=== PATIENT | male | born 1950 | race Caucasian/White ===

== ENCOUNTER 2023-08-17 07:15 | Outpatient (OUT) | payer MEDICARE, SELFPAY ==
[2023-08-17 09:13] LABS: Basophils Percent Auto 0.7 % (0.2-2.0); Eosinophils Absolute Auto 0.2 10^3/uL (0.0-0.7); Eosinophils Percent Auto 2.7 % (0.9-7.0); Hematocrit 47.4 % (42.0-54.0); Hemoglobin 15.6 g/dL (14.0-18.0); Immature Granulocytes Abs Auto 0.01 10^3/uL (0.00-0.03); Immature Granulocytes Pct Auto 0.2 % (0.0-0.5); Lymphocytes Absolute Auto 0.7 10^3/uL (1.2-3.8); Lymphocytes Percent Auto 13.2 % (20.5-60.0); Mean Corpuscular HGB Conc 32.9 g/dL (29.9-35.2); Mean Corpuscular Hemoglobin 29.7 pg (25.9-34.0); Mean Corpuscular Volume 90.1 fL (80.0-94.0); Mean Platelet Volume 9.5 fL (9.5-13.5); Monocytes Absolute Auto 0.6 10^3/uL (0.3-0.8); Monocytes Percent Auto 10.1 % (1.7-12.0); Neutrophils Percent Auto 73.1 % (43.0-75.0); Platelet Count 215 10^3/uL (150-450); Red Blood Count 5.26 10^6/uL (4.70-6.10); Red Cell Distribution Width 12.3 % (11.0-15.0); White Blood Count 5.5 10^3/uL (4.0-11.0)
[2023-08-17 10:41] LABS: Alanine Aminotransferase 33 U/L (16-63); Alkaline Phosphatase 94 U/L (46-116); Anion Gap 13.1; Aspartate Amino Transferase 21 U/L (15-37); BUN Creatinine Ratio 26.6; Bilirubin Total 0.9 mg/dL (0.2-1.0); Calcium 9.8 mg/dL (8.5-10.1); Carbon Dioxide 29.7 mmol/L (21.0-32.0); Chloride 104 mmol/L (98-107); Chol HDL Ratio 5.6; Cholesterol 280 mg/dL (<=200); Estimated GFR (African America >60 (>=60); Estimated GFR (Non-African Ame >60 (>=60); Free T3 3.01 pg/mL (2.18-3.98); Globulin 4.1 g/dL; Glucose 85 mg/dL (74-106); HDL Cholesterol 50 mg/dL (40-60); Potassium 3.8 mmol/L (3.5-5.1); Sodium 143 mmol/L (136-145); Thyroid Stimulating Hormone 3.286 uIU/mL (0.358-3.740); Total Protein 8.1 g/dL (6.4-8.2); Triglycerides 112 mg/dL (<=150); VLDL CHOLESTEROL 22.4 mg/dL
[2023-08-17 14:44] LABS: Estimated Average Glucose 100 mg/dL; Glycohemoglobin A1C 5.1 % (4.5-6.2)
[2023-08-18 10:08] LABS: Insulin 4.3 uIU/mL (2.6-24.9)
== END 2023-08-17 07:16 | disposition home or self-care (01) ==
PROVIDERS: PCP Nurse Practitioner Family; Visit Provider Nurse Practitioner Family
DX: N20.0 Calculus of kidney (principal); Z85.46 Personal history of malignant neoplasm of prostate; E78.5 Hyperlipidemia, unspecified; D64.9 Anemia, unspecified; Z79.899 Other long term (current) drug therapy; R73.09 Other abnormal glucose; R53.83 Other fatigue
CPT/HCPCS: 36415; 74018; 80053; 80061; 83036; 83525; 84153; 84436; 84443; 84481; 85025

== ENCOUNTER 2023-08-17 08:52 | Outpatient (OUT) | payer MEDICARE, SELFPAY ==
--- NOTE | 2023-08-17 09:10 | XR_ITS ---
[facility] [id number] Patient Name: EVELYN CHESTER MRN: [id number] date: 1950 Sex: M Assigned Patient Location: LAB Current Patient Location: LAB Accession/Order Number: [id number] Exam Date: 08/17/2023 09:15 Report Date: 08/17/2023 09:37 At the request of: ALINE DIAZ Procedure: XR abdomen 1V EXAM: XR abdomen 1V HISTORY: Kidney Stone N20.0 COMPARISON: 07/29/2022 TECHNIQUE: AP view of the abdomen. FINDINGS: Nonobstructive bowel gas pattern is noted. There are bilateral punctate renal calculi. The osseous structures are intact. XR/XR abdomen 1V IMPRESSION: Nonobstructive bowel gas pattern. Stable bilateral nephrolithiasis. Electronically authenticated by: ANAMIKA EWING Date: 08/17/2023 09:37
[2023-08-17 10:00] LABS: Prostate Specific Antigen Dx <0.13 ng/mL (<=4.00)
== END 2023-08-17 08:53 | disposition home or self-care (01) ==
LOC: LAB 08:54
PROVIDERS: PCP Nurse Practitioner Family; Visit Provider Urology
DX: Z85.46 Personal history of malignant neoplasm of prostate (principal); N20.0 Calculus of kidney
CPT/HCPCS: 36415; 74018; 84153

== ENCOUNTER 2024-06-10 05:56 | Emergency (ER) | payer MEDICARE, SELFPAY ==
[2024-06-10 06:02] VITALS: BP 163/94; PULSE 63; TEMP 36.5; O2SAT 99; BMI 25.8
--- OUTSIDE RECORDS SUMMARY | 2024-06-10 06:03 | XMS_ITS | CCD ---
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 Name Role Phone REGINO MARIE Unavailable Unavailable Tristin Penaloza Unavailable Unavailable MARIE, REGINO Cerrato Unavailable Unavailable MARIE, REGINO Cerrato Unavailable Unavailable MEGHAN, JULIAN Unavailable Unavailable MEGHAN, JULIAN Unavailable Unavailable MEGHAN, JULIAN Unavailable Unavailable CA BERG I Unavailable Unavailable MARLYS AGRAWAL Unavailable Unavailable MURIEL TEMPLETON Unavailable Unavailable OKSANA MENA Unavailable Unavailable PHYSICIAN, DEFAULT Unavailable Unavailable PHYSICIAN, DEFAULT Unavailable Unavailable MONIKA BOWMAN AM Unavailable Unavailable MONIKA BOWMAN AM Unavailable Unavailable MARIEREGINO BECKER Unavailable Unavailable MARIE, REGINO Unavailable Unavailable ENGELERPenny NICHOLAS Unavailable Unavailable ENGELERPenny NICHOLAS Unavailable Unavailable ENGELER G NICHOLAS Unavailable Unavailable ENGELER, G NICHOLAS Unavailable Unavailable REGINO MARIE Primary Care Physician [phone] EMILY, DR MIRELES Admitting Unavailable EMILY, DR MIRELES Attending Unavailable MARIE, DR REGINO Cerrato Primary Care Unavailable EMILY, DR MIRELES Consulting Unavailable EMILY, DR MIRELES Admitting Unavailable EMILY, DR MIRELES Attending Unavailable GIOVANNI, DR REGINO Cerrato Primary Care Unavailable MARIE, DR REGINO Cerrato Referring Unavailable EMILY, DR MIRELES Consulting Unavailable EMILY, DR MIRELES Admitting Unavailable EMILY, DR MIRELES Attending Unavailable MARIE, DR REGINO Cerrato Primary Care Unavailable EMILY, DR MIRELES Consulting Unavailable BREANN, DR LUCINA Miller Consulting Unavailable AGUBOSIMJOSE JUAN Consulting Unavailable VIJAY TARANGO Consulting Unavailable GIOVANNI, DR REGINO Cerrato Admitting Unavailable GIOVANNI, DR REGINO Cerraot Attending Unavailable MARIE, DR REGINO Cerrato Primary Care Unavailable MARIE, DR REGINO Cerrato Consulting Unavailable EMILY, DR MIRELES Admitting Unavailable EMILY, DR MIRELES Attending Unavailable GIOVANNI, DR REGINO Cerrato Primary Care Unavailable EMILY, DR MIRELES Consulting Unavailable ANITA, DR BILL San Consulting Unavailable TARI AGUIRRE Primary Care Physician [phone] Aline TENA Attending Unavailable Aline TENA Attending Unavailable Aline TENA Attending Unavailable Allergies Allergy Classification Reported Allergen(s) Allergy Type Date of Onset Reaction(s) Facility (1 source) No Known Medication Allergies; Translations: [No Known Medication Allergies] Propensity to adverse reactions to drug (disorder) [facility] Repository (2 sources) No Known Allergies; Translations: [No Known Allergies] Propensity to adverse reactions (disorder) 8 [facility] Repository Medications Current Medications Medication Drug Class(es) Dates Sig (Normalized) Sig (Original) aspirin 81 mg delayed release oral tablet (2 sources) Platelet Aggregation Inhibitor, Nonsteroidal Anti-inflammatory Drug Start: 08-07-2021 take 1 tablet by mouth once daily aspirin 81 mg Oral EC Tab 81 mg = 1 tab(s), Oral, Daily, Refills(s) 0 Start Date: 08/07/21 Status: Ordered rosuvastatin calcium 10 mg oral tablet (2 sources) HMG-CoA Reductase Inhibitor Start: 08-07-2021 take 1 tablet by mouth once daily rosuvastatin 10 mg Tab 10 mg = 1 tab(s), Oral, Daily, Refills(s) 0 Start Date: 08/07/21 Status: Ordered Problems Active Problems Problem Classification Problem Date Documented Date Episodic/Chronic Acute cerebrovascular disease (2 sources) Cerebrovascular accident 06-14-2019 Chronic Calculus of urinary tract (9 sources) Kidney stone; Translations: [Calculus of kidney] Onset: 07-31-2022 Episodic Cancer of prostate (4 sources) Malignant neoplasm of prostate; Translations: [MALIGNANT NEOPLASM OF PROSTATE] Onset: 07-29-2022 Chronic Cancer of prostate (6 sources) Personal history of malignant neoplasm of prostate; Translations: [History of malignant neoplasm of prostate] Onset: 04-07-2018 Episodic Cardiac dysrhythmias (4 sources) Palpitations; Translations: [PALPITATIONS] Onset: 04-07-2018 Episodic Developmental disorders (2 sources) 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 Disorders of lipid metabolism (4 sources) Hyperlipidemia; Translations: [Pure hypercholesterolemia, unspecified] Onset: 09-29-2021 06-14-2019 Chronic Essential hypertension (1 source) Essential (primary) hypertension; Translations: [ESSENTIAL (PRIMARY) HYPERTENSION] Onset: 04-07-2018 Chronic Genitourinary symptoms and ill-defined conditions (9 sources) Microscopic hematuria; Translations: [Asymptomatic microscopic hematuria] Onset: 09-29-2021 Episodic Hyperplasia of prostate (4 sources) Benign prostatic hypertrophy with outflow obstruction; Translations: [Benign prostatic hyperplasia with lower urinary tract symptoms] Onset: 08-24-2022 Chronic Osteoarthritis (2 sources) Osteoarthritis 06-14-2019 Chronic Other aftercare (1 source) 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; Translations: [USP (CURRENT) USE OF ASPIRIN] Onset: 04-07-2018 Episodic Other diseases of kidney and ureters (1 source) Urinary tract obstruction; Translations: [Other obstructive and reflux uropathy] Onset: 08-20-2023 Episodic Other male genital disorders (2 sources) Hemospermia 06-14-2019 Episodic Other male genital disorders (4 sources) Disorder of prostate, unspecified; Translations: [DISORDER OF PROSTATE UNSPECIFIED] Onset: 07-29-2022 Episodic Other nervous system disorders (1 source) Aphasia; Translations: [Aphasia] Onset: 12-15-2017 Chronic Other nutritional; endocrine; and metabolic disorders (2 sources) Body mass index 25-29 - overweight 08-15-2021 Episodic Residual codes; unclassified (2 sources) Obstructive sleep apnea syndrome 08-07-2021 Chronic Residual codes; unclassified (1 source) Sleep apnea, unspecified; Translations: [SLEEP APNEA UNSPECIFIED] Onset: 09-29-2021 Chronic Residual codes; unclassified (2 sources) H/O: anticoagulant therapy 06-16-2019 Episodic Transient cerebral ischemia (3 sources) Transient cerebral ischemic attack, unspecified; Translations: [Transient cerebral ischemia] Onset: 12-15-2017 08-07-2021 Chronic Unclassified (3 sources) Unknown / UNK(Unknown) Onset: 12-07-2017 Unclassified (2 sources) Asymptomatic microscopic hematuria 08-24-2022 Unclassified (2 sources) Patient encounter status 08-15-2021 Unclassified (1 source) CONTACT W/AND (SUSP) EXPOS COVID-19; Translations: [CONTACT W/AND (SUSP) EXPOS COVID-19] Onset: 09-23-2021 Past or Other Problems Problem Classification Problem Date Documented Da te Episodic/Chronic Other aftercare (1 source) assisted (current) use of anticoagulants; Translations: [USP CURRNT USE ANTICOAGULANTS] Onset: 09-29-2021 Episodic Other circulatory disease (2 sources) Personal history of transient ischemic attack (TIA), and cerebral infarction without residual deficits; Translations: [PRSNL HX OF TIA (TIA), AND CEREB INFRC W/O RESID DEFICITS] Onset: 04-07-2018 Episodic Results Test Name Value Interpretation Reference Range Facility RAD - MISCon 09-03-2023 RAD - MISC [id number] [facility] Ambulatory Visit Summaryon 0 08-23-2023 Ambulatory Visit Summary JULIO FREEMAN :1950 Visit Date:08/23/2023 Ambulatory Visit Instructions Your Diagnosis Kidney stone Asymptomatic microscopic hematuria BPH with urinary obstruction Personal history of prostate cancer Other obstructive and reflux uropathy Tests Performed Urnls Dip Stick Auto w/o Microscopy POC 37143 XR Abdomen 1 View -- Results Pending -- Please visit your patient portal for your results or contact your primary care physician. Your Care Team Attending Physician - Aline TENA MD Primary Care Physician - TARI AGUIRRE CNP This Is Your Medications List Contact prescribing physician if questions or concerns aspirin (aspirin 81 mg Oral EC Tab) rosuvastatin (rosuvastatin 10 mg Tab) Procedures Performed ESWL of kidney (09/25/2021), Implantation of radioactive seed into prostate (04/16/2016), History of external beam radiation therapy (03/01/2016), Cystoscopy and transurethral resection of bladder tumor (12/12/2015), Transrectal biopsy of prostate using ultrasound (US) guidance (12/10/2015), Colonoscopy (10/24/2009). Discharge Vitals Heart Rate (Peripheral) 72 Respiratory Rate 16 Blood Pressure 131/81 Height 167 cm Height 66 in Weight 78.4 kg Weight 172.48 lb BMI 28.11 What to do next Scheduled Follow-Up Appointments Wednesday 8:45 AM EST With: Aline TENA MD Where: [facility] Emergency Department Patient Educationon 08-23-19 Patient Education Nephrology Dietary Guidelines to Help Prevent Kidney Stones Kidney stones are deposits of minerals and salts that form inside your kidneys. Your risk of developing kidney stones may be greater depending on your diet, your lifestyle, the medicines you take, and whether you have certain medical conditions. Most people can lower their risks of developing kidney stones by following these dietary guidelines. Your dietitian may give you more specific instructions depending on your overall health and the type of kidney stones you tend to develop. What are tips for following this plan? Reading food labels ? Choose foods with no salt added or low-salt labels. Limit your salt (sodium) intake to less than 1,500 mg a day. ? Choose foods with calcium for each meal and snack. Try to eat about 300 mg of calcium at each meal. Foods that contain 200?500 mg of calcium a serving include: ? 8 oz (237 mL) of milk, yvrgaui-nxuyzwanqibw-qpnfm milk, and calcium-fortifiedfruit juice. Calcium-fortified means that calcium has been added to these drinks. ? 8 oz (237 mL) of kefir, yogurt, and soy yogurt. ? 4 oz (114 g) of tofu. ? 1 oz (28 g) of cheese. ? 1 cup (150 g) of dried figs. ? 1 cup (91 g) of cooked broccoli. ? One 3 oz (85 g) can of sardines or mackerel. Most people need 1,000?1,500 mg of calcium a day. Talk to your dietitian about how much calcium is recommended for you. Shopping ? Buy plenty of fresh fruits and vegetables. Most people do not need to avoid fruits and vegetables, even if these foods contain nutrients that may contribute to kidney stones. ? When shopping for convenience foods, choose: ? Whole pieces of fruit. ? Pre-made salads with dressing on the side. ? Low-fat fruit and yogurt smoothies. ? Avoid buying frozen meals or prepared deli foods. These can be high in sodium. ? Look for foods with live cultures, such as yogurt and kefir. ? Choose high-fiber grains, such as whole-wheat breads, oat bran, and wheat cereals. Cooking ? Do not add salt to food when cooking. Place a salt shaker on the table and allow each person to add their own salt to taste. ? Use vegetable protein, such as beans, textured vegetable protein (TVP), or tofu, instead of meat in pasta, casseroles, and soups. Meal planning ? Eat less salt, if told by your dietitian. To do this: ? Avoid eating processed or pre-made food. ? Avoid eating fast food. ? Eat less animal protein, including cheese, meat, poultry, or fish, if told by your dietitian. To do this: ? Limit the number of times you have meat, poultry, fish, or cheese each week. Eat a diet free of meat at least 2 days a week. ? Eat only one serving each day of meat, poultry, fish, or seafood. ? When you prepare animal proteins, cut pieces into small portion sizes. For most meat and fish, one serving is about the size of the palm of your hand. ? Eat at least five servings of fresh fruits and vegetables each day. To do this: ? Keep fruits and vegetables on hand for snacks. ? Eat one piece of fruit or a handful of berries with breakfast. ? Have a salad and fruit at lunch. ? Have two kinds of vegetables at dinner. ? You may be told to limit foods that are high in a substance called oxalate. These include: ? Spinach (cooked), rhubarb, beets, sweet potatoes, and [place] chard. ? Peanuts. ? Potato chips, italian fries, and baked potatoes with skin on. ? Nuts and nut products. ? Chocolate. ? If you regularly take a diuretic medicine, make sure to eat at least 1 or 2 servings of fruits or vegetables that are high in potassium each day. These include: ? Avocado. ? Banana. ? [place], prune, carrot, or tomato juice. ? Baked potato. ? Cabbage. ? Beans and split peas. Lifestyle ? Drink enough fluid to keep your urine pale yellow. This is the most important thing you can do. Spread your fluid intake throughout the day. ? If you drink alcohol: ? Limit how much you have to: ? 0?1 drink a day for women who are not . ? 0?2 drinks a day for men. ? Know how much alcohol is in your drink. In the [place] one drink equals one 12 oz bottle of beer (355 mL), one 5 oz glass of wine (148 mL), or one 1? oz glass of hard liquor (44 mL). ? Lose weight if told by your health care provider. Work with your dietitian to find an eating plan and weight loss strategies that work best for you. General information ? Talk to your health care provider and dietitian about taking daily supplements. Depending on your health and the cause of your kidney stones, you may be told: ? Do not take high-dose supplements of vitamin C (1,000 mg a day or more). ? To take a calcium supplement. ? To take a daily probiotic supplement. ? To take other supplements such as magnesium, fish oil, or vitamin B6. ? Take pnrt-vkr-iuteuup and prescription medicines only as told by your health care provider. These include supplements. What foods sh (more content not included)... Normal [facility] Urology Office/Clinic Noteon 08-23-2023 Urology Office/Clinic Note Chief Complaint personal hx of prostate cancer HPI Staff 72 yo male here for 1 yr f/u with PSA and KUB. Previous Dx: kidney stone, asymptomatic microscopic hematuria, BPH with obstruction, personal hx of prostate ca. S/p EBRT & Brachytherapy 2015. PSA 07/29/22 - <0.13 08/17/23 - <0.13 Metabolic workup done 08/31/22. Reviewed by SOHAIL, pt was informed of results over the phone 11/19/22, recommended to increase fluid intake to 2-3L per day. KUB done 08/17/23 at [facility]. Dysuria: no Incomplete bladder emptying: no Hematuria: no Frequency: no Urgency: no Nocturia: 0-1x Stream: no straining Leaking: no Post void dripping: no Wearing pads/ Depends: no Urge incontinence: no Stress incontinence: no Incontinence without Sensory Awareness: no Abdominal pain: no Flank pain: no Sexual complaints: no History of Present Illness Tests reviewed: reviewed UA, PSA, and KUB. I have reviewed the previous health record information and history for this patient from . I have reviewed and verified the staff HPI to be accurate for this encounter. There have been no associated fever, chills, flank pain, or blood in the urine. Denies any urinary infections since last encounter. Review of Systems PHQ Score Initial Depression Screen Score: 0 SCORE ROS - Provider Constitutional: denies weight loss, denies hot flashes. Eyes: denies eye problems. Gastrointestinal: denies nausea, denies vomiting. Cardiovascular: denies chest pain or angina. Integumentary: no dryness Musculoskeletal: denies musculoskeletal symptoms. ENMT: denies otolaryngeal symptoms. Respiratory: no shortness of breath. Heme/Lymph: denies easy bleeding tendency, denies easy bruising tendency. Psychiatric: no confusion, no anxiety. Genitourinary: See HPI. Physical Exam Vitals & Measurements HR: 72(Peripheral) RR: 16 BP: 131/81 HT: 66 in HT: 167 cm WT: 78.4 kg WT: 172.48 lb BMI: 28.11 General Appearance: alert, no distress, well nourished, well developed male. Assessment/Plan 1. Kidney stone (N20.0: Calculus of kidney) S/P left ESWL done 09/25/21. KUB 07/29/22 - bilateral punctate stones. No ureteral calcifications. Metabolic Workup 08/31/22 - 24hr Citric Acid 925 (320-1240), Total output volume 1875mL KUB 08/17/23 - bilateral punctate renal stones, stable, no ureteral calcifications noted. Metabolic workup done 08/31/22. Reviewed by SOHAIL, pt was informed of results over the phone 11/19/22, recommended to increase fluid intake to 2-3L per day. Discussed imaging results with pt, bilateral punctate stones, will continue to monitor. Advised pt that his bowel contents are blurring the image of his kidneys, may have a stone in the Lt kidney, hard to tell. Advised pt that he should do a bowel prep the day before he gets an KUB to ensure that we have a good view of the kidney's. Advised pt to take 4 Dulcolax tablets and 4 tablespoons of milk of magnesia to prep. Pt states that he can do this. Advised pt to drink more fluids to prevent stones, found fro previous metabolic workup. Follow up in 1 yr w/KUB and PSA. All questions/concerns were discussed. Pt to call the office if he encounters any issues prior. Pt acknowledges understanding. -Will order KUB to get done soon. Will call pt with results. -Increase water and fluid intake. 2. Asymptomatic microscopic hematuria (R31.21: Asymptomatic microscopic hematuria) Chronic. UA today shows small, previously trace-intact on 08/24/22. Negative hematuria w/up done 08/2020. 3. 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 Denies any urinary habit complaints. Nocturia 0-1x/night but not bothersome. Has no daytime urination complaints. 4. Personal history of prostate cancer (Z85.46: Personal history of malignant neoplasm of prostate) PSA: 06/14/20 - 0.13 07/23/21 - 0.10 04/26/22 - 0.13 07/29/22 - <0.13 08/17/22 - <0.13 S/P EBRT & Brachytherapy in 2016. Will continue to monitor PSA with level in 1 year. Discussed pt's last PSA level, functionally 0. Follow-up With When Contact Information Aline TENA MD, URL In 1 year [facility] [address], [place] [address]- Additional Instructions: w/PSA and KUB Patient Education Dietary Guidelines to Help Prevent Kidney Stones I, Anastasiia Reid , personally scribed for Dr. Tena on 08/23/2023 09:39:45. . Documentation recorded by the scribe, Anastasiia Reid, accurately reflects the services(s) I performed and decisions made by me. Problem List/Past Medical History Ongoing Asymptomatic microscopic hematuria BMI 25.0-25.9,adult BPH with urinary obstruction Expressive aphasia Hematospermia Hx of snf use of blood thinners Hyperlipidemia Kidney stone Microhematuria Nocturia KAYLENE (obstructive sleep apnea) Osteoarthritis (more content not included)... Normal [facility] Comment on above: Result Comment: Electronically Signed By : Aline TENA MD\.br\Date and Time Signed: 08/23/23 09:42 EST\.br\Electronically Co-Signed By: Anastasiia Reid\.br\Date and Time Co-Signed: 08/23/23 09:40 EST Lab Reportson 08-20-2023 Lab Reports [id number] Normal [facility] Lab Reportson 08-18-2023 Lab Reports [id number] Normal [facility] Lab Reports [id number] Normal [facility] Lab Reports [id number] Normal [facility] Lab Reports [id number]#1.00TIFF Normal [facility] RAD - MISCon 08-18-2023 RAD - MISC [id number] Normal [facility] - MIS [id number] Normal [facility] CITRATE URINE 24HRon 023 Citric Acid, U, 24hr 925 mg/24 hr Normal 320-1240 [facility] Comment on above: Result Comment: This test was developed and its performance characteristics determined by [facility]. It has not been cleared or approved by the Food and Drug Administration. Performed By: #### C ITRATU #### [facility] [address] [place] [address] Dr. Angelica Chauhan Citric Acid, Urine 552 mg/L Normal Undefined [facility] Comment on above: Performed By: #### CITRATU #### [facility] [address] [place] [address] Dr. Angelica Chauhan OXALATE 24HR URINEon 023 Oxalates, Urine 18 mg/L Normal Undefined [facility] Comment on above: Performed By: #### [id number] #### [facility] [address] [place] [address] Dr. Angelica Chauhan Oxalates, Urine 24hr 30 mg/24 hr Normal 7-44 [facility] Comment on above: Performed By: #### [id number] #### [facility] [address] [place] [address] Dr. Angelica Chauhan MAGNESIUM 24HR URINEon 09-01 Magnesium 24hr Urine 102.2 mg/24 hr Normal 12.0-293.0 [facility] Comment on above: Performed By: #### MAG24 #### [facility] [address] [place] [address] Dr. Angelica Chauhan Magnesium UR 6.1 mg/dL Normal Not Estab. [facility] Comment on above: Performed By: #### MAG24 #### [facility] [address] [place] [address] Dr. Angelica Chauhan PHOSPHORUS 24HR URINEon 08-04 Phosphorus, Urine 54.3 mg/dL Normal Not Estab. [facility] Comment on above: Performed By: #### CITRATU #### [facility] [address] [place] [address] Dr. Angelica Chauhan Phosphorus, Urine 24hr 910 mg/24 hr Normal 390-1425 [facility] Comment on above: Performed By: #### CITRATU #### [facility] [address] [place] [address] Dr. Angelica Chauhan PTH INTACTon 09-01-2022 PTH, Intact 40 pg/mL Normal 15-65 [facility] Comment on above: Performed By: #### PTHINT #### [facility] [address] [place] [address] Dr. Angelica Chauhan URIC ACID 24 HR URINEon 08-04 Uric Acid, Urine 46.6 mg/dL Normal Not Estab. [facility] Comment on above: Performed By: #### CITRATU #### [facility] [address] [place] [address] Dr. Angelica Chauhan Uric Acid, Urine 24hr 780.6 mg/24 hr Critically high 136.1-771. 1 [facility] Comment on above: Performed By: #### CITRATU #### [facility] [address] [place] [address] Dr. Angelica Chauhan BUNon 08-31-2022 Urea nitrogen [Mass/Vol] 15.0 mg/dL Normal 7.0-18.0 [facility] Comment on above: Performed By: #### CITRATU #### [facility] [address] [place] [address] Dr. Angelica Chauhan CALCIUMon 08-31-2022 Calcium [Mass/Vol] 9.2 mg/dL Normal 8.5-10.1 [facility] Comment on above: Performed By: #### CREA, CO2, CL, NA, UR IC, CA, K, BUN #### [facility] [address] [place] [address] Dr. Angelica Chauhan CALCIUM 24 HR URINEon 2022 CALC, 24 HR UR 214.4 mg/24 hr Normal 100.0-300. 0 [facility] Comment on above: Performed By: #### CITRATU #### [facility] [address] [place] [address] Dr. Angelica Chauhan UR CALCIUM 12.8 mg/dL Normal 5.1-21.0 [facility] Comment on above: Performed By: #### CITRATU #### [facility] [address] [place] [address] Dr. Angelica Chauhan CHLORIDEon 08-31-2022 Chloride [Moles/Vol] 104 mmol/L Normal 98-107 [facility] Comment on above: Performed By: #### CREA, CO2, CL, NA, UR IC, CA, K, BUN #### [facility] [address] [place] [address] Dr. Angelica Chauhan CO2on 08-31-2022 CO2 [Moles/Vol] 25.6 mmol/L Normal 21.0-32.0 [facility] Comment on above: Performed By: #### CREA, CO2, CL, NA, UR IC, CA, K, BUN #### [facility] [address] [place] [address] Dr. Angelica Chauhan CRELulu 24 HR URINEon CREA, 24 HR UR 1541.17 mg/24 hr Normal 1,000.00- 2 ,000.00 [facility] Comment on above: Performed By: #### CITRATU #### [facility] [address] [place] [address] Dr. Angelica Chauhan UR TOT VOL 1675 ml/24 HR Normal [facility] Comment on above: Performed By: #### CITRATU #### [facility] [address] [place] [address] Dr. Angelica Chauhan URINE CREAT 92.01 mg/dL Normal 20.00-300. 00 [facility] Comment on above: Performed By: #### CITRATU #### [facility] [address] [place] [address] Dr. Angelica Chauhan CREATININEon 08-31-2022 Creatinine [Mass/Vol] 0.73 mg/dL Normal 0.70-1.30 [facility] Comment on above: Performed By: #### CREA, CO2, CL, NA, UR IC, CA, K, BUN #### [facility] [address] [place] [address] Dr. Angelica Chauhan EGFR-AF KYRGYZ >60 Normal >=60 [facility] Comment on above: Performed By: #### CREA, CO2, CL, NA, UR IC, CA, K, BUN #### [facility] [address] [place] [address] Dr. Angelica Chauhan EGFR-NON AF KYRGYZ >60 Normal >=60 [facility] Comment on above: Performed By: #### CREA, CO2, CL, NA, UR IC, CA, K, BUN #### [facility] [address] [place] [address] Dr. Angelica Chauhan NAon 08-31-2022 Sodium [Moles/Vol] 140 mmol/L Normal 136-145 [facility] Comment on above: Performed By: #### CREA, CO2, CL, NA, UR IC, CA, K, BUN #### [facility] [address] [place] [address] Dr. Angelica Chauhan POTASSIUMon 08-31-2022 Potassium [Moles/Vol] 4.0 mmol/L Normal 3.5-5.1 [facility] Comment on above: Performed By: #### CITRATU #### [facility] [address] [place] [address] Dr. Angelica Chauhan SODIUM 24 HR URINEon 01-30-2 023 NA, 24 HR UR 171 mmol/24 hr Normal 40-220 [facility] Comment on above: Performed By: #### CITRATU #### [facility] [address] [place] [address] Dr. Angelica Chauhan Sodium (U) [Moles/Vol] 102 mmol/L Critically high 30-90 [facility] Comment on above: Performed By: #### CITRATU #### [facility] [address] [place] [address] Dr. Angelica Chauhan URIC ACID SERUMon 08-31-2022 Urate [Mass/Vol] 5.0 mg/dL Normal 3.5-7.2 [facility] Comment on above: Performed By: #### CITRATU #### [facility] [address] [place] [address] Dr. Angelica Chauhan CBC AUTO DIFFon 07-29-2022 BASO # 0.0 103/ul Normal 0.0-0.1 [facility] Comment on above: Performed By: #### CBC #### [facility] [address] [place] [address] Dr. Angelica Chauhan Basophils/100 WBC (Bld) 0.6 % Normal 0.2-2.0 [facility] Comment on above: Performed By: #### CBC #### [facility] [address] [place] [address] Dr. Angelica Chauhan EO # 0.2 103/ul Normal 0.0-0.7 [facility] Comment on above: Performed By: #### CBC #### [facility] [address] [place] [address] Dr. Angelica Chauhan Eosinophils/100 WBC (Bld) 3.5 % Normal 0.9-7.0 [facility] Comment on above: Performed By: #### CBC #### [facility] [address] [place] [address] Dr. Angelica Chauhan Erythrocyte distribution width (RBC) [Ratio] 12.3 % Normal 11.0-15.0 [facility] Comment on above: Performed By: #### CBC #### [facility] [address] [place] [address] Dr. Angelica Chauhan Hematocrit (Bld) [Volume fraction] 45.1 % Normal 42.0-54.0 [facility] Comment on above: Performed By: #### CBC #### [facility] [address] [place] [address] Dr. Angelica Chauhan Hemoglobin (Bld) [Mass/Vol] 15.2 g/dL Normal 14.0-18.0 [facility] Comment on above: Performed By: #### CBC #### [facility] [address] [place] [address] Dr. Angelica Chauhan IG # 0.02 10e3/ul Normal 0.00-0.03 [facility] Comment on above: Performed By: #### CBC #### [facility] [address] [place] [address] Dr. Angelica Chauhan IG % 0.3 % Normal 0.0-0.5 [facility] Comment on above: Performed By: #### CBC #### [facility] [address] [place] [address] Dr. Angelica Chauhan LYMPH # 0.9 103/ul Critically low 1.2-3.8 [facility] Comment on above: Performed By: #### CBC #### [facility] [address] [place] [address] Dr. Angelica Chauhan Lymphocytes/100 WBC (Bld) 14.3 % Critically low 20.5-60.0 [facility] Comment on above: Performed By: #### CBC #### [facility] [address] [place] [address] Dr. Angelica Chauhan MANUAL DIFF REQ NO Normal [facility] Comment on above: Performed By: #### CBC #### [facility] [address] [place] [address] Dr. Angelica Chauhan MCH (RBC) [Entitic mass] 29.9 pg Normal 25.9-34.0 [facility] Comment on above: Performed By: #### CBC #### [facility] [address] [place] [address] Dr. Angelica Chauhan MCHC (RBC) [Mass/Vol] 33.7 g/dL Normal 29.9-35.2 [facility] Comment on above: Performed By: #### CBC #### [facility] [address] [place] [address] Dr. Angelica Chauhan MCV (RBC) [Entitic vol] 88.8 fL Normal 80.0-94.0 [facility] Comment on above: Performed By: #### CBC #### [facility] [address] [address] [address] Angelica Chauhan MONO # 0.6 103/ul Normal 0.3-0.8 [facility] Comment on above: Performed By: #### CBC #### [facility] [address] [place] [address] Dr. Angelica Chauhan Monocytes/100 WBC (Bld) 9.7 % Normal 1.7-12.0 [facility] Comment on above: Performed By: #### CBC #### [facility] [address] [place] [address] Dr. Angelica Chauhan NEUT # 4.7 103/ul Normal 1.4-6.5 [facility] Comment on above: Performed By: #### CBC #### [facility] [address] [place] [address] Dr. Angelica Chauhan Neutrophils/100 WBC (Bld) 71.6 % Normal 43.0-75.0 [facility] Comment on above: Performed By: #### CBC #### [facility] [address] [place] [address] Dr. Angelica Chauhan Platelet mean volume (Bld) [Entitic vol] 9.4 fL Critically low 9.5-13.5 [facility] Comment on above: Performed By: #### CBC #### [facility] [address] [place] [address] Dr. Angelica Chauhan PLT 199 103/ul Normal 150-450 [facility] Comment on above: Performed By: #### CBC #### [facility] [address] [place] [address] Dr. Angelica Chauhan RBC 5.08 106/ul Normal 4.70-6.10 [facility] Comment on above: Performed By: #### CBC #### [facility] [address] [address] [address] Angelica Chauhan WBC 6.6 103/ul Normal 4.0-11.0 [facility] Comment on above: Performed By: #### CBC #### [facility] [address] [address] [address] Angelica Chauhan LIPID PROFILEon 07-29-2022 CHOL-HDL RATIO NORM SEE BELOW Normal [facility] Comment on above: Result Comment: 3.3 - 4.4 LOW RISK 4.4 - 7.1 AVERAGE RISK 7.1 - 11.0 MODERATE RISK >11.0 HIGH RISK Performed By: #### M AG24 #### [facility] [address] [place] [address] Dr. Angelica Chauhan Cholesterol [Mass/Vol] 192 mg/dL Normal <=200 [facility] Comment on above: Performed By: #### MAG24 #### [facility] [address] [place] [address] Dr. Angelica Chauhan Cholesterol in HDL [Mass/Vol] 45 mg/dL Normal 40-60 [facility] Comment on above: Performed By: #### MAG24 #### [facility] [address] [place] [address] Dr. Angelica Chauhan Cholesterol in LDL [Mass/Vol] 118.8 mg/dL Normal [facility] Comment on above: Performed By: #### MAG24 #### [facility] [address] [place] [address] Dr. Angelica Chauhan Cholesterol.tota l/Cholesterol in HDL [Mass ratio] 4.3 {ratio} Normal [facility] Comment on above: Performed By: #### MAG24 #### [facility] [address] [place] [address] Dr. Angelica Chauhan HDL NORMAL > or = 60 mg/dl - LO W CARDIOVASCULAR RISK <40 mg/dl - HIGH CARDIOVASCULAR RISK Normal [facility] Comment on above: Performed By: #### MAG24 #### [facility] [address] [place] [address] Dr. Angelica Chauhan LDL CALC NORMAL SEE BELOW Normal [facility] Comment on above: Result Comment: <100 mg/dl OPTIMAL 100 - 129 mg/dl NEAR OR ABOVE OPTIMAL 130 - 159 mg/dl BORDERLINE HIGH 160 - 189 mg/dl HIGH >190 mg/dl VERY HIGH Performed By: #### M AG24 #### [facility] [address] [place] [address] Dr. Angelica Chauhan Triglyceride [Mass/Vol] 141 mg/dL Normal <=150 [facility] Comment on above: Performed By: #### MAG24 #### [facility] [address] [place] [address] Dr. Angelica Chauhan VLDL CALC 28.2 mg/dL Normal [facility] Comment on above: Performed By: #### MAG24 #### [facility] [address] [place] [address] Dr. Angelica Chauhan PROF 14(COMP METB)on 022 Albumin [Mass/Vol] 3.8 g/dL Normal 3.4-5.0 [facility] Comment on above: Performed By: #### MAG24 #### [facility] [address] [place] [address] Dr. Angelica Chauhan Albumin/Globulin [Mass ratio] 1.0 {ratio} Normal [facility] Comment on above: Performed By: #### MAG24 #### [facility] [address] [place] [address] Dr. Angelica Chauhan ALP [Catalytic activity/Vol] 86 U/L Normal 46-116 [facility] Comment on above: Performed By: #### MAG24 #### [facility] [address] [place] [address] Dr. Angelica Chauhan ALT [Catalytic activity/Vol] 34 U/L Normal 16-63 [facility] Comment on above: Performed By: #### MAG24 #### [facility] [address] [place] [address] Dr. Angelica Chauhan Anion gap [Moles/Vol] 10.3 mmol/L Normal [facility] Comment on above: Performed By: #### MAG24 #### [facility] [address] [place] [address] Dr. Angelica Chauhan AST [Catalytic activity/Vol] 20 U/L Normal 15-37 [facility] Comment on above: Performed By: #### MAG24 #### [facility] [address] [place] [address] Dr. Angelica Chauhan Bilirubin [Mass/Vol] 0.7 mg/dL Normal 0.2-1.0 [facility] Comment on above: Performed By: #### MAG24 #### [facility] [address] [place] [address] Dr. Angelica Chauhan Calcium [Mass/Vol] 9.5 mg/dL Normal 8.5-10.1 [facility] Comment on above: Performed By: #### MAG24 #### [facility] [address] [place] [address] Dr. Angelica Chauhan Chloride [Moles/Vol] 103 mmol/L Normal 98-107 [facility] Comment on above: Performed By: #### MAG24 #### [facility] [address] [place] [address] Dr. Angelica Chauhan CO2 [Moles/Vol] 31.0 mmol/L Normal 21.0-32.0 [facility] Comment on above: Performed By: #### MAG24 #### [facility] [address] [place] [address] Dr. Angelica Chauhan Creatinine [Mass/Vol] 0.79 mg/dL Normal 0.70-1.30 [facility] Comment on above: Performed By: #### MAG24 #### [facility] [address] [place] [address] Dr. Angelica Chauhan EGFR-AF KYRGYZ >60 Normal >=60 [facility] Comment on above: Performed By: #### MAG24 #### [facility] [address] [place] [address] Dr. Angelica Chauhan EGFR-NON AF KYRGYZ >60 Normal >=60 [facility] Comment on above: Performed By: #### MAG24 #### [facility] [address] [place] [address] Dr. Angelica Chauhan Globulin (S) [Mass/Vol] 3.8 g/dL Normal [facility] Comment on above: Performed By: #### MAG24 #### [facility] [address] [address] [address] Angelica Chauhan Glucose [Mass/Vol] 96 mg/dL Normal 74-106 [facility] Comment on above: Performed By: #### MAG24 #### [facility] [address] [address] [address] Angelica Chauhan Potassium [Moles/Vol] 4.3 mmol/L Normal 3.5-5.1 [facility] Comment on above: Performed By: #### MAG24 #### [facility] [address] [address] [address] Angelica Chauhan Protein [Mass/Vol] 7.6 g/dL Normal 6.4-8.2 [facility] Comment on above: Performed By: #### MAG24 #### [facility] [address] [address] [address] Angelica Chauhan Sodium [Moles/Vol] 140 mmol/L Normal 136-145 [facility] Comment on above: Performed By: #### MAG24 #### [facility] [address] [address] [address] Angelica Chauhan Urea nitrogen [Mass/Vol] 19.0 mg/dL Critically high 7.0-18.0 [facility] Comment on above: Performed By: #### MAG24 #### [facility] [address] [address] [address] Angelica Chauhan Urea nitrogen/Creatin ine [Mass ratio] 24.1 mg/mg Normal [facility] Comment on above: Performed By: #### MAG24 #### [facility] [address] [address] [address] Angelica Chauhan XR KUB 1 VIEWon 07-29-2022 XR KUB 1 VIEW EXAMINATION: XR KUB 1 VIEW HISTORY: Kidney stone COMPARISON: 09/25/2021 FINDINGS: KIDNEY/URETER - RIGHT: Punctate nephrolithiasis KIDNEY/URETER - LEFT: Punctate nephrolithiasis PELVIS: No visible ureteral calcifications. Any visible calcifications favor phleboliths. BOWEL: No abnormal dilation or deviation. BONES: No acute abnormality. Anabel spondylosis. Mild to moderate hip osteoarthritis, left greater than right OTHER: Prostate seed implants. No abnormal gaseous collections. IMPRESSION: Bilateral nephrolithiasis Electronically authenticated by: BILL BOYER Date: 2022-07-29 16:59 Normal [facility] XR KUB 1 VIEWon 09-25-2021 XR KUB 1 VIEW EXAMINATION: XR KUB 1 VIEW HISTORY: Urolithiasis COMPARISON: XR KUB 08/22/2021 FINDINGS: KIDNEY/URETER - RIGHT: No visible renal or ureteral calcifications. KIDNEY/URETER - LEFT: 2 calcifications projecting over left kidney which are grossly stable, largest which previously measured at 7 mm. PELVIS: No visible ureteral stones. Prior radioactive seeding of the prostate. BOWEL: No abnormal dilation or deviation. BONES: No acute abnormality. OTHER: Negative. No abnormal gaseous collections. IMPRESSION: 1. Persistent, grossly stable left nephrolithiasis. Electronically authenticated by: LUCINA CRAIN Date: 2021-09-25 07:35 Normal [facility] 09-03 SARS-CoV-2 (COVID-19) RNA PAMELA+probe Ql (Unsp spec) Not detected Normal NOT DETECTED [facility] Comment on above: Result Comment: This test is not yet carlo roved or cleared by the [place] FDA. When there are no FDA-approved or cleared tests available, and other criteria are met, FDA can make tests available under an emergency access mechanism called an Emergency Use Authorization (EUA). The EUA for this test is supported by the [place] [employer] of Health and Human Service's (HHS's) declaration that circumstances exist to justify the emergency use of in vitro diagnostics for the detection and/or diagnosis of the virus that causes COVID-19. This EUA will remain in effect (meaning this test can be used) for the duration of the COVID-19 declaration justifying emergency of IVDs, unless it is terminated or revoked by FDA (after which the test may no longer be used). When diagnostic testing is negative, the possibility of a false negative should be considered in the context of a patient's recent exposures and the presence of clinical signs and symptoms consistent with SARS-CoV-2. Performed By: #### C ITRATU #### [facility] [address] [place] [address] Dr. Angelica Seaman 06-07-2018 CNOV Office Visit (RADTSA) JULIO FREEMAN ([id number]) 1950 MDate Time Provider Iwjmytyipa59/6/18 2:30 PM Penny BOSWELL During your visit today, we recorded the following information about you: Pulse Respiration Blood pressure Weight 73/minute 18/minute 127/84 75.9 kgG Nicholas Boswell MD 06/10/2018 9:22 AM SignedRadiation Oncology - Follow Up NotePATIENT NAME: Julio FreemanPATIENT : Prostate adenocarcinoma, clinical stage T Stage: T1c, initial PSA3.51, biopsy Meron score 3 + 4 = 7 (grade group 2)RADIATION SUMMARY:DATES OF TREATMENT: External beam: 02/10/2016 to 03/16/2016Brachytherapy implant: 04/16/2016AREA TREATED: PelvisDELIVERED DOSE: Area: Pelvis4,500cGy in 25 fractions,2 Ayala, IMRT/VMAT, 6MV TOTAL: 4,500cGyProstate brachytherapy, palladium-103, dose 100 Gy, 16 needles, 60 seeds, 94.98mCi activityINTERVAL HISTORY: The patient presents for routine follow-up. He states he isdoing well. He does have some persistent urinary complaints which are stableto improved.PSA HISTORY:PSA. (no units)Date Value03/31/2018 0.8504/ 0.6002/09/2016 0.9811/11/2015 1.57 06/03/17 0.45ALLERGIESNo Known Allergiesaspirin, enteric coated (ASPIRIN, ENTERIC COATED) 81 mg EC tablet Take 81 mg bymouth.rosuvastatin (CRESTOR) 20 mg tablet Take 20 mg by mouth.REVIEW OF SYSTEMS:D/N = 4/1Hematuria: noneDysuria: nIncontinence: noneUrgency: mildCatheter use: none- Total AUA Score: 5Bowel movement frequency: 1-2/dayBowel movement quality: normalBlood per rectum: nonePHYSICAL EXAM:BP 127/84 Pulse 73 Resp 18 Wt 75.9 kg (167 lb 6.4 oz) SpO2 98%KPS: 100General appearance: Alert and oriented. No acute distress.Abdomen: Normal abdominal exam, Abdomen soft, non-tender. No masses,organomegaly.Rectal exam defExtremities: No deformities, edema, skin discoloration, clubbing or cyanosis.Lymph Nodes: No cervical lymphadenopathy, No supraclavicular lymphadenopathy,No axillary lymphadenopathy. and No inguinal lymphadenopathy..Skin: Skin color, texture, turgor normal, no suspicious rashes or lesions.ASSESSMENT:Prostate adenocarcinoma, clinical stage T Stage: T1c, initial PSA3.51, biopsy Meron score 3 + 4 = 7 (grade group 2)Overall doing well. PSA with stable response. He has continued follow-upwith urology.PLAN: We will see him again in one year with a PSA level.Signed by: Penny Boswell, [facility]:Regino Marie MD[address] [place] [address]Kpalq: [phone]: [phone] Weyer, RN, RN 06/07/2018 2:50 PM Alisa Cannon RNReferring Provider: Penny BOSWELL [[id number]]Allergies As of Date: 06/07/2018(No Known Allergies)Date Reviewed: 06/08/2017Reviewed by: Ashlee Jennings - Fully AssessedReason for Visit: Prostate Cancer [590]Primary Visit Diagnosis:Prostate cancer (HCC) [C61]Prescriptions as of 06/07/2018 Sig: ASPIRIN 81 MG TABLET,DELAYED * Take 81 mg by mouth. ROSUVASTATIN 20 MG TABLET Take 20 mg by mouth.Problem List As Of Date 06/07/2018 Noted Resolved Prostate cancer (HCC) [C61] INVALID FOR*Visit Notes:>> RED Sandoval Rn Jun 07, 2018 2:19 PM Status: Alisa Cannon RNDisposition: Return in about 1 year (around 06/07/2019).Follow-up and Disposition History RecordedEncounter Number: [id number] Status:Closed by Penny BOSWELL MD on 06/10/18 Normal [facility] PROGRESSon 06-07-2018 Protein mass conc HNO ID: [id number]: Penny Robervice: (none)Author Type: PhysicianType: Progress NotesFiled: 06/10/2018 9:22 AMNote Text:Radiation Oncology - Follow Up NotePATIENT NAME: Julio Michelle : Prostate adenocarcinoma, clinical stage T Stage: T1c, initialPSA 3.51, biopsy Meron score 3 + 4 = 7 (grade group 2)RADIATION SUMMARY:DATES OF TREATMENT: External beam: 02/10/2016 to 03/16/2016Brachytherapy implant: 04/16/2016AREA TREATED: PelvisDELIVERED DOSE: Area: Pelvis4,500cGy in 25 fractions,2 Ayala, IMRT/VMAT, 6MV TOTAL: 4,500cGyProstate brachytherapy, palladium-103, dose 100 Gy, 16 needles, 60 seeds,94.98 mCi activityINTERVAL HISTORY: The patient presents for routine follow-up. He stateshe is doing well. He does have some persistent urinary complaints whichare stable to improved.PSA HISTORY:PSA. (no units)Date Value03/31/2018 0.8504/ 0.6002/09/2016 0.9811/11/2015 1.57 06/03/17 0.45ALLERGIESNo Known Allergiesaspirin, enteric coated (ASPIRIN, ENTERIC COATED) 81 mg EC tablet Take 81mg by mouth.rosuvastatin (CRESTOR) 20 mg tablet Take 20 mg by mouth.REVIEW OF SYSTEMS:D/N = 4/1Hematuria: noneDysuria: nIncontinence: noneUrgency: mildCatheter use: none- Total AUA Score: 5Bowel movement frequency: 1-2/dayBowel movement quality: normalBlood per rectum: nonePHYSICAL EXAM:BP 127/84 Pulse 73 Resp 18 Wt 75.9 kg (167 lb 6.4 oz) SpO2 98%KPS: 100General appearance: Alert and oriented. No acute distress.Abdomen: Normal abdominal exam, Abdomen soft, non-tender. No masses,organomegaly.Rectal exam defExtremities: No deformities, edema, skin discoloration, clubbing orcyanosis.Lymph Nodes: No cervical lymphadenopathy, No supraclavicularlymphadenopathy, No axillary lymphadenopathy. and No inguinallymphadenopathy..Skin: Skin color, texture, turgor normal, no suspicious rashes or lesions.ASSESSMENT:Prostate adenocarcinoma, clinical stage T Stage: T1c, initialPSA 3.51, biopsy [place] score 3 + 4 = 7 (grade group 2)Overall doing well. PSA with stable response. He has continuedfollow-up with urology.PLAN: We will see him again in one year with a PSA level.Signed by: Penny Boswell, [facility]:Regino Marie MD[address] [place] [address]Pqzhy: [phone]: [phone] Normal [facility] Cardiovascular Lab Reporton 04-08-2018 Cardiovascular Lab Report [facility] Patient Name: Julio Freeman MR #: [id number] Physician: Monika Bowman M.D.Department of Service Date: 04/07/2018Medicine Birthdate: 1950Division of Room #: CCCardiologyAdult CardiovascularTravis [id number] [place], [place] [address]Wccuj Fax Cardiovascular Laboratory ReportPROCEDURE PERFORMED: LINQ implant.INDICATION: TIA and subsequent palpitations.PROCEDURE IN DETAIL: The patient was consented prior to the procedure. Thepatient was given IV antibiotics upon being brought into the EP lab and puton continuous EKG, blood pressure, and oxygenation monitoring. The leftupper chest was prepped and prepped and draped in the usual sterilefashion. A 0.5% bupivacaine was used to locally anesthetize the left upperchest and the PinkUPtronic trocar was used to make an incision followed by theMedtronic applicator to fashion a pocket and the LINQ was implanted intothe pocket and the pocket was closed using 4-0 Biosyn suture. This wasfollowed by glue, sterile Steri-Strips, Telfa, and Tegaderm. The patienttolerated the procedure well.R-waves are 0.16 mV.Medtronic LINQ serial number [id number].CONCLUSION: Successful LINQ implant.Electronically Signed by:Monika Bowman M.D. 04/08/2018 03:51 P Monika Bowman M.D.Date Dict: 04/07/2018/03:11 P/Monika Bowman M.D.Date Trans: 04/08/2018 07:40 A/Kennedy_JN:[id number]: Regino Marie M.D. [address] [place] [id number] [facility] EVENT MONITORon 01-21-2018 EVENT MONITOR [address] [address] EVENT MONITORPATIENT NAME: JULIO FREEMAN : 1950MED REC NO: [id number] ROOM: 05ACCOUNT NO: [id number] ADMIT DATE: 12/15/2017PROVIDER: Jaylen Hilton TYPE: EVENT MONIORPART ONE OF THE EVENT RECORDERCOMMENTSThe patient appeared to remain in sinus rhythm throughout recording withsinus bradycardia and sinus tachycardia noted. Rare premature atrialcontractions with pairs were noted. Non-sustained PAT was noted with thelongest/fastest lasting 10 beats in duration and peaking at 175 beats perminute. Rare premature ventricular contractions were noted. Patientevents were noted.IMPRESSION1. Sinus rhythm with sinus bradycardia and sinus tachycardia.2. Rare premature atrial contractions with pairs.3. Non-sustained PAT.4. Rare premature ventricular contractions.SSue Ortiz M.D.PART TWO OF THE EVENT RECORDERCOMMENTSThe patient appeared to remain in sinus rhythm throughout recording withsinus bradycardia and sinus tachycardia noted. Rare premature atrialcontractions with pairs were noted. Non-sustained PAT was noted with thelongest lasting 10 beats in duration and the fastest peaking at 186 beatsper minute. Rare premature ventricular contractions with one couplet werenoted. One ventricular triplet noted. One 4 beat ventricular ectopic runnoted peaking at 129 beats per minute. Patient events were noted.IMPRESSION1. Sinus rhythm with sinus bradycardia and sinus tachycardia.2. Rare premature atrial contractions with pairs.3. Non-sustained PAT.4. Rare premature ventricular contractions with one couplet.5. One ventricular triplet.6. On 4 beat ventricular ectopic run.7. Arelis at Dr Stacy Stewart office was informed of abnormal results01/21/2018 at 12:25 pm.JAYLEN LAW: 01/21/2018 12:48:08 KIERAN/EMILIANOKIAlirio#: [id number] Doc#: UnknownCC: (Stacy Stewart Md) Normal [facility] Progress Noteon 12-29-2017 HIM IP Note OR Comptometrist Normal [facility] CTA HEAD W CONTRASTon 2017 CTA HEAD W CONTRAST ADDENDUM:3D reconstructed images were performed on a separate workstation and providedfor review.Electronically Signed by: OH MCDOWELL on WedDecember 23, 2017 7:42:45 AM EDTEXAMINATION:CTA OF THE NECK; CTA OF THE HEAD WITH CONTRAST 12/15/2017 6:26 pm:TECHNIQUE:CTA of the neck was performed with the administration of intravenouscontrast. Multiplanar reformatted images are provided for review. MIP imagesare provided for review. Stenosis of the internal carotid arteries measuredusing NASCET criteria. Dose modulation, iterative reconstruction, and/orweight based adjustment of the mA/kV was utilized to reduce the radiationdose to as low as reasonably achievable.; CTA of the head/brain was performedwith the administration of intravenous contrast. Multiplanar reformattedimages are provided for review. MIP images are provided for review. Dosemodulation, iterative reconstruction, and/or weight based adjustment of themA/kV was utilized to reduce the radiation dose to as low as reasonablyachievable.COMPARISON:N one.HISTORY:ORDERING SYSTEM PROVIDED HISTORY: TIA, aphasia x 5 minutes; ORDERING SYSTEMPROVIDED HISTORY: TIA from ammon, aphasia x 5 minutesFINDINGS:CTA NECK:AORTIC ARCH/ARCH VESSELS: There is a normal branch pattern of the aorticarch. No significant stenosis is seen of the innominate artery or subclavianarteries.CAROTID ARTERIES: The common carotid arteries are normal in appearancewithout evidence of a flow limiting stenosis. The internal carotid arteriesare normal in appearance without evidence of a flow limiting stenosis byNASCET criteria. No dissection or arterial injury is seen.VERTEBRAL ARTERIES: The vertebral arteries both arise from the subclavianarteries and are normal in caliber without evidence of flow limiting stenosisor dissection.SOFT TISSUES: The lung apices are clear. No cervical or superior mediastinallymphadenopathy. The visualized portion of the larynx and pharynx appearunremarkable. The parotid, submandibular and thyroid glands demonstrate noacute abnormality.BONES: There are advanced facet degenerative changes in the cervical spine.CTA HEAD:ANTERIOR CIRCULATION: The internal carotid arteries are normal in course andcaliber without focal stenosis. The anterior cerebral and middle cerebralarteries demonstrate no focal stenosis.POSTERIOR CIRCULATION: The posterior cerebral arteries demonstrate no focalstenosis. The vertebral and basilar arteries appear unremarkable.BRAIN: No mass effect or midline shift. No abnormal extra-axial fluidcollection. The ramon-white differentiation appears grossly maintained.IMPRESSION: Unremarkable CTA of the head and neck.Interpreted by:JEMMA Reynaigned by:Oh Mcdowell MD12/23/17Edited Result - FINAL Normal [facility] CTA NECK W CONTRASTon 2017 CTA NECK W CONTRAST ADDENDUM:3D reconstructed images were performed on a separate workstation and providedfor review.Electronically Signed by: OH MCDOWELL on WedDecember 23, 2017 7:42:48 AM EDTEXAMINATION:CTA OF THE NECK; CTA OF THE HEAD WITH CONTRAST 12/15/2017 6:26 pm:TECHNIQUE:CTA of the neck was performed with the administration of intravenouscontrast. Multiplanar reformatted images are provided for review. MIP imagesare provided for review. Stenosis of the internal carotid arteries measuredusing NASCET criteria. Dose modulation, iterative reconstruction, and/orweight based adjustment of the mA/kV was utilized to reduce the radiationdose to as low as reasonably achievable.; CTA of the head/brain was performedwith the administration of intravenous contrast. Multiplanar reformattedimages are provided for review. MIP images are provided for review. Dosemodulation, iterative reconstruction, and/or weight based adjustment of themA/kV was utilized to reduce the radiation dose to as low as reasonablyachievable.COMPARISON:N one.HISTORY:ORDERING SYSTEM PROVIDED HISTORY: TIA, aphasia x 5 minutes; ORDERING SYSTEMPROVIDED HISTORY: TIA from ammon, aphasia x 5 minutesFINDINGS:CTA NECK:AORTIC ARCH/ARCH VESSELS: There is a normal branch pattern of the aorticarch. No significant stenosis is seen of the innominate artery or subclavianarteries.CAROTID ARTERIES: The common carotid arteries are normal in appearancewithout evidence of a flow limiting stenosis. The internal carotid arteriesare normal in appearance without evidence of a flow limiting stenosis byNASCET criteria. No dissection or arterial injury is seen.VERTEBRAL ARTERIES: The vertebral arteries both arise from the subclavianarteries and are normal in caliber without evidence of flow limiting stenosisor dissection.SOFT TISSUES: The lung apices are clear. No cervical or superior mediastinallymphadenopathy. The visualized portion of the larynx and pharynx appearunremarkable. The parotid, submandibular and thyroid glands demonstrate noacute abnormality.BONES: There are advanced facet degenerative changes in the cervical spine.CTA HEAD:ANTERIOR CIRCULATION: The internal carotid arteries are normal in course andcaliber without focal stenosis. The anterior cerebral and middle cerebralarteries demonstrate no focal stenosis.POSTERIOR CIRCULATION: The posterior cerebral arteries demonstrate no focalstenosis. The vertebral and basilar arteries appear unremarkable.BRAIN: No mass effect or midline shift. No abnormal extra-axial fluidcollection. The ramon-white differentiation appears grossly maintained.IMPRESSION: Unremarkable CTA of the head and neck.Interpreted by:JEMMA Reynaigned by:Oh Mcdowell MD12/23/17Edited Result - FINAL Normal [facility] Coding Summaryon 12-20-2017 Coding Summary CODING DATE: 018 FINAL [facility] STATUS: Discharge/Transfer to Another Hospital PAYOR: Medicare APC DESCRIPTION 5522 Level 2 Imaging without Contrast 5025 Level 5 Type A ED Visits ADMIT DX: REASON FOR VISIT DX: R47.81 Slurred speech FINAL DX: PRINCIPAL: G45.9 Transient cerebral ischemic attack, unspecified SECONDARY: PYMT PROC APC STAT DESCRIPTION DOCTOR NAME DATE NOTE: The code number assigned matches the documented diagnosis and / or procedure in the patient's chart. However, the narrative phrase printed from the coding software may appear abbreviated, or result in slightly different terminology. Coded By: Parris Carson Date Saved: 12/20/2017 01:26 pm [facility] Coding Summary CODING DATE: 018 [facility] STATUS: Discharge/Transfer to Another Hospital PAYOR: Medicare APC DESCRIPTION 5522 Level 2 Imaging without Contrast ADMIT DX: REASON FOR VISIT DX: R47.81 Slurred speech FINAL DX: PRINCIPAL: G45.9 Transient cerebral ischemic attack, unspecified SECONDARY: PYMT PROC APC STAT DESCRIPTION DOCTOR NAME DATE NOTE: The code number assigned matches the documented diagnosis and / or procedure in the patient's chart. However, the narrative phrase printed from the coding software may appear abbreviated, or result in slightly different terminology. Coded By: Parris Carson Date Saved: 12/20/2017 01:26 pm [facility] B12/Folate Panelon 8 Cobalamins (Vitamin B12) 473 pg/mL Normal 232-1245 [facility] Comment on above: Performed By: #### BMPX, LIPR, CDP, GLYH GB, B12FOL ####[address] [place] [address] Folic Acid 18.1 ng/mL Normal >4.8 [facility] Comment on above: Result Comment: [address] [address] Performed By: #### B MPX, LIPR, CDP, GLYHGB, B12FOL ####[address] [address] Basic Metab w/rfx MGon 12-16 (cont.) Normal [facility] Comment on above: Result Comment: Average GFR for 60-69 ye ars old: 85 mL/min/1.73sq mChronic Kidney Disease: <60 mL/min/1.73sq mKidney failure: <15 mL/min/1.73sq meGFR calculated using average adult body mass. Additional eGFR calculator available at:[email or web address] [facility] [address] [place] [address] Performed By: #### B MPX, LIPR, CDP, GLYHGB, B12FOL ####[address] [address] Anion gap 10 mmol/L Normal 9-17 [facility] Comment on above: Performed By: #### BMPX, LIPR, CDP, GLYH GB, B12FOL ####[address] [address] Calcium 8.6 mg/dL Normal 8.6-10.4 [facility] Comment on above: Performed By: #### BMPX, LIPR, CDP, GLYH GB, B12FOL ####[address] [address] Chloride 107 mmol/L Normal 98-107 [facility] Comment on above: Performed By: #### BMPX, LIPR, CDP, GLYH GB, B12FOL ####[address] [address] CO2 23 mmol/L Normal 20-31 [facility] Comment on above: Performed By: #### BMPX, LIPR, CDP, GLYH GB, B12FOL ####[address] [address] Creatinine 0.69 mg/dL Low 0.70-1.20 [facility] Comment on above: Performed By: #### BMPX, LIPR, CDP, GLYH GB, B12FOL ####[address] [address] eGFR (non-black) mL/min/{1.73_m2} Normal >60 Me [facility] Comment on above: Performed By: #### BMPX, LIPR, CDP, GLYH GB, B12FOL ####[address] [address] Glucose mass conc 79 mg/dL Normal 70-99 [facility] Comment on above: Performed By: #### BMPX, LIPR, CDP, GLYH GB, B12FOL ####[address] [address] Potassium molar conc 4.0 mmol/L Normal 3.7-5.3 [facility] Comment on above: Performed By: #### BMPX, LIPR, CDP, GLYH GB, B12FOL ####[address] [address] Sodium 140 mmol/L Normal 135-144 [facility] Comment on above: Performed By: #### BMPX, LIPR, CDP, GLYH GB, B12FOL ####[address] [address] Urea nitrogen 13 mg/dL Normal 8-23 [facility] Comment on above: Performed By: #### BMPX, LIPR, CDP, GLYH GB, B12FOL ####[address] [address] BUN/CRE Ratio NOT REPORTED Normal 9-20 [facility] Comment on above: Performed By: #### BMPX, LIPR, CDP, GLYH GB, B12FOL ####[address] [address] Staging: NOT REPORTED Normal [facility] Comment on above: Performed By: #### BMPX, LIPR, CDP, GLYH GB, B12FOL ####[address] [address] CBC with Diffon 12-16-2017 Abs. Basophil 0.00 k/uL Normal 0.0-0.2 [facility] Comment on above: Performed By: #### BMPX, LIPR, CDP, GLYH GB, B12FOL ####[address] [address] Abs.Neutrophil (Seg) 3.87 k/uL Normal 1.8-7.7 [facility] Comment on above: Performed By: #### BMPX, LIPR, CDP, GLYH GB, B12FOL ####[address] [address] Basophils/100 WBC Auto (Bld) 0 % Normal 0-2 [facility] Comment on above: Performed By: #### BMPX, LIPR, CDP, GLYH GB, B12FOL ####[address] [address] Blood morphology Normal Normal [facility] Comment on above: Result Comment: [address] [address] Performed By: #### B MPX, LIPR, CDP, GLYHGB, B12FOL ####[address] [address] Eosinophils 0.10 10*3/uL Normal 0.0-0.4 [facility] Comment on above: Performed By: #### BMPX, LIPR, CDP, GLYH GB, B12FOL ####[address] [address] Eosinophils/100 leukocytes 2 % Normal 1-4 [facility] Comment on above: Performed By: #### BMPX, LIPR, CDP, GLYH GB, B12FOL ####[address] [address] Granulocytes/100 WBC (Bld) 0.00 k/uL Normal 0.00-0.30 [facility] Comment on above: Performed By: #### BMPX, LIPR, CDP, GLYH GB, B12FOL ####[address] [place] [address] Immature granulocytes #/vol (Bld) 0 % Normal 0 [facility] Comment on above: Performed By: #### BMPX, LIPR, CDP, GLYH GB, B12FOL ####[address] [address] Lymphocytes 0.59 10*3/uL Low 1.0-4.8 [facility] Comment on above: Performed By: #### BMPX, LIPR, CDP, GLYH GB, B12FOL ####[address] [address] Lymphocytes/100 leukocytes 12 % Low 24-44 [facility] Comment on above: Performed By: #### BMPX, LIPR, CDP, GLYH GB, B12FOL ####[address] [address] Monocytes 0.34 10*3/uL Normal 0.1-0.8 [facility] Comment on above: Performed By: #### BMPX, LIPR, CDP, GLYH GB, B12FOL ####[address] [address] Monocytes/100 leukocytes 7 % Normal 1-7 [facility] Comment on above: Performed By: #### BMPX, LIPR, CDP, GLYH GB, B12FOL ####[address] [address] Neutrophil (Seg) 79 % High 36-66 [facility] Comment on above: Performed By: #### BMPX, LIPR, CDP, GLYH GB, B12FOL ####[address] [address] Erythrocyte distribution width Auto Ratio (RBC) 12.3 % Normal 11.8-14.4 [facility] Comment on above: Performed By: #### BMPX, LIPR, CDP, GLYH GB, B12FOL ####[address] [address] Erythrocytes (RBC) 4.60 10*6/uL Normal 4.21-5.77 [facility] Comment on above: Performed By: #### BMPX, LIPR, CDP, GLYH GB, B12FOL ####[address] [address] Erythrocytes (RBC) 0.0 per 100 WBC Normal 0.0 [facility] Comment on above: Performed By: #### BMPX, LIPR, CDP, GLYH GB, B12FOL ####[address] [address] Hematocrit (HCT) 42.1 % Normal 40.7-50.3 [facility] Comment on above: Performed By: #### BMPX, LIPR, CDP, GLYH GB, B12FOL ####[address] [address] Hemoglobin mass conc (Bld) 14.1 g/dL Normal 13.0-17.0 [facility] Comment on above: Performed By: #### BMPX, LIPR, CDP, GLYH GB, B12FOL ####[address] [address] MCH 30.7 pg Normal 25.2-33.5 [facility] Comment on above: Performed By: #### BMPX, LIPR, CDP, GLYH GB, B12FOL ####[address] [address] MCHC mass conc (RBC) 33.5 g/dL Normal 28.4-34.8 [facility] Comment on above: Performed By: #### BMPX, LIPR, CDP, GLYH GB, B12FOL ####[address] [address] MCV 91.5 fL Normal 82.6-102.9 [facility] Comment on above: Performed By: #### BMPX, LIPR, CDP, GLYH GB, B12FOL ####[address] [address] Platelet mean volume (PMV) 10.0 fL Normal 8.1-13.5 [facility] Comment on above: Performed By: #### BMPX, LIPR, CDP, GLYH GB, B12FOL ####[address] [address] Platelets 173 10*3/uL Normal 138-453 [facility] Comment on above: Performed By: #### BMPX, LIPR, CDP, GLYH GB, B12FOL ####[address] [address] WBC (Leukocytes) 4.9 10*3/uL Normal 3.5-11.3 [facility] Comment on above: Performed By: #### BMPX, LIPR, CDP, GLYH GB, B12FOL ####[address] [address] Auto Diff Performed NOT REPORTED Normal [facility] Comment on above: Performed By: #### BMPX, LIPR, CDP, GLYH GB, B12FOL ####[address] [address] Erythrocyte morphology NOT REPORTED Normal [facility] Comment on above: Performed By: #### BMPX, LIPR, CDP, GLYH GB, B12FOL ####[address] [address] Platelets NOT REPORTED Normal [facility] Comment on above: Performed By: #### BMPX, LIPR, CDP, GLYH GB, B12FOL ####[address] [address] WBC Morphology NOT REPORTED Normal [facility] Comment on above: Performed By: #### BMPX, LIPR, CDP, GLYH GB, B12FOL ####[address] [address] Consulton 12-16-2017 HIM IP Note OR Comptometrist Normal [facility] Hemoglobin A1Con 12-16-2017 Glucose mass conc 97 mg/dL Normal [facility] Comment on above: Result Comment: The ADA and AACC recomme nd providing the estimated average glucose result to permit better patient understanding of their HBA1c result.[address] [address] Performed By: #### B MPX, LIPR, CDP, GLYHGB, B12FOL ####[address] [address] Hemoglobin A1c/Hemoglobin.t otal mass fraction (Bld) 5.0 % Normal 4.0-6.0 [facility] Comment on above: Performed By: #### BMPX, LIPR, CDP, GLYH GB, B12FOL ####[facility] [address] [place] [address] Lipid Profileon 12-16-2017 Cholesterol 203 mg/dL High <200 [facility] Comment on above: Result Comment: Cholesterol Guidelines: <200 Desirable 200-240 Borderline >240 Undesirable Performed By: #### B MPX, LIPR, CDP, GLYHGB, B12FOL ####[facility] [address] [place] [address] Cholesterol to HDL Ratio 5.3 {ratio} High <5 [facility] Comment on above: Performed By: #### BMPX, LIPR, CDP, GLYH GB, B12FOL ####[address] [address] HDL Cholesterol 38 mg/dL Low >40 [facility] Comment on above: Result Comment: HDL Guidelines: <40 Unde sirable 40-59 Borderline >59 Desirable Performed By: #### B MPX, LIPR, CDP, GLYHGB, B12FOL ####[facility] [address] [place] [address] LDL Cholesterol 144 mg/dL High 0-130 [facility] Comment on above: Result Comment: LDL Guidelines: <100 Grayson irable 100-129 Near to/above Desirable 130-159 Borderline >159 UndesirableDirect (measured) LDL and calculated LDL are not interchangeable tests. Performed By: #### B MPX, LIPR, CDP, GLYHGB, B12FOL ####[facility] [address] [place] [address] Triglyceride 104 mg/dL Normal <150 [facility] Comment on above: Result Comment: Triglyceride Guidelines: <150 Desirable 150-199 Borderline 200-499 High >499 Very high Based on AHA Guidelines for fasting triglyceride, May 2012.[address] [address] Performed By: #### B MPX, LIPR, CDP, GLYHGB, B12FOL ####[address] [address] Cholesterol in VLDL mass conc NOT REPORTED Normal 08-31 [facility] Comment on above: Performed By: #### BMPX, LIPR, CDP, GLYH GB, B12FOL ####[address] [address] MRI BRAIN WO CONTRASTon 05- MRI BRAIN WO CONTRAST EXAMINATION:MRI OF THE BRAIN WITHOUT CONTRAST 12/15/2017 11:31 pmTECHNIQUE:Multiplanar multisequence MRI of the brain was performed without theadministration of intravenous contrast.COMPARISON:None.HISTORY: ORDERING SYSTEM PROVIDED HISTORY: Limited stroke sequenceFINDINGS:INTRACRANIAL STRUCTURES/VENTRICLES: There is no acute infarct. No mass effector midline shift. No evidence of an acute intracranial hemorrhage. Theventricles and sulci are normal in size and configuration. Thesellar/suprasellar regions appear unremarkable. The normal signal voidswithin the major intracranial vessels appear maintained. Nonspecific cerebralwhite matter T2 FLAIR hyperintensities are present.ORBITS: The visualized portion of the orbits demonstrate no acute abnormality.SINUSES: The visualized paranasal sinuses and mastoid air cells are wellaerated.BONES/SOFT TISSUES: The bone marrow signal intensity appears normal. 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.Interpreted by:JEMMA Solisigned by:Naif Marin MD12/16/17 Recipients:Carmelo Ceballos MD - In Basket (authorizing provider)Final result Normal [facility] Plan of Careon 12-16-2017 HIM IP Note OR Comptometrist Normal [facility] Progress Noteon 12-16-2017 HIM IP Note OR Comptometrist Normal [facility] HIM IP Note OR Comptometrist Normal [facility] HIM IP Note OR Comptometrist Normal [facility] HIM IP Note OR Comptometrist Normal [facility] Troponinon 12-16-2017 Troponin I.cardiac mass conc Normal [facility] Comment on above: Result Comment: Reference Range: <0.03 W ithin reference range. 0.03-0.09 Possible myocardial damage.Repeat at appropriate intervals to rule out chronic elevation. >= 0.10 Indicative of myocardial damage.Patients with high levels of Biotin oral intake (i.e >5mg/day) may have falsely decreased Troponin T levels. Samples collected within 8 hours of biotin intake may require additional information for diagnosis.[address] [place] [address] Performed By: #### T ROPI ####[address] [place] [address] Troponin T.cardiac mass conc ug/L Normal <0.03 [facility] Comment on above: Result Comment: Troponin T results canno t be compared to Troponin-I results. Performed By: #### T ROPI ####[address] [place] [address] .Auto Diff 1on - Auto Baso % 0.5 % Normal 0.2-2.0 [facility] Comment on above: Performed By: #### [id number], [id number], [id number], [id number], [id number], [id number], [id number] ####[facility] (DEFAULT)[address] [place] [address] Auto [place] % 9 % Normal 1-12 [facility] Comment on above: Performed By: #### [id number], [id number], [id number], [id number], [id number], [id number], [id number] ####[facility] (DEFAULT)[address] [place] [address] Auto Neut % 74 % Normal 44-88 [facility] Comment on above: Performed By: #### [id number], [id number], [id number], [id number], 9548660, [id number], [id number] ####[facility] (DEFAULT)[address] [place] [address] Baso Abs# 0.0 x10 Normal 0.0-0.2 [facility] Comment on above: Performed By: #### [id number], [id number], [id number], 9738996, 4101403, [id number], [id number] ####[facility] (DEFAULT)[address] [place] [address] Eos Abs# 0.1 x10 Normal 0.0-0.4 [facility] Comment on above: Performed By: #### [id number], [id number], [id number], 2690888, 0405015, [id number], [id number] ####[facility] (DEFAULT)[address] [place], [place] [address] Eosinophils/100 leukocytes 2.1 % Normal 0.9-4.0 [facility] Comment on above: Performed By: #### [id number], [id number], [id number], 5383879, 7683819, [id number], [id number] ####[facility] (DEFAULT)[address] [place] [address] Lymphocytes 0.6 x10 Low 1.3-2.9 [facility] Comment on above: Performed By: #### [id number], [id number], 69389859, 9271225, 7085128, [id number], [id number] ####[facility] (DEFAULT)[address] [place] [address] Lymphocytes/100 leukocytes 14 % Normal 14-48 [facility] Comment on above: Performed By: #### [id number], [id number], 84918574, 7980129, 5179423, [id number], [id number] ####[facility] (DEFAULT)[address] [place] [address] [place] Abs# 0.4 x10 Normal 0.0-0.8 [facility] Comment on above: Performed By: #### [id number], [id number], [id number], 9478322, 6436012, [id number], [id number] ####[facility] (DEFAULT)[address] [place] [address] Neut Abs# 3.1 x10 Normal 1.5-9.2 [facility] Comment on above: Performed By: #### [id number], [id number], 41964452, 9131730, 5164332, [id number], [id number] ####[facility] (DEFAULT)[address] [place] [address] CBC w/ Auto Diffon 8 Erythrocyte distribution width Auto Ratio (RBC) 12.7 % Normal 11.5-15.0 [facility] Comment on above: Performed By: #### [id number], 8041027, 66918982, 9041887, 4043682, [id number], [id number] ####[facility] (DEFAULT)[address] [place] [address] Erythrocytes (RBC) 4.58 x10 Normal 3.70-5.30 [facility] Comment on above: Performed By: #### [id number], 8290293, 54332231, 5493178, 5534757, [id number], 2724358 ####[facility] (DEFAULT)[address] [place] [address] Hematocrit (HCT) 40.8 % Normal 34.8-51.9 [facility] Comment on above: Performed By: #### [id number], 7040881, 37885370, 1212882, 6752143, [id number], 9401570 ####[facility] (DEFAULT)[address] [place] [address] Hemoglobin mass conc (Bld) 14.4 g/dL Normal 11.8-17.7 [facility] Comment on above: Performed By: #### [id number], 6789798, 57711320, 0430903, 7462324, [id number], 1868201 ####[facility] (DEFAULT)[address] [place] [address] Man Diff? Auto Normal [facility] Comment on above: Performed By: #### [id number], 2706023, 73549422, 6757174, 2509711, 7434656216, 0967347 ####[facility] (DEFAULT)[address] [place] [address] MCH 31 pg Normal 24-34 [facility] Comment on above: Performed By: #### [id number], 2892417, 68247312, 1672848, 8617241, 3558981334, 5322240 ####[facility] (DEFAULT)[address] [place] [address] MCHC mass conc (RBC) 35 g/dL Normal 26-37 [facility] Comment on above: Performed By: #### [id number], 7492388, 84200503, 0566359, 3445635, 0701148369, 1350707 ####[facility] (DEFAULT)[address] [place] [address] MCV 89 fL Normal 81-100 [facility] Comment on above: Performed By: #### [id number], 2597803, 06072285, 0322406, 7621487, [id number], 7899572 ####[facility] (DEFAULT)[address] [place] [address] Platelet mean volume (PMV) 9.4 fL Normal 6.3-10.2 [facility] Comment on above: Performed By: #### [id number], 1285871, 04245502, 6421409, 9683822, 5074689535, 8834026 ####[facility] (DEFAULT)[address] [place] [address] Platelets 167 x10 Normal 138-427 [facility] Comment on above: Performed By: #### [id number], 6139455, 44497835, 2827810, 0772738, 0740426127, 4285792 ####[facility] (DEFAULT)[address] [place] [address] WBC (Leukocytes) 4.2 x10 Normal 3.5-10.5 [facility] Comment on above: Performed By: #### [id number], 6715226, 48899947, 4300269, 0293327, 9682221829, 4620769 ####[facility] (DEFAULT)[address] [place] [address] Standardon 12-15-2017 eGFR (non-black) mL/min/{1.73_m2} Invalid Interpretation Code [facility] Comment on above: Performed By: #### [id number], 6729714, 51196761, 0379979, 7182274, 2209708600, 8405373 ####[facility] (DEFAULT)[address] [place] [address] eGFR (non-black) mL/min/{1.73_m2} Invalid Interpretation Code [facility] Comment on above: Result Comment: Chronic Kidney disease c ould be indicated at eGFRs of less than 60 ml/min/1.73m2. Kidney Failure is indicated at less than 15 ml/min/1.73m2 Performed By: #### 1 [id number], 0421695, 18108938, 2378967, 4546518, 7608213499, 3039819 ####[facility] (DEFAULT)[address] [place] [address] Albumin 4.1 g/dL Normal 3.5-5.0 [facility] Comment on above: Performed By: #### [id number], 6447743, 29857716, 0141683, 6877530, 0149158655, 5673099 ####[facility] (DEFAULT)[address] [place] [address] Albumin/Globulin Ratio 1.4 {ratio} Normal 1.4-2.6 [facility] Comment on above: Performed By: #### [id number], 7342201, 97163733, 4860601, 2467558, 7603376984, 3787399 ####[facility] (DEFAULT)[address] [place] [address] Alk Phos 64 IU/L Normal 32-91 [facility] Comment on above: Performed By: #### [id number], 5315967, 93773357, 2598727, 3685989, 9218349559, 1189458 ####[facility] (DEFAULT)[address] [place] [address] ALT/SGPT 21.0 IU/L Normal 17.0-63.0 [facility] Comment on above: Performed By: #### [id number], 5940027, 99237052, 5396116, 0237565, 9219231771, 5495602 ####[facility] (DEFAULT)[address] [place] [address] Anion gap 11.0 mmol/L Normal 5.0-19.0 [facility] Comment on above: Performed By: #### [id number], 2526677, 87013167, 1030396, 5247753, 4483852369, 5928926 ####[facility] (DEFAULT)[address] [place] [address] AST/SGOT 21 IU/L Normal 15-41 [facility] Comment on above: Performed By: #### [id number], 5440781, 67930153, 9094407, 2004670, 3301717444, 2911131 ####[facility] (DEFAULT)[address] [place] [address] Bili Total 0.9 mg/dL Normal 0.3-1.2 [facility] Comment on above: Performed By: #### [id number], 0095885, 82550779, 8306409, 3839767, 0698939117, 4882583 ####[facility] (DEFAULT)[address] [place] [address] BUN/Creatinine Ratio 28.0 mg/mg High 4.6-16.2 [facility] Comment on above: Performed By: #### [id number], 4573554, 40069967, 9138698, 4006631, 9853794096, 9426845 ####[facility] (DEFAULT)[address] [place] [address] Calcium 9.0 mg/dL Normal 8.9-10.3 [facility] Comment on above: Performed By: #### [id number], 5815518, 62945644, 6374914, 1795452, 3278282841, 6987812 ####[facility] (DEFAULT)[address] [place] [address] Chloride 105 mmol/L Normal 101-111 [facility] Comment on above: Performed By: #### [id number], 4823575, 33542645, 9570560, 2127566, 9562051751, 2328940 ####[facility] (DEFAULT)[address] [place] [address] CO2 24 mmol/L Normal 21-32 [facility] Comment on above: Performed By: #### [id number], 2967805, 54082392, 6493095, 6470956, 1764580678, 2833877 ####[facility] (DEFAULT)[address] [place] [address] Creatinine 0.61 mg/dL Low 0.90-1.30 [facility] Comment on above: Performed By: #### [id number], 9693189, 67419071, 1822927, 4448075, 2791815154, 5755758 ####[facility] (DEFAULT)[address] [place] [address] Globulin 2.9 g/dL Normal 1.5-4.3 [facility] Comment on above: Performed By: #### [id number], 3913562, 43501203, 6369620, 1699184, 4350738785, 5691753 ####[facility] (DEFAULT)[address] [place] [address] Glucose mass conc 97.0 mg/dL Normal 74.0-118.0 [facility] Comment on above: Performed By: #### [id number], 5640233, 72387431, 0041331, 3787959, 4964992988, 6110099 ####[facility] (DEFAULT)[address] [place] [address] Osmolality 273 mOsm/L Invalid Interpretation Code [facility] Comment on above: Performed By: #### [id number], 1436824, 05329064, 9129847, 8092470, 7188427085, 6191825 ####[facility] (DEFAULT)[address] [place] [address] Potassium molar conc 3.5 mmol/L Low 3.6-5.1 [facility] Comment on above: Performed By: #### [id number], 2091038, 66142038, 8828758, 7205465, 6379079610, 7803364 ####[facility] (DEFAULT)[address] [place] [address] Protein 7.0 g/dL Normal 6.5-8.1 [facility] Comment on above: Performed By: #### [id number], 8189881, 04852419, 5034088, 8999950, 3373001623, 6433930 ####[facility] (DEFAULT)[address] [place] [address]51 Sodium 136.0 mmol/L Normal 136.0-144. 0 [facility] Comment on above: Performed By: #### [id number], 7163740, 64057937, 7611782, 0604579, 2455060022, 6650556 ####[facility] (DEFAULT)[address] [place] [address] Urea nitrogen 17 mg/dL Normal 8- [facility] Comment on above: Performed By: #### [id number], 6535697, 35353327, 1418460, 2542525, 2524224375, 1755376 ####[facility] (DEFAULT)[address] [place] [address] CT Head or Brain w/o Contras ton 12-15-2017 CT Head or Brain w/o Contrast CT HEAD WITHOUT CONTRASTCLINICAL DATA: Difficulty speaking today, history of prostate carcinoma.Dose reduction technique was utilized for this study.CT head study was performed without the use of intravenous contrast. CSFspaces are grossly unremarkable in appearance. There is no evidence of masseffect or midline shift. No acute intracranial hemorrhage is identified. Noevidence of focal mass lesion is seen. Areas of mild decreased attenuationare noted in the white matter compatible with chronic ischemic changes.Calvarium is intact. Mild carotid artery calcifications are notedbilaterally. Visualized mastoid air cells appear grossly unremarkable as dothe intraorbital regions. There is mild mucosal thickening in the visualizedleft maxillary sinus.IMPRESSION: CT HEAD STUDY FAILS TO DEMONSTRATE EVIDENCE OF ACUTE BLEED ORFOCAL MASS.Narinder Burton MDJOB #: [id number]: 12/15/2017T: 12/15/2017 Final Dictated by: Narinder Burton MD SDictated DT/TM: 12/15/17 2:14Signed (Electronic Signature): Narinder Burton MD 12/15/17 2:52 pmTechnologist: LASHAE VARELA Normal [facility] Consulton 12-15-2017 HIM IP Note OR Comptometrist Normal [facility] ED Clinical Summaryon 2017 ED Clinical Summary [facility] - Emergency [address] [place] [address] ed Clinical SummaryPERSON INFORMATIONName: JULIO FREEMAN Lulu Age: 67 Years Sex: MALEDOB: [birth year] MRN: Acct#:Visit Reason: General medical; SLURRED SPEECH Arrival: 12/15/17 13:06:00 Discharge: 12/15/17 15:42:00LOS: 000 02:36 Check In: 12/15/17 13:06:00 Checkout:12/15/17 15:42:00Address:[address] [facility] [address]OOC: JORGE MARIE INFORMATIONProvider Role Assigned UnassignedSven Douglas ED Provider 12/15/17 13:09:00Sejal Mills RN ED Nurse 12/15/17 13:21:19VITALS INFORMATIONVital Sign Triage LatestTemperature TympanicTemperature Temporal ArteryPulse Rate 68 bpm 65 bpmO2 Sat 99 % 99 %Respiratory Rate 18 br/min 18 br/minBlood Pressure 183 mmHg/104 mmHg 183 mmHg/104 mmHgMEDICAL INFORMATIONMedications Given:Allergy Information:No Known Medication AllergiesPHYSICIAN DOCUMENTATIONPatient: JULIO FREEMAN : 67 years Sex: MALE : [birth year]Associated Diagnoses: TIA (transient ischemic attack)Author: Sven Douglas RBasic InformationTime seen: Date & time 12/15/17 13:26:00.History source: Patient, significant other.Arrival mode: Private vehicle.History limitation: None.Additional information: Chief Complaint from Nursing Triage Note : Chief Mntnjdovf90/16/18 13:10 EDT Chief Complaint Pt and say pt's speech was slurred about 30 minutes ago. Appears to be resolved at this time. .History of Present IllnessPatient arrived with his via car. According to the patient and the about 45 minutes prior to arrival around 12:30 this afternoon the patient was noted by with the patient's words were garbled and not making sense. According to the the patient the symptoms lasted for approximately 5 minutes. The patient denied any other motor or sensory changes.. The patient denied any vision changes, denied any changes in swallowing. The patient denies any alleviating measures. The patient denies any chest pain, shortness of breath. The patient does admit to taking [address] his way to the emergency room.Review of SystemsConstitutional symptoms: No fever, no chills.Skin symptoms: No rash,ENMT symptoms: No ear pain,Respiratory symptoms: No shortness of breath, no cough.Cardiovascular symptoms: No chest pain,Gastrointestinal symptoms: No abdominal pain, no nausea, no vomiting.Genitourinary symptoms: No dysuria,Neurologic symptoms: Patient admitted to a brief period of garbled speech, no headache, no dizziness, no altered level of consciousness.Psychiatric symptoms: No anxiety, no depression.Hematologic/Lymphatic symptoms: Bleeding tendency negative,Health StatusAllergies:Allergic Reactions (Selected)No Known Medication Allergies.Past Medical/ Family/ Social HistoryMedical history:No active or resolved past medical history items have been selected or recorded..Surgical history:No active procedure history items have been selected or recorded..Family history:No family history items have been selected or recorded..Social history:Social & Psychosocial HabitsNo Data Available.Problem list:Active Problems (1)Prostate cancer.Physical Examination Vital SignsVital Signs12/15/17 13:10 EDT Temperature Oral 36.6 DegC Peripheral Pulse Rate 68 bpm Respiratory Rate 18 br/min Systolic Blood Pressure 183 mmHg HI Diastolic Blood Pressure 104 mmHg HI SpO2 99 % Oxygen Therapy Room air.Njwnhspszhen02/16/18 13:21 EDT Weight Dosing 72.570 kg12/15/17 13:21 EDT Height/Length Dosing 167.640 cm12/15/17 13:10 EDT Height/Length Estimated 167.640 cm Weight Estimated 72.570 kg.General: Alert, no acute distress.Skin: Warm, dry, pink.Head: Normocephalic, atraumatic.Neck: Supple, no JVD, no carotid bruit.Eye: Pupils are equal, round and reactive to light, normal conjunctiva.Ears, nose, mouth and throat: Tympanic membranes clear, oral mucosa moist, no pharyngeal erythema or exudate.Cardiovascular: Regular rate and rhythm, No murmur, Normal peripheral perfusion.Respiratory: Lungs are clear to auscultation, respirations are non-labored, breath sounds are equal.Musculoskeletal: Normal ROM, normal strength, no tenderness, no swelling.Neurological: No focal neurological deficit observed, normal coordination observed, normal and symmetrical reflexes, Level of consciousness: Appropriate for age, Cognitive function: Oriented x 4, Cranial nerves II - XII: Intact, Motor strength: Equal bilaterally, Sensory: Normal, Speech: Normal, Gait: Normal.Lymphatics: No lymphadenopathy.Psychiatric: Cooperative, appropriate mood & affect.Medical Decision MakingDifferential Diagnosis: Non-hemorrhagic cerebral vascular accident, hemorrhagic cerebral vascular accident, transient ischemic attack, Seth's Palsy, migraine headache.Orders Launch OrdersLaboratory:PTT (Order): Blood, Stat collect, 12/15/17 13:28 EDT, Lab CollectPT/INR (Order): Blood, Stat collect, 12/15/17 13:28 EDT, Lab CollectTroponin I (Order): Blood, Stat collect, 12/15/17 13:28 EDT, Lab CollectCMP Standard (Order): Blood, Stat collect, 12/15/17 13:27 EDT, Lab CollectCBC w/ Auto Diff (Order): Blood, Stat collect, 12/15/17 13:27 EDT, Lab CollectPatient Care:Saline Lock Insert (Order): 12/15/17 13:27 EDTRadiology:CT Head or Brain w/o Contrast (Order): 12/15/17 13:27 EDT Stat, garbled speech, Allow Modification Per Radiologist, Transport Mode: Wheelchair.Reexamination/ ReevaluationOn arrival an IV scale was performed based on the patient's history of garbled speech 45 minutes prior to arrival. NIH score was 0. There was no evidence of garbled speech. Neurologically the patient was intact without any focal deficits. Exam was otherwise unremarkable. The patient stated that he had taken 2 adult aspirins prior to arrival. CT of the head noncontrast was ordered.CT of the head showed no evidence of acute findings. Labs were performed and unremarkable. Troponin was negative. EKG showed a normal sinus rhythm without ectopy, without axis deviation. I did speak with Dr. Berg from the neuro interventional services at [facility] he was made aware of the patient's diagnostic results, as well as NIH score. He suggested that the patient should go through the emergency room at [facility] for further evaluation. I did inform the patient regarding our desired to have further diagnostic testing. The patient voiced understanding. The patient was insistent on driving. He did sign a request for refusal of transport. I did speak with Dr. Duque in the emergency room at [facility] and she accepted the patient.Impression and PlanDiagnosisTIA (transient ischemic attack) ([id number] G45.9, Discharge, Medical)PlanCondition: Improved.Disposition: Transfer to other location: Time: 12/15/17 15:22:00, time deemed necessary for transfer: 1400, Facility name: [facility] , Accepted by: Neto .DISCHARGE INFORMATION:Discharge Disposition: [facility]PATIENT EDUCATION INFORMATIONInstructions:Follow-Up :DIAGNOSIS:TIA (transient ischemic attack)Patient Understands: Yes - Patient/family/caregiver verbalizes understanding of instructions givenComment: [facility] ED Noteon 12-15-2017 HIM IP Note OR Comptometrist [facility] HIM IP Note OR Comptometrist [facility] HIM IP Note OR Comptometrist [facility] HIM IP Note OR Comptometrist [facility] HIM IP Note OR Comptometrist [facility] HIM IP Note OR Comptometrist [facility] HIM IP Note OR Comptometrist [facility] ED Note - Physicianon 2017 ED Note - Physician Patient: JULIO FREEMAN : 67 years Sex: MALE : [birth year]Associated Diagnoses: TIA (transient ischemic attack)Author: Sven Douglas InformationTime seen: Date & time 12/15/17 13:26:00.History source: Patient, significant other.Arrival mode: Private vehicle.History limitation: None.Additional information: Chief Complaint from Nursing Triage Note : Chief Lwrpntboc41/16/18 13:10 EDT Chief Complaint Pt and say pt's speech was slurred about 30 minutes ago. Appears to be resolved at this time. .History of Present IllnessPatient arrived with his via car. According to the patient and the about 45 minutes prior to arrival around 12:30 this afternoon the patient was noted by with the patient's words were garbled and not making sense. According to the the patient the symptoms lasted for approximately 5 minutes. The patient denied any other motor or sensory changes.. The patient denied any vision changes, denied any changes in swallowing. The patient denies any alleviating measures. The patient denies any chest pain, shortness of breath. The patient does admit to taking [address] on his way to the emergency room.Review of SystemsConstitutional symptoms: No fever, no chills.Skin symptoms: No rash,ENMT symptoms: No ear pain,Respiratory symptoms: No shortness of breath, no cough.Cardiovascular symptoms: No chest pain,Gastrointestinal symptoms: No abdominal pain, no nausea, no vomiting.Genitourinary symptoms: No dysuria,Neurologic symptoms: Patient admitted to a brief period of garbled speech, no headache, no dizziness, no altered level of consciousness.Psychiatric symptoms: No anxiety, no depression.Hematologic/Lymphatic symptoms: Bleeding tendency negative,Health StatusAllergies:Allergic Reactions (Selected)No Known Medication Allergies.Past Medical/ Family/ Social HistoryMedical history:No active or resolved past medical history items have been selected or recorded..Surgical history:No active procedure history items have been selected or recorded..Family history:No family history items have been selected or recorded..Social history:Social & Psychosocial HabitsNo Data Available.Problem list:Active Problems (1)Prostate cancer.Physical Examination Vital SignsVital Signs12/15/17 13:10 EDT Temperature Oral 36.6 DegC Peripheral Pulse Rate 68 bpm Respiratory Rate 18 br/min Systolic Blood Pressure 183 mmHg HI Diastolic Blood Pressure 104 mmHg HI SpO2 99 % Oxygen Therapy Room air.Qkksmdyxxtbf13/16/18 13:21 EDT Weight Dosing 72.570 kg12/15/17 13:21 EDT Height/Length Dosing 167.640 cm12/15/17 13:10 EDT Height/Length Estimated 167.640 cm Weight Estimated 72.570 kg.General: Alert, no acute distress.Skin: Warm, dry, pink.Head: Normocephalic, atraumatic.Neck: Supple, no JVD, no carotid bruit.Eye: Pupils are equal, round and reactive to light, normal conjunctiva.Ears, nose, mouth and throat: Tympanic membranes clear, oral mucosa moist, no pharyngeal erythema or exudate.Cardiovascular: Regular rate and rhythm, No murmur, Normal peripheral perfusion.Respiratory: Lungs are clear to auscultation, respirations are non-labored, breath sounds are equal.Musculoskeletal: Normal ROM, normal strength, no tenderness, no swelling.Neurological: No focal neurological deficit observed, normal coordination observed, normal and symmetrical reflexes, Level of consciousness: Appropriate for age, Cognitive function: Oriented x 4, Cranial nerves II - XII: Intact, Motor strength: Equal bilaterally, Sensory: Normal, Speech: Normal, Gait: Normal.Lymphatics: No lymphadenopathy.Psychiatric: Cooperative, appropriate mood & affect.Medical Decision MakingDifferential Diagnosis: Non-hemorrhagic cerebral vascular accident, hemorrhagic cerebral vascular accident, transient ischemic attack, Seth's Palsy, migraine headache.Orders Launch OrdersLaboratory:PTT (Order): Blood, Stat collect, 12/15/17 13:28 EDT, Lab CollectPT/INR (Order): Blood, Stat collect, 12/15/17 13:28 EDT, Lab CollectTroponin I (Order): Blood, Stat collect, 12/15/17 13:28 EDT, Lab CollectCMP Standard (Order): Blood, Stat collect, 12/15/17 13:27 EDT, Lab CollectCBC w/ Auto Diff (Order): Blood, Stat collect, 12/15/17 13:27 EDT, Lab CollectPatient Care:Saline Lock Insert (Order): 12/15/17 13:27 EDTRadiology:CT Head or Brain w/o Contrast (Order): 12/15/17 13:27 EDT Stat, garbled speech, Allow Modification Per Radiologist, Transport Mode: Wheelchair.Reexamination/ ReevaluationOn arrival an IV scale was performed based on the patient's history of garbled speech 45 minutes prior to arrival. NIH score was 0. There was no evidence of garbled speech. Neurologically the patient was intact without any focal deficits. Exam was otherwise unremarkable. The patient stated that he had taken 2 adult aspirins prior to arrival. CT of the head noncontrast was ordered.CT of the head showed no evidence of acute findings. Labs were performed and unremarkable. Troponin was negative. EKG showed a normal sinus rhythm without ectopy, without axis deviation. I did speak with Dr. Berg from the neuro interventional services at [facility] he was made aware of the patient's diagnostic results, as well as NIH score. He suggested that the patient should go through the emergency room at [facility] for further evaluation. I did inform the patient regarding our desired to have further diagnostic testing. The patient voiced understanding. The patient was insistent on driving. He did sign a request for refusal of transport. I did speak with Dr. Duque in the emergency room at [facility] and she accepted the patient.Impression and PlanDiagnosisTIA (transient ischemic attack) ([id number] G45.9, Discharge, Medical)PlanCondition: Improved.Disposition: Transfer to other location: Time: 12/15/17 15:22:00, time deemed necessary for transfer: 1400, Facility name[facility] , Accepted by: Neto .[Electronically Signed on: 12/15/2017 16:18 EDT] Sven Douglas MD[Verified on: 12/15/2017 16:18 EDT] Sven Douglas MD [facility] ED Patient Education Noteon 12-15-2017 ED Patient Education Note Education Materials [facility] ED Patient Summaryon 018 ED Patient Summary [facility] - [facility] [address] [place] [id number] pATIENT DISCHARGE INSTRUCTIONSPatient InformationName: JULIO FREEMAN Lulu Age: 67 YearsDate of : [birth year]MRN: [id number] For Visit: General medical; SLURRED SPEECHArrival Time: 12/15/17 13:06:00Phone: [facility] Care Physician: Yenifer MARIE Physician: Sven Douglas RComment:Visit Diagnosis:Diagnoses This Visit General medical ([id number]) TIA (transient ischemic attack) (G45.9)If you received any narcotics, sedation, or any other medication that causes drowsiness for the next 24 hours, unless otherwise directed:? Do not drive a car.? Do not operate machinery such as power tools, lawn mowers, drills, sewing machines, or stoves? Avoid alcoholic beverages and drugs for allergies, nerves, or sleep? Do not make important personal or business decisions or sign any legal documentsMedication Information:The exam and treatment you received today in the [facility] Emergency Department were for an urgent problem and are not intended as complete care. It is important for you to follow up with a doctor, nurse practitioner, or physician?s senior agricultural assistant for ongoing care. If your symptoms become worse or you do not improve as expected and you are unable to reach your usual health care provider, you should return to the Emergency Department, we are available 24 hours a day.For those patients who have received Radiology results, the interpretation of your X-ray as given to you by our Emergency Department physician is only a preliminary report. The Radiologist will review your films and if there is a change in the diagnosis you will be notified by phone. Please make sure you have provided a working phone number so we can reach you if necessary.In the event that you had a lab culture while you were a patient in the Emergency Department, you will be notified by phone if there is a need to change your antibiotic. Please make sure you have provided a working phone number so we can reach you if necessary.[facility] Emergency Department has provided you with a complete list of medications post discharge. Please inform your automatic shirring machine operator/provider of your visit and for further instruction on these medications. Any specific questions regarding your chronic medications and dosages should be discussed with your primary care physician(s) and/or pharmacist.Visit InformationAllergies:Substance Reaction Symptoms Type CommentsNo Known Medication Allergies DrugVital Signs: Vitals and Measurements this Visit (last charted value for your 12/15/2017 visit) Vital Signs This Visit Temperature Oral: 36.6 DegC Peripheral Pulse Rate: 65 bpm Respiratory Rate: 18 br/min Systolic Blood Pressure: 142 mmHg Diastolic Blood Pressure: 92 mmHg Mean Arterial Pressure, Cuff: 109 mmHg SpO2: 99 % Oxygen Therapy: Room air Measurements This Visit Height/Length Dosin.640 cm Height/Length Estimated: 167.640 cm Weight Dosin.570 kg Weight Estimated: 72.570 kgProblems List:Problem Onset CommentsProstate cancerPatient Education Viruses or BacteriaWhat?s got you sick?Antibiotics only treat bacterial infections. Viral illnesses cannot be treated with antibiotics. When an antibiotic is not prescribed, ask your healthcare professional for tips on how to relieve symptoms and feel better. Usual CauseIllnessVirusesBacteria Antibiotic NeededCold/Runny Nose NOBronchitis/Chest Cold (in otherwise healthy children and adults) NOWhooping Cough YesFlu NOStrep Throat YesSore Throat (except strep) NOFluid in the middle ear (otitis media with effusion) NOUrinary Tract Infection YesAntibiotics Aren?t Always the Answerwww.cdc.gov/getsmart GET SMART Know When Antibiotics Marta. Department of Health and Human ServicesAultman Hospitalers for Disease Control and Prevention April 2014 Normal [facility] ED Provider Noteon 8 HIM IP Note OR Comptometrist Normal [facility] Extra Redon 12-15-2017 Tube Collected Yes Invalid Interpretation Code [facility] Comment on above: Performed By: #### [id number], [id number], [id number] ####[facility] (DEFAULT)[address] [place] [address] History and Physicalon 12-15 HIM IP Note OR Comptometrist Normal [facility] PTon 12-15-2017 INR Coag RelTime (PPP) 1.00 {INR} Normal 0.91-1.11 [facility] Comment on above: Performed By: #### [id number], [id number], [id number], [id number], [id number] ####[facility] (DEFAULT)[address] [place] [address] Prothrombin time (PT) Coag time (PPP) 10.4 second(s) Normal 9.7-11.8 [facility] Comment on above: Performed By: #### [id number], [id number], [id number], [id number] ####[facility] (DEFAULT)[address] [place] [address] PTTon 12-15-2017 aPTT 28 second(s) Normal 25-35 [facility] Comment on above: Performed By: #### [id number], [id number], [id number], [id number], [id number], [id number] ####[facility] (DEFAULT)[address] [place] [address] Procedureon 12-15-2017 HIM IP Note OR Comptometrist Normal [facility] Progress Noteon 12-15-2017 HIM IP Note OR Comptometrist Normal [facility] HIM IP Note OR Comptometrist Normal [facility] Rad - Other Radiology Report on 12-15-2017 Rad - Other Radiology Report [id number][facility] to FT4on 2017 Thyroid stimulating hormone (TSH) 3.93 m[IU]/L Normal 0.30-5.00 [facility] Comment on above: Result Comment: [facility] [address] [place], [place] [id number] ([phone] Performed By: #### T ROPI, TSHX ####[facility] [place], [place] [address] Telemetry Stripson 8 Telemetry Strips [id number]#1.00[facility] Telemetry Strips [id number]#1.00[facility] Transfer Noteon 12-15-2017 Transfer Note Called [facility] for Neuro at 1424. called at 1434 and spoke with .Pt will be going to [facility] ER, spoke with , accepted.Patient is going by private car. Pt left at 1542, pt is riding with family.Chart and Cd was sent with pt.Pt had no known home meds.Pt did request to go to [facility] at first.I called for the Hospitalist at 1429.Srinivas the nursing telephone clerks supervisor called at 1440 and said the hospitalist will only accept if Neuro is consulted first.I put out a page for Dr.Danner Feng at 1500.[facility] Neuro did not call back, so transfered pt to [facility].[Electronically Signed on: 12/15/2017 15:55 EDT] Loly Nix[Verified on: 12/15/2017 15:55 EDT] Loly Nix Normal [facility] Troponinon 12-15-2017 Troponin I.cardiac mass conc Normal [facility] Comment on above: Result Comment: Reference Range: <0.03 W ithin reference range. 0.03-0.09 Possible myocardial damage.Repeat at appropriate intervals to rule out chronic elevation. >= 0.10 Indicative of myocardial damage.Patients with high levels of Biotin oral intake (i.e >5mg/day) may have falsely decreased Troponin T levels. Samples collected within 8 hours of biotin intake may require additional information for diagnosis.eigital [facility] [place], [place] [address] ([phone] Performed By: #### Lavern LYNCH TSHX ####[facility] [place] [address] Troponin T.cardiac mass conc ug/L Normal <0.03 [facility] Comment on above: Result Comment: Troponin T results canno t be compared to Troponin-I results. Performed By: #### Lavern LYNCH TSHX ####[address] [address] Troponin Ion 12-15-2017 Troponin I.cardiac mass conc ng/mL Normal <=0.03 [facility] Comment on above: Performed By: #### [id number], [id number], [id number], [id number], [id number] ####[facility] (DEFAULT)[address] [place] [address] PROGRESSon 12-10-2017 Protein mass conc HNO ID: [id number]: Engeler, G PhillipService: (none)Author Type: PhysicianType: Progress NotesFiled: 12/10/2017 8:41 AMNote Text:Radiation Oncology - Follow Up NotePATIENT NAME: Julio Michelle : Prostate adenocarcinoma, clinical stage T Stage: T1c, initialPSA 3.51, biopsy Meron score 3 + 4 = 7 (grade group 2)RADIATION SUMMARY:DATES OF TREATMENT: External beam: 02/10/2016 to 03/16/2016Brachytherapy implant: 04/16/2016AREA TREATED: PelvisDELIVERED DOSE: Area: Pelvis4,500cGy in 25 fractions,2 Ayala, IMRT/VMAT, 6MV TOTAL: 4,500cGyProstate brachytherapy, palladium-103, dose 100 Gy, 16 needles, 60 seeds,94.98 mCi activityINTERVAL HISTORY: The patient presents for routine follow-up. He stateshe is doing well, still with mild dysuria. Denies other significantproblems.PSA HISTORY:PSA. (no units)Date Value11/26/2017 0.6002 0.9811 1.57 06/03/17 0.45ALLERGIESNo Known AllergiesNo prescriptions on file.REVIEW OF SYSTEMS:D/N = 4/1Hematuria: noneDysuria: nIncontinence: noneUrgency: mildCatheter use: none- Total AUA Score: 7Bowel movement frequency: 1-2/dayBowel movement quality: normalBlood per rectum: nonePHYSICAL EXAM:BP 126/72 Wt 75.8 kg (167 lb)KPS: 100General appearance: Alert and oriented. No acute distress.Abdomen: Soft nontender no masses or hepatosplenomegalyRectal exam: Prostate without suspicious nodularity or tendernessExtremity no clubbing cyanosis edemaLymph nodes: No neck, supraclavicular,inguinal lymphadenopathyASSESSMENT:Prostat e adenocarcinoma, clinical stage T Stage: T1c, initialPSA 3.51, biopsy Meron score 3 + 4 = 7 (grade group 2)Overall doing well. PSA with stable response. He has continuedfollow-up with urology.PLAN: We will see him again in 6 months with a PSA level.Signed by: Penny Boswell, [facility]:Regino Marie MD[address] [facility] MEXICOTERES[place] [address]Kuetu: [phone]: [phone] Normal [facility] CNOVon 12-07-2017 CNOV Office Visit (RADTSA) JULIO FREEMAN ([id number]) 1950 [facility] Time Provider Department12/07/17 2:30 PM Penny BOSWELL During your visit today, we recorded the following information about you: Blood pressure Weight 126/72 75.8 kgVikki Cannon (Rn), RN 12/07/2017 2:45 PM SignedAUA Bertha Frazier G Phillip 12/10/2017 8:41 AM SignedRadiation Oncology - Follow Up NotePATIENT NAME: uJlio FreemanPATIENT : Prostate adenocarcinoma, clinical stage T Stage: T1c, initial PSA3.51, biopsy Meron score 3 + 4 = 7 (grade group 2)RADIATION SUMMARY:DATES OF TREATMENT: External beam: 02/10/2016 to 03/16/2016Brachytherapy implant: 04/16/2016AREA TREATED: PelvisDELIVERED DOSE: Area: Pelvis4,500cGy in 25 fractions,2 Ayala, IMRT/VMAT, 6MV TOTAL: 4,500cGyProstate brachytherapy, palladium-103, dose 100 Gy, 16 needles, 60 seeds, 94.98mCi activityINTERVAL HISTORY: The patient presents for routine follow-up. He states he isdoing well, still with mild dysuria. Denies other significant problems.PSA HISTORY:PSA. (no units)Date Value11/26/2017 0.6002/09/2016 0.9811 1.57 11/2/17 0.45ALLERGIESNo Known AllergiesNo prescriptions on file.REVIEW OF SYSTEMS:D/N = 4/1Hematuria: noneDysuria: nIncontinence: noneUrgency: mildCatheter use: none- Total AUA Score: 7Bowel movement frequency: 1-2/dayBowel movement quality: normalBlood per rectum: nonePHYSICAL EXAM:BP 126/72 Wt 75.8 kg (167 lb)KPS: 100General appearance: Alert and oriented. No acute distress.Abdomen: Soft nontender no masses or hepatosplenomegalyRectal exam: Prostate without suspicious nodularity or tendernessExtremity no clubbing cyanosis edemaLymph nodes: No neck, supraclavicular,inguinal lymphadenopathyASSESSMENT:Prostat e adenocarcinoma, clinical stage T Stage: T1c, initial PSA3.51, biopsy [place] score 3 + 4 = 7 (grade group 2)Overall doing well. PSA with stable response. He has continued follow-upwith urology.PLAN: We will see him again in 6 months with a PSA level.Signed by: Penny Boswell, [facility]:Regino Marie MD[address] [place] [address]Gdaau: [phone]: [phone] Provider: Penny BOSWELL [[id number]]Allergies As of Date: 12/07/2017(No Known Allergies)Date Reviewed: 06/08/2017Reviewed by: Ashlee Jennings - Fully AssessedReason for Visit: Prostate Cancer [590]Primary Visit Diagnosis:Prostate cancer (HCC) [C61]Order(s):PSA/PROSTSPECAG DIAG [SQPSA] Order #: [id number] FUTUREProblem List As Of Date 12/07/2017 Noted Resolved Prostate cancer (HCC) [C61] INVALID FOR*Visit Notes:>> Vikki Cannon (Red), RN WedDecember 07, 2017 2:30 PM Status: Alisa Cannon RNMedications Discontinued During This Encounter tamsulosin ER (FLOMAX) 0.4 mg cp24 05/18/2016 12/07/2017 Class: Historical Med Sig: Disc: Course of therapy completedDisposition: Return in about 6 months (around 06/09/2018).Follow-up and Disposition History RecordedEncounter Number: [id number] Status:Closed by Penny BOSWELL MD on 12/10/17 Normal [facility] Vital Signs Date Time Vital Sign Value Performing Clinician Bing ventura 08-23-2023 08:58-0500 Blood Pressure Location AlineIDENTEC GROUP [facility] 08-23-2023 08:58-0500 Diastolic blood pressure 81 mm[Hg] Aline TENA [facility] 08-23-2023 08:58-0500 Heart rate 72 /min Aline TENA [facility] 08-23-2023 08:58-0500 Respiratory rate 16 /min Aline TENA [facility] 08-23-2023 08:58-0500 Systolic blood pressure 131 mm[Hg] Aline TENA [facility] 08-24-2022 09:11-0500 Blood Pressure Location Aline TENA [facility] 08-24-2022 09:11-0500 Diastolic blood pressure 84 mm[Hg] Aline TENA [facility] 08-24-2022 09:11-0500 Heart rate 67 /min Aline TENA [facility] 08-24-2022 09:11-0500 Respiratory rate 16 /min Aline TENA [facility] 08-24-2022 09:11-0500 Systolic blood pressure 140 mm[Hg] Aline TENA [facility] Encounters Encounter Date Encounter Type Care Provider Facility Start: 08-21-2024 ambulatory Aline Salmeron ty:[facility] Start: 08-23-2023 End: 08-24-2023 ambulatory Aline TENA Facility:[facility] Start: 08-23-2023 End: 08-23-2023 Patient encounter procedure Aline TENA [facility] Start: 11-23-2022 ambulatory Aline Salmeron ty:[facility] Start: 08-31-2022 End: 09-01-[address] ALINE TENA Facility:[facility] Start: 08-24-2022 End: 08-24-2022 Patient encounter procedure Aline TENA [facility] Start: 07-29-2022 End: 07-30-[address] ALINE TENA Facility:[facility] Start: 09-25-2021 End: 09-25-[address] ALINE TENA Facility:[facility] Start: 09-23-2021 Encounter for preprocedural laboratory examination DR ALINE TENA [facility] Start: 09-22-2021 End: 09-23-[address] ALINE TENA Facility:[facility] Start: 09-22-2021 End: 09-23-2021 Encounter for preprocedural laboratory examination DR ALINE TENA Facility:[facility] Start: 06-07-2018 End: 06-10-2018 Patient encounter procedure G NICHOLAS BOSWELL [facility] Start: 04-07-2018 End: 04-08-2018 Patient encounter MONIKA BOWMAN Facility:[facility] Start: 03-14-2018 End: 03-15-2018 Patient encounter DEFAULT PHYSICIAN Facility:[facility] Start: 12-15-2017 End: 12-15-2017 Emergency department patient visit REGINO MARIE Facility:[facility] Start: 12-15-2017 End: 12-16-2017 Ambulatory Tristin Penaloza Facility:[facility] Start: 12-07-2017 End: 12-13-2017 [facility] Procedures Date Procedure Procedure Detail Performing Clinician Start: 07-29-[address] ARCHANA TENA Comment on above: Performed By: #### C ITRATU #### [facility] [address] [place] [address] Dr. Angelica Chauhan Start: 09-25-2021 Extracorporeal shock wave lithotripsy of calculus of kidney Aline TENA Start: 12-16-2017 PATIENT STATUS (FROM ED OR OR/PROCEDURAL) REGINO MARIE Start: 12-16-2017 CARDIAC EVENT MONITOR K CLARA MARIE Start: 12-16-2017 URINE RT REFLEX TO CULTURE REGINO MARIE Start: 12-16-2017 DIET GENERAL REGINO MARIE Start: 12-16-2017 INITIATE OXYGEN THER APY PROTOCOL REGINO MARIE Start: 12-16-2017 ECHOCARDIOGRAM LIMITED REGINO MARIE Start: 12-16-2017 BASIC METABOLIC PANE L W/ REFLEX TO MG FOR LOW K REGINO MARIE Start: 12-16-2017 Blood count complete auto&auto difrntl wbc REGINO MARIE Start: 12-16-2017 Hemoglobin glycosylated a1c REGINO MARIE Start: 12-16-2017 Lipid panel REGINO MARIE Start: 12-16-2017 VITAMIN B12 AND FOLATE REGINO MARIE Start: 12-16-2017 TROPONIN REGINO MARIE Start: 12-16-2017 Mri brain brain stem w/o contrast material REGINO MARIE Start: 12-15-2017 TROPONIN REGINO MARIE Start: 12-15-2017 TSH WITH REFLEX REGINO MANDUJANO GHT Start: 12-15-2017 ADVANCE DIET TOLE RATED (NURSING COMMUNICATION) REGINO MARIE Start: 12-15-2017 ASPIRATION PRECAUTIONS REGINO MARIE Start: 12-15-2017 INITIATE OXYGEN THER APY PROTOCOL REGINO MARIE Start: 12-15-2017 IP CONSULT TO NEUROLOGY REGINO MARIE Start: 12-15-2017 NEURO CHECKS REGINO MARIE Start: 12-15-2017 NURSING SWALLOW ASSESSMENT REGINO MARIE Start: 12-15-2017 OT EVAL AND TREAT REGINO Laura NIGHT Start: 12-15-2017 PROVIDE PATIENT EDUC ATION MATERIALS REGINO MARIE Start: 12-15-2017 PT EVAL AND TREAT REGINO Laura NIGHT Start: 12-15-2017 REASON FOR NOT SELEC TING ANTILIPEMIC REGINO MARIE Start: 12-15-2017 TELEMETRY MONITORING MARLENY MARIE Start: 12-15-2017 VITAL SIGNS REGINO MARIE Start: 12-15-2017 VITAL SIGNS - NOTIFY MD REGINO MARIE Start: 12-15-2017 Ct angiography head w/contrast/noncontrast REGINO MARIE Start: 12-15-2017 Ct angiography neck w/contrast/noncontrast REGINO MARIE Start: 12-15-2017 EKG 12-LEAD REGINO MARIE Start: 12-15-2017 PATIENT STATUS (FROM ED OR OR/PROCEDURAL) REGINO MARIE Start: 12-15-2017 IP CONSULT TO ANIMAL CHIROPRACTOR AL MEDICINE REGINO MARIE Start: 12-15-2017 IP CONSULT TO STROKE TEAM REGINO MARIE Start: 04-16-2016 Implantation of radi oactive seed into prostate Aline TENA Start: 03-01-2016 History of external beam radiation therapy Aline TENA Start: 12-12-2015 Cystoscopy and transurethral resection of bladder tumor Aline TENA Start: 12-10-2015 Transrectal biopsy o f prostate using ultrasound guidance Aline TENA Start: 10-24-2009 Colonoscopy Aline CARRERA Immunizations Immunization Date Immunization Notes Care Provider Johan hendricks 07-17-2021 SARS-CoV-2 (COVID-19 ) mRNA BNT-162b2 vax Aline TENA [facility] Comment on above: Result Comment: 2022: [id number] 09-28-2020 SARS-CoV-2 (COVID-19 ) mRNA BNT-162b2 vax Aline TENA [facility] Comment on above: Result Comment: 2022: [id number] 09-07-2020 SARS-CoV-2 (COVID-19 ) mRNA BNT-162b2 vax Aline TNEA [facility] Comment on above: Result Comment: 2022: [id number] 08-02-2020 SARS-CoV-2 (COVID-19 ) mRNA BNT-162b2 vax Aline TENA [facility] Comment on above: Result Comment: Pt narayan shoemaker he has had 3 shots to date 07-07-2019 influenza virus vaccine, unspecified formulation Aline TENA [facility] 07-07-2019 pneumococcal conjuga te vaccine, 13 valent Aline TENA [facility] 08-03-2017 influenza virus vaccine, unspecified formulation Aline TENA [facility] 06-10-2016 influenza virus vaccine, unspecified formulation Aline TENA [facility] NEGATED: Highlighted row has not occurred!08-26-2020 influenza virus vaccine, unspecified formulation Aline [employer] [facility] Payers Date Payer Category Payer Private Health Insurance cli [id number] 2014 Medicare [id number] 1960 Medicare [id number] 1960 Private Health Insurance CLI [id number] 1950 Unknown [id number] 2.16.84 [id number] 1950 Unknown [id number] 2.16.84 [id number] 1950 Unknown [id number] .16.84 [id number] 1950 Unknown [id number] .16.84 [id number] 1950 Unknown [id number] 2.16.84 [id number] 1950 Unknown [id number] 2.16.8 [id number] 1950 Unknown [id number] 2.16.8 [id number] 1950 Unknown [id number] 2.16.8 [id number] Unknown Social History Date Type Detail Facility Start: 08-24-2022 Tobacco smoking status Never s moked tobacco (finding) [facility] Tobacco smoking status Never [facility] Sex Assigned At Male [facility] Functional Status Date Assessment Result Facility 08-23-2023 Functional Status N/A [facility] 08-24-2022 Functional Status N/A [facility] Hospital Discharge instructions 08-23-2023 Note Date & Type Note Facility 08-23-2023 Hospital Discharg e instructions Patient Education 08/23/2023 09:38:00 Dietary Guidelines to Help Prevent Kidney Stones Dietary Guidelines to Help Prevent Kidney Stones Kidney stones are deposits of minerals and salts that form inside your kidneys. Your risk of developing kidney stones may be greater depending on your diet, your lifestyle, the medicines you take, and whether you have certain medical conditions. Most people can lower their risks of developing kidney stones by following these dietary guidelines. Your dietitian may give you more specific instructions depending on your overall health and the type of kidney stones you tend to develop. What are tips for following this plan? Reading food labels Choose foods with no salt added or low-salt labels. Limit your salt (sodium) intake to less than 1,500 mg a day. Choose foods with calcium for each meal and snack. Try to eat about 300 mg of calcium at each meal. Foods that contain 200 500 mg of calcium a serving include: ?8 oz (237 mL) of milk, dsmirhc-rbgxybecpcaj-qarvt milk, and calcium-fortifiedfruit juice. Calcium-fortified means that calcium has been added to these drinks. ?8 oz (237 mL) of kefir, yogurt, and soy yogurt. ?4 oz (114 g) of tofu. ?1 oz (28 g) of cheese. ?1 cup (150 g) of dried figs. ?1 cup (91 g) of cooked broccoli. ?One 3 oz (85 g) can of sardines or mackerel. Most people need 1,000 1,500 mg of calcium a day. Talk to your dietitian about how much calcium is recommended for you. Shopping Buy plenty of fresh fruits and vegetables. Most people do not need to avoid fruits and vegetables, even if these foods contain nutrients that may contribute to kidney stones. When shopping for convenience foods, choose: ?Whole pieces of fruit. ?Pre-made salads with dressing on the side. ?Low-fat fruit and yogurt smoothies. Avoid buying frozen meals or prepared deli foods. These can be high in sodium. Look for foods with live cultures, such as yogurt and kefir. Choose high-fiber grains, such as whole-wheat breads, oat bran, and wheat cereals. Cooking Do not add salt to food when cooking. Place a salt shaker on the table and allow each person to add their own salt to taste. Use vegetable protein, such as beans, textured vegetable protein (TVP), or tofu, instead of meat in pasta, casseroles, and soups. Meal planning Eat less salt, if told by your dietitian. To do this: ?Avoid eating processed or pre-made food. ?Avoid eating fast food. Eat less animal protein, including cheese, meat, poultry, or fish, if told by your dietitian. To do this: ?Limit the number of times you have meat, poultry, fish, or cheese each week. Eat a diet free of meat at least 2 days a week. ?Eat only one serving each day of meat, poultry, fish, or seafood. ?When you prepare animal proteins, cut pieces into small portion sizes. For most meat and fish, one serving is about the size of the palm of your hand. Eat at least five servings of fresh fruits and vegetables each day. To do this: ?Keep fruits and vegetables on hand for snacks. ?Eat one piece of fruit or a handful of berries with breakfast. ?Have a salad and fruit at lunch. ?Have two kinds of vegetables at dinner. You may be told to limit foods that are high in a substance called oxalate. These include: ?Spinach (cooked), rhubarb, beets, sweet potatoes, and Citizen Of [place] chard. ?Peanuts. ?Potato chips, italian fries, and baked potatoes with skin on. ?Nuts and nut products. ?Chocolate. If you regularly take a diuretic medicine, make sure to eat at least 1 or 2 servings of fruits or vegetables that are high in potassium each day. These include: ?Avocado. ?Banana. ?[place], prune, carrot, or tomato juice. ?Baked potato. ?Cabbage. ?Beans and split peas. Lifestyle Drink enough fluid to keep your urine pale yellow. This is the most important thing you can do. Spread your fluid intake throughout the day. If you drink alcohol: ?Limit how much you have to: ?0 1 drink a day for women who are not . ?0 2 drinks a day for men. ?Know how much alcohol is in your drink. In the [place] one drink equals one 12 oz bottle of beer (355 mL), one 5 oz glass of wine (148 mL), or one 1 oz glass of hard liquor (44 mL). Lose weight if told by your health care provider. Work with your dietitian to find an eating plan and weight loss strategies that work best for you. General information Talk to your health care provider and dietitian about taking daily supplements. Depending on your health and the cause of your kidney stones, you may be told: ?Do not take high-dose supplements of vitamin C (1,000 mg a day or more). ?To take a calcium supplement. ?To take a daily probiotic supplement. ?To take other supplements such as magnesium, fish oil, or vitamin B6. Take ndfp-jec-qzfeizn and prescription medicines only as told by your health care provider. These include supplements. What foods should I limit? Limit your intake of the following foods, or eat them as told by your dietitian. Vegetables Spinach. Rhubarb. Beets. Canned vegetables. Pickles. Olives. Baked potatoes with skin. Grains Wheat bran. Baked goods. Salted crackers. Cereals high in sugar. Meats and other proteins Nuts. Nut butters. Large portions of meat, poultry, or fish. Salted, precooked, or cured meats, such as sausages, meat loaves, and hot dogs. Dairy Cheeses. Beverages Regular soft drinks. Regular vegetable juice. Seasonings and condiments Seasoning blends with salt. Salad dressings. Soy sauce. Ketchup. Barbecue sauce. Other foods Canned soups. Canned pasta sauce. Casseroles. Pizza. Lasagna. Frozen meals. Potato chips. Citizen [place] fries. The items listed above may not be a complete list of foods and beverages you should limit. Contact a dietitian for more information. What foods should I avoid? Talk to your dietitian about specific foods you should avoid based on the type of kidney stones you have and your overall health. Fruits Grapefruit. The item listed above may not be a complete list of foods and beverages you should avoid. Contact a dietitian for more information. Summary Kidney stones are deposits of minerals and salts that form inside your kidneys. You can lower your risk of kidney stones by making changes to your diet. The most important thing you can do is drink enough fluid. Drink enough fluid to keep your urine pale yellow. Talk to your dietitian about how much calcium you should have each day, and eat less salt and animal protein as told by your dietitian. This information is not intended to replace advice given to you by your health care provider. Make sure you discuss any questions you have with your health care provider. Document Revised: 10/29/2022 Document Reviewed: 10/29/2022 [employer] Patient Education 2022 TRiQ. Follow Up Care 08/24/2022 09:47:59 With:EMILY BRUCE, Aline Miller, URL Address: [facility] [address] , [place] [address]- When:Within 1 Year(s) Comments:w/CYNTHIA and FERMÍN [facility] Hospital Discharge instructions 08-24-2022 Note Date & Type Note Facility 08-24-2022 Hospital Discharg e instructions Patient Education 08/24/2022 08:13:31 Dietary Guidelines to Help Prevent Kidney Stones Dietary Guidelines to Help Prevent Kidney Stones Kidney stones are deposits of minerals and salts that form inside your kidneys. Your risk of developing kidney stones may be greater depending on your diet, your lifestyle, the medicines you take, and whether you have certain medical conditions. Most people can reduce their chances of developing kidney stones by following the instructions below. Depending on your overall health and the type of kidney stones you tend to develop, your dietitian may give you more specific instructions. What are tips for following this plan? Reading food labels Choose foods with no salt added or low-salt labels. Limit your sodium intake to less than 1500 mg per day. Choose foods with calcium for each meal and snack. Try to eat about 300 mg of calcium at each meal. Foods that contain 200 500 mg of calcium per serving include: ?8 oz (237 ml) of milk, fortified nondairy milk, and fortified fruit juice. ?8 oz (237 ml) of kefir, yogurt, and soy yogurt. ?4 oz (118 ml) of tofu. ?1 oz of cheese. ?1 cup (300 g) of dried figs. ?1 cup (91 g) of cooked broccoli. ?1 3 oz can of sardines or mackerel. Most people need 1000 to 1500 mg of calcium each day. Talk to your dietitian about how much calcium is recommended for you. Shopping Buy plenty of fresh fruits and vegetables. Most people do not need to avoid fruits and vegetables, even if they contain nutrients that may contribute to kidney stones. When shopping for convenience foods, choose: ?Whole pieces of fruit. ?Premade salads with dressing on the side. ?Low-fat fruit and yogurt smoothies. Avoid buying frozen meals or prepared deli foods. Look for foods with live cultures, such as yogurt and kefir. Cooking Do not add salt to food when cooking. Place a salt shaker on the table and allow each person to add his or her own salt to taste. Use vegetable protein, such as beans, textured vegetable protein (TVP), or tofu instead of meat in pasta, casseroles, and soups. Meal planning Eat less salt, if told by your dietitian. To do this: ?Avoid eating processed or premade food. ?Avoid eating fast food. Eat less animal protein, including cheese, meat, poultry, or fish, if told by your dietitian. To do this: ?Limit the number of times you have meat, poultry, fish, or cheese each week. Eat a diet free of meat at least 2 days a week. ?Eat only one serving each day of meat, poultry, fish, or seafood. ?When you prepare animal protein, cut pieces into small portion sizes. For most meat and fish, one serving is about the size of one deck of cards. Eat at least 5 servings of fresh fruits and vegetables each day. To do this: ?Keep fruits and vegetables on hand for snacks. ?Eat 1 piece of fruit or a handful of berries with breakfast. ?Have a salad and fruit at lunch. ?Have two kinds of vegetables at dinner. Limit foods that are high in a substance called oxalate. These include: ?Spinach. ?Rhubarb. ?Beets. ?Potato chips and italian fries. ?Nuts. If you regularly take a diuretic medicine, make sure to eat at least 1 2 fruits or vegetables high in potassium each day. These include: ?Avocado. ?Banana. ?[place], prune, carrot, or tomato juice. ?Baked potato. ?Cabbage. ?Beans and split peas. General instructions Drink enough fluid to keep your urine clear or pale yellow. This is the most important thing you can do. Talk to your health care provider and dietitian about taking daily supplements. Depending on your health and the cause of your kidney stones, you may be advised: ?Not to take supplements with vitamin C. ?To take a calcium supplement. ?To take a daily probiotic supplement. ?To take other supplements such as magnesium, fish oil, or vitamin B6. Take all medicines and supplements as told by your health care provider. Limit alcohol intake to no more than 1 drink a day for non women and 2 drinks a day for men. One drink equals 12 oz of beer, 5 oz of wine, or 1 oz of hard liquor. Lose weight if told by your health care provider. Work with your dietitian to find strategies and an eating plan that works best for you. What foods are not recommended? Limit your intake of the following foods, or as told by your dietitian. Talk to your dietitian about specific foods you should avoid based on the type of kidney stones and your overall health. Grains Breads. Bagels. Rolls. Baked goods. Salted crackers. Cereal. Pasta. Vegetables Spinach. Rhubarb. Beets. Canned vegetables. Pickles. Olives. Meats and other protein foods Nuts. Nut butters. Large portions of meat, poultry, or fish. Salted or cured meats. Deli meats. Hot dogs. Sausages. Dairy Cheese. Beverages Regular soft drinks. Regular vegetable juice. Seasonings and other foods Seasoning blends with salt. Salad dressings. Canned soups. Soy sauce. Ketchup. Barbecue sauce. Canned pasta sauce. Casseroles. Pizza. Lasagna. Frozen meals. Potato chips. Citizen [place] fries. Summary You can reduce your risk of kidney stones by making changes to your diet. The most important thing you can do is drink enough fluid. You should drink enough fluid to keep your urine clear or pale yellow. Ask your health care provider or dietitian how much protein from animal sources you should eat each day, and also how much salt and calcium you should have each day. This information is not intended to replace advice given to you by your health care provider. Make sure you discuss any questions you have with your health care provider. Document Released: 11/13/2011 Document Revised: 11/08/2019 Document Reviewed: 06/29/2017 [employer] Patient Education 2020 TRiQ. Follow Up Care 08/22/2021 08:41:01 With:Aline TENA MD, URL Address: [facility] [address], [place] [address]- When: Unknown [facility] Evaluation + Plan note Note Date & Type Note Facility Evaluation + Plan note Future Appointments Appointment Date:11/23/2022 08:45:00 AM Scheduled Provider:Aline TENA MD Location:[facility] Appointment Type:URO Office Visit Appointment Date:08/23/2023 08:45:00 AM Scheduled Provider:[facility] Type[facility]O Office Visit Diagnostic Tests PendingPSA Total 08/24/22 [facility] Evaluation + Plan note Note Date & Type Note Facility Evaluation + Plan note Future Appointments Appointment Date:08/21/2024 08:45:00 AM Scheduled Provider:Aline TENA MD Location:[facility] Appointment Type:URO Office Visit Diagnostic Tests PendingPSA Total 08/23/23 [facility] Hospital course Narrative Note Date & Type Note Facility Hospital course Narrative No data available for this section [facility] Progress note Note Date & Type Note Facility Progress note No data available for this section [facility] Summary Purpose Family History No Family History Records FoundNo Family History Records FoundNo Family History Records FoundNo Family History Records FoundNo Family History Records Found No data available for this section No Family History Records Found Advance Directives No Advanced Directives Records FoundNo Advanced Directives Records FoundNo Advanced Directives Records FoundNo Advanced Directives Records FoundNo Advanced Directives Records FoundNo Advanced Directives Records Found Additional Source Comments (unrecognized sect ion and content) No Status Records FoundNo Status Records FoundNo Status Records FoundNo Status Records FoundNo Status Records FoundNo Status Records Found INFORMATION SOURCE (unrecogn ized section and content) DATE CREATED AUTHOR 01/19/2018 [facility] DATE CREATED AUTHOR AUTHOR'S ORGANIZ ATION 01/22/2018 [facility] DATE CREATED AUTHOR AUTHOR'S ORGANIZ ATION 04/24/2018 [facility] DATE CREATED AUTHOR AUTHOR'S ORGANIZ ATION 07/10/2018 [facility] DATE CREATED AUTHOR AUTHOR'S ORGANIZ ATION 09/08/2022 [facility] DATE CREATED AUTHOR AUTHOR'S ORGANIZ ATION 09/04/2023 [facility] Patient Care team informatio n (unrecognized section and content) Personnel Name: REGINO MARIE MD Address: Address: [address] [place] [address] Personnel Name: TARI AGUIRRE CNP Address: Address: [address] FOR RECORDS PERTAINING TO PATIENTS WHO ARE OR HAVE BEEN ENROLLED IN A CHEMICAL DEPENDENCY/SUBSTANCEABUSE PROGRAM, SOME INFORMATION MAY BE OMITTED. This clinical summary was aggregated from multiple sources. Caution should be exercised in using it in the provision of clinical care. This summary normalizes information from multiple sources, and as a consequence, information in this document may materially change the coding, format and clinical context of patient data. In addition, data may be omitted in some cases. CLINICAL DECISIONS SHOULD BE BASED ON THE PRIMARY CLINICAL RECORDS. [facility] provides no warranty or guarantee of the accuracy or completeness of information in this document.
--- NOTE | 2024-06-10 06:20 | CT_ITS ---
[address] [address] Patient Name: EVELYN CHESTER MRN: [id number] date: 1950 Sex: M Assigned Patient Location: ED.MAIN Current Patient Location: ED.MAIN Accession/Order Number: [id number] Exam Date: 06/10/2024 06:42 Report Date: 06/10/2024 07:45 At the request of: SCARLETT LA Procedure: CT abdomen pelvis wo con CLINICAL HISTORY: right CVA pain. Right flank pain for past three days. History of kidney stones. EXAMINATION: Unenhanced CT scan of the abdomen and pelvis: 06/10/2024. COMPARISON: AP abdomen 08/17/2023. TECHNIQUE: 3 mm axial images from lung bases through ischial tuberosities without intravenous or oral contrast were obtained. Sagittal, coronal reconstructions were performed. FINDINGS: There are no focal abnormalities of the visualized lung bases except for some scattered discoid atelectatic changes. The heart size seems normal. Significant calcifications of the mitral, aortic annulus are seen. CT ABDOMEN: For a noncontrast study the liver, gallbladder, spleen, pancreas, adrenal glands appear normal. There is no hydronephrosis of the left kidney. There is a nonobstructing calculus in the midpole, which measures 7 mm in size. There is no perinephric fat stranding or ureterolithiasis. The right kidney demonstrates moderate hydronephrosis, with some perinephric fat stranding. There is a tiny less than 3 mm calculus in the lower pole of the right kidney. There is moderate dilatation of the right ureter as it courses inferiorly to the pelvis with a calculus at the right ureterovesicular junction, which measures approximately 5 mm. However, there is a calculus distal to it, which measures approximately 6 mm and there is a calculus which might be at the orifice of the right ureter at the base of the bladder measuring 4 mm in size. The abdominal aorta is mildly atherosclerotic. There is no retroperitoneal or mesenteric adenopathy. The bowel loops are of normal caliber. The appendix is not seen. CT PELVIS: Besides the above-mentioned calculi along the right aspect of the bladder, right distal ureter and ureterovesical junction the bladder is incompletely distended with thickening of the wall without induration of surrounding fat. Prostate is normal in size with multiple radiopaque densities within the prostate probably representing some brachytherapy pellets. The visualized osseous structures demonstrate degenerative changes of thoracolumbar spine with vacuum disc phenomena at L5-S1. CT/CT abdomen pelvis wo con IMPRESSION: 1. There are calculi in the distal right ureter, ureterovesical junction and probably at the orifice of the right ureter at the base of the bladder at least 2-3 calculi with moderate hydroureter, moderate to severe hydronephrosis of the right kidney. 2. Bilateral nonobstructing renal calculi. Electronically authenticated by: SILVIA HOPPER Date: 06/10/2024 07:45
[2024-06-10 06:41] LABS: Basophils Percent Auto 0.6 % (0.2-2.0); Eosinophils Absolute Auto 0.2 10^3/uL (0.0-0.7); Eosinophils Percent Auto 3.1 % (0.9-7.0); Hematocrit 44.1 % (42.0-54.0); Hemoglobin 15.3 g/dL (14.0-18.0); Immature Granulocytes Abs Auto 0.03 10^3/uL (0.00-0.03); Immature Granulocytes Pct Auto 0.4 % (0.0-0.5); Lymphocytes Absolute Auto 0.9 10^3/uL (1.2-3.8); Lymphocytes Percent Auto 12.6 % (20.5-60.0); Mean Corpuscular HGB Conc 34.7 g/dL (29.9-35.2); Mean Corpuscular Hemoglobin 31.2 pg (25.9-34.0); Mean Corpuscular Volume 89.8 fL (80.0-94.0); Mean Platelet Volume 9.8 fL (9.5-13.5); Monocytes Absolute Auto 0.8 10^3/uL (0.3-0.8); Monocytes Percent Auto 11.2 % (1.7-12.0); Neutrophils Absolute Auto 5.2 10^3/uL (1.4-6.5); Neutrophils Percent Auto 72.1 % (43.0-75.0); Platelet Count 204 10^3/uL (150-450); Red Blood Count 4.91 10^6/uL (4.70-6.10); Red Cell Distribution Width 12.4 % (11.0-15.0); White Blood Count 7.1 10^3/uL (4.0-11.0)
[2024-06-10 06:43] LABS: Anion Gap 15.5; BUN Creatinine Ratio 15.5; Calcium 9.4 mg/dL (8.5-10.1); Carbon Dioxide 25.6 mmol/L (21.0-32.0); Chloride 107 mmol/L (98-107); Estimated GFR (African America >60 (>=60 mL/min/1.73m^2); Estimated GFR (Non-African Ame >60 (>=60 mL/min/1.73m^2); Glucose 98 mg/dL (74-106); Potassium 4.1 mmol/L (3.5-5.1); Sodium 144 mmol/L (136-145)
--- NOTE | 2024-06-10 06:44 | ED.ABDPAIN1 ---
HPI - Abdominal Pain General Chief Complaint: Abdominal Pain Stated Complaint: flank pain Time Seen by Provider: 06/10/24 06:19 Source: patient Mode of arrival: walk-in Limitations: no limitations History of Present Illness HPI narrative: patient presents complaining of right CVA pain. Has been lifting wood. Pain for 3 days with varying intensity. Yesterday complained of urinary frequency. No nausea or vomiting or fever. Does have past history of kidney stones but none for 10 years Related Data Home Medications ?Medication ?Instructions ?Recorded ?Confirmed rosuvastatin 10 mg tablet 10 mg PO DAILY 06/10/24 06/10/24 Allergies Allergy/AdvReac Type Severity Reaction Status Date / Time No Known Drug Allergies Allergy Verified 06/10/24 06:01 Review of Systems ROS Status of ROS 10 or more systems reviewed and unremarkable except as noted in history and below PFSH PFSH Social History Little interest or pleasure in doing things: not at all Feeling down, depressed, or hopeless: not at all Exam Constitutional Vital Signs, click to edit/add: Last Vital Signs Temp 97.7 F 06/10/24 06:02 Pulse 63 06/10/24 06:02 Resp 18 06/10/24 06:02 BP 163/94 H 06/10/24 06:02 Pulse Ox 99 06/10/24 06:02 O2 Del Method Room Air 06/10/24 06:02 Common normals: no apparent distress, average body habitus, oriented x3, no limitations, healthy appearing, alert and well nourished [facility] Common normals: normocephalic and head/scalp atraumatic Eye Common normals: PERRL and EOMs intact bilaterally Respiratory Common normals: normal respiratory effort, no retractions, no use of accessory muscles and clear to auscultation bilaterally Cardio Common normals: regular rate, regular rhythm, S1 normal heart sound and S2 normal heart sound GI Common normals: Normal to inspection, nondistended, normoactive bowel sounds present and soft to palpation Back & Pelvis Common normals: no CVA tenderness Extremity Common normals: normal to inspection and full ROM Neuro Common normals: oriented x3, CN's II-XII intact bilaterally, moves all extremities and no focal motor deficits Psych Appearance: grossly normal Course Vital Signs Vital signs: Vital Signs Temperature 97.7 F 06/10/24 06:02 Pulse Rate 63 06/10/24 06:02 Respiratory Rate 18 06/10/24 06:02 Blood Pressure 163/94 H 06/10/24 06:02 Pulse Oximetry 99 06/10/24 06:02 Oxygen Delivery Method Room Air 06/10/24 06:02 Temperature 97.7 F 06/10/24 06:02 Pulse Rate 63 06/10/24 06:02 Respiratory Rate 18 06/10/24 06:02 Blood Pressure 163/94 H 06/10/24 06:02 Pulse Oximetry 99 06/10/24 06:02 Oxygen Delivery Method Room Air 06/10/24 06:02 MDM - Abdominal Pain MDM Narrative Medical decision making narrative: patient presents with right CVA pain. findings on exam and by history suggestive of renal colic. labs and CT ordered. care transferred to [facility] physician Lab Data Labs: Lab Results 06/10/24 Range/Units 06:25 Sodium 144 (136-145) mmol/L Potassium 4.1 (3.5-5.1) mmol/L Chloride 107 (98-107) mmol/L Carbon Dioxide 25.6 (21.0-32.0) mmol/L Anion Gap 15.5 BUN 18.0 (7.0-18.0) mg/dL Creatinine 1.16 (0.70-1.30) mg/dL Est GFR ( Amer) >60 (>=60 mL/min/1.73m^2) Est GFR (Non-Af Amer) >60 (>=60 mL/min/1.73m^2) BUN/Creatinine Ratio 15.5 Glucose 98 (74-106) mg/dL Calcium 9.4 (8.5-10.1) mg/dL Discharge Plan Discharge Chief Complaint: Abdominal Pain Clinical Impression: Acute right flank pain Patient Disposition: Still a Patient Prescriptions / Home Meds: No Action rosuvastatin 10 mg tablet 10 mg PO DAILY Print Language: Danish Referrals: TARI AGUIRRE [Primary Care Provider] - 1 week
[2024-06-10 07:03] LABS: Bilirubin Urine NEGATIVE (NEGATIVE); Blood Urine TRACE-I (NEGATIVE); Clarity Urine CLEAR (CLEAR); Color Urine LT. YELLOW (YELLOW); Glucose Urine UA NEGATIVE (NEGATIVE); Ketones Urine NEGATIVE (NEGATIVE); Leukocyte Esterase Urine NEGATIVE (NEGATIVE); Nitrite Urine NEGATIVE (NEGATIVE); Protein Urine NEGATIVE (NEG/TRACE)
[2024-06-10 07:04] LABS: Urine Microscopic Indicated YES
[2024-06-10 07:14] LABS: Bacteria Urine TRACE #/HPF (NONE SEEN); Cast Seen? NONE SEEN #/LPF (NONE SEEN); Crystals Seen? None Seen #/HPF (None Seen); Mucus Urine TRACE (NONE SEEN); Squamous Epithelial Cell Urine NONE SEEN #/LPF (NONE/RARE); Urine Culture Indicated NO; WBC Urine 0-2 #/HPF (NONE SEEN)
--- NOTE | 2024-06-10 07:46 | ED_ITS ---
HPI HPI - General Adult General Chief complaint: Abdominal Pain Stated complaint: flank pain Time Seen by Provider: 06/10/24 06:19 Source: patient Mode of arrival: walk-in Limitations: no limitations History of Present Illness HPI narrative: 73-year-old male presented to the emergency department and was initially seen by Dr. Todd and signed out to me after discussing the case with him thoroughly. Please see his full history and physical exam. Related Data Home Medications ?Medication ?Instructions ?Recorded ?Confirmed rosuvastatin 10 mg tablet 10 mg PO DAILY 06/10/24 06/10/24 Previous Rx's ?Medication ?Instructions ?Recorded hydrocodone 5 mg-acetaminophen 325 1 tab PO Q6H PRN pain 5 days #20 06/10/24 mg tablet tabs ondansetron 4 mg disintegrating 4 mg PO Q6H PRN nausea and 06/10/24 tablet vomiting #20 tabs tamsulosin 0.4 mg capsule (Flomax) 0.4 mg PO DAILY #7 caps 06/10/24 Allergies Allergy/AdvReac Type Severity Reaction Status Date / Time No Known Drug Allergies Allergy Verified 06/10/24 06:01 Opioid HPI Opioid Management Most Recent Opioid Data: Last Pain Scale 6 06/10/24 06:08 06/10/24 PFSH PFSH Social History Little interest or pleasure in doing things: not at all Feeling down, depressed, or hopeless: not at all Exam Constitutional Vital Signs, click to edit/add: Last Vital Signs Temp 97.7 F 06/10/24 06:02 Pulse 63 06/10/24 06:02 Resp 18 06/10/24 06:02 BP 163/94 H 06/10/24 06:02 Pulse Ox 99 06/10/24 06:02 O2 Del Method Room Air 06/10/24 06:02 Course Vital Signs Vital signs: Vital Signs Temperature 97.7 F 06/10/24 06:02 Pulse Rate 63 06/10/24 06:02 Respiratory Rate 18 06/10/24 06:02 Blood Pressure 163/94 H 06/10/24 06:02 Pulse Oximetry 99 06/10/24 06:02 Oxygen Delivery Method Room Air 06/10/24 06:02 Temperature 97.7 F 06/10/24 06:02 Pulse Rate 63 06/10/24 06:02 Respiratory Rate 18 06/10/24 06:02 Blood Pressure 163/94 H 06/10/24 06:02 Pulse Oximetry 99 06/10/24 06:02 Oxygen Delivery Method Room Air 06/10/24 06:02 Medical Decision Making MDM Narrative Medical decision making narrative: Kidney stone is identified with some hydronephrosis. The patient feels very much better now and is able to be discharged home. He has seen Dr. Tena in the past and will follow-up with him. He was prescribed [place], Zofran, and Flomax. Treatment diagnosis and follow-up were discussed with the patient. Differential Diagnosis Differential Diagnosis: Kidney stone, muscle pain Lab Data Lab results reviewed: Yes I reviewed the patient's lab results Labs: Lab Results 06/10/24 06/10/24 Range/Units 06:15 06:25 WBC 7.1 (4.0-11.0) 10^3/uL RBC 4.91 (4.70-6.10) 10^6/uL Hgb 15.3 (14.0-18.0) g/dL Hct 44.1 (42.0-54.0) % MCV 89.8 (80.0-94.0) fL MCH 31.2 (25.9-34.0) pg MCHC 34.7 (29.9-35.2) g/dL RDW 12.4 (11.0-15.0) % Plt Count 204 (150-450) 10^3/uL MPV 9.8 (9.5-13.5) fL Neut % (Auto) 72.1 (43.0-75.0) % Lymph % (Auto) 12.6 L (20.5-60.0) % [place] % (Auto) 11.2 (1.7-12.0) % Eos % (Auto) 3.1 (0.9-7.0) % Baso % (Auto) 0.6 (0.2-2.0) % Neut # (Auto) 5.2 (1.4-6.5) 10^3/uL Lymph # (Auto) 0.9 L (1.2-3.8) 10^3/uL [place] # (Auto) 0.8 (0.3-0.8) 10^3/uL Eos # (Auto) 0.2 (0.0-0.7) 10^3/uL Baso # (Auto) 0.0 (0.0-0.1) 10^3/uL Abs Immat Gran (auto) 0.03 (0.00-0.03) 10^3/uL Imm/Tot Granulo (auto) 0.4 (0.0-0.5) % Sodium 144 (136-145) mmol/L Potassium 4.1 (3.5-5.1) mmol/L Chloride 107 (98-107) mmol/L Carbon Dioxide 25.6 (21.0-32.0) mmol/L Anion Gap 15.5 BUN 18.0 (7.0-18.0) mg/dL Creatinine 1.16 (0.70-1.30) mg/dL Est GFR ( Amer) >60 (>=60 mL/min/1.73m^2) Est GFR (Non-Af Amer) >60 (>=60 mL/min/1.73m^2) BUN/Creatinine Ratio 15.5 Glucose 98 (74-106) mg/dL Calcium 9.4 (8.5-10.1) mg/dL Urine Color Lt. yellow (YELLOW) Urine Clarity Clear (CLEAR) Urine pH 7.0 (5.0-9.0) Ur Specific [place] 1.010 (1.005-1.025) Urine Protein Negative (NEG/TRACE) mg/dL Urine Glucose (UA) Negative (NEGATIVE) mg/dL Urine Ketones Negative (NEGATIVE) mg/dL Urine Occult Blood Trace-i (NEGATIVE) Urine Nitrite Negative (NEGATIVE) Urine Bilirubin Negative (NEGATIVE) Urine Urobilinogen 1.0 (0.2-1.0) EU/dL Ur Leukocyte Esterase Negative (NEGATIVE) Urine RBC 2-5 A (0-2) #/HPF Urine WBC 0-2 A (NONE SEEN) #/HPF Ur Squamous Epith Cells None seen (NONE/RARE) #/LPF Urine Crystals None seen (None Seen) #/HPF Urine Bacteria Trace A (NONE SEEN) #/HPF Urine Casts None seen (NONE SEEN) #/LPF Urine Mucus Trace A (NONE SEEN) Ur Culture Indicated? No Imaging Data CT scan - abdomen: Radiologist's impression: ITS Impressions Abdomen/Pelvis CT 06/10/24 06:20 IMPRESSION: 1. There are calculi in the distal right ureter, ureterovesical junction and probably at the orifice of the right ureter at the base of the bladder at least 2-3 calculi with moderate hydroureter, moderate to severe hydronephrosis of the right kidney. 2. Bilateral nonobstructing renal calculi. Electronically authenticated by: SILVIA HOPPER Date: 06/10/2024 07:44 Discharge Plan Discharge Chief Complaint: Abdominal Pain Clinical Impression: Kidney stone Patient Disposition: Home, Self-Care Time of Disposition Decision: 07:44 Condition: Good Mode of Transportation: Private Vehicle Prescriptions / Home Meds: New hydrocodone-acetaminophen 5-325 mg tablet 1 tab PO Q6H PRN (Reason: pain) 5 Days Qty: 20 0RF tamsulosin [Flomax] 0.4 mg capsule 0.4 mg PO DAILY Qty: 7 0RF ondansetron 4 mg tablet,disintegrating 4 mg PO Q6H PRN (Reason: nausea and vomiting) Qty: 20 0RF No Action rosuvastatin 10 mg tablet 10 mg PO DAILY Print Language: Macedonian Instructions: Kidney Stones (ED), How to Strain Your Urine (ED) Referrals: TARI AGUIRRE [Primary Care Provider] - 1 week Duarte Tena MD [Physician] - 06/12/24
== END 2024-06-10 08:03 | disposition home or self-care (01) ==
PROVIDERS: Internal Medicine; Emergency Provider Emergency Medicine; PCP Nurse Practitioner Family
DX: N13.2 Hydronephrosis with renal and ureteral calculous obstruction (principal); Z87.442 Personal history of urinary calculi
CPT/HCPCS: 36415; 74176; 80048; 81001; 85025; 99284

== ENCOUNTER 2024-08-16 10:14 | Outpatient (OUT) | payer MEDICARE, SELFPAY ==
--- OUTSIDE RECORDS SUMMARY | 2024-08-16 10:45 | XMS_ITS | CCD ---
Author Organization [facility] Care Team Providers [facility] Name Role Phone REGINO MARIE Unavailable Unavailable [...] REGINO Unavailable Unavailable ENGELERPenny NICHOLAS Unavailable Unavailable ENGELER G NICHOLAS Unavailable Unavailable ENGELER G NICHOLAS Unavailable Unavailable ENGELER, G NICHOLAS Unavailable Unavailable REGINO MARIE Primary Care Physician EMILY, DR MIRELES Admitting Unavailable EMILY, DR [...] REGINO Cerrato Admitting Unavailable GIOVANNI, DR REGINO Cerrato Attending Unavailable MARIE, DR REGINO Cerrato Primary Care Unavailable MARIE, DR REGINO Cerrato Consulting Unavailable EMILY, DR MIRELES Admitting Unavailable EMILY, DR MIRELES Attending Unavailable GIOVANNI, DR REGINO Cerrato Primary Care Unavailable EMILY, DR MIRELES Consulting Unavailable [place], DR BILL San Consulting Unavailable TARI AGUIRRE Primary Care Physician [phone] Aline TENA Attending Unavailable Aline TENA Attending Unavailable Aline TENA Attending Unavailable Allergies Allergy Classification Reported Allergen(s) Allergy Type Date of Onset Reaction(s) Facility (1 source) No Known Medication Allergies; Translations: [No Known Medication Allergies] Propensity to adverse reactions to drug (disorder) [facility] Repository (2 sources) No Known Allergies; Translations: [No Known Allergies] Propensity to adverse reactions (disorder) 8 [facility] Repository Medications Current Medications Medication Drug Class(es) [...] Osteoarthritis 06-14-2019 Chronic Other aftercare (1 source) 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; Translations: [PENITENTIARY (CURRENT) USE OF ASPIRIN] Onset: 04-07-2018 Episodic [...] Da te Episodic/Chronic Other aftercare (1 source) retirement (current) use of anticoagulants; Translations: [PENITENTIARY CURRNT USE ANTICOAGULANTS] Onset: 09-29-2021 Episodic Other circulatory disease (2 sources) Personal history of transient ischemic attack (TIA), and cerebral infarction without residual deficits; Translations: [PRSNL HX OF TIA (TIA), AND CEREB INFRC W/O RESID DEFICITS] Onset: 04-07-2018 Episodic Results Test Name Value Interpretation Reference Range Facility RAD - MISCon 09-03-2023 RAD - MISC [id number]#1.00TIFF [facility] Ambulatory Visit Summaryon 0 08-23-2023 Ambulatory Visit Summary JULIO FREEMAN :1950 Visit Date:08/23/2023 Ambulatory Visit Instructions Your Diagnosis Kidney stone Asymptomatic microscopic hematuria BPH with urinary obstruction Personal history of prostate cancer Other obstructive and reflux uropathy Tests Performed Urnls Dip Stick Auto w/o Microscopy POC 52639 XR Abdomen 1 View -- Results Pending [...] Aline TENA MD Where: [facility] Patient Educationon 08-23-19 Patient Education Nephrology Dietary [...] ? 8 oz (237 mL) of milk, qvdkhmp-axzeachwoxfg-dualo milk, and calcium-fortifiedfruit juice. Calcium-fortified means that [...] Spinach (cooked), rhubarb, beets, sweet potatoes, and Lebanese chard. ? Peanuts. ? Potato chips, moldovan fries, and baked potatoes with skin on. ? Nuts and nut products. ? Chocolate. ? If you regularly take a diuretic medicine, make sure to eat at least 1 or 2 servings of fruits or vegetables that are high in potassium each day. These include: ? Avocado. ? Banana. ? [place], prune, carrot, or tomato juice. ? Baked [...] fish oil, or vitamin B6. ? Take mwfq-wxi-rxczzga and prescription medicines only as told by your health care provider. These include supplements. What foods sh (more content not included)... Normal [facility] Urology Office/Clinic Noteon 08-23-2023 Urology Office/Clinic Note [...] 2-3L per day. KUB done 08/17/23 at [facility]. Dysuria: no Incomplete bladder emptying: no Hematuria: [...] Urology [address], [place] [id number]- Additional Instructions: w/PSA and KUB Patient Education [...] urinary obstruction Expressive aphasia Hematospermia Hx of mcfp use of blood thinners Hyperlipidemia Kidney stone Microhematuria Nocturia KAYLENE (obstructive sleep apnea) Osteoarthritis (more content not included)... Normal [facility] Comment on above: Result Comment: Electronically Signed By : Aline TENA MD\.br\Date and Time Signed: 08/23/23 09:42 EST\.br\Electronically Co-Signed By: Anastasiia Reid\.br\Date and Time Co-Signed: 08/23/23 09:40 EST Lab Reportson 08-20-2023 Lab Reports [id number] Normal [facility] Lab Reportson 08-18-2023 Lab Reports [id number]#1.00TIFF Normal [facility] Lab Reports [id number]#1.00TIFF Normal [facility] Lab Reports [id number]#1.00TIFF Normal [facility] Lab Reports [id number]#1.00TIFF Normal [facility] RAD - MISCon 08-18-2023 RAD - MISC [id number]#1.00TIFF Normal [facility] - MIS [id number]#1.00TIFF Normal [facility] CITRATE URINE 24HRon 023 Citric Acid, U, 24hr 925 mg/24 hr Normal 320-1240 [facility] Comment on above: Result Comment: This test was developed and its performance characteristics determined by [employer]. It has not been cleared or approved by the Food and Drug Administration. Performed By: #### C ITRATU #### [facility] [address] [place] [address] Dr. Aneglica Chauhan Citric Acid, Urine 552 mg/L Normal Undefined [facility] Comment on above: Performed By: #### CITRATU #### [facility] [address] [place] [address] Dr. Angelica Chauhan OXALATE 24HR URINEon 023 Oxalates, Urine 18 mg/L Normal Undefined [facility] Comment on above: Performed By: #### [id number] #### [facility] [address] [place] [address] Dr. Angelica Chauhan Oxalates, Urine 24hr 30 mg/24 hr Normal 7-44 [facility] Comment on above: Performed By: #### OX24HR #### [facility] [address] [place] [address] Dr. Angelica Chauhan MAGNESIUM 24HR URINEon 09-01 Magnesium 24hr Urine 102.2 mg/24 hr Normal 12.0-293.0 [facility] Comment on above: Performed By: #### MAG24 #### [facility] [address] [place] [address] Dr. Angelica Chauhan Magnesium UR 6.1 mg/dL Normal Not Estab. [facility] Comment on above: Performed By: #### MAG24 #### [facility] [address] [place] [address] Dr. Angelica Chauhan PHOSPHORUS 24HR URINEon 08-04 Phosphorus, Urine 54.3 mg/dL Normal Not Estab. [facility] Comment on above: Performed By: #### CITRATU #### [facility] [address] [place] [address] Dr. Angelica Chauhan Phosphorus, Urine 24hr 910 mg/24 hr Normal 390-1425 [facility] Comment on above: Performed By: #### CITRATU #### [facility] [address] [place] [address] Dr. Angelica Chauhan PTH INTACTon 09-01-2022 PTH, Intact 40 pg/mL Normal 15-65 [facility] Comment on above: Performed By: #### PTHINT #### [facility] [address] [place] [address] Dr. Angelica Chauhan URIC ACID 24 HR URINEon 08-04 Uric Acid, Urine 46.6 mg/dL Normal Not Estab. [facility] Comment on above: Performed By: #### CITRATU #### [facility] [address] [place] [address] Dr. Angelica Chauhan Uric Acid, Urine 24hr 780.6 mg/24 hr Critically high 136.1-771. 1 [facility] Comment on above: Performed By: #### CITRATU #### [facility] [address] [place] [address] Dr. Angelica Chauhan BUNon 08-31-2022 Urea nitrogen [Mass/Vol] 15.0 mg/dL Normal 7.0-18.0 [facility] Comment on above: Performed By: #### CITRATU #### [facility] [address] [place] [address] Dr. Angelica Chauhan CALCIUMon 08-31-2022 Calcium [Mass/Vol] 9.2 mg/dL Normal 8.5-10.1 [facility] Comment on above: Performed By: #### CREA, CO2, CL, NA, UR IC, CA, K, BUN #### [facility] [address] [place] [address] Dr. Angelica Chauhan CALCIUM 24 HR URINEon 2022 CALC, 24 HR UR 214.4 mg/24 hr Normal 100.0-300. 0 [facility] Comment on above: Performed By: #### CITRATU #### [facility] [address] [place] [address] Dr. Angelica Chauhan UR CALCIUM 12.8 mg/dL Normal 5.1-21.0 [facility] Comment on above: Performed By: #### CITRATU #### [facility] [address] [place] [address] Dr. Angelica Chauhan CHLORIDEon 08-31-2022 Chloride [Moles/Vol] 104 mmol/L Normal 98-107 [facility] Comment on above: Performed By: #### CREA, CO2, CL, NA, UR IC, CA, K, BUN #### [facility] [address] [place] [address] Dr. Angelica Chauhan CO2on 08-31-2022 CO2 [Moles/Vol] 25.6 mmol/L Normal 21.0-32.0 [facility] Comment on above: Performed By: #### CREA, CO2, CL, NA, UR IC, CA, K, BUN #### [facility] [address] [place] [address] Dr. Angelica Chauhan CRELulu 24 HR URINEon CREA, 24 HR UR 1541.17 mg/24 hr Normal 1,000.00- 2 ,000.00 [facility] Comment on above: Performed By: #### CITRATU #### [facility] [address] [place] [address] Dr. Angelica Chauhan UR TOT VOL 1675 ml/24 HR Normal [facility] Comment on above: Performed By: #### CITRATU #### [facility] [address] [place] [address] Dr. Angelica Chauhan URINE CREAT 92.01 mg/dL Normal 20.00-300. 00 [facility] Comment on above: Performed By: #### CITRATU #### [facility] [address] [place] [address] Dr. Angelica Chauhan CREATININEon 08-31-2022 Creatinine [Mass/Vol] 0.73 mg/dL Normal 0.70-1.30 [facility] Comment on above: Performed By: #### CREA, CO2, CL, NA, UR IC, CA, K, BUN #### [facility] [address] [place] [address] Dr. Angelica Chauhan EGFR-AF TANZANIAN >60 Normal >=60 [facility] Comment on above: Performed By: #### CREA, CO2, CL, NA, UR IC, CA, K, BUN #### [facility] [address] [place] [address] Dr. Angelica Chauhan EGFR-NON AF TANZANIAN >60 Normal >=60 [facility] Comment on above: Performed By: #### CREA, CO2, CL, NA, UR IC, CA, K, BUN #### [facility] [address] [place] [address] Dr. Angelica Chauhan NAon 08-31-2022 Sodium [Moles/Vol] 140 mmol/L Normal 136-145 [facility] Comment on above: Performed By: #### CREA, CO2, CL, NA, UR IC, CA, K, BUN #### [facility] [address] [place] [address] Dr. Angelica Chauhan POTASSIUMon 08-31-2022 Potassium [Moles/Vol] 4.0 mmol/L Normal 3.5-5.1 [facility] Comment on above: Performed By: #### CITRATU #### [facility] [address] [place] [address] Dr. Angelica Chauhan SODIUM 24 HR URINEon 01-30-2 023 NA, 24 HR UR 171 mmol/24 hr Normal 40-220 [facility] Comment on above: Performed By: #### CITRATU #### [facility] [address] [place] [address] Dr. Angelica Chauhan Sodium (U) [Moles/Vol] 102 mmol/L Critically high 30-90 [facility] Comment on above: Performed By: #### CITRATU #### [facility] [address] [place] [address] Dr. Angelica Chauhan URIC ACID SERUMon 08-31-2022 Urate [Mass/Vol] 5.0 mg/dL Normal 3.5-7.2 [facility] Comment on above: Performed By: #### CITRATU #### [facility] [address] [place] [address] Dr. Angelica Chauhan CBC AUTO DIFFon 07-29-2022 BASO # 0.0 103/ul Normal 0.0-0.1 [facility] Comment on above: Performed By: #### CBC #### [facility] [address] [place] [address] Dr. Angelica Chauhan Basophils/100 WBC (Bld) 0.6 % Normal 0.2-2.0 [facility] Comment on above: Performed By: #### CBC #### [facility] [address] [place] [address] Dr. Angelica Chauhan EO # 0.2 103/ul Normal 0.0-0.7 [facility] Comment on above: Performed By: #### CBC #### [facility] [address] [place] [address] Dr. Angelica Chauhan Eosinophils/100 WBC (Bld) 3.5 % Normal 0.9-7.0 [facility] Comment on above: Performed By: #### CBC #### [facility] [address] [place] [address] Dr. Angelica Chauhan Erythrocyte distribution width (RBC) [Ratio] 12.3 % Normal 11.0-15.0 [facility] Comment on above: Performed By: #### CBC #### [facility] [address] [place] [address] Dr. Angelica Chauhan Hematocrit (Bld) [Volume fraction] 45.1 % Normal 42.0-54.0 [facility] Comment on above: Performed By: #### CBC #### [facility] [address] [place] [address] Dr. Angelica Chauhan Hemoglobin (Bld) [Mass/Vol] 15.2 g/dL Normal 14.0-18.0 [facility] Comment on above: Performed By: #### CBC #### [facility] [address] [place] [address] Dr. Angelica Chauhan IG # 0.02 10e3/ul Normal 0.00-0.03 [facility] Comment on above: Performed By: #### CBC #### [facility] [address] [place] [address] Dr. Angelica Chauhan IG % 0.3 % Normal 0.0-0.5 [facility] Comment on above: Performed By: #### CBC #### [facility] [address] [place] [address] Dr. Angelica Chauhan LYMPH # 0.9 103/ul Critically low 1.2-3.8 [facility] Comment on above: Performed By: #### CBC #### [facility] [address] [place] [address] Dr. Angelica Chauhan Lymphocytes/100 WBC (Bld) 14.3 % Critically low 20.5-60.0 [facility] Comment on above: Performed By: #### CBC #### [facility] [address] [place] [address] Dr. Angelica Chauhan MANUAL DIFF REQ NO Normal [facility] Comment on above: Performed By: #### CBC #### [facility] [address] [place] [address] Dr. Angelica Chauhan MCH (RBC) [Entitic mass] 29.9 pg Normal 25.9-34.0 [facility] Comment on above: Performed By: #### CBC #### [facility] [address] [place] [address] Dr. Angelica Chauhan MCHC (RBC) [Mass/Vol] 33.7 g/dL Normal 29.9-35.2 [facility] Comment on above: Performed By: #### CBC #### [facility] [address] [place] [address] Dr. Angelica Chauhan MCV (RBC) [Entitic vol] 88.8 fL Normal 80.0-94.0 [facility] Comment on above: Performed By: #### CBC #### [facility] [address] [address] [address] Angelica Chauhan MONO # 0.6 103/ul Normal 0.3-0.8 [facility] Comment on above: Performed By: #### CBC #### [facility] [address] [place] [address] Dr. Angelica Chauhan Monocytes/100 WBC (Bld) 9.7 % Normal 1.7-12.0 [facility] Comment on above: Performed By: #### CBC #### [facility] [address] [place] [address] Dr. Angelica Chauhan NEUT # 4.7 103/ul Normal 1.4-6.5 [facility] Comment on above: Performed By: #### CBC #### [facility] [address] [place] [address] Dr. Angelica Chauhan Neutrophils/100 WBC (Bld) 71.6 % Normal 43.0-75.0 [facility] Comment on above: Performed By: #### CBC #### [facility] [address] [place] [address] Dr. Angelica Chauhan Platelet mean volume (Bld) [Entitic vol] 9.4 fL Critically low 9.5-13.5 [facility] Comment on above: Performed By: #### CBC #### [facility] [address] [place] [address] Dr. Angelica Chauhan PLT 199 103/ul Normal 150-450 [facility] Comment on above: Performed By: #### CBC #### [facility] [address] [place] [address] Dr. Angelica Chauhan RBC 5.08 106/ul Normal 4.70-6.10 [facility] Comment on above: Performed By: #### CBC #### [facility] [address] [address] [address] Angelica Chauhan WBC 6.6 103/ul Normal 4.0-11.0 [facility] Comment on above: Performed By: #### CBC #### [facility] [address] [address] [address] Angelica Chauhan LIPID PROFILEon 07-29-2022 CHOL-HDL RATIO NORM SEE BELOW Normal [facility] Comment on above: Result Comment: 3.3 - 4.4 LOW RISK 4.4 - 7.1 AVERAGE RISK 7.1 - 11.0 MODERATE RISK >11.0 HIGH RISK Performed By: #### M AG24 #### [facility] [address] [place] [address] Dr. Angelica Chauhan Cholesterol [Mass/Vol] 192 mg/dL Normal <=200 [facility] Comment on above: Performed By: #### MAG24 #### [facility] [address] [place] [address] Dr. Angelica Chauhan Cholesterol in HDL [Mass/Vol] 45 mg/dL Normal 40-60 [facility] Comment on above: Performed By: #### MAG24 #### [facility] [address] [place] [address] Dr. Angelica Chauhan Cholesterol in LDL [Mass/Vol] 118.8 mg/dL Normal [facility] Comment on above: Performed By: #### MAG24 #### [facility] [address] [place] [address] Dr. Angelica Chauhan Cholesterol.tota l/Cholesterol in HDL [Mass ratio] 4.3 {ratio} Normal [facility] Comment on above: Performed By: #### MAG24 #### [facility] [address] [place] [address] Dr. Angelica Chauhan HDL NORMAL > or = 60 mg/dl - LO W CARDIOVASCULAR RISK <40 mg/dl - HIGH CARDIOVASCULAR RISK Normal [facility] Comment on above: Performed By: #### MAG24 #### [facility] [address] [place] [address] Dr. Angelica Chauhan LDL CALC NORMAL SEE BELOW Normal [facility] Comment on above: Result Comment: <100 mg/dl OPTIMAL 100 - 129 mg/dl NEAR OR ABOVE OPTIMAL 130 - 159 mg/dl BORDERLINE HIGH 160 - 189 mg/dl HIGH >190 mg/dl VERY HIGH Performed By: #### M AG24 #### [facility] [address] [place] [address] Dr. Angelica Chauhan Triglyceride [Mass/Vol] 141 mg/dL Normal <=150 [facility] Comment on above: Performed By: #### MAG24 #### [facility] [address] [place] [address] Dr. Angelica Chauhan VLDL CALC 28.2 mg/dL Normal [facility] Comment on above: Performed By: #### MAG24 #### [facility] [address] [place] [address] Dr. Angelica Chauhan PROF 14(COMP METB)on 022 Albumin [Mass/Vol] 3.8 g/dL Normal 3.4-5.0 [facility] Comment on above: Performed By: #### MAG24 #### [facility] [address] [place] [address] Dr. Angelica Chauhan Albumin/Globulin [Mass ratio] 1.0 {ratio} Normal [facility] Comment on above: Performed By: #### MAG24 #### [facility] [address] [place] [address] Dr. Angelica Chauhan ALP [Catalytic activity/Vol] 86 U/L Normal 46-116 [facility] Comment on above: Performed By: #### MAG24 #### [facility] [address] [place] [address] Dr. Angelica Chauhan ALT [Catalytic activity/Vol] 34 U/L Normal 16-63 [facility] Comment on above: Performed By: #### MAG24 #### [facility] [address] [place] [address] Dr. Angelica Chauhan Anion gap [Moles/Vol] 10.3 mmol/L Normal [facility] Comment on above: Performed By: #### MAG24 #### [facility] [address] [place] [address] Dr. Angelica Chauhan AST [Catalytic activity/Vol] 20 U/L Normal 15-37 [facility] Comment on above: Performed By: #### MAG24 #### [facility] [address] [place] [address] Dr. Angelica Chauhan Bilirubin [Mass/Vol] 0.7 mg/dL Normal 0.2-1.0 [facility] Comment on above: Performed By: #### MAG24 #### [facility] [address] [place] [address] Dr. Angelica Chauhan Calcium [Mass/Vol] 9.5 mg/dL Normal 8.5-10.1 [facility] Comment on above: Performed By: #### MAG24 #### [facility] [address] [place] [address] Dr. Angelica Chauhan Chloride [Moles/Vol] 103 mmol/L Normal 98-107 [facility] Comment on above: Performed By: #### MAG24 #### [facility] [address] [place] [address] Dr. Angelica Chauhan CO2 [Moles/Vol] 31.0 mmol/L Normal 21.0-32.0 [facility] Comment on above: Performed By: #### MAG24 #### [facility] [address] [place] [address] Dr. Angelica Chauhan Creatinine [Mass/Vol] 0.79 mg/dL Normal 0.70-1.30 [facility] Comment on above: Performed By: #### MAG24 #### [facility] [address] [place] [address] Dr. Angelica Chauhan EGFR-AF TANZANIAN >60 Normal >=60 [facility] Comment on above: Performed By: #### MAG24 #### [facility] [address] [place] [address] Dr. Angelica Chauhan EGFR-NON AF TANZANIAN >60 Normal >=60 [facility] Comment on above: Performed By: #### MAG24 #### [facility] [address] [place] [address] Dr. Angelica Chauhan Globulin (S) [Mass/Vol] 3.8 g/dL Normal [facility] Comment on above: Performed By: #### MAG24 #### [facility] [address] [address] [address] Angelica Chauhan Glucose [Mass/Vol] 96 mg/dL Normal 74-106 [facility] Comment on above: Performed By: #### MAG24 #### [facility] [address] [address] [address] Angelica Chauhan Potassium [Moles/Vol] 4.3 mmol/L Normal 3.5-5.1 [facility] Comment on above: Performed By: #### MAG24 #### [facility] [address] [address] [address] Angelica Chauhan Protein [Mass/Vol] 7.6 g/dL Normal 6.4-8.2 [facility] Comment on above: Performed By: #### MAG24 #### [facility] [address] [address] [address] Angelica Chauhan Sodium [Moles/Vol] 140 mmol/L Normal 136-145 [facility] Comment on above: Performed By: #### MAG24 #### [facility] [address] [address] [address] Angelica Chauhan Urea nitrogen [Mass/Vol] 19.0 mg/dL Critically high 7.0-18.0 [facility] Comment on above: Performed By: #### MAG24 #### [facility] [address] [address] [address] Angelica Chauhan Urea nitrogen/Creatin ine [Mass ratio] 24.1 mg/mg Normal [facility] Comment on above: Performed By: #### MAG24 #### [facility] [address] [address] [address] Angelica Chauhan XR KUB 1 VIEWon [...] BILL BOYER Date: 2022-07-29 16:59 Normal [facility] XR KUB 1 VIEWon 09-25-2021 XR KUB [...] LUCINA CRAIN Date: 2021-09-25 07:35 Normal [facility] SARS-CoV-2 (COVID-19) RNA PAMELA+probe Ql (Unsp spec) Not detected Normal NOT DETECTED [facility] Comment on above: Result Comment: This test is not yet carlo roved or cleared by the [place] FDA. When there are no FDA-approved or cleared tests available, and other criteria are met, FDA can make tests available under an emergency access mechanism called an Emergency Use Authorization (EUA). The EUA for this test is supported by the Fly Setter of Health and Human Service's (HHS's) declaration [...] SARS-CoV-2. Performed By: #### C ITRATU #### [facility] [address] [place] [address] Dr. Angelica Seaman 06-07-2018 CNOV Office Visit (RADTSA) JULIO FREEMAN ([id number]) 1950 MDate Time Provider Iiqythnepa39/6/18 2:30 PM Penny BOSWELL During your visit [...] with a PSA level.Signed by: Penny Boswell, [facility]:Regino Marie MD[address] [place] [address]Uqytt: [phone]: [phone] Weyer, RN, RN 06/07/2018 2:50 PM Alisa Cannon RNReferring Provider: Penny BOSWELL [[id number]]Allergies As of Date: 06/07/2018(No Known Allergies)Date Reviewed: [...] (around 06/07/2019).Follow-up and Disposition History RecordedEncounter Number: [id number] Status:Closed by Penny BOSWELL MD on 06/10/18 Normal [facility] PROGRESSon 06-07-2018 Protein mass conc HNO ID: [id number]: Penny Robervice: (none)Author Type: PhysicianType: Progress NotesFiled: [...] stage T Stage: T1c, initialPSA 3.51, biopsy [place] score 3 + 4 = 7 (grade group 2)Overall doing well. PSA with stable response. He has continuedfollow-up with urology.PLAN: We will see him again in one year with a PSA level.Signed by: Penny Boswell, [facility]:Regino Marie MD[address] [place] [address]Ksbjq: [phone]: [phone] Normal [facility] Cardiovascular Lab Reporton 04-08-2018 Cardiovascular Lab Report [facility] Patient Name: Julio Freeman MR #: [id number] Physician: Monika Bowman M.D.Department of Service Date: 04/07/2018Medicine Birthdate: 1950Division of Room #: CCCardiologyAdult CardiovascularAaron V[place] [address] [place], [place] [address] Fax Cardiovascular Laboratory ReportPROCEDURE PERFORMED: LINQ implant.INDICATION: [...] locally anesthetize the left upperchest and the ioGeneticstronic trocar was used to make an incision followed by theMedtronic applicator to fashion a pocket and the LINQ was implanted intothe pocket and the pocket was closed using 4-0 Biosyn suture. This wasfollowed by glue, sterile Steri-Strips, Telfa, and Tegaderm. The patienttolerated the procedure well.R-waves are 0.16 mV.Medtronic LINQ serial number [id number].CONCLUSION: Successful LINQ implant.Electronically Signed by:Monika Bowman M.D. 04/08/2018 03:51 P Monika Bowman M.D.Date Dict: 04/07/2018/03:11 P/Monika Bowman M.D.Date Trans: 04/08/2018 07:40 A/Kennedy_JN:[id number]: Regino Marie M.D. 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 Normal [facility] CTA HEAD W CONTRASTon 2017 CTA [...] by:Oh Mcdowell MD12/23/17Edited Result - FINAL Normal [facility] CTA NECK W CONTRASTon 2017 CTA [...] by:Oh Mcdowell MD12/23/17Edited Result - FINAL Normal [facility] Coding Summaryon 12-20-2017 Coding Summary CODING DATE: 018 FINAL [facility] STATUS: Discharge/Transfer to Another Hospital PAYOR: Medicare [...] Parris Carson Date Saved: 12/20/2017 01:26 pm [facility] Coding Summary CODING DATE: [address] [facility] STATUS: Discharge/Transfer to Another Hospital PAYOR: Medicare [...] Parris Carson Date Saved: 12/20/2017 01:26 pm [facility] B12/Folate Panelon 8 Cobalamins (Vitamin B12) 473 pg/mL Normal 232-1245 [facility] Comment on above: Performed By: #### BMPX, LIPR, CDP, GLYH GB, B12FOL ####[address] [place] [address] Folic Acid 18.1 ng/mL Normal >4.8 [facility] Comment on above: Result Comment: [address] [address] Performed By: #### B MPX, LIPR, CDP, GLYHGB, B12FOL ####[address] [address] Basic Metab w/rfx MGon 12-16 (cont.) Normal [facility] Comment on above: Result Comment: Average GFR for 60-69 ye ars old: 85 mL/min/1.73sq mChronic Kidney Disease: <60 mL/min/1.73sq mKidney failure: <15 mL/min/1.73sq meGFR calculated using average adult body mass. Additional eGFR calculator available at:[email or web address] [email or web address]. Joseph'S [facility] [address] [place] [address] Performed By: #### B MPX, LIPR, CDP, GLYHGB, B12FOL ####[address] [address] Anion gap 10 mmol/L Normal 9-17 [facility] Comment on above: Performed By: #### BMPX, LIPR, CDP, GLYH GB, B12FOL ####[address] [address] Calcium 8.6 mg/dL Normal 8.6-10.4 [facility] Comment on above: Performed By: #### BMPX, LIPR, CDP, GLYH GB, B12FOL ####[address] [address] Chloride 107 mmol/L Normal 98-107 [facility] Comment on above: Performed By: #### BMPX, LIPR, CDP, GLYH GB, B12FOL ####[address] [address] CO2 23 mmol/L Normal 20-31 [facility] Comment on above: Performed By: #### BMPX, LIPR, CDP, GLYH GB, B12FOL ####[address] [address] Creatinine 0.69 mg/dL Low 0.70-1.20 [facility] Comment on above: Performed By: #### BMPX, LIPR, CDP, GLYH GB, B12FOL ####[address] [address] eGFR (non-black) mL/min/{1.73_m2} Normal >60 Me [facility] Comment on above: Performed By: #### BMPX, LIPR, CDP, GLYH GB, B12FOL ####[address] [address] Glucose mass conc 79 mg/dL Normal 70-99 [facility] Comment on above: Performed By: #### BMPX, LIPR, CDP, GLYH GB, B12FOL ####[address] [address] Potassium molar conc 4.0 mmol/L Normal 3.7-5.3 [facility] Comment on above: Performed By: #### BMPX, LIPR, CDP, GLYH GB, B12FOL ####[address] [address] Sodium 140 mmol/L Normal 135-144 [facility] Comment on above: Performed By: #### BMPX, LIPR, CDP, GLYH GB, B12FOL ####[address] [address] Urea nitrogen 13 mg/dL Normal 8-23 [facility] Comment on above: Performed By: #### BMPX, LIPR, CDP, GLYH GB, B12FOL ####[address] [address] BUN/CRE Ratio NOT REPORTED Normal 9-20 [facility] Comment on above: Performed By: #### BMPX, LIPR, CDP, GLYH GB, B12FOL ####[address] [address] Staging: NOT REPORTED Normal [facility] Comment on above: Performed By: #### BMPX, LIPR, CDP, GLYH GB, B12FOL ####[address] [address] CBC with Diffon 12-16-2017 Abs. Basophil 0.00 k/uL Normal 0.0-0.2 [facility] Comment on above: Performed By: #### BMPX, LIPR, CDP, GLYH GB, B12FOL ####[address] [address] Abs.Neutrophil (Seg) 3.87 k/uL Normal 1.8-7.7 [facility] Comment on above: Performed By: #### BMPX, LIPR, CDP, GLYH GB, B12FOL ####[address] [address] Basophils/100 WBC Auto (Bld) 0 % Normal 0-2 [facility] Comment on above: Performed By: #### BMPX, LIPR, CDP, GLYH GB, B12FOL ####[address] [address] Blood morphology Normal Normal [facility] Comment on above: Result Comment: [address] [address] Performed By: #### B MPX, LIPR, CDP, GLYHGB, B12FOL ####[address] [address] Eosinophils 0.10 10*3/uL Normal 0.0-0.4 [facility] Comment on above: Performed By: #### BMPX, LIPR, CDP, GLYH GB, B12FOL ####[address] [address] Eosinophils/100 leukocytes 2 % Normal 1-4 [facility] Comment on above: Performed By: #### BMPX, LIPR, CDP, GLYH GB, B12FOL ####[address] [address] Granulocytes/100 WBC (Bld) 0.00 k/uL Normal 0.00-0.30 [facility] Comment on above: Performed By: #### BMPX, LIPR, CDP, GLYH GB, B12FOL ####[address] [place] [address] Immature granulocytes #/vol (Bld) 0 % Normal 0 [facility] Comment on above: Performed By: #### BMPX, LIPR, CDP, GLYH GB, B12FOL ####[address] [address] Lymphocytes 0.59 10*3/uL Low 1.0-4.8 [facility] Comment on above: Performed By: #### BMPX, LIPR, CDP, GLYH GB, B12FOL ####[address] [address] Lymphocytes/100 leukocytes 12 % Low 24-44 [facility] Comment on above: Performed By: #### BMPX, LIPR, CDP, GLYH GB, B12FOL ####[address] [address] Monocytes 0.34 10*3/uL Normal 0.1-0.8 [facility] Comment on above: Performed By: #### BMPX, LIPR, CDP, GLYH GB, B12FOL ####[address] [address] Monocytes/100 leukocytes 7 % Normal 1-7 [facility] Comment on above: Performed By: #### BMPX, LIPR, CDP, GLYH GB, B12FOL ####[address] [address] Neutrophil (Seg) 79 % High 36-[address] [facility] Comment on above: Performed By: #### BMPX, LIPR, CDP, GLYH GB, B12FOL ####[address] [address] Erythrocyte distribution width Auto Ratio (RBC) 12.3 % Normal 11.8-14.4 [facility] Comment on above: Performed By: #### BMPX, LIPR, CDP, GLYH GB, B12FOL ####[address] [address] Erythrocytes (RBC) 4.60 10*6/uL Normal 4.21-5.77 [facility] Comment on above: Performed By: #### BMPX, LIPR, CDP, GLYH GB, B12FOL ####[address] [address] Erythrocytes (RBC) 0.0 per 100 WBC Normal 0.0 [facility] Comment on above: Performed By: #### BMPX, LIPR, CDP, GLYH GB, B12FOL ####[address] [address] Hematocrit (HCT) 42.1 % Normal 40.7-50.[address] [facility] Comment on above: Performed By: #### BMPX, LIPR, CDP, GLYH GB, B12FOL ####[address] [address] Hemoglobin mass conc (Bld) 14.1 g/dL Normal 13.0-17.0 [facility] Comment on above: Performed By: #### BMPX, LIPR, CDP, GLYH GB, B12FOL ####[address] [address] MCH 30.7 pg Normal 25.2-33.5 [facility] Comment on above: Performed By: #### BMPX, LIPR, CDP, GLYH GB, B12FOL ####[address] [address] MCHC mass conc (RBC) 33.5 g/dL Normal 28.4-34.8 [facility] Comment on above: Performed By: #### BMPX, LIPR, CDP, GLYH GB, B12FOL ####[address] [address] MCV 91.5 fL Normal 82.6-102.9 [facility] Comment on above: Performed By: #### BMPX, LIPR, CDP, GLYH GB, B12FOL ####[address] [address] Platelet mean volume (PMV) 10.0 fL Normal 8.1-13.5 [facility] Comment on above: Performed By: #### BMPX, LIPR, CDP, GLYH GB, B12FOL ####[address] [address] Platelets 173 10*3/uL Normal 138-453 [facility] Comment on above: Performed By: #### BMPX, LIPR, CDP, GLYH GB, B12FOL ####[address] [address] WBC (Leukocytes) 4.9 10*3/uL Normal 3.5-11.3 [facility] Comment on above: Performed By: #### BMPX, LIPR, CDP, GLYH GB, B12FOL ####[address] [address] Auto Diff Performed NOT REPORTED Normal [facility] Comment on above: Performed By: #### BMPX, LIPR, CDP, GLYH GB, B12FOL ####[address] [address] Erythrocyte morphology NOT REPORTED Normal [facility] Comment on above: Performed By: #### BMPX, LIPR, CDP, GLYH GB, B12FOL ####[address] [address] Platelets NOT REPORTED Normal [facility] Comment on above: Performed By: #### BMPX, LIPR, CDP, GLYH GB, B12FOL ####[address] [address] WBC Morphology NOT REPORTED Normal [facility] Comment on above: Performed By: #### BMPX, LIPR, CDP, GLYH GB, B12FOL ####[address] [address] Consulton 12-16-2017 HIM IP Note OR Municipal Engineer Normal [facility] Hemoglobin A1Con 12-16-2017 Glucose mass conc 97 mg/dL Normal [facility] Comment on above: Result Comment: The ADA and AACC recomme nd providing the estimated average glucose result to permit better patient understanding of their HBA1c result.[address] [address] Performed By: #### B MPX, LIPR, CDP, GLYHGB, B12FOL ####[address] [address] Hemoglobin A1c/Hemoglobin.t otal mass fraction (Bld) 5.0 % Normal 4.0-6.0 [facility] Comment on above: Performed By: #### BMPX, LIPR, CDP, GLYH GB, B12FOL ####[facility] [address] [place] [address] Lipid Profileon 12-16-2017 Cholesterol 203 mg/dL High <200 [facility] Comment on above: Result Comment: Cholesterol Guidelines: <200 Desirable 200-240 Borderline >240 Undesirable Performed By: #### B MPX, LIPR, CDP, GLYHGB, B12FOL ####[facility] [address] [place] [address] Cholesterol to HDL Ratio 5.3 {ratio} High <5 [facility] Comment on above: Performed By: #### BMPX, LIPR, CDP, GLYH GB, B12FOL ####[address] [address] HDL Cholesterol 38 mg/dL Low >40 [facility] Comment on above: Result Comment: HDL Guidelines: <40 Unde sirable 40-59 Borderline >59 Desirable Performed By: #### B MPX, LIPR, CDP, GLYHGB, B12FOL ####[facility] [address] [place] [address] LDL Cholesterol 144 mg/dL High 0-130 [facility] Comment on above: Result Comment: LDL Guidelines: <100 [place] irable 100-129 Near to/above Desirable 130-159 Borderline >159 UndesirableDirect (measured) LDL and calculated LDL are not interchangeable tests. Performed By: #### B MPX, LIPR, CDP, GLYHGB, B12FOL ####[facility] [address] [place] [address] Triglyceride 104 mg/dL Normal <150 [facility] Comment on above: Result Comment: Triglyceride Guidelines: <150 Desirable 150-199 Borderline 200-499 High >499 Very high Based on AHA Guidelines for fasting triglyceride, May 2012.[address] [address] Performed By: #### B MPX, LIPR, CDP, GLYHGB, B12FOL ####[address] [address] Cholesterol in VLDL mass conc NOT REPORTED Normal 08-31 [facility] Comment on above: Performed By: #### BMPX, LIPR, CDP, GLYH GB, B12FOL ####[address] [address] MRI BRAIN WO CONTRASTon 05- MRI BRAIN [...] - In Basket (authorizing provider)Final result Normal [facility] Plan of Careon 12-16-2017 HIM IP Note OR Municipal Engineer Normal [facility] Progress Noteon 12-16-2017 HIM IP Note OR Municipal Engineer Normal [facility] HIM IP Note OR Municipal Engineer Normal [facility] HIM IP Note OR Municipal Engineer Normal [facility] HIM IP Note OR Municipal Engineer Normal [facility] Troponinon 12-16-2017 Troponin I.cardiac mass conc Normal [facility] Comment on above: Result Comment: Reference Range: <0.03 W ithin reference range. 0.03-0.09 Possible myocardial damage.Repeat at appropriate intervals to rule out chronic elevation. >= 0.10 Indicative of myocardial damage.Patients with high levels of Biotin oral intake (i.e >5mg/day) may have falsely decreased Troponin T levels. Samples collected within 8 hours of biotin intake may require additional information for diagnosis.[address] [place] [address] Performed By: #### T ROPI ####[id number] [place] [address] Troponin T.cardiac mass conc ug/L Normal <0.03 [facility] Comment on above: Result Comment: Troponin T results canno t be compared to Troponin-I results. Performed By: #### T ROPI ####[address] [place] [address] .Auto Diff 1on - Auto Baso % 0.5 % Normal 0.2-2.0 [facility] Comment on above: Performed By: #### [id number], 6795582, 70097155, 8248075, 7683046, 9531638873, 3579281 ####[facility] (DEFAULT)[address] [place] [address] Auto [place] % 9 % Normal 1-12 [facility] Comment on above: Performed By: #### [id number], 6410044, 29965826, 6652634, 1058888, 0491998397, 1865933 ####[facility] (DEFAULT)[address] [place] [address] Auto Neut % 74 % Normal 44-88 [facility] Comment on above: Performed By: #### [id number], 2308614, 53755660, 6979258, 1927257, 0912676857, 2900649 ####[facility] (DEFAULT)[address] [place] [address] Baso Abs# 0.0 x10 Normal 0.0-0.2 [facility] Comment on above: Performed By: #### [id number], 5800607, 61069298, 7925209, 4727802, 6931539420, 3370672 ####[facility] (DEFAULT)[address] [place] [address] Eos Abs# 0.1 x10 Normal 0.0-0.4 [facility] Comment on above: Performed By: #### [id number], 4405444, 58270741, 1271671, 6283395, 1636552833, 2517306 ####[facility] (DEFAULT)[address] [place], [place] [address] Eosinophils/100 leukocytes 2.1 % Normal 0.9-4.0 [facility] Comment on above: Performed By: #### [id number], 8549184, 83831036, 7868857, 1861263, 7438249412, 7883811 ####[facility] (DEFAULT)[address] [place] [address] Lymphocytes 0.6 x10 Low 1.3-2.9 [facility] Comment on above: Performed By: #### [id number], 3716416, 71941682, 1626838, 9467498, 8451828295, 9527774 ####[facility] (DEFAULT)[address] [place] [address] Lymphocytes/100 leukocytes 14 % Normal 14-48 [facility] Comment on above: Performed By: #### [id number], 7902045, 30192669, 7576902, 7644092, 2079557133, 7727769 ####[facility] (DEFAULT)[address] [place] [address] [place] Abs# 0.4 x10 Normal 0.0-0.8 [facility] Comment on above: Performed By: #### [id number], 9664723, 55262856, 7552201, 6928190, 1046954086, 0114332 ####[facility] (DEFAULT)[address] [place] [address] Neut Abs# 3.1 x10 Normal 1.5-9.2 [facility] Comment on above: Performed By: #### [id number], 8794502, 75778815, 1121216, 8762074, 8948359916, 4332026 ####[facility] (DEFAULT)[address] [place] [address] CBC w/ Auto Diffon 8 Erythrocyte distribution width Auto Ratio (RBC) 12.7 % Normal 11.5-15.0 [facility] Comment on above: Performed By: #### [id number], 1138151, 21970991, 7524186, 1807929, 8880050887, 1776350 ####[facility] (DEFAULT)[address] [place] [address] Erythrocytes (RBC) 4.58 x10 Normal 3.70-5.30 [facility] Comment on above: Performed By: #### 7591521001, 7630340, 34556575, 2249941, 7093390, 5817498275, 9188858 ####[facility] (DEFAULT)[address] [place] [address] Hematocrit (HCT) 40.8 % Normal 34.8-51.9 [facility] Comment on above: Performed By: #### [id number], 3131519, 28285891, 8975590, 7344730, 9291987134, 4813585 ####[facility] (DEFAULT)[address] [place] [address] Hemoglobin mass conc (Bld) 14.4 g/dL Normal 11.8-17.7 [facility] Comment on above: Performed By: #### [id number], 5724599, 10063451, 4329284, 6005528, 4307986780, 8389527 ####[facility] (DEFAULT)[address] [place] [address] Man Diff? Auto Normal [facility] Comment on above: Performed By: #### 3166457606, 7274789, 34433216, 3787591, 1652976, 3108162522, 2833994 ####[facility] (DEFAULT)[address] [place] [address] MCH 31 pg Normal 24-34 [facility] Comment on above: Performed By: #### [id number], 7936953, 73226842, 8753373, 4014878, 5636941894, 7885892 ####[facility] (DEFAULT)[address] [place] [address] MCHC mass conc (RBC) 35 g/dL Normal 26-37 [facility] Comment on above: Performed By: #### [id number], 8836795, 34303848, 6591165, 7730823, 8209140386, 4373076 ####[facility] (DEFAULT)[address] [place] [address] MCV 89 fL Normal 81-100 [facility] Comment on above: Performed By: #### 1638120922, 3725721, 92986974, 6475536, 1451491, 0923004274, 0288245 ####[facility] (DEFAULT)[address] [place] [address] Platelet mean volume (PMV) 9.4 fL Normal 6.3-10.2 [facility] Comment on above: Performed By: #### [id number], 0467558, 19417699, 0481290, 6552654, 1599180453, 3747745 ####[facility] (DEFAULT)[address] [place] [address] Platelets 167 x10 Normal 138-427 [facility] Comment on above: Performed By: #### 2968593907, 8419040, 88280232, 2662547, 1629224, 5995669183, 0329186 ####[facility] (DEFAULT)[address] [place] [address] WBC (Leukocytes) 4.2 x10 Normal 3.5-10.5 [facility] Comment on above: Performed By: #### [id number], 5103167, 14393355, 3995861, 6179723, 0982546773, 6255642 ####[facility] (DEFAULT)[address] [place] [address] Standardon 12-15-2017 eGFR (non-black) mL/min/{1.73_m2} Invalid Interpretation Code [facility] Comment on above: Performed By: #### [id number], 9215022, 98580891, 7316984, 0457074, 1758590181, 8655885 ####[facility] (DEFAULT)[address] [place] [address] eGFR (non-black) mL/min/{1.73_m2} Invalid Interpretation Code [facility] Comment on above: Result Comment: Chronic Kidney disease c ould be indicated at eGFRs of less than 60 ml/min/1.73m2. Kidney Failure is indicated at less than 15 ml/min/1.73m2 Performed By: #### 1 [id number], 9123763, 04025755, 4359204, 0707652, 1720714594, 9153357 ####[facility] (DEFAULT)[address] [place] [address] Albumin 4.1 g/dL Normal 3.5-5.0 [facility] Comment on above: Performed By: #### [id number], 5403122, 51659729, 1874652, 0293339, 4469398042, 0684232 ####[facility] (DEFAULT)[address] [place] [address] Albumin/Globulin Ratio 1.4 {ratio} Normal 1.4-2.6 [facility] Comment on above: Performed By: #### [id number], 5644312, 65957234, 9085655, 2416629, 3425378040, 0842903 ####[facility] (DEFAULT)[address] [place] [address] Alk Phos 64 IU/L Normal 32-91 [facility] Comment on above: Performed By: #### 8598836448, 3743653, 96197553, 6905873, 3035457, 1385074993, 5317763 ####[facility] (DEFAULT)[address] [place] [address] ALT/SGPT 21.0 IU/L Normal 17.0-63.0 [facility] Comment on above: Performed By: #### [id number], 6501005, 87634662, 9927730, 0429355, 4902437105, 8011416 ####[facility] (DEFAULT)[address] [place] [address] Anion gap 11.0 mmol/L Normal 5.0-19.0 [facility] Comment on above: Performed By: #### [id number], 8283198, 12003482, 9147303, 4032133, 4862555058, 1157400 ####[facility] (DEFAULT)[address] [place] [address] AST/SGOT 21 IU/L Normal 15-41 [facility] Comment on above: Performed By: #### [id number], 8898679, 34642616, 4635087, 1731325, 5837279859, 9351070 ####[facility] (DEFAULT)[address] [place] [address] Bili Total 0.9 mg/dL Normal 0.3-1.2 [facility] Comment on above: Performed By: #### [id number], 7901812, 76995795, 1496518, 8672501, 3081217437, 9017570 ####[facility] (DEFAULT)[address] [place] [address] BUN/Creatinine Ratio 28.0 mg/mg High 4.6-16.2 [facility] Comment on above: Performed By: #### [id number], 1006013, 13359011, 9943175, 4597040, 9682958707, 1976762 ####[facility] (DEFAULT)[address] [place] [address] Calcium 9.0 mg/dL Normal 8.9-10.3 [facility] Comment on above: Performed By: #### 0196849646, 9330248, 95427711, 3123884, 5971300, 5524216813, 5016253 ####[facility] (DEFAULT)[address] [place] [address] Chloride 105 mmol/L Normal 101-111 [facility] Comment on above: Performed By: #### [id number], 0152948, 39556767, 7235286, [id number], [id number], [id number] ####[facility] (DEFAULT)[address] [place] [address]60[address] CO2 24 mmol/L Normal 21-32 [facility] Comment on above: Performed By: #### [id number], [id number], [id number], 3921790, 4598480, [id number], [id number] ####[facility] (DEFAULT)[address] [place] [address] Creatinine 0.61 mg/dL Low 0.90-1.30 [facility] Comment on above: Performed By: #### [id number], [id number], 57893171, 0935214, 0338286, [id number], 4708700 ####[facility] (DEFAULT)[address] [place] [address] Globulin 2.9 g/dL Normal 1.5-4.3 [facility] Comment on above: Performed By: #### [id number], [id number], 74069173, 8393614, 8861028, [id number], 9397410 ####[facility] (DEFAULT)[address] [place] [address]46[address] Glucose mass conc 97.0 mg/dL Normal 74.0-118.0 [facility] Comment on above: Performed By: #### [id number], [id number], [id number], 5790374, 9354801, [id number], [id number] ####[facility] (DEFAULT)[address] [place] [address] Osmolality 273 mOsm/L Invalid Interpretation Code [facility] Comment on above: Performed By: #### [id number], [id number], 55923911, 1477631, 4993258, [id number], [id number] ####[facility] (DEFAULT)[address] [place] [address] Potassium molar conc 3.5 mmol/L Low 3.6-5.1 [facility] Comment on above: Performed By: #### [id number], 2212166, 49202145, 7443822, 5706886, [id number], 4187995 ####[facility] (DEFAULT)[address] [place] [address] 19663 Protein 7.0 g/dL Normal 6.5-8.1 [facility] Comment on above: Performed By: #### [id number], [id number], 66588919, 3882752, 8634546, [id number], 8815550 ####[facility] (DEFAULT)[address] [place] [address] Sodium 136.0 mmol/L Normal 136.0-144. 0 [facility] Comment on above: Performed By: #### [id number], 5152110, 17193278, 4118114, 7620126, [id number], 9732082 ####[facility] (DEFAULT)[address] [place] [address] Urea nitrogen 17 mg/dL Normal 8- [facility] Comment on above: Performed By: #### [id number], 4298694, 09184477, 2645493, 4796286, [id number], 4667810 ####[facility] (DEFAULT)[address] [place] [address] CT Head or Brain w/o Contras ton [...] ACUTE BLEED ORFOCAL MASS.Narinder Burton MDJOB #: [id number]: 12/15/2017T: 12/15/2017 Final Dictated by: Narinder Burton MD SDictated DT/TM: 12/15/17 2:14Signed (Electronic Signature): Narinder Burton MD 12/15/17 2:52 pmTechnologist: LASHAE VARELA Normal [facility] Consulton 12-15-2017 HIM IP Note OR Municipal Engineer Normal [facility] ED Clinical Summaryon 2017 ED Clinical Summary [facility] - Emergency [address] [place] [address] ed Clinical SummaryPERSON INFORMATIONName: JULIO FREEMAN Lulu Age: 67 Years Sex: MALEDOB: [birth year] MRN: Acct#:Visit Reason: General medical; SLURRED SPEECH Arrival: 12/15/17 13:06:00 Discharge: 12/15/17 15:42:00LOS: 000 02:36 Check In: 12/15/17 13:06:00 Checkout:12/15/17 15:42:00Address:[address] [facility] [address]FLE: JORGE MARIE INFORMATIONProvider Role Assigned UnassignedSven Douglas [...] Complaint from Nursing Triage Note : Chief Afqmmpwyj40/16/18 13:10 EDT Chief Complaint Pt and say [...] HI SpO2 99 % Oxygen Therapy Room air.Vfdqdjvbnngh40/16/18 13:21 EDT Weight Dosing 72.570 kg12/15/17 13:21 [...] Berg from the neuro interventional services at [facility] he was made aware of the patient's diagnostic results, as well as NIH score. He suggested that the patient should go through the emergency room at [facility] for further evaluation. I did inform the patient regarding our desired to have further diagnostic testing. The patient voiced understanding. The patient was insistent on driving. He did sign a request for refusal of transport. I did speak with Dr. Duque in the emergency room at [facility] and she accepted the patient.Impression and PlanDiagnosisTIA (transient ischemic attack) (KOT79-TV G45.9, Discharge, Medical)PlanCondition: Improved.Disposition: Transfer to other location: Time: 12/15/17 15:22:00, time deemed necessary for transfer: 1400, Facility name: [facility] , Accepted by: Neto .DISCHARGE INFORMATION:Discharge Disposition: Discharge/Transfer [facility] Location: [facility] ([place])PATIENT EDUCATION INFORMATIONInstructions:Follow-Up :DIAGNOSIS:TIA (transient ischemic attack)Patient Understands: Yes - Patient/family/caregiver verbalizes understanding of instructions givenComment: [facility] ED Noteon 12-15-2017 HIM IP Note OR Municipal Engineer [facility] HIM IP Note OR Municipal Engineer [facility] HIM IP Note OR Municipal Engineer [facility] HIM IP Note OR Municipal Engineer [facility] HIM IP Note OR Municipal Engineer [facility] HIM IP Note OR Municipal Engineer [facility] HIM IP Note OR Municipal Engineer [facility] ED Note - Physicianon 2017 ED Note - Physician Patient: JULIO FREEMAN : 67 years Sex: MALE : [birth year]Associated Diagnoses: TIA (transient ischemic attack)Author: Sven Douglas InformationTime seen: Date & time 12/15/17 13:26:00.History source: Patient, significant other.Arrival mode: Private vehicle.History limitation: None.Additional information: Chief Complaint from Nursing Triage Note : Chief Hxmjizcyg11/16/18 13:10 EDT Chief Complaint Pt and say [...] HI SpO2 99 % Oxygen Therapy Room air.Rgtfnrbuepje74/16/18 13:21 EDT Weight Dosing 72.570 kg12/15/17 13:21 [...] Berg from the neuro interventional services at [facility] he was made aware of the patient's diagnostic results, as well as NIH score. He suggested that the patient should go through the emergency room at [facility] for further evaluation. I did inform the patient regarding our desired to have further diagnostic testing. The patient voiced understanding. The patient was insistent on driving. He did sign a request for refusal of transport. I did speak with Dr. Duque in the emergency room at [facility] and she accepted the patient.Impression and PlanDiagnosisTIA (transient ischemic attack) (YFR15-PR G45.9, Discharge, Medical)PlanCondition: Improved.Disposition: Transfer to other location: Time: 12/15/17 15:22:00, time deemed necessary for transfer: 1400, [facility] , Accepted by: Neto .[Electronically Signed on: 12/15/2017 16:18 EDT] Sven Douglas MD[Verified on: 12/15/2017 16:18 EDT] Sven Douglas MD [facility] ED Patient Education Noteon 12-15-2017 ED Patient Education Note Education Materials [facility] ED Patient Summaryon 018 ED Patient Summary [facility] - Emergency [address] [place] [address] pATIENT DISCHARGE INSTRUCTIONSPatient InformationName: JULIO FREEMAN Lulu Age: 67 YearsDate of : [birth year]MRN: [id number] For Visit: General medical; SLURRED SPEECHArrival Time: 12/15/17 13:06:00Phone: [facility] Care Physician: Yenifer MARIE Physician: Sven Douglas RComment:Visit Diagnosis:Diagnoses This Visit General medical ([id number]) TIA (transient ischemic attack) (G45.9)If you [...] and treatment you received today in the [facility] Emergency Department were for an urgent problem and are not intended as complete care. It is important for you to follow up with a doctor, nurse practitioner, or physician?s medical assistant ob gyn for ongoing care. If your symptoms become [...] number so we can reach you if necessary.[facility] Emergency Department has provided you with a complete list of medications post discharge. Please inform your fountain roller assembler/provider of your visit and for further instruction [...] Antibiotics Marta. 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 Normal [facility] Extra Redon 12-15-2017 Tube Collected Yes Invalid Interpretation Code [facility] Comment on above: Performed By: #### [id number], [id number], 47584265, 2666826, 4275153, [id number], 8826715 ####[facility] (DEFAULT)[address] [place] [address] History and Physicalon 12-15 HIM IP Note OR Municipal Engineer Normal [facility] PTon 12-15-2017 INR Coag RelTime (PPP) 1.00 {INR} Normal 0.91-1.11 [facility] Comment on above: Performed By: #### [id number], [id number], 96233796, 0899380, 0075122, [id number], 3710788 ####[facility] (DEFAULT)[address] [place] [address]4866 Prothrombin time (PT) Coag time (PPP) 10.4 second(s) Normal 9.7-11.8 [facility] Comment on above: Performed By: #### [id number], 5415320, 45258962, 3061750, 2307429, [id number], [id number] ####[facility] (DEFAULT)[address] [place] [address]50 PTTon 12-15-2017 aPTT 28 second(s) Normal 25-35 [facility] Comment on above: Performed By: #### [id number], 7878758, 90784238, 1024820, 1109330, [id number], 3970183 ####[facility] (DEFAULT)[address] [place] [address] Procedureon 12-15-2017 HIM IP Note OR Municipal Engineer Normal [facility] Progress Noteon 12-15-2017 HIM IP Note OR Municipal Engineer Normal [facility] HIM IP Note OR Municipal Engineer Normal [facility] Rad - Other Radiology Report on 12-15-2017 Rad - Other Radiology Report [id number][facility] w/reflex to FT4on 2017 Thyroid stimulating hormone (TSH) 3.93 m[IU]/L Normal 0.30-5.00 [facility] Comment on above: Result Comment: [facility] [address] [place], [place] [id number] ([phone] Performed By: #### T ROPI, TSHX ####[facility] [place], [place] [address] Telemetry Stripson 8 Telemetry Strips [id number]#1.00[facility] Telemetry Strips [id number]#1.00[facility] Transfer Noteon 12-15-2017 Transfer Note Called [facility] at 1424. called at 1434 and spoke with .Pt will be going to [facility] ER, spoke with , accepted.Patient is going by private car. Pt left at 1542, pt is riding with family.Chart and Cd was sent with pt.Pt had no known home meds.Pt did request to go to [facility] at first.I called for the Hospitalist at 1429.Srinivas the nursing supervisor mechanic boilermaking called at 1440 and said the hospitalist will only accept if Neuro is consulted first.I put out a page for Dr.Danner Feng at 1500.[facility] did not call back, so transfered pt to [facility].[Electronically Signed on: 12/15/2017 15:55 EDT] Loly Nix[Verified on: 12/15/2017 15:55 EDT] Loly Nix Normal [facility] Troponinon 12-15-2017 Troponin I.cardiac mass conc Normal [facility] Comment on above: Result Comment: Reference Range: <0.03 W ithin reference range. 0.03-0.09 Possible myocardial damage.Repeat at appropriate intervals to rule out chronic elevation. >= 0.10 Indicative of myocardial damage.Patients with high levels of Biotin oral intake (i.e >5mg/day) may have falsely decreased Troponin T levels. Samples collected within 8 hours of biotin intake may require additional information for diagnosis.Lema21 [facility] [place], [place] [address] ([phone] Performed By: #### Lavern LYNCH TSHX ####[facility] [place] [address] Troponin T.cardiac mass conc ug/L Normal <0.03 [facility] Comment on above: Result Comment: Troponin T results canno t be compared to Troponin-I results. Performed By: #### Lavern LYNCH TSHX ####[address] [address] Troponin Ion 12-15-2017 Troponin I.cardiac mass conc ng/mL Normal <=0.03 [facility] Comment on above: Performed By: #### [id number], 4746993, 49803757, 1504068, 6198673, [id number], 3445849 ####[facility] (DEFAULT)[address] [place] [address] PROGRESSon 12-10-2017 Protein mass conc HNO ID: [id number]: Engeler, G PhillipService: (none)Author Type: PhysicianType: Progress [...] with a PSA level.Signed by: Penny Boswell, [facility]:Regino Marie MD[address] [facility] [place] [address]Poazf: [phone]: [phone] Normal [facility] CNOVon 12-07-2017 CNOV Office Visit (RADTSA) JULIO FREEMAN ([id number]) 1950 [facility] Time Provider Department12/07/17 2:30 PM Penny BOSWELL [...] stage T Stage: T1c, initial PSA3.51, biopsy [place] score 3 + 4 = 7 (grade group 2)Overall doing well. PSA with stable response. He has continued follow-upwith urology.PLAN: We will see him again in 6 months with a PSA level.Signed by: Penny Boswell, [facility]:Regino Marie MD[address] [place] [address]Nizjf: [phone]: [phone] Provider: Penny BOSWELL [[id number]]Allergies As of Date: 12/07/2017(No Known Allergies)Date Reviewed: 06/08/2017Reviewed by: Ashlee Jennings - Fully AssessedReason for Visit: Prostate Cancer [590]Primary Visit Diagnosis:Prostate cancer (HCC) [C61]Order(s):PSA/PROSTSPECAG DIAG [SQPSA] Order #: [id number] FUTUREProblem List As Of Date 12/07/2017 Noted Resolved Prostate cancer (HCC) [C61] INVALID FOR*Visit Notes:>> Vikki Cannon (Red), RN WedDecember 07, 2017 2:30 PM Status: Alisa Cannon RNMedications Discontinued During This Encounter tamsulosin ER (FLOMAX) 0.4 mg cp24 05/18/2016 12/07/2017 Class: Historical Med Sig: Disc: Course of therapy completedDisposition: Return in about 6 months (around 06/09/2018).Follow-up and Disposition History RecordedEncounter Number: [id number] Status:Closed by Penny BOSWELL MD on 12/10/17 Normal [facility] Vital Signs Date Time Vital Sign Value Performing Clinician Bing ventura 08-23-2023 08:58-0500 Blood Pressure Location [employer] [facility] 08-23-2023 08:58-0500 Diastolic blood pressure 81 mm[Hg] Aline TENA [facility] 08-23-2023 08:58-0500 Heart rate 72 /min Aline TENA [facility] 08-23-2023 08:58-0500 Respiratory rate 16 /min Aline TENA [facility] 08-23-2023 08:58-0500 Systolic blood pressure 131 mm[Hg] Aline TENA [facility] 08-24-2022 09:11-0500 Blood Pressure Location Aline TENA [facility] 08-24-2022 09:11-0500 Diastolic blood pressure 84 mm[Hg] Aline TENA [facility] 08-24-2022 09:11-0500 Heart rate 67 /min Aline TENA [facility] 08-24-2022 09:11-0500 Respiratory rate 16 /min Aline TENA [facility] 08-24-2022 09:11-0500 Systolic blood pressure 140 mm[Hg] Aline TENA [facility] Encounters Encounter Date Encounter Type Care Provider Facility Start: 08-21-2024 ambulatory Aline Salmeron ty:[facility] Start: 08-23-2023 End: 08-24-2023 ambulatory Aline TENA Facility:[facility] Start: 08-23-2023 End: 08-23-2023 Patient encounter procedure Aline TENA [facility] Start: 11-23-2022 ambulatory Aline Salmeron ty:[facility] Start: 08-31-2022 End: 09-01-[address] ALINE TENA Facility:[facility] Start: 08-24-2022 End: 08-24-2022 Patient encounter procedure Aline TENA [facility] Start: 07-29-2022 End: 07-30-[address] ALINE TENA Facility:[facility] Start: 09-25-2021 End: 09-25-[address] ALINE TENA Facility:[facility] Start: 09-23-2021 Encounter for preprocedural laboratory examination DR ALINE TENA [facility] Start: 09-22-2021 End: 09-23-[address] ALINE TENA Facility:[facility] Start: 09-22-2021 End: 09-23-2021 Encounter for preprocedural laboratory examination DR ALINE TENA Facility:[facility] Start: 06-07-2018 End: 06-10-2018 Patient encounter procedure G NICHOLAS BOSWELL [facility] Start: 04-07-2018 End: 04-08-2018 Patient encounter MONIKA BOWMAN Facility:[facility] Start: 03-14-2018 End: 03-15-2018 Patient encounter DEFAULT PHYSICIAN Facility:[facility] Start: 12-15-2017 End: 12-15-2017 Emergency department patient visit REGINO MARIE Facility:[facility] Start: 12-15-2017 End: 12-16-2017 Ambulatory Tristin Penaloza Facility:[facility] Start: 12-07-2017 End: 12-13-2017 Patient encounter [facility] Procedures Date Procedure Procedure Detail Performing Clinician Start: 07-29-[address] ARCHANA TENA Comment on above: Performed By: #### C ITRATU #### [facility] [address] [place] [address] Dr. Angelica Chauhan Start: 09-25-2021 Extracorporeal shock [...] REGINO MARIE Start: 12-15-2017 IP CONSULT TO [facility] REGINO MARIE Start: 12-15-2017 IP [...] BNT-162b2 vax Aline TENA [facility] Comment on above: Result Comment: 2022: TPV70 09-28-2020 SARS-CoV-2 (COVID-19 ) mRNA BNT-162b2 vax Aline TENA [facility] Comment on above: Result Comment: 2022: TPV70 09-07-2020 SARS-CoV-2 (COVID-19 ) mRNA BNT-162b2 vax Aline TENA [facility] Comment on above: Result Comment: 2022: TPV70 08-02-2020 SARS-CoV-2 (COVID-19 ) mRNA BNT-162b2 vax Aline TENA [facility] Comment on above: Result Comment: Pt narayan shoemaker he has had 3 shots to date 07-07-2019 influenza virus vaccine, unspecified formulation Aline TENA [facility] 07-07-2019 pneumococcal conjuga te vaccine, 13 valent Aline TENA [facility] 08-03-2017 influenza virus vaccine, unspecified formulation Aline TENA [facility] 06-10-2016 influenza virus vaccine, unspecified formulation Aline TENA [facility] NEGATED: Highlighted row has not occurred!08-26-2020 influenza virus vaccine, unspecified formulation [employer] [facility] Payers Date Payer Category Payer Private Health Insurance cli [id number] 2014 Medicare [id number] 1960 Medicare [id number] 1959 Private Health Insurance CLI [id number] 1950 Unknown [id number] 2.16.84 [id number] 1950 Unknown [id number] 2.16.84 [id number] 1950 Unknown [id number] .16.84 [id number] 1950 Unknown [id number] .16.84 [id number] 1950 Unknown [id number] 2.16.84 [id number] 1950 Unknown [id number] 2.16.8 [id number] 1950 Unknown [id number] 2.16.8 [id number] 1950 Unknown [id number] 2.16.8 [id number] Unknown Social History Date Type Detail Facility Start: 08-24-2022 Tobacco smoking status Never s moked tobacco (finding) [facility] Tobacco smoking status Never [facility] Sex Assigned At Male [facility] Functional Status Date Assessment Result Facility 08-23-2023 Functional Status N/A [facility] 08-24-2022 Functional Status N/A [facility] Hospital Discharge instructions 08-23-2023 Note Date & [...] include: ?8 oz (237 mL) of milk, mzleism-nfmxiwxoyadp-guhrn milk, and calcium-fortifiedfruit juice. Calcium-fortified means that [...] ?Spinach (cooked), rhubarb, beets, sweet potatoes, and Lebanese chard. ?Peanuts. ?Potato chips, moldovan fries, and baked potatoes with skin on. ?Nuts and nut products. ?Chocolate. If you regularly take a diuretic medicine, make sure to eat at least 1 or 2 servings of fruits or vegetables that are high in potassium each day. These include: ?Avocado. ?Banana. ?[place], prune, carrot, or tomato juice. ?Baked potato. [...] magnesium, fish oil, or vitamin B6. Take nfdb-pzs-uzzeupl and prescription medicines only as told by [...] Casseroles. Pizza. Lasagna. Frozen meals. Potato chips. Malaysian fries. The items listed above may not [...] provider. Document Revised: 10/29/2022 Document Reviewed: 10/29/2022 [employer] Patient Education 2022 [employer]. Follow Up Care 08/24/2022 09:47:59 With:EMILY BRUCE, Aline Miller, URL Address: [facility] [address] [place] [address]- When:Within 1 Year(s) Comments:w/CYNTHIA and FERMÍN [facility] Hospital Discharge instructions 08-24-2022 Note Date & [...] include: ?Spinach. ?Rhubarb. ?Beets. ?Potato chips and moldovan fries. ?Nuts. If you regularly take a diuretic medicine, make sure to eat at least 1 2 fruits or vegetables high in potassium each day. These include: ?Avocado. ?Banana. ?[place], prune, carrot, or tomato juice. ?Baked potato. [...] Casseroles. Pizza. Lasagna. Frozen meals. Potato chips. Malaysian fries. Summary You can reduce your risk [...] 11/13/2011 Document Revised: 11/08/2019 Document Reviewed: 06/29/2017 [employer]ink Patient Education 2020 [employer]. Follow Up Care 08/22/2021 08:41:01 With:Aline TENA MD, URL Address: [facility] [address], [place] [address]- When: Unknown [facility] Evaluation + Plan note Note Date & Type Note Facility Evaluation + Plan note Future Appointments Appointment Date:11/23/2022 08:45:00 AM Scheduled Provider:Aline TENA MD Location:[facility] Appointment Type:URO Office Visit Appointment Date:08/23/2023 08:45:00 AM Scheduled Provider:[facility] Office Visit Diagnostic Tests PendingPSA Total 08/24/22 [facility] Evaluation + Plan note Note Date & Type Note Facility Evaluation + Plan note Future Appointments Appointment Date:08/21/2024 08:45:00 AM Scheduled Provider:Aline TENA MD Location:[facility] Appointment Type:URO Office Visit Diagnostic Tests PendingPSA Total 08/23/23 [facility] Hospital course Narrative Note Date & Type Note Facility Hospital course Narrative No data available for this section [facility] Progress note Note Date & Type Note Facility Progress note No data available for this section [facility] Summary Purpose Family History No Family History [...] section and content) DATE CREATED AUTHOR 01/19/2018 [facility] DATE CREATED AUTHOR AUTHOR'S ORGANIZ ATION 01/22/2018 [facility] DATE CREATED AUTHOR AUTHOR'S ORGANIZ ATION 04/24/2018 [facility] DATE CREATED AUTHOR AUTHOR'S ORGANIZ ATION 07/10/2018 [facility] DATE CREATED AUTHOR AUTHOR'S ORGANIZ ATION 09/08/2022 [facility] DATE CREATED AUTHOR AUTHOR'S ORGANIZ ATION 09/04/2023 [facility] Patient Care team informatio n (unrecognized section and content) Personnel Name: REGINO MARIE MD Address: Address: [address] [place] [address] Personnel Name: TARI AGUIRRE CNP Address: Address: [address] FOR RECORDS PERTAINING TO PATIENTS WHO [...] CLINICAL RECORDS. [facility]. provides no warranty or guarantee of the accuracy or completeness of information in this document.
[2024-08-16 10:49] LABS: Basophils Percent Auto 0.7 % (0.2-2.0); Eosinophils Absolute Auto 0.1 10^3/uL (0.0-0.7); Eosinophils Percent Auto 2.4 % (0.9-7.0); Hemoglobin 15.7 g/dL (14.0-18.0); Immature Granulocytes Abs Auto 0.02 10^3/uL (0.00-0.03); Immature Granulocytes Pct Auto 0.3 % (0.0-0.5); Lymphocytes Absolute Auto 0.7 10^3/uL (1.2-3.8); Lymphocytes Percent Auto 12.3 % (20.5-60.0); Mean Corpuscular HGB Conc 34.1 g/dL (29.9-35.2); Mean Corpuscular Hemoglobin 30.8 pg (25.9-34.0); Mean Corpuscular Volume 90.2 fL (80.0-94.0); Mean Platelet Volume 9.5 fL (9.5-13.5); Monocytes Absolute Auto 0.5 10^3/uL (0.3-0.8); Monocytes Percent Auto 8.5 % (1.7-12.0); Neutrophils Absolute Auto 4.4 10^3/uL (1.4-6.5); Neutrophils Percent Auto 75.8 % (43.0-75.0); Platelet Count 208 10^3/uL (150-450); Red Cell Distribution Width 12.4 % (11.0-15.0); White Blood Count 5.8 10^3/uL (4.0-11.0)
[2024-08-16 11:12] LABS: Estimated Average Glucose 94 mg/dL; Glycohemoglobin A1C 4.9 % (4.5-6.2)
[2024-08-16 11:25] LABS: Alanine Aminotransferase 33 U/L (16-63); Albumin Globulin Ratio 1.1; Albumin Level 3.9 g/dL (3.4-5.0); Alkaline Phosphatase 88 U/L (46-116); Anion Gap 10.1; Aspartate Amino Transferase 20 U/L (15-37); BUN Creatinine Ratio 20.8; Bilirubin Total 0.8 mg/dL (0.2-1.0); Calcium 9.5 mg/dL (8.5-10.1); Carbon Dioxide 30.6 mmol/L (21.0-32.0); Chloride 104 mmol/L (98-107); Chol HDL Ratio 3.8; Cholesterol 176 mg/dL (<=200); Estimated GFR (African America >60 (>=60 mL/min/1.73m^2); Estimated GFR (Non-African Ame >60 (>=60 mL/min/1.73m^2); Free T3 2.68 pg/mL (2.18-3.98); Globulin 3.6 g/dL; Glucose 85 mg/dL (74-106); HDL Cholesterol 46 mg/dL (40-60); LDL Cholesterol Calculated 112.4 mg/dL; Potassium 3.7 mmol/L (3.5-5.1); Sodium 141 mmol/L (136-145); Total Protein 7.5 g/dL (6.4-8.2); Triglycerides 88 mg/dL (<=150); Uric Acid 5.6 mg/dL (3.5-7.2); VLDL CHOLESTEROL 17.6 mg/dL
[2024-08-16 11:32] LABS: Prostate Specific Antigen Scrn <0.13 ng/mL (<=4.00)
[2024-08-18 14:10] LABS: Insulin 6.8 uIU/mL (2.6-24.9)
== END 2024-08-16 10:15 | disposition home or self-care (01) ==
PROVIDERS: PCP Nurse Practitioner Family; Visit Provider Nurse Practitioner Family
DX: E78.5 Hyperlipidemia, unspecified (principal)
CPT/HCPCS: 36415; 80053; 80061; 83036; 83525; 84436; 84443; 84481; 84550; 85025; G0103

== ENCOUNTER 2024-08-22 07:51 | Outpatient (OUT) | payer MEDICARE, SELFPAY ==
--- NOTE | 2024-08-22 07:54 | CT_ITS ---
The [address] [address] Patient Name: EVELYN CHSETER MRN: [id number] date: 1950 Sex: M Assigned Patient Location: CT Current Patient Location: CT Accession/Order Number: [id number] Exam Date: 08/22/2024 07:57 Report Date: 08/22/2024 08:23 At the request of: ALINE DIAZ Procedure: CT abdomen pelvis wo con EXAM: CT abdomen pelvis wo con HISTORY: Kidney Stone, Ureteral Stone COMPARISON: CT abdomen pelvis 06/10/2024. TECHNIQUE: Axial soft tissue windows of the abdomen and pelvis with coronal and sagittal reformats. CT dose reduction technique was used including Automated Exposure Control. Findings: Lack of intravenous contrast limits evaluation. Minimal bibasilar atelectasis or scarring. ABDOMEN: The liver, gallbladder, spleen, pancreas, and adrenal glands are unremarkable. Nonobstructing bilateral renal stones ranging in size from 0.1 to 0.2 cm. In addition, within the left renal pelvis there is a nonobstructing 0.6 cm stone. No renal collecting system or ureteral dilatation bilaterally. Evaluation of the bowel is limited given the absence of contrast. No bowel obstruction. The appendix is nondilated. The aorta is normal caliber. Mild atherosclerotic disease. No enlarged abdominal lymph nodes or free abdominal fluid. Pelvis: Mild circumferential bladder wall thickening likely relates to lack of distention. No enlarged pelvic lymph nodes or free pelvic fluid. There are implants within the prostate. No aggressive sclerotic or lytic osseous lesions. Grade 1 anterolisthesis of L4 on L5. Multilevel degenerative spondylosis. CT/CT abdomen pelvis wo con IMPRESSION: 1. Nonobstructing bilateral renal stones. 2. Other nonemergent findings, as described above. Electronically authenticated by: RICKY TRAN Date: 08/22/2024 08:23
--- OUTSIDE RECORDS SUMMARY | 2024-08-22 07:59 | XMS_ITS | CCD ---
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 Role Phone REGINO MARIE Unavailable Unavailable [...] Unavailable Unavailable MONIKA BOWMAN AM Unavailable Unavailable MARIE, REGINO Unavailable Unavailable MARIE, REGINO Unavailable Unavailable ENGELERPenny NICHOLAS Unavailable Unavailable ENGELERPenny NICHOLAS Unavailable Unavailable ENGELERPenny NICHOLAS Unavailable Unavailable ENGELER G NICHOLAS Unavailable Unavailable REGINO MARIE Primary Care Physician DR ALINE TENA Admitting Unavailable EMILY, DR MIRELES Attending Unavailable [...] Care Unavailable EMILY, DR MIRELES Consulting Unavailable ZIEBER, DR LUCINA Miller Consulting Unavailable AGUBOSIMJOSE JUAN Consulting Unavailable VIJAY TARANGO Consulting Unavailable GIOVANNI, DR REGINO Cerrato Admitting Unavailable GIOVANNI, DR REGINO Cerrato Attending Unavailable MARIE, DR REGINO Cerrato Primary Care Unavailable MARIE, DR REGINO Cerrato Consulting Unavailable EMILY, DR MIRELES Admitting Unavailable EMILY, DR MIRELES Attending Unavailable GIOVANNI, DR REGINO Cerrato Primary Care Unavailable EMILY, DR MIRELES Consulting Unavailable WHITING, DR BILL San Consulting Unavailable TARI AGUIRRE Primary Care Physician Aline TENA Attending Unavailable Aline TENA Attending Unavailable Allergies Allergy Classification Reported Allergen(s) Allergy Type Date of Onset Reaction(s) Facility (1 source) No Known Medication Allergies; Translations: [No Known Medication Allergies] Propensity to adverse reactions to drug (disorder) [facility] Repository (2 sources) No Known Allergies; Translations: [No Known Allergies] Propensity to adverse reactions (disorder) 8 [facility] Repository Medications Current Medications Medication Drug Class(es) Dates Sig (Normalized) Sig (Original) aspirin 81 mg delayed release oral tablet (3 sources) Platelet Aggregation Inhibitor, Nonsteroidal Anti-inflammatory Drug Start: 08-07-2021 take 1 tablet by mouth once daily aspirin 81 mg Oral EC Tab 81 mg = 1 tab(s), Oral, Daily, Refills(s) 0 Start Date: 08/07/21 Status: Ordered rosuvastatin calcium 10 mg oral tablet (3 sources) HMG-CoA Reductase Inhibitor Start: 08-07-2021 take 1 tablet by mouth once daily rosuvastatin 10 mg Tab 10 mg = 1 tab(s), Oral, Daily, Refills(s) 0 Start Date: 08/07/21 Status: Ordered Problems Active Problems Problem Classification Problem Date Documented Date Episodic/Chronic Acute cerebrovascular disease (3 sources) Cerebrovascular accident 06-14-2019 Chronic Calculus of urinary tract (13 sources) Kidney stone; Translations: [Calculus of kidney] Onset: 07-31-2022 Episodic Cancer of prostate (4 sources) Malignant neoplasm of prostate; Translations: [MALIGNANT NEOPLASM OF PROSTATE] Onset: 07-29-2022 Chronic Cancer of prostate (8 sources) Personal history of malignant neoplasm of prostate; Translations: [History of malignant neoplasm of prostate] Onset: 04-07-2018 Episodic Cardiac dysrhythmias (4 sources) Palpitations; Translations: [PALPITATIONS] Onset: 04-07-2018 Episodic Developmental disorders (3 sources) 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 Disorders of lipid metabolism (5 sources) Hyperlipidemia; Translations: [Pure hypercholesterolemia, unspecified] Onset: 09-29-2021 06-14-2019 Chronic Essential hypertension (1 source) Essential (primary) hypertension; Translations: [ESSENTIAL (PRIMARY) HYPERTENSION] Onset: 04-07-2018 Chronic Genitourinary symptoms and ill-defined conditions (13 sources) Microscopic hematuria; Translations: [Asymptomatic microscopic hematuria] Onset: 09-29-2021 Episodic Hyperplasia of prostate (6 sources) Benign prostatic hypertrophy with outflow obstruction; Translations: [Benign prostatic hyperplasia with lower urinary tract symptoms] Onset: 08-24-2022 Chronic Osteoarthritis (3 sources) Osteoarthritis 06-14-2019 Chronic Other aftercare (1 source) 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; Translations: [CHCF (CURRENT) USE OF ASPIRIN] Onset: 04-07-2018 Episodic Other diseases of kidney and ureters (1 source) Urinary tract obstruction; Translations: [Other obstructive and reflux uropathy] Onset: 08-20-2023 Episodic Other male genital disorders (3 sources) Hemospermia 06-14-2019 Episodic Other male genital disorders (4 sources) Disorder of prostate, unspecified; Translations: [DISORDER OF PROSTATE UNSPECIFIED] Onset: 07-29-2022 Episodic Other nervous system disorders (1 source) Aphasia; Translations: [Aphasia] Onset: 12-15-2017 Chronic Other nutritional; endocrine; and metabolic disorders (3 sources) Body mass index 25-29 - overweight 08-15-2021 Episodic Residual codes; unclassified (3 sources) Obstructive sleep apnea syndrome 08-07-2021 Chronic Residual codes; unclassified (1 source) Sleep apnea, unspecified; Translations: [SLEEP APNEA UNSPECIFIED] Onset: 09-29-2021 Chronic Residual codes; unclassified (3 sources) H/O: anticoagulant therapy 06-16-2019 Episodic Transient cerebral ischemia (4 sources) Transient cerebral ischemic attack, unspecified; Translations: [Transient cerebral ischemia] Onset: 12-15-2017 08-07-2021 Chronic Unclassified (3 sources) Unknown / UNK(Unknown) Onset: 12-07-2017 Unclassified (3 sources) Asymptomatic microscopic hematuria 08-24-2022 Unclassified (3 sources) Patient encounter status 08-15-2021 Unclassified (1 source) CONTACT W/AND (SUSP) EXPOS COVID-19; Translations: [CONTACT W/AND (SUSP) EXPOS COVID-19] Onset: 09-23-2021 Past or Other Problems Problem Classification Problem Date Documented Da te Episodic/Chronic Other aftercare (1 source) 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; Translations: [CHCF CURRNT USE ANTICOAGULANTS] Onset: 09-29-2021 Episodic Other circulatory disease (2 sources) Personal history of transient ischemic attack (TIA), and cerebral infarction without residual deficits; Translations: [PRSNL HX OF TIA (TIA), AND CEREB INFRC W/O RESID DEFICITS] Onset: 04-07-2018 Episodic Results Test Name Value Interpretation Reference Range Facility Ambulatory Visit Summaryon 0 08-21-2024 Ambulatory Visit Summary Ambulatory Visit Summary JULIO FREEMAN :1950 Visit Date:08/21/2024 Ambulatory Visit Instructions Your Diagnosis Kidney stone Ureteral stone Personal history of prostate cancer Asymptomatic microscopic hematuria BPH with urinary obstruction Tests Performed CT Abdomen/Pelvis w/o Contrast -- Results Pending -- Please visit your [...] (US) guidance (12/10/2015), Colonoscopy (10/24/2009). Discharge Vitals Temperature (Temporal Artery) 37 ???C Heart Rate (Peripheral) 69 Respiratory Rate 17 Blood Pressure 131/79 Height 167 cm Height 66 in Weight 75.3 kg Weight 166.008 lb BMI 27 What to do next You Need to Schedule the Following Appointments Follow Up with EMILY BRUCE, Aline Miller, URL When: Comments: f/u pending CT scan results Where: [facility] [address] , [place] [address]- [phone] Medications What How Much When Instructions Unchanged aspirin (aspirin 81 mg Oral EC Tab) 1 Tablets By Mouth Every day Contact prescribing physician if questions or concerns Unchanged rosuvastatin (rosuvastatin 10 mg Tab) 1 Tablets By Mouth Every day Contact prescribing physician if questions or concerns Allergies No Known Allergies Problems Ongoing - Any problem that you are currently receiving treatment for. 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 Please share your experience with us by completing your survey. We appreciate your feedback and thank you for choosing us for your care. Education Materials Kidney Stones Kidney stones are rock-like masses that form inside of the kidneys. Kidneys are organs that make pee (urine). A kidney stone may move into other parts of the urinary tract, including: ??? The tubes that connect the kidneys to the bladder (ureters). ??? The bladder. ??? The tube that carries urine out of the body (urethra). Kidney stones can cause very bad pain and can block the flow of pee. The stone usually leaves your body through your pee. A doctor may need to take out the stone. What are the causes? Kidney stones may be caused by: ??? Too much calcium in the body. This may be caused by too much parathyroid hormone in the blood. ??? Uric acid crystals in the bladder. The body makes uric acid when you eat certain foods. ??? Narrowing of one or both of the ureters. ??? A kidney blockage that you were born with. ??? Past surgery on the kidney or the ureters. What increases the risk? You are more likely to develop this condition if: ??? You have had a kidney stone in the past. ??? Other people in your family have had kidney stones. ??? You do not drink enough water. ??? You eat a diet that is high in protein, salt (sodium), or sugar. ??? You are very overweight (obese). What are the signs or symptoms? Symptoms of a kidney stone may include: ??? Pain in the side of the belly, right below the ribs. Pain usually spreads to the groin. ??? Needing to pee often or right away. ??? Pain when peeing. ??? Blood in your pee. ??? Feeling like you may vomit (nauseous). ??? Vomiting. ??? Fever and chills. How is this treated? Treatment depends on the size, location, and makeup of the kidney stones. The stones will often pass out of the body when you pee. You may need to: ??? Drink more fluid to help pass the stone. ? In some cases, you may be given fluids through an IV tube at the hospital. ??? Take medicine for pain. ??? Change your diet to help keep kidney stones from coming back. Sometimes, you may need: ??? A procedure to break up kidney stones using a beam of light (laser) or shock waves. ??? Surgery to remove the kidney stones. Follow these instructions at home: Medicines ??? Take ulsl-dfv-swnuuun and prescription m (more content not included)... Normal [facility] Urology Office/Clinic Noteon 08-21-2024 Urology Office/Clinic Note Urology Office/Clinic Note Chief Complaint kidney stone HPI Staff 73yr old male here for 1yr f/u with KUB & PSA. S/P left ESWL done 09/25/21. S/P EBRT & Brachytherapy in 2015. Previous Dx: kidney stone, BPH with urinary obstruction, asymptomatic microscopic hematuria, , Personal history of prostate cancer *no urology meds PSA: 04/26/22 - 0.13 07/29/22 - <0.13 08/17/22 - <0.13 08/16/24 - <0.13 Dysuria: denies Incomplete bladder emptying: denies Hematuria: denies Frequency: denies Urgency: less than 1 in 5x Nocturia: 1x Stream: weak less than 1 in 5x, denies straining and intermittency Leaking: denies Post void dripping: denies Wearing pads/ Depends: denies Urge incontinence: denies Stress incontinence: denies Incontinence without Sensory Awareness: denies Abdominal pain: denies Flank pain: nothing since Jun. Sexual complaints: History of Present Illness Tests reviewed: reviewed UA, PSA, CT scan I have reviewed the previous health record information and history for this patient from Dr. Tena. I have reviewed and verified the staff HPI to be accurate for this encounter. Review of Systems PHQ Score Initial [...] See HPI. Physical Exam Vitals & Measurements T: 37 ???C(Temporal Artery) HR: 69(Peripheral) RR: 17 BP: 131/79 HT: 66 in HT: 167 cm WT: 75.3 kg WT: 166.008 lb BMI: 27 General Appearance: alert, no distress, well nourished, well developed male. Genitourinary: normal scrotum, normal testes, normal urethra, normal epididymis, normal vas deferens/spermatic cord. Flank Pain: none. Bladder: nonpalpable. Assessment/Plan 1. Kidney stone (N20.0: Calculus of kidney) S/P left ESWL done 09/25/21. KUB 07/29/22 - bilateral punctate stones. No ureteral calcifications. Metabolic Workup 08/31/22 - 24hr Citric Acid 925 (320-1240), Total output volume 1875mL KUB 08/17/23 - bilateral punctate renal stones, stable, no ureteral calcifications noted. CT AP wo con 06/10/24 TBH - 7 mm nonobstructing stone in midpole of L kidney. No L hydro. Moderate R hydro with some perinephric fat stranding. Tiny <3 mm stone in RLP. 5 mm R UVJ stone and a 6 mm stone distal to it and there is a 4 mm stone which might be at the orifice of the R ureter at the base of the bladder. Reviewed imaging results. Has not had any pain since June. Denies any changes in urination. Denies noticing any stones pass, was straining urine x1 wk in June. Nontender on exam today. Discussed possibility of stone passage the week after he stopped straining urine vs stones still being present but not causing pain. Advised pt stones will need treated if stone present. Risks/benefits discussed. Will need to update imaging study to evaluate location of stones. Pt understands and agrees with plan. -Schedule CT AP wo con. Will call pt with results. If ureteral stone(s) are still present, will proceed with cysto/URS/laser litho/possible stent placement 2. Ureteral stone (N20.1: Calculus of ureter) See #1. 3. Personal history of prostate cancer (Z85.46: Personal history of malignant neoplasm of prostate) PSA: 06/14/20 - 0.13 07/23/21 - 0.10 04/26/22 - 0.13 07/29/22 - <0.13 08/17/22 - <0.13 08/16/24 - <0.13 TRUS/bx 12/10/15 - Gowen 7 (3+4) x1 core, Meron 6 (3+3) x2 cores, 1 FATIMAH core, 1 HGPIN core. Highest percent involvement 14%. S/P EBRT & Brachytherapy in 2016. PSA remains undetectable. Will cont to monitor. 4. Asymptomatic microscopic hematuria (R31.21: Asymptomatic microscopic hematuria) Chronic. Negative hematuria w/up done 08/2020. UA today negative for blood (small on prior). 5. BPH with urinary obstruction (N40.1: Benign prostatic hyperplasia with lower urinary tract symptoms) IPSS 3. Not taking any BPH meds. Not voicing any urinary habit complaints. Follow-up With When Contact Information Aline TENA MD, URL [facility] [address], [place] [address]- [phone] Additional Instructions: f/u pending CT scan results Patient Education Kidney Stones, Ayqp-km-Hhhp Ana Schwartz, personally scribed for Dr. Tena on 08/21/2024 10:08:35. . Documentation recorded by the Ana hamlin, accurately reflects the services(s) I performed and decisions made by me. Authenticated by Dr. Tena on 08/21/2024 10:12:31. Problem List/Past Medical History Ongoing Asymptomatic microscopic hematuria BMI 25.0-25.9,adult (more content not included)... Normal [facility] Comment on above: Result Comment: Electronically Signed By : Aline TENA MD\.br\Date and Time Signed: 08/21/24 10:12 EST\.br\Electronically Co-Signed By: Ana Garzon\.br\Date and Time Co-Signed: 08/21/24 10:09 EST Ambulatory Visit Summaryon 0 08-23-2023 Ambulatory Visit Summary JULIO FREEMAN :1950 Visit Date:08/23/2023 Ambulatory Visit Instructions Your Diagnosis Kidney stone Asymptomatic microscopic hematuria BPH with urinary obstruction Personal history of prostate cancer Other obstructive and reflux uropathy Tests Performed Urnls Dip Stick Auto w/o Microscopy POC 94632 XR Abdomen 1 View -- Results Pending [...] Aline TENA MD Where: [facility] Patient Educationon 08-23-19 24 Patient Education Nephrology Dietary Guidelines to Help [...] ? 8 oz (237 mL) of milk, rahdhdr-wrqtqnhdmoda-orssy milk, and calcium-fortifiedfruit juice. Calcium-fortified means that [...] Spinach (cooked), rhubarb, beets, sweet potatoes, and Bhutanese chard. ? Peanuts. ? Potato chips, indian fries, and baked potatoes with skin on. ? Nuts and nut products. ? Chocolate. ? If you regularly take a diuretic medicine, make sure to eat at least 1 or 2 servings of fruits or vegetables that are high in potassium each day. These include: ? Avocado. ? Banana. ? [place], prune, carrot, or tomato juice. ? Baked [...] fish oil, or vitamin B6. ? Take pzxi-lqn-tizhssn and prescription medicines only as told by your health care provider. These include supplements. What foods sh (more content not included)... Normal [facility] Urology Office/Clinic Noteon 08-23-2023 Urology Office/Clinic Note [...] 2-3L per day. KUB done 08/17/23 at [facility]. Dysuria: no Incomplete bladder emptying: no [...] [facility]rology [address], [place] [address]- Additional Instructions: w/PSA and KUB Patient Education Dietary Guidelines to Help Prevent Kidney Stones I, Anastasiia Reid , personally scribed for Dr. Tena on 08/23/2023 09:39:45. . Documentation recorded by the scribeAnastasiia, accurately reflects the services(s) I performed and decisions made by me. 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 Normal [facility] Comment on above: Result Comment: Electronically Signed By : Aline TENA MD\.br\Date and Time Signed: 08/23/23 09:42 EST\.br\Electronically Co-Signed By: Anastasiia Reid\.br\Date and Time Co-Signed: 08/23/23 09:40 EST CITRATE URINE 24HRon 023 Citric Acid, U, 24hr 925 mg/24 hr Normal 320-1240 [facility] Comment on above: Result Comment: This test was developed and its performance characteristics determined by [facility]. It has not been cleared or approved by the Food and Drug Administration. Performed By: #### C ITRATU #### [facility] [address] [address] [address] Angelica Chauhan Citric Acid, Urine 552 mg/L Normal Undefined [facility] Comment on above: Performed By: #### CITRATU #### [facility] [address] [address] [address] Angelica Chauhan OXALATE 24HR URINEon 0203-2 023 Oxalates, Urine 18 mg/L Normal Undefined [facility] Comment on above: Performed By: #### [id number] #### [facility] [address] [place] [address] Dr. Angelica Chuahan Oxalates, Urine 24hr 30 mg/24 hr Normal 7-44 [facility] Comment on above: Performed By: #### [id number] #### [facility] [address] [place] [address] Dr. Angelica Chauhan MAGNESIUM 24HR URINEon 09-01 Magnesium 24hr Urine 102.2 mg/24 hr Normal 12.0-293.0 [facility] Comment on above: Performed By: #### MAG24 #### [facility] [address] [place] [address] Dr. Angelica Chauhan Magnesium UR 6.1 mg/dL Normal Not Estab. [facility] Comment on above: Performed By: #### MAG24 #### [facility] [address] [place] [address] Dr. Angelica Chauhan PHOSPHORUS 24HR URINEon 08-04 Phosphorus, Urine 54.3 mg/dL Normal Not Estab. [facility] Comment on above: Performed By: #### CITRATU #### [facility] [address] [place] [address] Dr. Angelica Chauhan Phosphorus, Urine 24hr 910 mg/24 hr Normal 390-1425 [facility] Comment on above: Performed By: #### CITRATU #### [facility] [address] [place] [address] Dr. Angelica Chauhan PTH INTACTon 09-01-2022 PTH, Intact 40 pg/mL Normal 15-65 [facility] Comment on above: Performed By: #### PTHINT #### [facility] [address] [place] [address] Dr. Angelica Chauhan URIC ACID 24 HR URINEon 08-04 Uric Acid, Urine 46.6 mg/dL Normal Not Estab. [facility] Comment on above: Performed By: #### CITRATU #### [facility] [address] [place] [address] Dr. Angelica Chauhan Uric Acid, Urine 24hr 780.6 mg/24 hr Critically high 136.1-771. 1 [facility] Comment on above: Performed By: #### CITRATU #### [facility] [address] [place] [address] Dr. Angelica Chauhan BUNon 08-31-2022 Urea nitrogen [Mass/Vol] 15.0 mg/dL Normal 7.0-18.0 [facility] Comment on above: Performed By: #### CITRATU #### [facility] [address] [place] [address] Dr. Angelica Chauhan CALCIUMon 08-31-2022 Calcium [Mass/Vol] 9.2 mg/dL Normal 8.5-10.1 [facility] Comment on above: Performed By: #### CREA, CO2, CL, NA, UR IC, CA, K, BUN #### [facility] [address] [place] [address] Dr. Angelica Chauhan CALCIUM 24 HR URINEon 2022 CALC, 24 HR UR 214.4 mg/24 hr Normal 100.0-300. 0 [facility] Comment on above: Performed By: #### CITRATU #### [facility] [address] [place] [address] Dr. Angelica Chauhan UR CALCIUM 12.8 mg/dL Normal 5.1-21.0 [facility] Comment on above: Performed By: #### CITRATU #### [facility] [address] [place] [address] Dr. Angelica Chauhan CHLORIDEon 08-31-2022 Chloride [Moles/Vol] 104 mmol/L Normal 98-107 [facility] Comment on above: Performed By: #### CREA, CO2, CL, NA, UR IC, CA, K, BUN #### [facility] [address] [place] [address] Dr. Angelica Chauhan CO2on 08-31-2022 CO2 [Moles/Vol] 25.6 mmol/L Normal 21.0-32.0 [facility] Comment on above: Performed By: #### CREA, CO2, CL, NA, UR IC, CA, K, BUN #### [facility] [address] [place] [address] Dr. Angelica NAIR 24 HR URINEon CREA, 24 HR UR 1541.17 mg/24 hr Normal 1,000.00- 2 ,000.00 [facility] Comment on above: Performed By: #### CITRATU #### [facility] [address] [place] [address] Dr. Angelica Chauhan UR TOT VOL 1675 ml/24 HR Normal [facility] Comment on above: Performed By: #### CITRATU #### [facility] [address] [place] [address] Dr. Angelica Chauhan URINE CREAT 92.01 mg/dL Normal 20.00-300. 00 [facility] Comment on above: Performed By: #### CITRATU #### [facility] [address] [place] [address] Dr. Angelica Chauhan CREATININEon 08-31-2022 Creatinine [Mass/Vol] 0.73 mg/dL Normal 0.70-1.30 [facility] Comment on above: Performed By: #### CREA, CO2, CL, NA, UR IC, CA, K, BUN #### [facility] [address] [place] [address] Dr. Angelica Chauhan EGFR-AF NEPALESE >60 Normal >=60 [facility] Comment on above: Performed By: #### CREA, CO2, CL, NA, UR IC, CA, K, BUN #### [facility] [address] [place] [address] Dr. Angelica Chauhan EGFR-NON AF NEPALESE >60 Normal >=60 [facility] Comment on above: Performed By: #### CREA, CO2, CL, NA, UR IC, CA, K, BUN #### [facility] [address] [place] [address] Dr. Angelica Chauhan NAon 08-31-2022 Sodium [Moles/Vol] 140 mmol/L Normal 136-145 [facility] Comment on above: Performed By: #### CREA, CO2, CL, NA, UR IC, CA, K, BUN #### [facility] [address] [place] [address] Dr. Angelica Chauhan POTASSIUMon 08-31-2022 Potassium [Moles/Vol] 4.0 mmol/L Normal 3.5-5.1 [facility] Comment on above: Performed By: #### CITRATU #### [facility] [address] [place] [address] Dr. Angelica Chauhan SODIUM 24 HR URINEon 023 NA, 24 HR UR 171 mmol/24 hr Normal 40-220 [facility] Comment on above: Performed By: #### CITRATU #### [facility] [address] [place] [address] Dr. Angelica Chauhan Sodium (U) [Moles/Vol] 102 mmol/L Critically high 30-90 [facility] Comment on above: Performed By: #### CITRATU #### [facility] [address] [place] [address] Dr. Angelica Chauhan URIC ACID SERUMon 08-31-2022 Urate [Mass/Vol] 5.0 mg/dL Normal 3.5-7.2 [facility] Comment on above: Performed By: #### CITRATU #### [facility] [address] [place] [address] Dr. Angelica Chauhan CBC AUTO DIFFon 07-29-2022 BASO # 0.0 103/ul Normal 0.0-0.1 [facility] Comment on above: Performed By: #### CBC #### [facility] [address] [place] [address] Dr. Angelica Chauhan Basophils/100 WBC (Bld) 0.6 % Normal 0.2-2.0 [facility] Comment on above: Performed By: #### CBC #### [facility] [address] [place] [address] Dr. Angelica Chauhan EO # 0.2 103/ul Normal 0.0-0.7 [facility] Comment on above: Performed By: #### CBC #### [facility] [address] [address] [address] Angelica Chauhan Eosinophils/100 WBC (Bld) 3.5 % Normal 0.9-7.0 [facility] Comment on above: Performed By: #### CBC #### [facility] [address] [place] [address] Dr. Angelica Chauhan Erythrocyte distribution width (RBC) [Ratio] 12.3 % Normal 11.0-15.0 [facility] Comment on above: Performed By: #### CBC #### [facility] [address] [place] [address] Dr. Angelica Chauhan Hematocrit (Bld) [Volume fraction] 45.1 % Normal 42.0-54.0 [facility] Comment on above: Performed By: #### CBC #### [facility] [address] [place] [address] Dr. Angelica Chauhan Hemoglobin (Bld) [Mass/Vol] 15.2 g/dL Normal 14.0-18.0 [facility] Comment on above: Performed By: #### CBC #### [facility] [address] [place] [address] Dr. Angelica Chauhan IG # 0.02 10e3/ul Normal 0.00-0.03 [facility] Comment on above: Performed By: #### CBC #### [facility] [address] [place] [address] Dr. Angelica Chauhan IG % 0.3 % Normal 0.0-0.5 [facility] Comment on above: Performed By: #### CBC #### [facility] [address] [place] [address] Dr. Angelica Chauhan LYMPH # 0.9 103/ul Critically low 1.2-3.8 [facility] Comment on above: Performed By: #### CBC #### [facility] [address] [place] [address] Dr. Angelica Chauhan Lymphocytes/100 WBC (Bld) 14.3 % Critically low 20.5-60.0 [facility] Comment on above: Performed By: #### CBC #### [facility] [address] [place] [address] Dr. Angelica Chauhan MANUAL DIFF REQ NO Normal [facility] Comment on above: Performed By: #### CBC #### [facility] [address] [place] [address] Dr. Angelica Chauhan MCH (RBC) [Entitic mass] 29.9 pg Normal 25.9-34.0 [facility] Comment on above: Performed By: #### CBC #### [facility] [address] [place] [address] Dr. Angelica Chauhan MCHC (RBC) [Mass/Vol] 33.7 g/dL Normal 29.9-35.2 [facility] Comment on above: Performed By: #### CBC #### [facility] [address] [place] [address] Dr. Angelica Chauhan MCV (RBC) [Entitic vol] 88.8 fL Normal 80.0-94.0 [facility] Comment on above: Performed By: #### CBC #### [facility] [address] [place] [address] Dr. Angelica Chauhan MONO # 0.6 103/ul Normal 0.3-0.8 [facility] Comment on above: Performed By: #### CBC #### [facility] [address] [place] [address] Dr. Angelica Chauhan Monocytes/100 WBC (Bld) 9.7 % Normal 1.7-12.0 [facility] Comment on above: Performed By: #### CBC #### [facility] [address] [place] [address] Dr. Angelica Chauhan NEUT # 4.7 103/ul Normal 1.4-6.5 [facility] Comment on above: Performed By: #### CBC #### [facility] [address] [place] [address] Dr. Angelica Chauhan Neutrophils/100 WBC (Bld) 71.6 % Normal 43.0-75.0 [facility] Comment on above: Performed By: #### CBC #### [facility] [address] [place] [address] Dr. Angelica Chauhan Platelet mean volume (Bld) [Entitic vol] 9.4 fL Critically low 9.5-13.5 [facility] Comment on above: Performed By: #### CBC #### [facility] [address] [place] [address] Dr. Angelica Chauhan PLT 199 103/ul Normal 150-450 [facility] Comment on above: Performed By: #### CBC #### [facility] [address] [address] [address] Angelica Chauhan RBC 5.08 106/ul Normal 4.70-6.10 [facility] Comment on above: Performed By: #### CBC #### [facility] [address] [place] [address] Dr. Angelica Chauhan WBC 6.6 103/ul Normal 4.0-11.0 [facility] Comment on above: Performed By: #### CBC #### [facility] [address] [place] [address] Dr. Angelica Chauhan LIPID PROFILEon 07-29-2022 CHOL-HDL RATIO NORM SEE BELOW Normal [facility] Comment on above: Result Comment: 3.3 - 4.4 LOW RISK 4.4 - 7.1 AVERAGE RISK 7.1 - 11.0 MODERATE RISK >11.0 HIGH RISK Performed By: #### M AG24 #### [facility] [address] [place] [address] Dr. Angelica Chauhan Cholesterol [Mass/Vol] 192 mg/dL Normal <=200 [facility] Comment on above: Performed By: #### MAG24 #### [facility] [address] [place] [address] Dr. Angelica Chauhan Cholesterol in HDL [Mass/Vol] 45 mg/dL Normal 40-60 [facility] Comment on above: Performed By: #### MAG24 #### [facility] [address] [place] [address] Dr. Angelica Chauhan Cholesterol in LDL [Mass/Vol] 118.8 mg/dL Normal [facility] Comment on above: Performed By: #### MAG24 #### [facility] [address] [place] [address] Dr. Angelica Chauhan Cholesterol.tota l/Cholesterol in HDL [Mass ratio] 4.3 {ratio} Normal [facility] Comment on above: Performed By: #### MAG24 #### [facility] [address] [place] [address] Dr. Angelica Chauhan HDL NORMAL > or = 60 mg/dl - LO W CARDIOVASCULAR RISK <40 mg/dl - HIGH CARDIOVASCULAR RISK Normal [facility] Comment on above: Performed By: #### MAG24 #### [facility] [address] [place] [address] Dr. Angelica Chauhan LDL CALC NORMAL SEE BELOW Normal [facility] Comment on above: Result Comment: <100 mg/dl OPTIMAL 100 - 129 mg/dl NEAR OR ABOVE OPTIMAL 130 - 159 mg/dl BORDERLINE HIGH 160 - 189 mg/dl HIGH >190 mg/dl VERY HIGH Performed By: #### M AG24 #### [facility] [address] [place] [address] Dr. Angelica Chauhan Triglyceride [Mass/Vol] 141 mg/dL Normal <=150 [facility] Comment on above: Performed By: #### MAG24 #### [facility] [address] [place] [address] Dr. Angelica Chauhan VLDL CALC 28.2 mg/dL Normal [facility] Comment on above: Performed By: #### MAG24 #### [facility] [address] [place] [address] Dr. Angelica Chauhan PROF 14(COMP METB)on 022 Albumin [Mass/Vol] 3.8 g/dL Normal 3.4-5.0 [facility] Comment on above: Performed By: #### MAG24 #### [facility] [address] [place] [address] Dr. Angelica Chauhan Albumin/Globulin [Mass ratio] 1.0 {ratio} Normal [facility] Comment on above: Performed By: #### MAG24 #### [facility] [address] [place] [address] Dr. Angelica Chauhan ALP [Catalytic activity/Vol] 86 U/L Normal 46-116 [facility] Comment on above: Performed By: #### MAG24 #### [facility] [address] [place] [address] Dr. Angelica Chauhan ALT [Catalytic activity/Vol] 34 U/L Normal 16-63 [facility] Comment on above: Performed By: #### MAG24 #### [facility] [address] [place] [address] Dr. Angelica Chauhan Anion gap [Moles/Vol] 10.3 mmol/L Normal [facility] Comment on above: Performed By: #### MAG24 #### [facility] [address] [place] [address] Dr. Angelica Chauhan AST [Catalytic activity/Vol] 20 U/L Normal 15-37 [facility] Comment on above: Performed By: #### MAG24 #### [facility] [address] [place] [address] Dr. Angelica Chauhan Bilirubin [Mass/Vol] 0.7 mg/dL Normal 0.2-1.0 [facility] Comment on above: Performed By: #### MAG24 #### [facility] [address] [place] [address] Dr. Angelica Chauhan Calcium [Mass/Vol] 9.5 mg/dL Normal 8.5-10.1 [facility] Comment on above: Performed By: #### MAG24 #### [facility] [address] [place] [address] Dr. Angelica Chauhan Chloride [Moles/Vol] 103 mmol/L Normal 98-107 [facility] Comment on above: Performed By: #### MAG24 #### [facility] [address] [place] [address] Dr. Angelica Chauhan CO2 [Moles/Vol] 31.0 mmol/L Normal 21.0-32.0 [facility] Comment on above: Performed By: #### MAG24 #### [facility] [address] [place] [address] Dr. Angelica Chauhan Creatinine [Mass/Vol] 0.79 mg/dL Normal 0.70-1.30 [facility] Comment on above: Performed By: #### MAG24 #### [facility] [address] [place] [address] Dr. Angelica Chauhan EGFR-AF NEPALESE >60 Normal >=60 [facility] Comment on above: Performed By: #### MAG24 #### [facility] [address] [address] [address] Angelica Chauhan EGFR-NON AF NEPALESE >60 Normal >=60 [facility] Comment on above: Performed By: #### MAG24 #### [facility] [address] [address] [address] Angelica Chauhan Globulin (S) [Mass/Vol] 3.8 g/dL Normal [facility] Comment on above: Performed By: #### MAG24 #### [facility] [address] [address] [address] Angelica Chauhan Glucose [Mass/Vol] 96 mg/dL Normal 74-106 [facility] Comment on above: Performed By: #### MAG24 #### [facility] [address] [place] [address] Dr. Angelica Chauhan Potassium [Moles/Vol] 4.3 mmol/L Normal 3.5-5.1 [facility] Comment on above: Performed By: #### MAG24 #### [facility] [address] [place] [address] Dr. Angelica Chauhan Protein [Mass/Vol] 7.6 g/dL Normal 6.4-8.2 [facility] Comment on above: Performed By: #### MAG24 #### [facility] [address] [place] [address] Dr. Angelica Chauhan Sodium [Moles/Vol] 140 mmol/L Normal 136-145 [facility] Comment on above: Performed By: #### MAG24 #### [facility] [address] [address] [address] Angelica Chauhan Urea nitrogen [Mass/Vol] 19.0 mg/dL Critically high 7.0-18.0 [facility] Comment on above: Performed By: #### MAG24 #### [facility] [address] [address] [address] Angelica Chauhan Urea nitrogen/Creatin ine [Mass ratio] 24.1 mg/mg Normal [facility] Comment on above: Performed By: #### MAG24 #### [facility] [address] [address] [address] Angelica Chauhan XR KUB 1 VIEWon [...] BILL BOYER Date: 2022-07-29 16:59 Normal [facility] XR KUB 1 VIEWon 09-25-2021 [...] LUCINA CRAIN Date: 2021-09-25 07:35 Normal [facility] Covid-19 PCR (CVDTB)on 09-03 SARS-CoV-2 (COVID-19) RNA PAMELA+probe Ql (Unsp spec) Not detected Normal NOT DETECTED [facility] Comment on above: Result Comment: This test is not yet carlo roved or cleared by the [place] FDA. When there are no FDA-approved or cleared tests available, and other criteria are met, FDA can make tests available under an emergency access mechanism called an Emergency Use Authorization (EUA). The EUA for this test is supported by the Medical Staffing Coordinator of Health and Human Service's (HHS's) declaration [...] SARS-CoV-2. Performed By: #### C ITRATU #### [facility] [address] [place] [address] Dr. Angelica Seaman 06-07-2018 CNOV Office Visit (RADTSA) JULIO FREEMAN ([id number]) 1950 MDate Time Provider Apzgmstunr89/6/18 2:30 PM Penny BOSWELL During your visit today, we recorded the following information about you: Pulse Respiration Blood pressure Weight 73/minute 18/minute 127/84 75.9 kgG Nicholas Boswell MD 06/10/2018 9:22 AM SignedRadiation Oncology - Follow Up NotePATIENT NAME: Julio FreemanPATIENT : Prostate adenocarcinoma, clinical stage T Stage: T1c, initial PSA3.51, biopsy Gowen score 3 + 4 = 7 (grade [...] are stableto improved.PSA HISTORY:PSA. (no units)Date Value03/31/2018 0.8504 0.6002 0.9811 1.57 06/03/17 0.45ALLERGIESNo Known Allergiesaspirin, enteric coated [...] with a PSA level.Signed by: Penny Boswell, [facility]:Regino Marie MD[address] [place] [address]Xahgk: [phone]: [phone] Weyer, RN, RN 06/07/2018 2:50 PM IsaacAULulu Cannon, VINAYReferring Provider: Penny BOSWELL [[id number]]Allergies As of Date: 06/07/2018(No Known Allergies)Date Reviewed: 06/08/2017Reviewed by: Ashlee Jennings - Fully AssessedReason for Visit: Prostate Cancer [590]Primary Visit Diagnosis:Prostate cancer (HCC) [C61]Prescriptions as of 06/07/2018 Sig: ASPIRIN 81 MG TABLET,DELAYED * Take 81 mg by mouth. ROSUVASTATIN 20 MG TABLET Take 20 mg by mouth.Problem List As Of Date 06/07/2018 Noted Resolved Prostate cancer (HCC) [C61] INVALID FOR*Visit Notes:>> Vikki Alcaraz) VINAY Cannon steven Jun 07, 2018 2:19 PM Status: Alisa 5Avj Cannon RNDisposition: Return in about 1 year (around 06/07/2019).Follow-up and Disposition History RecordedEncounter Number: [id number] Status:Closed by Penny BOSWELL MD on 06/10/18 Normal [facility] PROGRESSon 06-07-2018 Protein mass conc HNO ID: [id number]: Penny Robervice: (none)Author Type: PhysicianType: Progress NotesFiled: [...] stage T Stage: T1c, initialPSA 3.51, biopsy Gowen score 3 + 4 = 7 (grade group 2)Overall doing well. PSA with stable response. He has continuedfollow-up with urology.PLAN: We will see him again in one year with a PSA level.Signed by: Penny Boswell, [facility]:Regino Marie MD[address] [place] [address]Defnq: [phone]: [phone] Normal [facility] Cardiovascular Lab Reporton 04-08-2018 Cardiovascular Lab Report [facility] Patient Name: Julio Freeman [id number] Physician: Monika Bowman M.D.Department of Service Date: 04/07/2018Medicine Birthdate: 1950Division of Room #: [facility]ardiologyAd[facility] CardiovascularHon[facility] CentervicesJanet [address] [place], [place] [address]Fatwg Fax Cardiovascular Laboratory ReportPROCEDURE PERFORMED: LINQ implant.INDICATION: [...] locally anesthetize the left upperchest and the Medtronic trocar was used to make an incision followed by theMedtronic applicator to fashion a pocket and the LINQ was implanted intothe pocket and the pocket was closed using 4-0 Biosyn suture. This wasfollowed by glue, sterile Steri-Strips, Telfa, and Tegaderm. The patienttolerated the procedure well.R-waves are 0.16 mV.Medtronic LINQ serial number [id number].CONCLUSION: Successful LINQ implant.Electronically Signed by:Monika Bowman M.D. 04/08/2018 03:51 P Monika Bowman M.D.Date Dict: 04/07/2018/03:11 P/Monika Bowman M.D.Date Trans: 04/08/2018 07:40 A/Kennedy_JN:[id number]: Regino Marie M.D. [address] [place] [id number] [place] [facility] EVENT MONITORon 01-21-2018 EVENT MONITOR [address] [address] EVENT MONITORPATIENT NAME: JULIO FREEMAN : 1950MED REC NO: [id number] ROOM: 05ACCOUNT NO: [id number] ADMIT DATE: 12/15/2017PROVIDER: Jaylen Hilton TYPE: EVENT [...] with pairs.3. Non-sustained PAT.4. Rare premature ventricular contractions.Kendall Ortiz M.D.PART TWO OF THE EVENT RECORDERCOMMENTSThe [...] informed of abnormal results01/21/2018 at 12:25 pm.JAYLEN MARCUSCLAYYD: 01/21/2018 12:48:08 Franky#: [id number] Doc#: UnknownCC: (Stacy Stewart Md) Normal [facility] Progress Noteon 12-29-2017 HIM IP Note OR Prefabricator Normal [facility] CTA HEAD W CONTRASTon 2017 CTA HEAD [...] by:Oh Mcdowell MD12/23/17Edited Result - FINAL Normal [facility] CTA NECK W CONTRASTon 2017 CTA NECK [...] by:Oh Mcdowell MD12/23/17Edited Result - FINAL Normal [facility] Coding Summaryon 12-20-2017 Coding Summary CODING DATE: 018 [facility] STATUS: Discharge/Transfer to Another Hospital PAYOR: [...] Parris Carson Date Saved: 12/20/2017 01:[address] [facility] Coding Summary CODING DATE: 018 [facility] STATUS: Discharge/Transfer to Another Hospital PAYOR: [...] Parris Carson Date Saved: 12/20/2017 01:[address] [facility] B12/Folate Panelon 8 Cobalamins (Vitamin B12) 473 pg/mL Normal 232-1245 [facility] Comment on above: Performed By: #### BMPX, LIPR, CDP, GLYH GB, B12FOL ####[facility] [address] [place] [address] Folic Acid 18.1 ng/mL Normal >4.8 [facility] Comment on above: Result Comment: [facility] [employer] [address] [place] [address] Performed By: #### B MPX, LIPR, CDP, GLYHGB, B12FOL ####[facility] [address] [place] [address], [place] [address] Basic Metab w/rfx MGon 12-16 (cont.) Normal [facility] Comment on above: Result Comment: Average GFR for 60-69 ye ars old: 85 mL/min/1.73sq mChronic Kidney Disease: <60 mL/min/1.73sq mKidney failure: <15 mL/min/1.73sq meGFR calculated using average adult body mass. Additional eGFR calculator available at:[email or web address] Up/multiple_crcl_2012.[address]mM[address] [place] [address] Performed By: #### B MPX, LIPR, CDP, GLYHGB, B12FOL ####[address] [address] Anion gap 10 mmol/L Normal 9-17 [facility] Comment on above: Performed By: #### BMPX, LIPR, CDP, GLYH GB, B12FOL ####[address] [address] Calcium 8.6 mg/dL Normal 8.6-10.4 [facility] Comment on above: Performed By: #### BMPX, LIPR, CDP, GLYH GB, B12FOL ####[address] [address] Chloride 107 mmol/L Normal 98-107 [facility] Comment on above: Performed By: #### BMPX, LIPR, CDP, GLYH GB, B12FOL ####[address] [address] CO2 23 mmol/L Normal 20-31 [facility] Comment on above: Performed By: #### BMPX, LIPR, CDP, GLYH GB, B12FOL ####[address] [address] Creatinine 0.69 mg/dL Low 0.70-1.20 [facility] Comment on above: Performed By: #### BMPX, LIPR, CDP, GLYH GB, B12FOL ####[address] [place] [address] eGFR (non-black) mL/min/{1.73_m2} Normal >60 [facility] Comment on above: Performed By: #### BMPX, LIPR, CDP, GLYH GB, B12FOL ####[address] [address] Glucose mass conc 79 mg/dL Normal 70-99 [facility] Comment on above: Performed By: #### BMPX, LIPR, CDP, GLYH GB, B12FOL ####[address] [address] Potassium molar conc 4.0 mmol/L Normal 3.7-5.3 [facility] Comment on above: Performed By: #### BMPX, LIPR, CDP, GLYH GB, B12FOL ####[address] [address] Sodium 140 mmol/L Normal 135-144 [facility] Comment on above: Performed By: #### BMPX, LIPR, CDP, GLYH GB, B12FOL ####[address] [address] Urea nitrogen 13 mg/dL Normal 8-23 [facility] Comment on above: Performed By: #### BMPX, LIPR, CDP, GLYH GB, B12FOL ####[address] [address] BUN/CRE Ratio NOT REPORTED Normal 9-20 [facility] Comment on above: Performed By: #### BMPX, LIPR, CDP, GLYH GB, B12FOL ####[address] [address] Staging: NOT REPORTED Normal [facility] Comment on above: Performed By: #### BMPX, LIPR, CDP, GLYH GB, B12FOL ####[address] [address] CBC with Diffon 12-16-2017 Abs. Basophil 0.00 k/uL Normal 0.0-0.2 [facility] Comment on above: Performed By: #### BMPX, LIPR, CDP, GLYH GB, B12FOL ####[address] [address] Abs.Neutrophil (Seg) 3.87 k/uL Normal 1.8-7.7 [facility] Comment on above: Performed By: #### BMPX, LIPR, CDP, GLYH GB, B12FOL ####[address] [address] Basophils/100 WBC Auto (Bld) 0 % Normal 0-2 [facility] Comment on above: Performed By: #### BMPX, LIPR, CDP, GLYH GB, B12FOL ####[address] [address] Blood morphology Normal Normal [facility] Comment on above: Result Comment: [address] [address] Performed By: #### B MPX, LIPR, CDP, GLYHGB, B12FOL ####[address] [address] Eosinophils 0.10 10*3/uL Normal 0.0-0.4 [facility] Comment on above: Performed By: #### BMPX, LIPR, CDP, GLYH GB, B12FOL ####[address] [address] Eosinophils/100 leukocytes 2 % Normal 1-4 [facility] Comment on above: Performed By: #### BMPX, LIPR, CDP, GLYH GB, B12FOL ####[address] [address] Granulocytes/100 WBC (Bld) 0.00 k/uL Normal 0.00-0.30 [facility] Comment on above: Performed By: #### BMPX, LIPR, CDP, GLYH GB, B12FOL ####[address] [address] Immature granulocytes #/vol (Bld) 0 % Normal 0 [facility] Comment on above: Performed By: #### BMPX, LIPR, CDP, GLYH GB, B12FOL ####[address] [address] Lymphocytes 0.59 10*3/uL Low 1.0-4.8 [facility] Comment on above: Performed By: #### BMPX, LIPR, CDP, GLYH GB, B12FOL ####[address] [address] Lymphocytes/100 leukocytes 12 % Low 24-44 [facility] Comment on above: Performed By: #### BMPX, LIPR, CDP, GLYH GB, B12FOL ####[address] [address] Monocytes 0.34 10*3/uL Normal 0.1-0.8 [facility] Comment on above: Performed By: #### BMPX, LIPR, CDP, GLYH GB, B12FOL ####[address] [address] Monocytes/100 leukocytes 7 % Normal 1-7 [facility] Comment on above: Performed By: #### BMPX, LIPR, CDP, GLYH GB, B12FOL ####[address] [address] Neutrophil (Seg) 79 % High 36-66 [facility] Comment on above: Performed By: #### BMPX, LIPR, CDP, GLYH GB, B12FOL ####[address] [address] Erythrocyte distribution width Auto Ratio (RBC) 12.3 % Normal 11.8-14.4 [facility] Comment on above: Performed By: #### BMPX, LIPR, CDP, GLYH GB, B12FOL ####[address] [address] Erythrocytes (RBC) 4.60 10*6/uL Normal 4.21-5.77 [facility] Comment on above: Performed By: #### BMPX, LIPR, CDP, GLYH GB, B12FOL ####[address] [address] Erythrocytes (RBC) 0.0 per 100 WBC Normal 0.0 [facility] Comment on above: Performed By: #### BMPX, LIPR, CDP, GLYH GB, B12FOL ####[address] [address] Hematocrit (HCT) 42.1 % Normal 40.7-50.3 [facility] Comment on above: Performed By: #### BMPX, LIPR, CDP, GLYH GB, B12FOL ####[address] [address] Hemoglobin mass conc (Bld) 14.1 g/dL Normal 13.0-17.0 [facility] Comment on above: Performed By: #### BMPX, LIPR, CDP, GLYH GB, B12FOL ####[address] [address] MCH 30.7 pg Normal 25.2-33.5 [facility] Comment on above: Performed By: #### BMPX, LIPR, CDP, GLYH GB, B12FOL ####[address] [address] MCHC mass conc (RBC) 33.5 g/dL Normal 28.4-34.8 [facility] Comment on above: Performed By: #### BMPX, LIPR, CDP, GLYH GB, B12FOL ####[address] [address] MCV 91.5 fL Normal 82.6-102.9 [facility] Comment on above: Performed By: #### BMPX, LIPR, CDP, GLYH GB, B12FOL ####[address] [address] Platelet mean volume (PMV) 10.0 fL Normal 8.1-13.5 [facility] Comment on above: Performed By: #### BMPX, LIPR, CDP, GLYH GB, B12FOL ####[address] [address] Platelets 173 10*3/uL Normal 138-453 [facility] Comment on above: Performed By: #### BMPX, LIPR, CDP, GLYH GB, B12FOL ####[address] [address] WBC (Leukocytes) 4.9 10*3/uL Normal 3.5-11.3 [facility] Comment on above: Performed By: #### BMPX, LIPR, CDP, GLYH GB, B12FOL ####[address] [address] Auto Diff Performed NOT REPORTED Normal [facility] Comment on above: Performed By: #### BMPX, LIPR, CDP, GLYH GB, B12FOL ####[address] [place] [address] Erythrocyte morphology NOT REPORTED Normal [facility] Comment on above: Performed By: #### BMPX, LIPR, CDP, GLYH GB, B12FOL ####[address] [place] [address] Platelets NOT REPORTED Normal [facility] Comment on above: Performed By: #### BMPX, LIPR, CDP, GLYH GB, B12FOL ####[address] [address] WBC Morphology NOT REPORTED Normal [facility] Comment on above: Performed By: #### BMPX, LIPR, CDP, GLYH GB, B12FOL ####[address] [address] Consulton 12-16-2017 HIM IP Note OR Prefabricator Normal [facility] Hemoglobin A1Con 12-16-2017 Glucose mass conc 97 mg/dL Normal [facility] Comment on above: Result Comment: The ADA and AACC recomme nd providing the estimated average glucose result to permit better patient understanding of their HBA1c result.[address] [address] Performed By: #### B MPX, LIPR, CDP, GLYHGB, B12FOL ####[address] [address] Hemoglobin A1c/Hemoglobin.t otal mass fraction (Bld) 5.0 % Normal 4.0-6.0 [facility] Comment on above: Performed By: #### BMPX, LIPR, CDP, GLYH GB, B12FOL ####[address] [address] Lipid Profileon 12-16-2017 Cholesterol 203 mg/dL High <200 [facility] Comment on above: Result Comment: Cholesterol Guidelines: <200 Desirable 200-240 Borderline >240 Undesirable Performed By: #### B MPX, LIPR, CDP, GLYHGB, B12FOL ####[facility] [address] [place] [address] Cholesterol to HDL Ratio 5.3 {ratio} High <5 [facility] Comment on above: Performed By: #### BMPX, LIPR, CDP, GLYH GB, B12FOL ####[facility] [address] [place] [address] HDL Cholesterol 38 mg/dL Low >40 [facility] Comment on above: Result Comment: HDL Guidelines: <40 Unde sirable 40-59 Borderline >59 Desirable Performed By: #### B MPX, LIPR, CDP, GLYHGB, B12FOL ####[facility] [address] [place] [address] LDL Cholesterol 144 mg/dL High 0-130 [facility] Comment on above: Result Comment: LDL Guidelines: <100 Grayson irable 100-129 Near to/above Desirable 130-159 Borderline >159 UndesirableDirect (measured) LDL and calculated LDL are not interchangeable tests. Performed By: #### B MPX, LIPR, CDP, GLYHGB, B12FOL ####[facility] [address] [place] [address] Triglyceride 104 mg/dL Normal <150 [facility] Comment on above: Result Comment: Triglyceride Guidelines: <150 Desirable 150-199 Borderline 200-499 High >499 Very high Based on AHA Guidelines for fasting triglyceride, May 2012.[address] [place] [address] Performed By: #### B MPX, LIPR, CDP, GLYHGB, B12FOL ####[facility] [place] [address] Cholesterol in VLDL mass conc NOT REPORTED Normal 1-30 [facility] Comment on above: Performed By: #### BMPX, LIPR, CDP, GLYH GB, B12FOL ####[address] [place] [address] MRI BRAIN WO CONTRASTon 11-30 MRI BRAIN WO CONTRAST EXAMINATION:MRI OF THE [...] - In Basket (authorizing provider)Final result Normal [facility] Plan of Careon 12-16-2017 HIM IP Note OR Prefabricator Normal [facility] Progress Noteon 12-16-2017 HIM IP Note OR Prefabricator Normal [facility] HIM IP Note OR Prefabricator Normal [facility] HIM IP Note OR Prefabricator Normal [facility] HIM IP Note OR Prefabricator Normal [facility] Troponinon 12-16-2017 Troponin I.cardiac mass conc Normal [facility] Comment on above: Result Comment: Reference Range: <0.03 W ithin reference range. 0.03-0.09 Possible myocardial damage.Repeat at appropriate intervals to rule out chronic elevation. >= 0.10 Indicative of myocardial damage.Patients with high levels of Biotin oral intake (i.e >5mg/day) may have falsely decreased Troponin T levels. Samples collected within 8 hours of biotin intake may require additional information for diagnosis.[address] [place] [address] Performed By: #### Lavern LYNCH ####[address] [place] [address] Troponin T.cardiac mass conc ug/L Normal <0.03 [facility] Comment on above: Result Comment: Troponin T results canno t be compared to Troponin-I results. Performed By: ###Neto LYNCH ####[facility] [address] [place] [address] .Auto Diff 1on - Auto Baso % 0.5 % Normal 0.2-2.0 [facility] Comment on above: Performed By: #### [id number], 5822591, 11388597, 3159669, 1139348, [id number], 8059379 ####[facility] (DEFAULT)[address] [place] [address] Auto [place] % 9 % Normal 1-12 [facility] Comment on above: Performed By: #### [id number], 2856518, 05505903, 5857890, 1892618, 2370405455, 6937152 ####[facility] (DEFAULT)[address] [place] [address] Auto Neut % 74 % Normal 44-88 [facility] Comment on above: Performed By: #### [id number], 9543231, 54900848, 4179552, 7183636, 3592214357, 2851697 ####[facility] (DEFAULT)[address] [place] [address] Baso Abs# 0.0 x10 Normal 0.0-0.2 [facility] Comment on above: Performed By: #### [id number], 0575062, 59096102, 9897301, 8746043, 0702362176, 4242389 ####[facility] (DEFAULT)[address] [place] [address] Eos Abs# 0.1 x10 Normal 0.0-0.4 [facility] Comment on above: Performed By: #### [id number], 8717316, 21057710, 4040584, 6730856, 1150695550, 6262198 ####[facility] (DEFAULT)[address] [place] [address] Eosinophils/100 leukocytes 2.1 % Normal 0.9-4.0 [facility] Comment on above: Performed By: #### [id number], 6379117, 24093570, 1328994, 5252884, 3524034186, 9627517 ####[facility] (DEFAULT)[address] [place] [address] Lymphocytes 0.6 x10 Low 1.3-2.9 [facility] Comment on above: Performed By: #### [id number], 6722739, 45334583, 6618865, 3840232, 7495544158, 9747147 ####[facility] (DEFAULT)[address] [place] [address] Lymphocytes/100 leukocytes 14 % Normal 14-48 [facility] Comment on above: Performed By: #### [id number], 1729358, 37480772, 2147899, 9908686, 3671853318, 1258423 ####[facility] (DEFAULT)[address] [place] [address] [place] Abs# 0.4 x10 Normal 0.0-0.8 [facility] Comment on above: Performed By: #### [id number], 8505980, 31596227, 3920519, 8349953, 3241556347, 7139970 ####[facility] (DEFAULT)[address] [place] [address] Neut Abs# 3.1 x10 Normal 1.5-9.2 [facility] Comment on above: Performed By: #### [id number], 3211676, 35194317, 8706216, 1278823, 0309877535, 2890929 ####[facility] (DEFAULT)[address] [place] [address] CBC w/ Auto Diffon 8 Erythrocyte distribution width Auto Ratio (RBC) 12.7 % Normal 11.5-15.0 [facility] Comment on above: Performed By: #### [id number], 5218388, 45155169, 3668019, 9356521, 4490210450, 6323649 ####[facility] (DEFAULT)[address] [place] [address] Erythrocytes (RBC) 4.58 x10 Normal 3.70-5.30 [facility] Comment on above: Performed By: #### [id number], 5389916, 87234662, 1104772, 4036223, 7819189186, 7251223 ####[facility] (DEFAULT)[address] [place] [address] Hematocrit (HCT) 40.8 % Normal 34.8-51.9 [facility] Comment on above: Performed By: #### [id number], 5992734, 17345231, 7311911, 6219414, 6506147707, 7115664 ####[facility] (DEFAULT)[address] [place] [address] Hemoglobin mass conc (Bld) 14.4 g/dL Normal 11.8-17.7 [facility] Comment on above: Performed By: #### [id number], 2442740, 06397033, 0408781, 1548696, 5744529172, 4680794 ####[facility] (DEFAULT)[address] [place] [address] Man Diff? Auto Normal [facility] Comment on above: Performed By: #### [id number], 9295887, 44070293, 1104157, 6802857, 6105191554, 1906066 ####[facility] (DEFAULT)[address] [place] [address] MCH 31 pg Normal 24-34 [facility] Comment on above: Performed By: #### [id number], 8256867, 40377844, 3574059, 3543155, 1724619453, 6628960 ####[facility] (DEFAULT)[address] [place] [address] MCHC mass conc (RBC) 35 g/dL Normal 26-37 [facility] Comment on above: Performed By: #### [id number], 0973969, 64787475, 2229813, 8236298, 2614527192, 7304639 ####[facility] (DEFAULT)[address] [place] [address] MCV 89 fL Normal 81-100 [facility] Comment on above: Performed By: #### [id number], 0945190, 39090600, 0414801, 8057985, 9430260372, 1729736 ####[facility] (DEFAULT)[address] [place] [address] Platelet mean volume (PMV) 9.4 fL Normal 6.3-10.2 [facility] Comment on above: Performed By: #### [id number], 3463004, 65260868, 4096262, 4501197, 6157983093, 1693045 ####[facility] (DEFAULT)[address] [place] [address] Platelets 167 x10 Normal 138-427 [facility] Comment on above: Performed By: #### [id number], 9163493, 14931731, 2573641, 2921353, 9038899348, 4549685 ####[facility] (DEFAULT)[address] [place] [address] WBC (Leukocytes) 4.2 x10 Normal 3.5-10.5 [facility] Comment on above: Performed By: #### [id number], 7113220, 44652972, 1337399, 2548165, 8206338925, 9374885 ####[facility] (DEFAULT)[address] [place] [address] CMP Standardon 12-15-2017 eGFR (non-black) mL/min/{1.73_m2} Invalid Interpretation Code [facility] Comment on above: Performed By: #### [id number], 2324798, 51341697, 7343006, 5949421, 0365163803, 3954562 ####[facility] (DEFAULT)[address] [place] [address] eGFR (non-black) mL/min/{1.73_m2} Invalid Interpretation Code [facility] Comment on above: Result Comment: Chronic Kidney disease c ould be indicated at eGFRs of less than 60 ml/min/1.73m2. Kidney Failure is indicated at less than 15 ml/min/1.73m2 Performed By: #### 1 [id number], 2869807, 32164659, 0383239, 6151503, 7095769222, 1662894 ####[facility] (DEFAULT)[address] [place] [address] Albumin 4.1 g/dL Normal 3.5-5.0 [facility] Comment on above: Performed By: #### [id number], 5516100, 76825232, 5470739, 3856098, 5036635626, 9753104 ####[facility] (DEFAULT)[address] [place] [address] Albumin/Globulin Ratio 1.4 {ratio} Normal 1.4-2.6 [facility] Comment on above: Performed By: #### 5861231716, 4672020, 68568435, 0133114, 4114698, 3094007257, 4947070 ####[facility] (DEFAULT)[address] [place] [address] Alk Phos 64 IU/L Normal 32-91 [facility] Comment on above: Performed By: #### [id number], 7875310, 10476366, 8206898, 4111674, 8451708710, 0053610 ####[facility] (DEFAULT)[address] [place] [address] ALT/SGPT 21.0 IU/L Normal 17.0-63.0 [facility] Comment on above: Performed By: #### [id number], 1123444, 64991153, 5539449, 8879996, 8203630732, 9227860 ####[facility] (DEFAULT)[address] [place] [address] Anion gap 11.0 mmol/L Normal 5.0-19.0 [facility] Comment on above: Performed By: #### 5268567033, 1862998, 53343998, 2424021, 7743503, 4814469613, 7894270 ####[facility] (DEFAULT)[address] [place] [address] AST/SGOT 21 IU/L Normal 15-41 [facility] Comment on above: Performed By: #### [id number], 7872370, 13706382, 2976228, 7092478, 7090605582, 0220173 ####[facility] (DEFAULT)[address] [place] [address] Bili Total 0.9 mg/dL Normal 0.3-1.2 [facility] Comment on above: Performed By: #### [id number], 4790707, 28793427, 8883139, 5113523, 9205105154, 2688602 ####[facility] (DEFAULT)[address] [place] [address] BUN/Creatinine Ratio 28.0 mg/mg High 4.6-16.2 [facility] Comment on above: Performed By: #### [id number], 2582396, 74019117, 9068052, 1626106, 5921729786, 3429063 ####[facility] (DEFAULT)[address] [place] [address] Calcium 9.0 mg/dL Normal 8.9-10.3 [facility] Comment on above: Performed By: #### [id number], 1054344, 52028128, 2025616, 9432814, 7657316013, 2445792 ####[facility] (DEFAULT)[address] [place] [address] Chloride 105 mmol/L Normal 101-111 [facility] Comment on above: Performed By: #### [id number], 5085606, 24687074, 2935597, 8349961, 3539891592, 8447839 ####[facility] (DEFAULT)[address] [place] [address] CO2 24 mmol/L Normal 21-32 [facility] Comment on above: Performed By: #### [id number], 5080592, 51383106, 5389768, 1362833, 3988479630, 5638326 ####[facility] (DEFAULT)[address] [place] [address] Creatinine 0.61 mg/dL Low 0.90-1.30 [facility] Comment on above: Performed By: #### [id number], 5842381, 29424926, 6800299, 7615021, 3431936235, 2143194 ####[facility] (DEFAULT)[address] [place] [address] Globulin 2.9 g/dL Normal 1.5-4.3 [facility] Comment on above: Performed By: #### [id number], 4975832, 85079001, 8525477, 1796916, 8785262468, 8009985 ####[facility] (DEFAULT)[address] [place] [address] Glucose mass conc 97.0 mg/dL Normal 74.0-118.0 [facility] Comment on above: Performed By: #### [id number], 5230430, 32861764, 3279021, 2647773, 2800503043, 8020030 ####[facility] (DEFAULT)[address] [place] [address] Osmolality 273 mOsm/L Invalid Interpretation Code [facility] Comment on above: Performed By: #### [id number], 8841647, 48906596, 0309407, 4255696, 0188359240, 7891308 ####[facility] (DEFAULT)[address] [place] [address] Potassium molar conc 3.5 mmol/L Low 3.6-5.1 [facility] Comment on above: Performed By: #### [id number], 5668925, 40724519, 4524813, 4297270, 4460780638, 9063447 ####[facility] (DEFAULT)[address] [place] [address] Protein 7.0 g/dL Normal 6.5-8.1 [facility] Comment on above: Performed By: #### [id number], 5250980, 34042239, 4392750, 2939307, 3371352323, 2476619 ####[facility] (DEFAULT)[address] [place] [address] Sodium 136.0 mmol/L Normal 136.0-144. 0 [facility] Comment on above: Performed By: #### [id number], 1051938, 33074794, 6414511, 0508494, 6818847920, 5813731 ####[facility] (DEFAULT)[address] [place] [address] Urea nitrogen 17 mg/dL Normal 8-26 [facility] Comment on above: Performed By: #### [id number], 1910872, 10290324, 4921056, 9761009, 0719766548, 4360861 ####[facility] (DEFAULT)[address] [place] [address] Head or Brain w/o Contras ton [...] EVIDENCE OF ACUTE BLEED ORFOCAL MASS.Narinder Burton MDJOMarjorie #: [id number]: 12/15/2017T: 12/15/2017 Final Dictated by: Naridner Burton MD SDictated DT/TM: 12/15/17 2:14Signed (Electronic Signature): Narinder Burton MD 12/15/17 2:52 pmTechnologist: SV,LASHAE Normal [facility] Consulton 12-15-2017 HIM IP Note OR Prefabricator Normal [facility] ED Clinical Summaryon 2017 ED Clinical Summary [facility] [address] [place] [address] ed Clinical SummaryPERSON INFORMATIONName: JULIO FREEMAN Age: 67 Years Sex: MALEDOB: [birth year] MRN: Acct#:Visit Reason: General medical; SLURRED SPEECH Arrival: 12/15/17 13:06:00 Discharge: 12/15/17 15:42:00LOS: 000 02:36 Check In: 12/15/17 13:06:00 Checkout:12/15/17 15:42:00Address:[employer] [facility] [id number]: JORGE MARIE INFORMATIONProvider Role Assigned UnassignedSven Douglas [...] Complaint from Nursing Triage Note : Chief Pdtranxfz00/16/18 13:10 EDT Chief Complaint Pt and say [...] HI SpO2 99 % Oxygen Therapy Room air.Fjxrjkiylzay50/16/18 13:21 EDT Weight Dosing 72.570 kg12/15/17 13:21 [...] Berg from the neuro interventional services at [facility] he was made aware of the patient's diagnostic results, as well as NIH score. He suggested that the patient should go through the emergency room at [facility] for further evaluation. I did inform the patient regarding our desired to have further diagnostic testing. The patient voiced understanding. The patient was insistent on driving. He did sign a request for refusal of transport. I did speak with Dr. Duque in the emergency room at [facility] and she accepted the patient.Impression and PlanDiagnosisTIA (transient ischemic attack) ([id number] G45.9, Discharge, Medical)PlanCondition: Improved.Disposition: Transfer to other location: Time: 12/15/17 15:22:00, time deemed necessary for transfer: 1400, Facility name: [facility] , Accepted by: Neto .DISCHARGE INFORMATION:Discharge Dis[facility]: [facility]PATIENT EDUCATION INFORMATIONInstructions:Follow-Up :DIAGNOSIS:TIA (transient ischemic attack)Patient Understands: Yes - Patient/family/caregiver verbalizes understanding of instructions givenComment: [facility] ED Noteon 12-15-2017 HIM IP Note OR Prefabricator [facility] HIM IP Note OR Prefabricator [facility] HIM IP Note OR Prefabricator [facility] HIM IP Note OR Prefabricator [facility] HIM IP Note OR Prefabricator [facility] HIM IP Note OR Prefabricator [facility] HIM IP Note OR Prefabricator [facility] ED Note - Physicianon 2017 ED Note - Physician Patient: JULIO FREEMAN : 67 years Sex: MALE : [birth year]Associated Diagnoses: TIA (transient ischemic attack)Author: Sven Douglas InformationTime seen: Date & time 12/15/17 13:26:00.History source: Patient, significant other.Arrival mode: Private vehicle.History limitation: None.Additional information: Chief Complaint from Nursing Triage Note : Chief Jldpxwpax16/16/18 13:10 EDT Chief Complaint Pt and say [...] HI SpO2 99 % Oxygen Therapy Room air.Xhintslbaadr03/16/18 13:21 EDT Weight Dosing 72.570 kg12/15/17 13:21 [...] Berg from the neuro interventional services at [facility] he was made aware of the patient's diagnostic results, as well as NIH score. He suggested that the patient should go through the emergency room at [facility] for further evaluation. I did inform the patient regarding our desired to have further diagnostic testing. The patient voiced understanding. The patient was insistent on driving. He did sign a request for refusal of transport. I did speak with Dr. Duque in the emergency room at [facility] and she accepted the patient.Impression and PlanDiagnosisTIA (transient ischemic attack) ([id number] G45.9, Discharge, Medical)PlanCondition: Improved.Disposition: Transfer to other location: Time: 12/15/17 15:22:00, time deemed necessary for transfer: 1400, Facility name: [facility] , Accepted by: Neto .[Electronically Signed on: 12/15/2017 16:18 EDT] Sven Douglas MD[Verified on: 12/15/2017 16:18 EDT] Sven Douglas MD [facility] ED Patient Education Noteon 12-15-2017 ED Patient Education Note Education Materials [facility] ED Patient Summaryon 018 ED Patient Summary [facility] - Emergency [address] [place] [id number] pATIENT DISCHARGE INSTRUCTIONSPatient InformationName: JULIO FREEMAN Age: 67 YearsDate of : 48MRN: [id number] Visit: General medical; SLURRED SPEECHArrival Time: 12/15/17 13:06:00Phone: [facility] Care Physician: Yenifer MARIE Physician: Sven Douglas RComment:Visit Diagnosis:Diagnoses This Visit General medical ([id number]) TIA (transient ischemic attack) (G45.9)If you [...] and treatment you received today in the [facility] Emergency Department were for an urgent problem and are not intended as complete care. It is important for you to follow up with a doctor, nurse practitioner, or physician?s acute care nursing assistant for ongoing care. If your symptoms [...] number so we can reach you if necessary.[facility] Emergency Department has provided you with a complete list of medications post discharge. Please inform your staple side laster/provider of your visit and for further instruction [...] the Answerwww.cdc.gov/getsmart GET SMART Know When Antibiotics Marta.[place]. Department of Health and Human ServicesCenters for Disease Control and Prevention April 2014 Normal [facility] ED Provider Noteon 8 HIM IP Note OR Prefabricator [facility] Extra Redon 12-15-2017 Tube Collected Yes Invalid Interpretation Code [facility] Comment on above: Performed By: #### [id number], [id number], [id number], [id number], [id number] ####[facility] (DEFAULT)[address] [place] [address] History and Physicalon 12-15 HIM IP Note OR Prefabricator [facility] PTon 12-15-2017 INR Coag RelTime (PPP) 1.00 {INR} Normal 0.91-1.11 [facility] Comment on above: Performed By: #### [id number], [id number], [id number], [id number], [id number], [id number] ####[facility] (DEFAULT)[address] [place] [address] Prothrombin time (PT) Coag time (PPP) 10.4 second(s) Normal 9.7-11.8 [facility] Comment on above: Performed By: #### [id number], [id number], [id number], [id number], [id number], [id number], [id number] ####[facility] (DEFAULT)[address] [place] [address] PTTon 12-15-2017 aPTT 28 second(s) Normal 25-35 [facility] Comment on above: Performed By: #### [id number], [id number], [id number], [id number], [id number], [id number], [id number] ####[facility] (DEFAULT)[address] [place] [address] Procedureon 12-15-2017 HIM IP Note OR Prefabricator Normal [facility] Progress Noteon 12-15-2017 HIM IP Note OR Prefabricator Normal [facility] HIM IP Note OR Prefabricator Normal [facility] Rad - Other Radiology Report on 12-15-2017 Rad - Other Radiology Report [id number][facility] w/ref[facility] to FT4on 2017 Thyroid stimulating hormone (TSH) 3.93 m[IU]/L Normal 0.30-5.00 [facility] Comment on above: Result Comment: [facility] [address] [place], [place] [id number] ([phone] Performed By: #### T ROPI, TSHX ####[facility] [place] [address] Telemetry Stripson 8 Telemetry Strips [id number]#1.00[facility] Tele[facility] Strips [id number]#1.00[facility]y [facility] Transfer Noteon 12-15-[address] [facility] at 1424. called at 1434 and spoke with .Pt will be going to [facility] ER, spoke with , accepted.Patient is going by private car. Pt left at 1542, pt is riding with family.Chart and Cd was sent with pt.Pt had no known home meds.Pt did request to go to [facility] at first.I called for the Hospitalist at 1429.Srinivas the nursing wet end supervisor called at 1440 and said the hospitalist will only accept if Neuro is consulted first.I put out a page for Dr.Danner Feng at 1500.[facility] Neuro did not call back, so transfered pt to [facility].[Electronically Signed on: 12/15/2017 15:55 EDT] [facility][Verified on: 12/15/2017 15:55 EDT] [facility] Troponinon 12-15-2017 Troponin I.cardiac mass conc Normal [facility] Comment on above: Result Comment: Reference Range: <0.03 W ithin reference range. 0.03-0.09 Possible myocardial damage.Repeat at appropriate intervals to rule out chronic elevation. >= 0.10 Indicative of myocardial damage.Patients with high levels of Biotin oral intake (i.e >5mg/day) may have falsely decreased Troponin T levels. Samples collected within 8 hours of biotin intake may require additional information for diagnosis.[facility] [address] [place] [address] Performed By: #### T SYED TSHX ####[facility] [place] [address] Troponin T.cardiac mass conc ug/L Normal <0.03 [facility] Comment on above: Result Comment: Troponin T results canno t be compared to Troponin-I results. Performed By: #### T SYED TSHX ####[address] [place] [address] Troponin Ion 12-15-2017 Troponin I.cardiac mass conc ng/mL Normal <=0.03 [facility] Comment on above: Performed By: #### [id number], [id number], [id number], [id number], [id number] ####[facility] (DEFAULT)[address] [place] [address] PROGRESSon 12-10-2017 Protein mass conc HNO ID: [id number]: Penny Boswellervice: (none)Author Type: PhysicianType: Progress NotesFiled: 12/10/2017 8:41 AMNote Text:Radiation Oncology - Follow Up NotePATIENT NAME: Julio Michelle : Prostate adenocarcinoma, clinical stage T Stage: T1c, initialPSA 3.51, biopsy Gowen score 3 + 4 = 7 (grade [...] Denies other significantproblems.PSA HISTORY:PSA. (no units)Date Value11/26/2017 0.6002/09/2016 0.9811/11/2015 1.57 06/03/17 0.45ALLERGIESNo Known AllergiesNo prescriptions on [...] stage T Stage: T1c, initialPSA 3.51, biopsy Gowen score 3 + 4 = 7 (grade group 2)Overall doing well. PSA with stable response. He has continuedfollow-up with urology.PLAN: We will see him again in 6 months with a PSA level.Signed by: Penny Boswell, [facility]:Regino Marie MD[address] [facility] [place] [address]Sykue: [phone]: [phone] [facility] CNOVon 12-07-2017 CNOV Office Visit (RADTSA) JULIO FREEMAN ([id number]) 1950 [facility] Time Provider Department12/07/17 2:30 PM Penny BOSWELL During your visit today, we recorded the following information about you: Blood pressure Weight 126/72 75.8 kgVikki Cannon (Rn), RN 12/07/2017 2:45 PM Bertha Daniel G Phillip 12/10/2017 8:41 AM SignedRadiation Oncology - Follow Up NotePATIENT NAME: Julio FreemanPATIENT : Prostate adenocarcinoma, clinical stage T Stage: T1c, initial PSA3.51, biopsy Gowen score 3 + 4 = 7 (grade [...] other significant problems.PSA HISTORY:PSA. (no units)Date Value11/26/2017 0.6002 0.9811 1.57 [...] with a PSA level.Signed by: Penny Boswell, [facility]:Regino Marie MD[address] [place] [address]Mqmmz: [phone]: [phone] Provider: Penny BOSWELL [[id number]]Allergies As of Date: 12/07/2017(No Known Allergies)Date Reviewed: 06/08/2017Reviewed by: Ashlee Jennings - Fully AssessedReason for Visit: Prostate Cancer [590]Primary Visit Diagnosis:Prostate cancer (HCC) [C61]Order(s):PSA/PROSTSPECAG DIAG [SQPSA] Order #: [id number] FUTUREProblem List As Of Date 12/07/2017 Noted Resolved Prostate cancer (HCC) [C61] INVALID FOR*Visit Notes:>> Vikki Cannon (Rn), RN e December 07, 2017 2:30 PM Status: SignedAULulu Cannon RNMedications Discontinued During This Encounter tamsulosin ER (FLOMAX) 0.4 mg cp24 05/18/2016 12/07/2017 Class: Historical Med Sig: Disc: Course of therapy completedDisposition: Return in about 6 months (around 06/09/2018).Follow-up and Disposition History RecordedEncounter Number: [id number] Status:Closed by Penny BOSWELL MD on 12/10/17 Normal [facility] Vital Signs Date Time Vital Sign Value Performing Clinician Faci lity 08-21-2024 09:13-0500 Blood Pressure Location Aline TENA [facility] 08-21-2024 09:13-0500 Body temperature 98.6 [degF] Aline TENA [facility] 08-21-2024 09:13-0500 Diastolic blood pressure 79 mm[Hg] Aline TENA [facility] 08-21-2024 09:13-0500 Heart rate 69 /min Aline TENA [facility] 08-21-2024 09:13-0500 Respiratory rate 17 /min Aline TENA [facility] 08-21-2024 09:13-0500 Systolic blood pressure 131 mm[Hg] Aline TENA [facility] 08-23-2023 08:58-0500 Blood Pressure Location Aline TENA [facility] 08-23-2023 08:58-0500 Diastolic blood pressure 81 mm[Hg] Aline TENA [facility] 08-23-2023 08:58-0500 Heart rate 72 /min Alinejim TENA [facility] 08-23-2023 08:58-0500 Respiratory rate 16 /min Alinejim TENA [facility] 08-23-2023 08:58-0500 Systolic blood pressure 131 mm[Hg] Aline TENA [facility] 08-24-2022 09:11-0500 Blood Pressure Location Aline TENA [facility] 08-24-2022 09:11-0500 Diastolic blood pressure 84 mm[Hg] Alinejim TENA [facility] 08-24-2022 09:11-0500 Heart rate 67 /min Aline TENA [facility] 08-24-2022 09:11-0500 Respiratory rate 16 /min Aline TENA [facility] 08-24-2022 09:11-0500 Systolic blood pressure 140 mm[Hg] Aline TENA [facility] Encounters Encounter Date Encounter Type Care Provider Facility Start: 08-21-2024 ambulatory Aline Staleyi ty:[facility] [place] Start: 08-21-2024 End: 08-21-2024 Patient encounter procedure Aline TENA [facility] Start: 08-23-2023 End: 08-23-2023 ambulatory Aline TENA Facility:[facility] Start: 08-23-2023 End: 08-23-2023 Patient encounter procedure Aline TENA [facility] Start: 08-31-2022 End: 09-01-[address] ALINE TENA Facility:[facility] Start: 08-24-2022 End: 08-24-2022 Patient encounter procedure Aline TENA [facility] Start: 07-29-2022 End: 07-30-[address] ALINE TENA Facility: Start: 09-25-2021 End: 09-25-[address] ALINE TENA Facility: Start: 09-23-2021 Encounter for preprocedural laboratory examination DR ALINE TENA [facility] Start: 09-22-2021 End: 09-23-[address] ALINE TENA Facility:[facility] Start: 09-22-2021 End: 09-23-2021 Encounter for preprocedural laboratory examination DR ALINE TENA Facility: Start: 06-07-2018 End: 06-10-2018 Patient encounter procedure G NICHOLAS TEERICARDO [facility] Start: 04-07-2018 End: 04-08-2018 Patient encounter MONIKA BOWMAN Facility:[facility] Start: 03-14-2018 End: 03-15-2018 Patient encounter DEFAULT PHYSICIAN Facility:[facility] Start: 12-15-2017 End: 12-15-2017 Emergency department patient visit REGINO MARIE Facility:[facility] Start: 12-15-2017 End: 12-16-2017 Ambulatory Tristin Penaloza Facility:[facility] Start: 12-07-2017 End: 12-13-2017 [facility] Procedure Procedure Detail Performing Clinician Start: 07-29-[address] ARCHANA TENA Comment on above: Performed By: #### C ITRATU #### [facility] [address] [address] [address] Angelica Chauhan Start: 09-25-2021 Extracorporeal shock [...] 12-15-2017 INITIATE OXYGEN THER APY PROTOCOL REGINO RAHMANIGHT Start: 12-15-2017 IP CONSULT TO NEUROLOGY REGINO MARIE Start: 12-15-2017 NEURO CHECKS REGINO MARIE Start: 12-15-2017 NURSING SWALLOW ASSESSMENT REGINO MARIE Start: 12-15-2017 OT EVAL AND TREAT REGINO Sanchez NIGHT Start: 12-15-2017 PROVIDE PATIENT EDUC ATION [...] REGINO MARIE Start: 12-15-2017 IP CONSULT TO GLASS [facility] MEDICINE REGINO MARIE Start: 12-15-2017 IP CONSULT TO STROKE TEAM REGINO MARIE Start: 04-16-2016 Implantation of radi oactive seed into prostate Aline EMILY Start: 03-01-2016 History of external beam radiation therapy Aline EMILY Start: 12-12-2015 Cystoscopy and transurethral resection of bladder tumor Aline TENA Start: 12-10-2015 Transrectal biopsy o f prostate using ultrasound guidance Aline TENA Start: 10-24-2009 Colonoscopy Aline CARRERA Immunizations Immunization Date Immunization Notes Care Provider Johan hendricks 07-17-2021 SARS-CoV-2 (COVID-19 ) mRNA BNT-162b2 vax Aline TENA [facility] Comment on above: Result Comment: 2022: [id number] 09-28-2020 SARS-CoV-2 (COVID-19 ) mRNA BNT-162b2 vax Aline TENA [facility] Comment on above: Result Comment: 2022: [id number] 09-07-2020 SARS-CoV-2 (COVID-19 ) mRNA BNT-162b2 vax Aline TENA [facility] Comment on above: Result Comment: 2022: [id number] 08-02-2020 SARS-CoV-2 (COVID-19 ) mRNA BNT-162b2 vax Aline TENA [facility] Comment on above: Result Comment: Pt s sahara he has had 3 shots to date 07-07-2019 influenza virus vaccine, unspecified formulation Aline TENA [facility] 07-07-2019 pneumococcal conjuga te vaccine, 13 valent Aline TENA [facility] 08-03-2017 influenza virus vaccine, unspecified formulation Aline TENA [facility] 06-10-2016 influenza virus vaccine, unspecified formulation Aline TENA [facility] NEGATED: Highlighted row has not occurred!08-26-2020 influenza virus vaccine, unspecified formulation Aline TENA [facility] Payers Date Payer Category Payer Private Health Insurance [id number] 2022 Private Health Insurance i [id number] 2014 Medicare [id number] 1960 Medicare [id number] 1959 Private Health Insurance I [id number] 1950 Unknown [id number] 2.16.84 [id number] 1950 Unknown [id number] 2.16.84 [id number] 1950 Unknown [id number] 2.16.84 [id number] 1950 Unknown [id number] 2.16.84 [id number] 1950 Unknown [id number] 2.16.84 [id number] 1950 Unknown [id number] 2.16.8 [id number] 1950 Unknown [id number] 2.16.8 [id number] Unknown Social History Date Type Detail Facility Start: 08-24-2022 End: 08-21-2024 Tobacco smoking status Never smoked tobacco (finding) [facility] Tobacco smoking status Never [facility] Sex Assigned At Male [facility] Functional Status Date Assessment Result Facility 08-21-2024 Functional Status N/A [facility] 08-23-2023 Functional Status N/A [facility] 08-24-2022 Functional Status N/A [facility] Hospital Discharge instructions 08-21-2024 Note Date & Type Note Facility 08-21-2024 Hospital Discharg e instructions Patient Education 08/21/2024 10:04:35 Kidney Stones, Banq-cz-Rjvb Kidney Stones Kidney stones are rock-like masses that form inside of the kidneys. Kidneys are organs that make pee (urine). A kidney stone may move into other parts of the urinary tract, including: The tubes that connect the kidneys to the bladder (ureters). The bladder. The tube that carries urine out of the body (urethra). Kidney stones can cause very bad pain and can block the flow of pee. The stone usually leaves your body through your pee. A doctor may need to take out the stone. What are the causes? Kidney stones may be caused by: Too much calcium in the body. This may be caused by too much parathyroid hormone in the blood. Uric acid crystals in the bladder. The body makes uric acid when you eat certain foods. Narrowing of one or both of the ureters. A kidney blockage that you were born with. Past surgery on the kidney or the ureters. What increases the risk? You are more likely to develop this condition if: You have had a kidney stone in the past. Other people in your family have had kidney stones. You do not drink enough water. You eat a diet that is high in protein, salt (sodium), or sugar. You are very overweight (obese). What are the signs or symptoms? Symptoms of a kidney stone may include: Pain in the side of the belly, right below the ribs. Pain usually spreads to the groin. Needing to pee often or right away. Pain when peeing. Blood in your pee. Feeling like you may vomit (nauseous). Vomiting. Fever and chills. How is this treated? Treatment depends on the size, location, and makeup of the kidney stones. The stones will often pass out of the body when you pee. You may need to: Drink more fluid to help pass the stone. ?In some cases, you may be given fluids through an IV tube at the hospital. Take medicine for pain. Change your diet to help keep kidney stones from coming back. Sometimes, you may need: A procedure to break up kidney stones using a beam of light (laser) or shock waves. Surgery to remove the kidney stones. Follow these instructions at home: Medicines Take vrcg-ifj-gipqngr and prescription medicines only as told by your doctor. Ask your doctor if the medicine prescribed to you requires you to avoid driving or using machinery. Eating and drinking Drink enough fluid to keep your pee pale yellow. ?You may be told to drink at least 8 10 glasses of water each day. This will help you pass the stone. If told by your doctor, change your diet. You may be told to: ?Limit how much salt you eat. ?Eat more fruits and vegetables. ?Limit how much meat, poultry, fish, and eggs you eat. Follow instructions from your doctor about what you may eat and drink. General instructions Collect pee samples as told by your doctor. You may need to collect a pee sample: ?24 hours after a stone comes out. ?8 12 weeks after a stone comes out, and every 6 12 months after that. Strain your pee every time you pee. Use the strainer that your doctor recommends. Do not throw out the stone. Keep it so that it can be tested by your doctor. Keep all follow-up visits. You may need X-rays and ultrasounds to make sure the stone has come out. How is this prevented? To prevent another kidney stone: Drink enough fluid to keep your pee pale yellow. This is the best way to prevent kidney stones. Eat healthy foods. Avoid certain foods as told by your doctor. You may be told to eat less protein. Stay at a healthy weight. Where to find more information National Kidney Foundation (NKF): kidney.org Urology Care Foundation ([place]): urologyhealth.org Contact a doctor if: You have pain that gets worse or does not get better with medicine. Get help right away if: You have a fever or chills. You get very bad pain. You get new pain in your belly. You faint. You cannot pee. This information is not intended to replace advice given to you by your health care provider. Make sure you discuss any questions you have with your health care provider. Document Revised: 03/12/2023 Document Reviewed: 03/12/2023 [employer] Patient Education 2023 [employer]. Follow Up Care 08/23/2023 09:41:41 With:EMILY BRUCE, Aline Miller, URL Address: [facility] [address], [place] [phone]- [phone] When: Unknown Comments:f/u pending CT scan results [facility] [employer] Clinical Note 08-21-2024 Note Date & Type Note Facility 08-21-2024 Note Patient Education Urology Kidney Stones Kidney stones are rock-like masses that form inside of the kidneys. Kidneys are organs that make pee (urine). A kidney stone may move into other parts of the urinary tract, including: ??? The tubes that connect the kidneys to the bladder (ureters). ??? The bladder. ??? The tube that carries urine out of the body (urethra). Kidney stones can cause very bad pain and can block the flow of pee. The stone usually leaves your body through your pee. A doctor may need to take out the stone. What are the causes? Kidney stones may be caused by: ??? Too much calcium in the body. This may be caused by too much parathyroid hormone in the blood. ??? Uric acid crystals in the bladder. The body makes uric acid when you eat certain foods. ??? Narrowing of one or both of the ureters. ??? A kidney blockage that you were born with. ??? Past surgery on the kidney or the ureters. What increases the risk? You are more likely to develop this condition if: ??? You have had a kidney stone in the past. ??? Other people in your family have had kidney stones. ??? You do not drink enough water. ??? You eat a diet that is high in protein, salt (sodium), or sugar. ??? You are very overweight (obese). What are the signs or symptoms? Symptoms of a kidney stone may include: ??? Pain in the side of the belly, right below the ribs. Pain usually spreads to the groin. ??? Needing to pee often or right away. ??? Pain when peeing. ??? Blood in your pee. ??? Feeling like you may vomit (nauseous). ??? Vomiting. ??? Fever and chills. How is this treated? Treatment depends on the size, location, and makeup of the kidney stones. The stones will often pass out of the body when you pee. You may need to: ??? Drink more fluid to help pass the stone. ? In some cases, you may be given fluids through an IV tube at the hospital. ??? Take medicine for pain. ??? Change your diet to help keep kidney stones from coming back. Sometimes, you may need: ??? A procedure to break up kidney stones using a beam of light (laser) or shock waves. ??? Surgery to remove the kidney stones. Follow these instructions at home: Medicines ??? Take ekyw-uvs-mgmlksb and prescription medicines only as told by your doctor. ??? Ask your doctor if the medicine prescribed to you requires you to avoid driving or using machinery. Eating and drinking ??? Drink enough fluid to keep your pee pale yellow. ? You may be told to drink at least 8?10 glasses of water each day. This will help you pass the stone. ??? If told by your doctor, change your diet. You may be told to: ? Limit how much salt you eat. ? Eat more fruits and vegetables. ? Limit how much meat, poultry, fish, and eggs you eat. ??? Follow instructions from your doctor about what you may eat and drink. General instructions ??? Collect pee samples as told by your doctor. You may need to collect a pee sample: ? 24 hours after a stone comes out. ? 8?12 weeks after a stone comes out, and every 6?12 months after that. ??? Strain your pee every time you pee. Use the strainer that your doctor recommends. ??? Do not throw out the stone. Keep it so that it can be tested by your doctor. ??? Keep all follow-up visits. You may need X-rays and ultrasounds to make sure the stone has come out. How is this prevented? To prevent another kidney stone: ??? Drink enough fluid to keep your pee pale yellow. This is the best way to prevent kidney stones. ??? Eat healthy foods. ??? Avoid certain foods as told by your doctor. You may be told to eat less protein. ??? Stay at a healthy weight. Where to find more information ??? National Kidney Foundation (NKF): kidney.org ??? Urology Care Foundation (UCF): urologyhealth.org Contact a doctor if: ??? You have pain that gets worse or does not get better with medicine. Get help right away if: ??? You have a fever or chills. ??? You get very bad pain. ??? You get new pain in your belly. ??? You faint. ??? You cannot pee. This information is not intended to replace advice given to you by your health care provider. Make sure you discuss any questions you have with your health care provider. Document Revised: 03/12/2023 Document Reviewed: 03/12/2023 [employer] Patient Education ? 2023 [employer]. [facility] Discharge instructions 08-23-2023 Note Date & [...] include: ?8 oz (237 mL) of milk, mqeksyg-gcvrxeymrvns-lmysj milk, and calcium-fortifiedfruit juice. Calcium-fortified means that [...] ?Spinach (cooked), rhubarb, beets, sweet potatoes, and Bhutanese chard. ?Peanuts. ?Potato chips, indian fries, and baked potatoes with skin on. ?Nuts and nut products. ?Chocolate. If you regularly take a diuretic medicine, make sure to eat at least 1 or 2 servings of fruits or vegetables that are high in potassium each day. These include: ?Avocado. ?Banana. ?[place], prune, carrot, or tomato juice. ?Baked potato. [...] magnesium, fish oil, or vitamin B6. Take umzi-pgo-qomxwpk and prescription medicines only as told by [...] Casseroles. Pizza. Lasagna. Frozen meals. Potato chips. American fries. The items listed above may not [...] provider. Document Revised: 10/29/2022 Document Reviewed: 10/29/2022 [employer] Patient Education 2022 [employer]. Follow Up Care 08/24/2022 09:47:59 With:EMILY BRUCE, Aline Miller, URL Address: [facility] [address] , [place] [address]- When:Within 1 Year(s) Comments:w/CYNTHIA and FERMÍN [facility] Discharge instructions 08-24-2022 Note Date & [...] include: ?Spinach. ?Rhubarb. ?Beets. ?Potato chips and indian fries. ?Nuts. If you regularly take a diuretic medicine, make sure to eat at least 1 2 fruits or vegetables high in potassium each day. These include: ?Avocado. ?Banana. ?[place], prune, carrot, or tomato juice. ?Baked potato. [...] Casseroles. Pizza. Lasagna. Frozen meals. Potato chips. American fries. Summary You can reduce your risk [...] 11/13/2011 Document Revised: 11/08/2019 Document Reviewed: 06/29/2017 [employer] Patient Education 2020 [employer]. Follow Up Care 08/22/2021 08:41:01 With:Aline TENA MD, URL Address: [facility] [address] , [place] [address]- When: Unknown [facility] Evaluation + Plan note Note Date & Type Note Facility Evaluation + Plan note Future Appointments Appointment Date:11/23/2022 08:45:00 AM Scheduled Provider:Aline TENA MD Location:[facility] Appointment Type:URO Office Visit Appointment Date:08/23/2023 08:45:00 AM Scheduled Provider:Aline TENA MD Location:[facility] Appointment Type:URO Office Visit Diagnostic Tests PendingPSA Total 08/24/22 [facility] Evaluation + Plan note Note Date & Type Note Facility Evaluation + Plan note Future Appointments Appointment Date:08/21/2024 08:45:00 AM Scheduled Provider:Aline TENA MD Location:[facility] Appointment Type:URO Office Visit Diagnostic Tests PendingPSA Total 08/23/23 [facility] Hospital course Narrative Note Date & Type Note Facility Hospital course Narrative No data available for this section [facility] Progress note Note Date & Type Note Facility Progress note No data available for this section [facility] Summary Purpose Family History No Family History Records FoundNo Family History Records FoundNo Family History Records FoundNo Family History Records FoundNo Family History Records Found No data available for this section No Family History Records Found No data available for this section Advance Directives No Advanced Directives Records FoundNo [...] section and content) DATE CREATED AUTHOR 01/19/2018 [facility] DATE CREATED AUTHOR AUTHOR'S ORGANIZ ATION 01/22/2018 [facility] DATE CREATED AUTHOR AUTHOR'S ORGANIZ ATION 04/24/2018 [facility] DATE CREATED AUTHOR AUTHOR'S ORGANIZ ATION 07/10/2018 [facility] DATE CREATED AUTHOR AUTHOR'S ORGANIZ ATION 09/08/2022 [facility] DATE CREATED AUTHOR AUTHOR'S ORGANIZ ATION 08/21/2024 [facility] Patient Care team informatio n (unrecognized section and content) Personnel Name: REGINO MARIE MD Address: Address: [address] [place] [address] [place] [address] Personnel Name: TARI AGUIRRE CNP Address: [address] Personnel Name: TARI AGUIRRE CNP Address: Address: [address] [facility] [place] FOR RECORDS PERTAINING TO PATIENTS WHO [...] BE BASED ON THE PRIMARY CLINICAL RECORDS. [facility] [employer] [facility]. provides no warranty or guarantee of the accuracy or completeness of information in this document.
== END 2024-08-22 07:52 | disposition home or self-care (01) ==
LOC: CT 07:51
PROVIDERS: PCP Nurse Practitioner Family; Visit Provider Urology
DX: N20.1 Calculus of ureter (principal); N20.0 Calculus of kidney
CPT/HCPCS: 74176

== ENCOUNTER 2024-09-01 09:49 | Outpatient (OUT) | payer MEDICARE, SELFPAY ==
--- OUTSIDE RECORDS SUMMARY | 2024-09-01 09:55 | XMS_ITS | CCD ---
Author Organization [facility] Care Team Providers Care Set Up Person Name Role Phone REGINO MARIE Unavailable Unavailable [...] DR MIRELES Consulting Unavailable ZIEBER, DR LUCINA Millre Consulting Unavailable AGUBOSIMJOSE JUAN Consulting Unavailable VIJAY TARANGO Consulting Unavailable GIOVANNI, DR REGINO Cerrato Admitting Unavailable GIOVANNI, DR REGINO Cerrato Attending Unavailable MARIE, DR REGINO Cerrato Primary Care Unavailable MARIE, DR REGINO Cerrato Consulting Unavailable EMILY, DR MIRELES Admitting Unavailable EMILY, DR MIRELES Attending Unavailable GIOVANNI, DR REGINO Cerrato Primary Care Unavailable EMILY, DR MIRELES Consulting Unavailable C[place], DR BILL San Consulting Unavailable TARI AGUIRRE Primary Care Physician Aline TENA Attending Unavailable Allergies Allergy Classification Reported Allergen(s) Allergy Type Date of Onset Reaction(s) Facility (1 source) No Known Medication Allergies; Translations: [No Known Medication Allergies] Propensity to adverse reactions to drug (disorder) [facility] Repository (2 sources) No Known Allergies; Translations: [No Known Allergies] Propensity to adverse reactions (disorder) 8 [facility] Repository Medications Current Medications Medication [...] Osteoarthritis 06-14-2019 Chronic 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 Take esjs-sut-inuzyen and prescription m (more content not included)... Normal [facility] Urology Office/Clinic Noteon 08-21-2024 Urology Office/Clinic [...] <0.13 08/16/24 - <0.13 TRUS/bx 12/10/15 - Latham 7 (3+4) x1 core, Meron 6 (3+3) [...] MD, URL [facility] [address], [place] [address] [phone] Additional Instructions: f/u pending CT scan results Patient Education Kidney Stones, Rofr-[id number]-Djey Ana Schwartz, personally scribed for Dr. Tena on 08/21/2024 10:08:35. . Documentation recorded by the Ana hamlin, accurately reflects the services(s) I performed and decisions made by me. Authenticated by Dr. Tena on 08/21/2024 10:12:31. Problem List/Past Medical History Ongoing Asymptomatic microscopic hematuria BMI 25.0-25.9,adult (more content not included)... Normal [facility] Comment on above: Result Comment: Electronically Signed By : Aline TENA MD\.br\Date and Time Signed: 08/21/24 10:12 EST\.br\Electronically Co-Signed By: Ana Garzonbr\Date and Time Co-Signed: 08/21/24 10:09 EST CITRATE URINE 24HRon 023 Citric Acid, U, 24hr 925 mg/24 hr Normal 320-1240 [facility] Comment on above: Result Comment: This test was developed and its performance characteristics determined by [facility]. It has not been cleared or approved by the Food and Drug Administration. Performed By: #### C ITRATU #### [facility] [address] [address] [address] Angelica Chauhan Citric Acid, Urine 552 mg/L Normal Undefined [facility] Comment on above: Performed By: #### CITRATU #### [facility] [address] [address] [address] Angelica Chauhan OXALATE 24HR URINEon 023 Oxalates, Urine 18 mg/L Normal Undefined [facility] Comment on above: Performed By: #### [id number] #### [facility] [address] [address] [address] Angelica Chauhan Oxalates, Urine 24hr 30 mg/24 hr Normal 7-44 [facility] Comment on above: Performed By: #### OX24HR #### [facility] [address] [address] [address] Angelica Chauhan MAGNESIUM 24HR URINEon 09-01 Magnesium 24hr Urine 102.2 mg/24 hr Normal 12.0-293.0 [facility] Comment on above: Performed By: #### MAG24 #### [facility] [address] [address] [address] Angelica Chauhan Magnesium UR 6.1 mg/dL Normal Not Estab. [facility] Comment on above: Performed By: #### MAG24 #### [facility] [address] [address] [address] Angelica Chauhan PHOSPHORUS 24HR URINEon 08-04 Phosphorus, Urine 54.3 mg/dL Normal Not Estab. [facility] Comment on above: Performed By: #### CITRATU #### [facility] [address] [address] [address] Angelica Chauhan Phosphorus, Urine 24hr 910 mg/24 hr Normal 390-1425 [facility] Comment on above: Performed By: #### CITRATU #### [facility] [address] [place] [address] Dr. Angelica Chauhan PTH INTACTon 09-01-2022 PTH, Intact 40 pg/mL Normal 15-65 [facility] Comment on above: Performed By: #### PTHINT #### [facility] [address] [place] [address] Dr. Angelica Chauhan URIC ACID 24 HR URINEon 08-04 Uric Acid, Urine 46.6 mg/dL Normal Not Estab. [facility] Comment on above: Performed By: #### CITRATU #### [facility] [address] [place] [address] Dr. Angelica Chauhan Uric Acid, Urine 24hr 780.6 mg/24 hr Critically high 136.1-771. 1 [facility] Comment on above: Performed By: #### CITRATU #### [facility] [address] [place] [address] Dr. Angelica Chauhan BUNon 08-31-2022 Urea nitrogen [Mass/Vol] 15.0 mg/dL Normal 7.0-18.0 [facility] Comment on above: Performed By: #### CITRATU #### [facility] [address] [place] [address] Dr. Angelica Chauhan CALCIUMon 08-31-2022 Calcium [Mass/Vol] 9.2 mg/dL Normal 8.5-10.1 [facility] Comment on above: Performed By: #### CREA, CO2, CL, NA, UR IC, CA, K, BUN #### [facility] [address] [place] [address] Dr. Angelica Chauhan CALCIUM 24 HR URINEon 2022 CALC, 24 HR UR 214.4 mg/24 hr Normal 100.0-300. 0 [facility] Comment on above: Performed By: #### CITRATU #### [facility] [address] [place] [address] Dr. Angelica Chauhan UR CALCIUM 12.8 mg/dL Normal 5.1-21.0 [facility] Comment on above: Performed By: #### CITRATU #### [facility] [address] [place] [address] Dr. Angelica Chauhan CHLORIDEon 08-31-2022 Chloride [Moles/Vol] 104 mmol/L Normal 98-107 [facility] Comment on above: Performed By: #### CREA, CO2, CL, NA, UR IC, CA, K, BUN #### [facility] [address] [place] [address] Dr. Angelica Chauhan CO2on 08-31-2022 CO2 [Moles/Vol] 25.6 mmol/L Normal 21.0-32.0 [facility] Comment on above: Performed By: #### CREA, CO2, CL, NA, UR IC, CA, K, BUN #### [facility] [address] [place] [address] Dr. Angelica Chauhan CREA 24 HR URINEon CREA, 24 HR UR 1541.17 mg/24 hr Normal 1,000.00- 2 ,000.00 [facility] Comment on above: Performed By: #### CITRATU #### [facility] [address] [place] [address] Dr. Angelica Chauhan UR TOT VOL 1675 ml/24 HR Normal [facility] Comment on above: Performed By: #### CITRATU #### [facility] [address] [place] [address] Dr. Angelica Chauhan URINE CREAT 92.01 mg/dL Normal 20.00-300. 00 [facility] Comment on above: Performed By: #### CITRATU #### [facility] [address] [place] [address] Dr. Angelica Chauhan CREATININEon 08-31-2022 Creatinine [Mass/Vol] 0.73 mg/dL Normal 0.70-1.30 [facility] Comment on above: Performed By: #### CREA, CO2, CL, NA, UR IC, CA, K, BUN #### [facility] [address] [place] [address] Dr. Angelica Chauhan EGFR-AF BURMESE >60 Normal >=60 [facility] Comment on above: Performed By: #### CREA, CO2, CL, NA, UR IC, CA, K, BUN #### [facility] [address] [address] [address] Angelica Chauhan EGFR-NON AF BURMESE >60 Normal >=60 [facility] Comment on above: Performed By: #### CREA, CO2, CL, NA, UR IC, CA, K, BUN #### [facility] [address] [address] [address] Angelica Chauhan NAon 08-31-2022 Sodium [Moles/Vol] 140 mmol/L Normal 136-145 [facility] Comment on above: Performed By: #### CREA, CO2, CL, NA, UR IC, CA, K, BUN #### [facility] [address] [place] [address] Dr. Angelica Chauhan POTASSIUMon 08-31-2022 Potassium [Moles/Vol] 4.0 mmol/L Normal 3.5-5.1 [facility] Comment on above: Performed By: #### CITRATU #### [facility] [address] [place] [address] Dr. Angelica Chauhan SODIUM 24 HR URINEon 023 NA, 24 HR UR 171 mmol/24 hr Normal 40-220 [facility] Comment on above: Performed By: #### CITRATU #### [facility] [address] [place] [address] Dr. Angelica Chauhan Sodium (U) [Moles/Vol] 102 mmol/L Critically high 30-90 [facility] Comment on above: Performed By: #### CITRATU #### [facility] [address] [place] [address] Dr. Angelica Chauhan URIC ACID SERUMon 08-31-2022 Urate [Mass/Vol] 5.0 mg/dL Normal 3.5-7.2 [facility] Comment on above: Performed By: #### CITRATU #### [facility] [address] [place] [address] Dr. Angelica Chauhan CBC AUTO DIFFon 12-28-2022 BASO # 0.0 103/ul Normal 0.0-0.1 [facility] Comment on above: Performed By: #### CBC #### [facility] [address] [place] [address] Dr. Angelica Chauhan Basophils/100 WBC (Bld) 0.6 % Normal 0.2-2.0 [facility] Comment on above: Performed By: #### CBC #### [facility] [address] [place] [address] Dr. Angelica Chauhan EO # 0.2 103/ul Normal 0.0-0.7 [facility] Comment on above: Performed By: #### CBC #### [facility] [address] [place] [address] Dr. Angelica Chauhan Eosinophils/100 WBC (Bld) 3.5 % Normal 0.9-7.0 [facility] Comment on above: Performed By: #### CBC #### [facility] [address] [place] [address] Dr. Angelica Chauhan Erythrocyte distribution width (RBC) [Ratio] 12.3 % Normal 11.0-15.0 [facility] Comment on above: Performed By: #### CBC #### [facility] [address] [place] [address] Dr. Angelica Chauhan Hematocrit (Bld) [Volume fraction] 45.1 % Normal 42.0-54.0 [facility] Comment on above: Performed By: #### CBC #### [facility] [address] [place] [address] Dr. nAgelica Chauhan Hemoglobin (Bld) [Mass/Vol] 15.2 g/dL Normal 14.0-18.0 [facility] Comment on above: Performed By: #### CBC #### [facility] [address] [place] [address] Dr. Angelica Chauhan IG # 0.02 10e3/ul Normal 0.00-0.03 [facility] Comment on above: Performed By: #### CBC #### [facility] [address] [place] [address] Dr. Angelica Chauhan IG % 0.3 % Normal 0.0-0.5 [facility] Comment on above: Performed By: #### CBC #### [facility] [address] [place] [address] Dr. Angelica Chauhan LYMPH # 0.9 103/ul Critically low 1.2-3.8 [facility] Comment on above: Performed By: #### CBC #### [facility] [address] [place] [address] Dr. Angelica Chauhan Lymphocytes/100 WBC (Bld) 14.3 % Critically low 20.5-60.0 [facility] Comment on above: Performed By: #### CBC #### [facility] [address] [place] [address] Dr. Angelica Chauhan MANUAL DIFF REQ NO Normal [facility] Comment on above: Performed By: #### CBC #### [facility] [address] [place] [address] Dr. Angelica Chauhan MCH (RBC) [Entitic mass] 29.9 pg Normal 25.9-34.0 [facility] Comment on above: Performed By: #### CBC #### [facility] [address] [place] [address] Dr. Angelica Chauhan MCHC (RBC) [Mass/Vol] 33.7 g/dL Normal 29.9-35.2 [facility] Comment on above: Performed By: #### CBC #### [facility] [address] [place] [address] Dr. Angelica Chauhan MCV (RBC) [Entitic vol] 88.8 fL Normal 80.0-94.0 [facility] Comment on above: Performed By: #### CBC #### [facility] [address] [place] [address] Dr. Angelica Chauhan MONO # 0.6 103/ul Normal 0.3-0.8 [facility] Comment on above: Performed By: #### CBC #### [facility] [address] [place] [address] Dr. Angelica Chauhan Monocytes/100 WBC (Bld) 9.7 % Normal 1.7-12.0 [facility] Comment on above: Performed By: #### CBC #### [facility] [address] [address] [address] Angelica Chauhan NEUT # 4.7 103/ul Normal 1.4-6.5 [facility] Comment on above: Performed By: #### CBC #### [facility] [address] [address] [address] Angelica Chauhan Neutrophils/100 WBC (Bld) 71.6 % Normal 43.0-75.0 [facility] Comment on above: Performed By: #### CBC #### [facility] [address] [place] [address] Dr. Angelica Chauhan Platelet mean volume (Bld) [Entitic vol] 9.4 fL Critically low 9.5-13.5 [facility] Comment on above: Performed By: #### CBC #### [facility] [address] [place] [address] Dr. Angelica Chauhan PLT 199 103/ul Normal 150-450 [facility] Comment on above: Performed By: #### CBC #### [facility] [address] [place] [address] Dr. Angelica Chauhan RBC 5.08 106/ul Normal 4.70-6.10 [facility] Comment on above: Performed By: #### CBC #### [facility] [address] [place] [address] Dr. Angelica Chauhan WBC 6.6 103/ul Normal 4.0-11.0 [facility] Comment on above: Performed By: #### CBC #### [facility] [address] [place] [address] Dr. Angelica Chauhan LIPID PROFILEon 07-29-2022 CHOL-HDL RATIO NORM SEE BELOW Normal [facility] Comment on above: Result Comment: 3.3 - 4.4 LOW RISK 4.4 - 7.1 AVERAGE RISK 7.1 - 11.0 MODERATE RISK >11.0 HIGH RISK Performed By: #### M AG24 #### [facility] [address] [place] [address] Dr. Angelica Chauhan Cholesterol [Mass/Vol] 192 mg/dL Normal <=200 [facility] Comment on above: Performed By: #### MAG24 #### [facility] [address] [address] [address] Angelica Chauhan Cholesterol in HDL [Mass/Vol] 45 mg/dL Normal 40-60 [facility] Comment on above: Performed By: #### MAG24 #### [facility] [address] [address] [address] Angelica Chauhan Cholesterol in LDL [Mass/Vol] 118.8 mg/dL Normal [facility] Comment on above: Performed By: #### MAG24 #### [facility] [address] [address] [address] Angelica Chauhan Cholesterol.tota l/Cholesterol in HDL [Mass ratio] 4.3 {ratio} Normal [facility] Comment on above: Performed By: #### MAG24 #### [facility] [address] [place] [address] Dr. Angelica Chauhan HDL NORMAL > or = 60 mg/dl - LO W CARDIOVASCULAR RISK <40 mg/dl - HIGH CARDIOVASCULAR RISK Normal [facility] Comment on above: Performed By: #### MAG24 #### [facility] [address] [place] [address] Dr. Angelica Chauhan LDL CALC NORMAL SEE BELOW Normal [facility] Comment on above: Result Comment: <100 mg/dl OPTIMAL 100 - 129 mg/dl NEAR OR ABOVE OPTIMAL 130 - 159 mg/dl BORDERLINE HIGH 160 - 189 mg/dl HIGH >190 mg/dl VERY HIGH Performed By: #### M AG24 #### [facility] [address] [address] [address] Angelica Chauhan Triglyceride [Mass/Vol] 141 mg/dL Normal <=150 [facility] Comment on above: Performed By: #### MAG24 #### [facility] [address] [place] [address] Dr. Angelica Chauhan VLDL CALC 28.2 mg/dL Normal [facility] Comment on above: Performed By: #### MAG24 #### [facility] [address] [place] [address] Dr. Angelica Chauhan PROF 14(COMP METB)on 022 Albumin [Mass/Vol] 3.8 g/dL Normal 3.4-5.0 [facility] Comment on above: Performed By: #### MAG24 #### [facility] [address] [place] [address] Dr. Angelica Chauhan Albumin/Globulin [Mass ratio] 1.0 {ratio} Normal [facility] Comment on above: Performed By: #### MAG24 #### [facility] [address] [place] [address] Dr. Angelica Chauhan ALP [Catalytic activity/Vol] 86 U/L Normal 46-116 [facility] Comment on above: Performed By: #### MAG24 #### [facility] [address] [place] [address] Dr. Angelica Chauhan ALT [Catalytic activity/Vol] 34 U/L Normal 16-63 [facility] Comment on above: Performed By: #### MAG24 #### [facility] [address] [place] [address] Dr. Angelica Chauhan Anion gap [Moles/Vol] 10.3 mmol/L Normal [facility] Comment on above: Performed By: #### MAG24 #### [facility] [address] [place] [address] Dr. Angelica Chauhan AST [Catalytic activity/Vol] 20 U/L Normal 15-37 [facility] Comment on above: Performed By: #### MAG24 #### [facility] [address] [place] [address] Dr. Angelica Chauhan Bilirubin [Mass/Vol] 0.7 mg/dL Normal 0.2-1.0 [facility] Comment on above: Performed By: #### MAG24 #### [facility] [address] [place] [address] Dr. Angelica Chauhan Calcium [Mass/Vol] 9.5 mg/dL Normal 8.5-10.1 [facility] Comment on above: Performed By: #### MAG24 #### [facility] [address] [place] [address] Dr. Angelica Chauhan Chloride [Moles/Vol] 103 mmol/L Normal 98-107 [facility] Comment on above: Performed By: #### MAG24 #### [facility] [address] [place] [address] Dr. Angelica Chauhan CO2 [Moles/Vol] 31.0 mmol/L Normal 21.0-32.0 [facility] Comment on above: Performed By: #### MAG24 #### [facility] [address] [place] [address] Dr. Angelica Chauhan Creatinine [Mass/Vol] 0.79 mg/dL Normal 0.70-1.30 [facility] Comment on above: Performed By: #### MAG24 #### [facility] [address] [place] [address] Dr. Angelica Chauhan EGFR-AF BURMESE >60 Normal >=60 [facility] Comment on above: Performed By: #### MAG24 #### [facility] [address] [place] [address] Dr. Angelica Chauhan EGFR-NON AF BURMESE >60 Normal >=60 [facility] Comment on above: Performed By: #### MAG24 #### [facility] [address] [place] [address] Dr. Angelica Chauhan Globulin (S) [Mass/Vol] 3.8 g/dL Normal [facility] Comment on above: Performed By: #### MAG24 #### [facility] [address] [place] [address] Dr. Angelica Chauhan Glucose [Mass/Vol] 96 mg/dL Normal 74-106 [facility] Comment on above: Performed By: #### MAG24 #### [facility] [address] [place] [address] Dr. Angelica Chauhan Potassium [Moles/Vol] 4.3 mmol/L Normal 3.5-5.1 [facility] Comment on above: Performed By: #### MAG24 #### [facility] [address] [place] [address] Dr. Angelica Chauhan Protein [Mass/Vol] 7.6 g/dL Normal 6.4-8.2 [facility] Comment on above: Performed By: #### MAG24 #### [facility] [address] [place] [address] Dr. Angelica Chauhan Sodium [Moles/Vol] 140 mmol/L Normal 136-145 [facility] Comment on above: Performed By: #### MAG24 #### [facility] [address] [address] [address] Angelica Chauhan Urea nitrogen [Mass/Vol] 19.0 mg/dL Critically high 7.0-18.0 [facility] Comment on above: Performed By: #### MAG24 #### [facility] [address] [address] [address] Angelica Chauhan Urea nitrogen/Creatin ine [Mass ratio] 24.1 mg/mg Normal [facility] Comment on above: Performed By: #### MAG24 #### [facility] [address] [address] [address] Angelica Chauhan XR KUB 1 VIEWon [...] by: BILL BOYER Date: 2022-07-29 16:59 Normal [facility] XR KUB 1 VIEWon 09-25-2021 [...] by: LUCINA CRAIN Date: 2021-09-25 07:35 Normal [facility] Covid-19 PCR (CVDTBH)on 09-03 SARS-CoV-2 (COVID-19) RNA PAMELA+probe Ql (Unsp spec) Not detected Normal NOT DETECTED [facility] Comment on above: Result Comment: This test is not yet carlo roved or cleared by the [place] FDA. When there are no FDA-approved or cleared tests available, and other criteria are met, FDA can make tests available under an emergency access mechanism called an Emergency Use Authorization (EUA). The EUA for this test is supported by the [place] of Health and Human Service's (HHS's) declaration [...] SARS-CoV-2. Performed By: #### C ITRATU #### [facility] [address] [place] [address] Dr. Angelica Seaman 06-07-2018 DAVONTE Office Visit (RADTSA) JULIO FREEMAN ([id number]) 1950 MDate Time Provider Seqxapbeza31/6/18 2:30 PM Penny BOSWELL During your visit [...] stableto improved.PSA HISTORY:PSA. (no units)Date Value03/31/2018 0.8504 0.6002/09/2016 0.9811/11/2015 1.57 06/03/17 0.45ALLERGIESNo Known Allergiesaspirin, [...] stage T Stage: T1c, initial PSA3.51, biopsy Latham score 3 + 4 = 7 (grade group 2)Overall doing well. PSA with stable response. He has continued follow-upwith urology.PLAN: We will see him again in one year with a PSA level.Signed by: Penny Boswell, [facility]:Regino Marie MD[address] [id number]: [phone]: [phone] Weyer, RN, RN 06/07/2018 2:50 PM Alisa Cannon RNReferring Provider: Penny BOSWELL [[id number]]Allergies As of Date: 06/07/2018(No Known Allergies)Date Reviewed: 06/08/2017Reviewed by: Ashlee Jennings - Fully AssessedReason for Visit: Prostate Cancer [590]Primary Visit Diagnosis:Prostate cancer (HCC) [C61]Prescriptions as of 06/07/2018 Sig: ASPIRIN 81 MG TABLET,DELAYED * Take 81 mg by mouth. ROSUVASTATIN 20 MG TABLET Take 20 mg by mouth.Problem List As Of Date 06/07/2018 Noted Resolved Prostate cancer (HCC) [C61] INVALID FOR*Visit Notes:>> Vikki (Michelle Cannon RN Tue Jun 07, 2018 2:19 PM Status: Alisa Cannon RNDisposition: Return in about 1 year (around 06/07/2019).Follow-up and Disposition History RecordedEncounter Number: [id number] Status:Closed by Penny BOSWELL MD on 06/10/18 Normal [facility] PROGRESSon 06-07-2018 Protein mass conc HNO ID: [id number]: Penny Robervice: (none)Author Type: PhysicianType: Progress NotesFiled: 06/10/2018 9:22 AMNote Text:Radiation Oncology - Follow Up NotePATIENT NAME: Julio FreemanPATIENT : Prostate adenocarcinoma, clinical stage T Stage: T1c, initialPSA 3.51, biopsy Latham score 3 + 4 = 7 (grade [...] stable to improved.PSA HISTORY:PSA. (no units)Date Value03/31/2018 0.8504 0.6002 [...] stage T Stage: T1c, initialPSA 3.51, biopsy Latham score 3 + 4 = 7 (grade group 2)Overall doing well. PSA with stable response. He has continuedfollow-up with urology.PLAN: We will see him again in one year with a PSA level.Signed by: Penny Boswell, [facility]:Regino Marie MD[address] [place] [address]Pzhnr: [phone]: [phone] Normal [facility] Cardiovascular Lab Reporton 04-08-2018 Cardiovascular Lab Report [facility] Patient Name: Julio Freeman MR #: [id number] Physician: Monika Bowman M.D.Department of Service Date: 04/07/2018Medicine Birthdate: 1950Division of Room #: [facility] CardiovascularJess[id number] [place], [place] [address]Syxvi Fax Cardiovascular Laboratory ReportPROCEDURE PERFORMED: LINQ implant.INDICATION: [...] well.R-waves are 0.16 mV.[employer]tronic LINQ serial number [id number].CONCLUSION: Successful LINQ implant.Electronically Signed by:Monika Bowman M.D. 04/08/2018 03:51 P Monika Bowman M.D.Date Dict: 04/07/2018/03:11 P/Monika Bowman M.D.Date Trans: 04/08/2018 07:40 A/Kennedy_JN:[id number]: Regino Marie M.D. [address] [place] [phone] Normal [facility] EVENT MONITORon 01-21-2018 EVENT MONITOR [address] [address] EVENT MONITORPATIENT NAME: JULIO FREEMAN : 1950MED REC NO: [id number] [id number] ADMIT DATE: 12/15/2017PROVIDER: Jaylen Hilton TYPE: EVENT [...] with pairs.3. Non-sustained PAT.4. Rare premature ventricular contractions.S. Ali M.D.PART TWO OF THE EVENT RECORDERCOMMENTSThe patient [...] at 12:25 pm.JAYLEN MARCUSCLAYYD: 01/21/2018 12:48:08 Franky#: [id number] Doc#: UnknownCC: (Stacy Stewart Md) Normal [facility] Progress Noteon 12-29-2017 HIM IP Note OR Speed Belt Sander Tender Normal [facility] CTA HEAD W CONTRASTon 2017 CTA [...] by:Oh Mcdowell MD12/23/17Edited Result - FINAL Normal [facility] CTA NECK W CONTRASTon 2017 CTA [...] by:Oh Mcdowell MD12/23/17Edited Result - FINAL Normal [facility] Coding Summaryon 12-20-2017 Coding Summary CODING DATE: 018 [facility] STATUS: Discharge/Transfer to Another Hospital [...] Parris Carson Date Saved: 12/20/2017 01:26 pm [facility] Coding Summary CODING DATE: [facility] STATUS: Discharge/Transfer to Another Hospital [...] Parris Carson Date Saved: 12/20/2017 01:26 pm [facility] B12/Folate Panelon 8 Cobalamins (Vitamin B12) 473 pg/mL Normal 232-1245 [facility] Comment on above: Performed By: #### BMPX, LIPR, CDP, GLYH GB, B12FOL ####[address] [address] Folic Acid 18.1 ng/mL Normal >4.8 [facility] Comment on above: Result Comment: [address] [address] Performed By: #### B MPX, LIPR, CDP, GLYHGB, B12FOL ####[address] [address] Basic Metab w/rfx MGon 12-16 (cont.) Normal [facility] Comment on above: Result Comment: Average GFR for 60-69 ye ars old: 85 mL/min/1.73sq mChronic Kidney Disease: <60 mL/min/1.73sq mKidney failure: <15 mL/min/1.73sq meGFR calculated using average adult body mass. Additional eGFR calculator available at:[email or web address]_crcl_[email or web address] [address] Performed By: #### B MPX, LIPR, CDP, GLYHGB, B12FOL ####[address] [address] Anion gap 10 mmol/L Normal -17 [facility] Comment on above: Performed By: #### BMPX, LIPR, CDP, GLYH GB, B12FOL ####[address] [address] Calcium 8.6 mg/dL Normal 8.6-10.4 [facility] Comment on above: Performed By: #### BMPX, LIPR, CDP, GLYH GB, B12FOL ####[address] [address] Chloride 107 mmol/L Normal 98-107 [facility] Comment on above: Performed By: #### BMPX, LIPR, CDP, GLYH GB, B12FOL ####[address] [address] CO2 23 mmol/L Normal 20-31 [facility] Comment on above: Performed By: #### BMPX, LIPR, CDP, GLYH GB, B12FOL ####[address] [address] Creatinine 0.69 mg/dL Low 0.70-1.20 [facility] Comment on above: Performed By: #### BMPX, LIPR, CDP, GLYH GB, B12FOL ####[address] [address] eGFR (non-black) mL/min/{1.73_m2} Normal >60 [facility] Comment on above: Performed By: #### BMPX, LIPR, CDP, GLYH GB, B12FOL ####[address] [address] Glucose mass conc 79 mg/dL Normal 70-99 [facility] Comment on above: Performed By: #### BMPX, LIPR, CDP, GLYH GB, B12FOL ####[address] [address] Potassium molar conc 4.0 mmol/L Normal 3.7-5.3 [facility] Comment on above: Performed By: #### BMPX, LIPR, CDP, GLYH GB, B12FOL ####[address] [place] [address] Sodium 140 mmol/L Normal 135-144 [facility] Comment on above: Performed By: #### BMPX, LIPR, CDP, GLYH GB, B12FOL ####[address] [place] [address] Urea nitrogen 13 mg/dL Normal 8-23 [facility] Comment on above: Performed By: #### BMPX, LIPR, CDP, GLYH GB, B12FOL ####[address] [address] BUN/CRE Ratio NOT REPORTED Normal - [facility] Comment on above: Performed By: #### BMPX, LIPR, CDP, GLYH GB, B12FOL ####[address] [address] Staging: NOT REPORTED Normal [facility] Comment on above: Performed By: #### BMPX, LIPR, CDP, GLYH GB, B12FOL ####[address] [address] CBC with Diffon 12-16-2017 Abs. Basophil 0.00 k/uL Normal 0.0-0.2 [facility] Comment on above: Performed By: #### BMPX, LIPR, CDP, GLYH GB, B12FOL ####[address] [address] Abs.Neutrophil (Seg) 3.87 k/uL Normal 1.8-7.7 [facility] Comment on above: Performed By: #### BMPX, LIPR, CDP, GLYH GB, B12FOL ####[address] [address] Basophils/100 WBC Auto (Bld) 0 % Normal 0-2 [facility] Comment on above: Performed By: #### BMPX, LIPR, CDP, GLYH GB, B12FOL ####[address] [address] Blood morphology Normal Normal [facility] Comment on above: Result Comment: [address] [address] Performed By: #### B MPX, LIPR, CDP, GLYHGB, B12FOL ####[address] [address] Eosinophils 0.10 10*3/uL Normal 0.0-0.4 [facility] Comment on above: Performed By: #### BMPX, LIPR, CDP, GLYH GB, B12FOL ####[address] [address] Eosinophils/100 leukocytes 2 % Normal 1-4 [facility] Comment on above: Performed By: #### BMPX, LIPR, CDP, GLYH GB, B12FOL ####[address] [address] Granulocytes/100 WBC (Bld) 0.00 k/uL Normal 0.00-0.30 [facility] Comment on above: Performed By: #### BMPX, LIPR, CDP, GLYH GB, B12FOL ####[address] [address] Immature granulocytes #/vol (Bld) 0 % Normal 0 [facility] Comment on above: Performed By: #### BMPX, LIPR, CDP, GLYH GB, B12FOL ####[address] [address] Lymphocytes 0.59 10*3/uL Low 1.0-4.8 [facility] Comment on above: Performed By: #### BMPX, LIPR, CDP, GLYH GB, B12FOL ####[address] [address] Lymphocytes/100 leukocytes 12 % Low 24-44 [facility] Comment on above: Performed By: #### BMPX, LIPR, CDP, GLYH GB, B12FOL ####[address] [place] [address] Monocytes 0.34 10*3/uL Normal 0.1-0.8 [facility] Comment on above: Performed By: #### BMPX, LIPR, CDP, GLYH GB, B12FOL ####[address] [address] Monocytes/100 leukocytes 7 % Normal 1-7 [facility] Comment on above: Performed By: #### BMPX, LIPR, CDP, GLYH GB, B12FOL ####[address] [address] Neutrophil (Seg) 79 % High 36-66 [facility] Comment on above: Performed By: #### BMPX, LIPR, CDP, GLYH GB, B12FOL ####[address] [address] Erythrocyte distribution width Auto Ratio (RBC) 12.3 % Normal 11.8-14.4 [facility] Comment on above: Performed By: #### BMPX, LIPR, CDP, GLYH GB, B12FOL ####[address] [address] Erythrocytes (RBC) 4.60 10*6/uL Normal 4.21-5.77 [facility] Comment on above: Performed By: #### BMPX, LIPR, CDP, GLYH GB, B12FOL ####[address] [address] Erythrocytes (RBC) 0.0 per 100 WBC Normal 0.0 [facility] Comment on above: Performed By: #### BMPX, LIPR, CDP, GLYH GB, B12FOL ####[address] [address] Hematocrit (HCT) 42.1 % Normal 40.7-50.3 [facility] Comment on above: Performed By: #### BMPX, LIPR, CDP, GLYH GB, B12FOL ####[address] [address] Hemoglobin mass conc (Bld) 14.1 g/dL Normal 13.0-17.0 [facility] Comment on above: Performed By: #### BMPX, LIPR, CDP, GLYH GB, B12FOL ####[address] [address] MCH 30.7 pg Normal 25.2-33.5 [facility] Comment on above: Performed By: #### BMPX, LIPR, CDP, GLYH GB, B12FOL ####[address] [address] MCHC mass conc (RBC) 33.5 g/dL Normal 28.4-34.8 [facility] Comment on above: Performed By: #### BMPX, LIPR, CDP, GLYH GB, B12FOL ####[address] [address] MCV 91.5 fL Normal 82.6-102.9 [facility] Comment on above: Performed By: #### BMPX, LIPR, CDP, GLYH GB, B12FOL ####[address] [address] Platelet mean volume (PMV) 10.0 fL Normal 8.1-13.5 [facility] Comment on above: Performed By: #### BMPX, LIPR, CDP, GLYH GB, B12FOL ####[address] [address] Platelets 173 10*3/uL Normal 138-453 [facility] Comment on above: Performed By: #### BMPX, LIPR, CDP, GLYH GB, B12FOL ####[address] [address] WBC (Leukocytes) 4.9 10*3/uL Normal 3.5-11.3 [facility] Comment on above: Performed By: #### BMPX, LIPR, CDP, GLYH GB, B12FOL ####[address] [address] Auto Diff Performed NOT REPORTED Normal [facility] Comment on above: Performed By: #### BMPX, LIPR, CDP, GLYH GB, B12FOL ####[address] [address] Erythrocyte morphology NOT REPORTED Normal [facility] Comment on above: Performed By: #### BMPX, LIPR, CDP, GLYH GB, B12FOL ####[address] [address] Platelets NOT REPORTED Normal [facility] Comment on above: Performed By: #### BMPX, LIPR, CDP, GLYH GB, B12FOL ####[address] [address] WBC Morphology NOT REPORTED Normal [facility] Comment on above: Performed By: #### BMPX, LIPR, CDP, GLYH GB, B12FOL ####[address] [address] Consulton 12-16-2017 HIM IP Note OR Speed Belt Sander Tender Normal [facility] Hemoglobin A1Con 12-16-2017 Glucose mass conc 97 mg/dL Normal [facility] Comment on above: Result Comment: The ADA and AACC recomme nd providing the estimated average glucose result to permit better patient understanding of their HBA1c result.[address] [address] Performed By: #### B MPX, LIPR, CDP, GLYHGB, B12FOL ####[address] [place] [address] Hemoglobin A1c/Hemoglobin.t otal mass fraction (Bld) 5.0 % Normal 4.0-6.0 [facility] Comment on above: Performed By: #### BMPX, LIPR, CDP, GLYH GB, B12FOL ####[facility] [address] [place] [address] Lipid Profileon 12-16-2017 Cholesterol 203 mg/dL High <200 [facility] Comment on above: Result Comment: Cholesterol Guidelines: <200 Desirable 200-240 Borderline >240 Undesirable Performed By: #### B MPX, LIPR, CDP, GLYHGB, B12FOL ####[facility] [address] [place] [address] Cholesterol to HDL Ratio 5.3 {ratio} High <5 [facility] Comment on above: Performed By: #### BMPX, LIPR, CDP, GLYH GB, B12FOL ####[facility] [address] [place] [address] HDL Cholesterol 38 mg/dL Low >40 [facility] Comment on above: Result Comment: HDL Guidelines: <40 Unde sirable 40-59 Borderline >59 Desirable Performed By: #### B MPX, LIPR, CDP, GLYHGB, B12FOL ####[facility] [address] [place] [address] LDL Cholesterol 144 mg/dL High 0-130 [facility] Comment on above: Result Comment: LDL Guidelines: <100 Grayson irable 100-129 Near to/above Desirable 130-159 Borderline >159 UndesirableDirect (measured) LDL and calculated LDL are not interchangeable tests. Performed By: #### B MPX, LIPR, CDP, GLYHGB, B12FOL ####[facility] [address] [place] [address] Triglyceride 104 mg/dL Normal <150 [facility] Comment on above: Result Comment: Triglyceride Guidelines: <150 Desirable 150-199 Borderline 200-499 High >499 Very high Based on AHA Guidelines for fasting triglyceride, May 2012.[employer] [address] [place] [address] Performed By: #### B MPX, LIPR, CDP, GLYHGB, B12FOL ####[facility] [address] [place] [address] Cholesterol in VLDL mass conc NOT REPORTED Normal 08-31 [facility] Comment on above: Performed By: #### BMPX, LIPR, CDP, GLYH GB, B12FOL ####[facility] [address] [place] [address] MRI BRAIN WO CONTRASTon 11-30 MRI BRAIN [...] cerebral white matter.Interpreted by:JEMMA Solisigned by:Naif Marin MD12/16/17CC Recipients:Carmelo Ceballos MD - In Basket (authorizing provider)Final result Normal [facility] Plan of Careon 12-16-2017 HIM IP Note OR Speed Belt Sander Tender Normal [facility] Progress Noteon 12-16-2017 HIM IP Note OR Speed Belt Sander Tender Normal [facility] HIM IP Note OR Speed Belt Sander Tender Normal [facility] HIM IP Note OR Speed Belt Sander Tender Normal [facility] HIM IP Note OR Speed Belt Sander Tender Normal [facility] Troponinon 12-16-2017 Troponin I.cardiac mass conc Normal [facility] Comment on above: Result Comment: Reference Range: <0.03 W ithin reference range. 0.03-0.09 Possible myocardial damage.Repeat at appropriate intervals to rule out chronic elevation. >= 0.10 Indicative of myocardial damage.Patients with high levels of Biotin oral intake (i.e >5mg/day) may have falsely decreased Troponin T levels. Samples collected within 8 hours of biotin intake may require additional information for diagnosis.[employer] [address] [place] [address] Performed By: #### T ROPI ####[address] [address] Troponin T.cardiac mass conc ug/L Normal <0.03 [facility] Comment on above: Result Comment: Troponin T results canno t be compared to Troponin-I results. Performed By: #### T ROPI ####[address] [address] .Auto Diff 1on 12-15-2017 Auto Baso % 0.5 % Normal 0.2-2.0 [facility] Comment on above: Performed By: #### [id number], 6774344, 20735418, 1117020, 6593121, 6270703436, 6149376 ####[facility] (DEFAULT)[address] [place] [address] Auto [place] % 9 % Normal 1-12 [facility] Comment on above: Performed By: #### [id number], 9879255, 37448523, 8919343, 1596307, 6208193522, 5278228 ####[facility] (DEFAULT)[address] [place] [address] Auto Neut % 74 % Normal 44-88 [facility] Comment on above: Performed By: #### [id number], 5953478, 33743806, 3841263, 0303320, 3058755695, 1970334 ####[facility] (DEFAULT)[address] [place] [address] Baso Abs# 0.0 x10 Normal 0.0-0.2 [facility] Comment on above: Performed By: #### [id number], 5435701, 95105132, 2061634, 6501925, 2161401923, 6979209 ####[facility] (DEFAULT)[address] [place] [address] Eos Abs# 0.1 x10 Normal 0.0-0.4 [facility] Comment on above: Performed By: #### [id number], 7385525, 14800652, 0956571, 8603766, 2756666498, 8201649 ####[facility] (DEFAULT)[address] [place] [address] Eosinophils/100 leukocytes 2.1 % Normal 0.9-4.0 [facility] Comment on above: Performed By: #### [id number], 5515214, 44550602, 5081047, 8130895, 2214509362, 5478730 ####[facility] (DEFAULT)[address] [place] [address] Lymphocytes 0.6 x10 Low 1.3-2.9 [facility] Comment on above: Performed By: #### [id number], 2438807, 60728716, 2282140, 3561244, 3748951036, 2329318 ####[facility] (DEFAULT)[address] [place] [address] Lymphocytes/100 leukocytes 14 % Normal 14-48 [facility] Comment on above: Performed By: #### [id number], 0531466, 90294288, 9838805, 6442466, 7271740532, 7040457 ####[facility] (DEFAULT)[address] [place] [address] [place] Abs# 0.4 x10 Normal 0.0-0.8 [facility] Comment on above: Performed By: #### [id number], 2049960, 90419285, 3180225, 7688872, 2817330763, 6518551 ####[facility] (DEFAULT)[address] [place] [address] Neut Abs# 3.1 x10 Normal 1.5-9.2 [facility] Comment on above: Performed By: #### [id number], 0600299, 15588958, 7132643, 2018039, 9034566616, 6351260 ####[facility] (DEFAULT)[address] [place] [address] CBC w/ Auto Diffon 8 Erythrocyte distribution width Auto Ratio (RBC) 12.7 % Normal 11.5-15.0 [facility] Comment on above: Performed By: #### [id number], 5912320, 00597057, 5620129, 0373305, 0385617748, 4176882 ####[facility] (DEFAULT)[address] [place] [address] Erythrocytes (RBC) 4.58 x10 Normal 3.70-5.30 [facility] Comment on above: Performed By: #### [id number], 5297923, 00735337, 9372431, 9271705, 5642344159, 2629523 ####[facility] (DEFAULT)[address] [place] [address] Hematocrit (HCT) 40.8 % Normal 34.8-51.9 [facility] Comment on above: Performed By: #### [id number], 6951781, 66346906, 8202759, 3123659, 8856751679, 6203339 ####[facility] (DEFAULT)[address] [place] [address] Hemoglobin mass conc (Bld) 14.4 g/dL Normal 11.8-17.7 [facility] Comment on above: Performed By: #### [id number], 0848526, 75848415, 5594404, 0865257, 8417991312, 0979273 ####[facility] (DEFAULT)[address] [place] [address] Man Diff? Auto Normal [facility] Comment on above: Performed By: #### [id number], 1267581, 68273975, 6987723, 8735169, 1886619482, 9004613 ####[facility] (DEFAULT)[address] [place] [address] MCH 31 pg Normal 24-34 [facility] Comment on above: Performed By: #### [id number], 3607651, 10411308, 5427742, 3398158, 4315982356, 9302786 ####[facility] (DEFAULT)[address] [place] [address] MCHC mass conc (RBC) 35 g/dL Normal 26-37 [facility] Comment on above: Performed By: #### [id number], 0617919, 42096053, 3124250, 5994572, 6750151947, 8315130 ####[facility] (DEFAULT)[address] [place] [address] MCV 89 fL Normal 81-100 [facility] Comment on above: Performed By: #### [id number], 0003326, 88081596, 3993688, 9274344, 4127304818, 6397571 ####[facility] (DEFAULT)[address] [place] [address] Platelet mean volume (PMV) 9.4 fL Normal 6.3-10.2 [facility] Comment on above: Performed By: #### [id number], 8562150, 17843513, 0483032, 3501437, 8743598309, 2590809 ####[facility] (DEFAULT)[address] [place] [address] Platelets 167 x10 Normal 138-427 [facility] Comment on above: Performed By: #### [id number], 3334644, 81664113, 3549617, 3021715, 1788367414, 8420372 ####[facility] (DEFAULT)[address] [place] [address] WBC (Leukocytes) 4.2 x10 Normal 3.5-10.5 [facility] Comment on above: Performed By: #### 5731152269, 5666787, 64976268, 3993892, 1150786, 9882797728, 0806426 ####[facility] (DEFAULT)[address] [place] [address] [facility] Standardon 12-15-2017 eGFR (non-black) mL/min/{1.73_m2} Invalid Interpretation Code [facility] Comment on above: Performed By: #### [id number], 1071177, 44609326, 4296086, 0716333, 1249444885, 2399415 ####[facility] (DEFAULT)[address] [place] [address] eGFR (non-black) mL/min/{1.73_m2} Invalid Interpretation Code [facility] Comment on above: Result Comment: Chronic Kidney disease c ould be indicated at eGFRs of less than 60 ml/min/1.73m2. Kidney Failure is indicated at less than 15 ml/min/1.73m2 Performed By: #### 1 [id number], 7986303, 65524860, 3431963, 9276994, 8463954286, 2211421 ####[facility] (DEFAULT)[address] [place] [address] Albumin 4.1 g/dL Normal 3.5-5.0 [facility] Comment on above: Performed By: #### [id number], 3107338, 13030215, 2942458, 8345691, 2855962835, 9171732 ####[facility] (DEFAULT)[address] [place] [address] Albumin/Globulin Ratio 1.4 {ratio} Normal 1.4-2.6 [facility] Comment on above: Performed By: #### 4654423026, 1577510, 06025545, 3416630, 9609675, 7391891094, 6338989 ####[facility] (DEFAULT)[address] [place] [address] Alk Phos 64 IU/L Normal 32-91 [facility] Comment on above: Performed By: #### [id number], 7978931, 73023575, 5448530, 5151338, 4225959707, 2630313 ####[facility] (DEFAULT)[address] [place] [address] ALT/SGPT 21.0 IU/L Normal 17.0-63.0 [facility] Comment on above: Performed By: #### [id number], 7278836, 94428178, 2497523, 9432403, 9788725804, 4721160 ####[facility] (DEFAULT)[address] [place] [address] Anion gap 11.0 mmol/L Normal 5.0-19.0 [facility] Comment on above: Performed By: #### 0604279851, 2230647, 68253639, 8597855, 0244817, 6254869662, 3740279 ####[facility] (DEFAULT)[address] [place] [address] AST/SGOT 21 IU/L Normal 15-41 [facility] Comment on above: Performed By: #### 4405020200, 2377816, 21743002, 9110246, 0079349, 7983452729, 2667045 ####[facility] (DEFAULT)[address] [place] [address] Bili Total 0.9 mg/dL Normal 0.3-1.2 [facility] Comment on above: Performed By: #### 1446587921, 0224716, 73683721, 8840967, 7065853, 0815609468, 2795392 ####[facility] (DEFAULT)[address] [place] [address] BUN/Creatinine Ratio 28.0 mg/mg High 4.6-16.2 [facility] Comment on above: Performed By: #### [id number], 6319841, 86079395, 6649085, 2919608, 6019912593, 8617530 ####[facility] (DEFAULT)[address] [place] [address] Calcium 9.0 mg/dL Normal 8.9-10.3 [facility] Comment on above: Performed By: #### [id number], 0128849, 59827264, 0791656, 4983149, 5792046153, 4047079 ####[facility] (DEFAULT)[address] [place] [address] Chloride 105 mmol/L Normal 101-111 [facility] Comment on above: Performed By: #### [id number], 3247331, 78357218, 6818901, 0191320, 5335521763, 0253655 ####[facility] (DEFAULT)[address] [place] [address] CO2 24 mmol/L Normal 21-32 [facility] Comment on above: Performed By: #### [id number], 9685522, 94602088, 0920846, 3563636, 5728337171, 4208124 ####[facility] (DEFAULT)[address] [place] [address] Creatinine 0.61 mg/dL Low 0.90-1.30 [facility] Comment on above: Performed By: #### [id number], [id number], [id number], [id number], 9047724, [id number], [id number] ####[facility] (DEFAULT)[address] [place] [address] 27713 Globulin 2.9 g/dL Normal 1.5-4.3 [facility] Comment on above: Performed By: #### [id number], [id number], [id number], 3041822, 8621127, [id number], [id number] ####[facility] (DEFAULT)[address] [place] [address] Glucose mass conc 97.0 mg/dL Normal 74.0-118.0 [facility] Comment on above: Performed By: #### [id number], [id number], 65728434, 1778982, 5241375, [id number], 8190125 ####[facility] (DEFAULT)[address] [place] [address] 61235 Osmolality 273 mOsm/L Invalid Interpretation Code [facility] Comment on above: Performed By: #### [id number], [id number], [id number], 7973945, 7192654, [id number], [id number] ####[facility] (DEFAULT)[address] [place] [address] 87519 Potassium molar conc 3.5 mmol/L Low 3.6-5.1 [facility] Comment on above: Performed By: #### [id number], [id number], 36500056, 6867769, 0648355, [id number], 0994082 ####[facility] (DEFAULT)[address] [place] [address] Protein 7.0 g/dL Normal 6.5-8.1 [facility] Comment on above: Performed By: #### [id number], [id number], 40344231, 5896007, 9224379, [id number], 1252911 ####[facility] (DEFAULT)[address] [place] [address] 10237 Sodium 136.0 mmol/L Normal 136.0-144. 0 [facility] Comment on above: Performed By: #### [id number], 3750159, 80536340, 0945319, 2562996, [id number], 2376752 ####[facility] (DEFAULT)[address] [place] [address] Urea nitrogen 17 mg/dL Normal 8-26 [facility] Comment on above: Performed By: #### [id number], 7727463, 89386106, 8487706, 9428802, [id number], 3182989 ####[facility] (DEFAULT)[address] [place] [address] CT Head or Brain w/o Contras ton [...] ACUTE BLEED ORFOCAL MASS.Narinder Burton MDJOB #: [id number]: 12/15/2017T: 12/15/2017 Final Dictated by: Narinder Burton MD SDictated DT/TM: 12/15/17 2:14Signed (Electronic Signature): Narinder Burton MD 12/15/17 2:52 pmTechnologist: LASHAE VARELA Normal [facility] Consulton 12-15-2017 HIM IP Note OR Speed Belt Sander Tender Normal [facility] ED Clinical Summaryon 2017 ED Clinical Summary [facility] - Emergency [address] [place], [place] [id number] ed Clinical SummaryPERSON INFORMATIONName: JULIO FREEMAN Age: 67 Years Sex: MALEDOB: [birth year] MRN: Acct#:Visit Reason: General medical; SLURRED SPEECH Arrival: 12/15/17 13:06:00 Discharge: 12/15/17 15:42:00LOS: 000 02:36 Check In: 12/15/17 13:06:00 Checkout:12/15/17 15:42:00Address:[address] [facility] [address]KKH: JORGE MARIE INFORMATIONProvider Role Assigned UnassignedSven Douglas ED Provider 12/15/17 13:09:00Sejal Mills RN ED Nurse 12/15/17 13:21:19VITALS INFORMATIONVital Sign Triage LatestTemperature TympanicTemperature Temporal ArteryPulse Rate 68 bpm 65 bpmO2 Sat 99 % 99 %Respiratory Rate 18 br/min 18 br/minBlood Pressure 183 mmHg/104 mmHg 183 mmHg/104 mmHgMEDICAL INFORMATIONMedications Given:Allergy Information:No Known Medication AllergiesPHYSICIAN DOCUMENTATIONPatient: JULIO FREEMAN : 67 years Sex: MALE : [birth year]Associated Diagnoses: TIA (transient ischemic attack)Author: Sven Douglas RBasic InformationTime seen: Date & time 12/15/17 13:26:00.History source: Patient, significant other.Arrival mode: Private vehicle.History limitation: None.Additional information: Chief Complaint from Nursing Triage Note : Chief Ewzfhtktf27/16/18 13:10 EDT Chief Complaint Pt and say [...] HI SpO2 99 % Oxygen Therapy Room air.Mgbsxedpfyjo83/16/18 13:21 EDT Weight Dosing 72.570 kg12/15/17 13:21 [...] Berg from the neuro interventional services at [facility] he was made aware of the patient's diagnostic results, as well as NIH score. He suggested that the patient should go through the emergency room at [facility] for further evaluation. I did inform the patient regarding our desired to have further diagnostic testing. The patient voiced understanding. The patient was insistent on driving. He did sign a request for refusal of transport. I did speak with Dr. Duque in the emergency room at [facility] and she accepted the patient.Impression and PlanDiagnosisTIA (transient ischemic attack) (LLA36-TO G45.9, Discharge, Medical)PlanCondition: Improved.Disposition: Transfer to other location: Time: 12/15/17 15:22:00, time deemed necessary for transfer: 1400, Facility name: [facility] , Accepted by: Neto .DISCHARGE INFORMATION:Discharge Disposition: Discharge/Transfer to Another HospitalDis[facility]PATIENT EDUCATION INFORMATIONInstructions:Follow-Up :DIAGNOSIS:TIA (transient ischemic attack)Patient Understands: Yes - Patient/family/caregiver verbalizes understanding of instructions givenComment: [facility] ED Noteon 12-15-2017 HIM IP Note OR Speed Belt Sander Tender [facility] HIM IP Note OR Speed Belt Sander Tender [facility] HIM IP Note OR Speed Belt Sander Tender [facility] HIM IP Note OR Speed Belt Sander Tender [facility] HIM IP Note OR Speed Belt Sander Tender [facility] HIM IP Note OR Speed Belt Sander Tender [facility] HIM IP Note OR Speed Belt Sander Tender [facility] ED Note - Physicianon 2017 ED Note - Physician Patient: JULIO FREEMAN : 67 years Sex: MALE : [birth year]Associated Diagnoses: TIA (transient ischemic attack)Author: Sven Douglas InformationTime seen: Date & time 12/15/17 13:26:00.History source: Patient, significant other.Arrival mode: Private vehicle.History limitation: None.Additional information: Chief Complaint from Nursing Triage Note : Chief Mavtjtmca02/16/18 13:10 EDT Chief Complaint Pt and say [...] HI SpO2 99 % Oxygen Therapy Room air.Hiaunncfvxqa03/16/18 13:21 EDT Weight Dosing 72.570 kg12/15/17 13:21 [...] Berg from the neuro interventional services at [facility] he was made aware of the patient's diagnostic results, as well as NIH score. He suggested that the patient should go through the emergency room at [facility] for further evaluation. I did inform the patient regarding our desired to have further diagnostic testing. The patient voiced understanding. The patient was insistent on driving. He did sign a request for refusal of transport. I did speak with Dr. Duque in the emergency room at [facility] and she accepted the patient.Impression and PlanDiagnosisTIA (transient ischemic attack) (FMQ75-FI G45.9, Discharge, Medical)PlanCondition: Improved.Disposition: Transfer to other location: Time: 12/15/17 15:22:00, time deemed necessary for transfer: 1400, Facility name: [facility] , Accepted by: Neto .[Electronically Signed on: 12/15/2017 16:18 EDT] Sven Douglas MD[Verified on: 12/15/2017 16:18 EDT] Sven Douglas MD [facility] ED Patient Education Noteon 12-15-2017 ED Patient Education Note Education Materials [facility] ED Patient Summaryon 018 ED Patient Summary [facility] [address] [place] [address] pATIENT DISCHARGE INSTRUCTIONSPatient InformationName: JULIO FREEMAN Age: 67 YearsDate of : [birth year]MRN: [id number] For Visit: General medical; SLURRED SPEECHArrival Time: 12/15/17 13:06:00Phone: primary Care Physician: Yenifer MARIE Physician: Sven Douglas RComment:Visit Diagnosis:Diagnoses This Visit General medical ([id number]) TIA (transient ischemic attack) (G45.9)If you [...] and treatment you received today in the [facility] Emergency Department were for an urgent problem and are not intended as complete care. It is important for you to follow up with a doctor, nurse practitioner, or physician?s surgical supply assistant for ongoing care. If your symptoms [...] number so we can reach you if necessary.[facility] Emergency Department has provided you with a complete list of medications post discharge. Please inform your diet therapist/provider of your visit and for further instruction [...] Disease Control and Prevention April 2014 Normal [facility] ED Provider Noteon 8 HIM IP Note OR Speed Belt Sander Tender Normal [facility] Extra Redon 12-15-2017 Tube Collected Yes Invalid Interpretation Code [facility] Comment on above: Performed By: #### [id number], [id number], [id number], 9052287, 8183385, [id number], 8053620 ####[facility] (DEFAULT)[address] [place] [address] History and Physicalon 12-15 HIM IP Note OR Speed Belt Sander Tender Normal [facility] PTon 12-15-2017 INR Coag RelTime (PPP) 1.00 {INR} Normal 0.91-1.11 [facility] Comment on above: Performed By: #### [id number], [id number], 24377316, 4505053, 7523842, [id number], 9818505 ####[facility] (DEFAULT)[address] [place] [address]80 Prothrombin time (PT) Coag time (PPP) 10.4 second(s) Normal 9.7-11.8 [facility] Comment on above: Performed By: #### [id number], [id number], 01131697, 9287157, 8475215, [id number], 3955125 ####[facility] (DEFAULT)[address] [place] [address]06 PTTon 12-15-2017 aPTT 28 second(s) Normal 25-35 [facility] Comment on above: Performed By: #### [id number], 3086752, 38630052, 3543579, 9339746, [id number], 7185734 ####[facility] (DEFAULT)[address] [place] [address] 98576 Procedureon 12-15-2017 HIM IP Note OR Speed Belt Sander Tender Normal [facility] Progress Noteon 12-15-2017 HIM IP Note OR Speed Belt Sander Tender Normal [facility] HIM IP Note OR Speed Belt Sander Tender Normal [facility] Rad - Other Radiology Report on 12-15-2017 Rad - Other Radiology Report [id number]#1.00OTGTIFF Normal [facility] TSH w/reflex to FT4on 2017 Thyroid stimulating hormone (TSH) 3.93 m[IU]/L Normal 0.30-5.00 [facility] Comment on above: Result Comment: [employer] [address] [place] [address] ([phone] Performed By: #### T ROPI, TSHX ####[facility] [place] [address] Telemetry Stripson 8 Telemetry Strips [id number]#1.00OTGTIFF [facility] Telemetry Strips [id number]#1.00[facility]on 12-15-2017 Transfer Note Called [facility] for Neuro at 1424. called at 1434 and spoke with .Pt will be going to [facility] ER, spoke with , accepted.Patient is going by private car. Pt left at 1542, pt is riding with family.Chart and Cd was sent with pt.Pt had no known home meds.Pt did request to go to [facility] at first.I called for the Hospitalist at 1429.Srinivas the nursing porcelain enameling supervisor called at 1440 and said the hospitalist will only accept if Neuro is consulted first.I put out a page for Dr.Danner Feng at 1500.[facility] did not call back, so transfered pt to [facility] ER.[Electronically Signed on: 12/15/2017 15:55 EDT] Loly Nix[Verified on: 12/15/2017 15:55 EDT] Elder, Loly [facility] Troponinon 12-15-2017 Troponin I.cardiac mass conc Normal [facility] Comment on above: Result Comment: Reference Range: <0.03 W ithin reference range. 0.03-0.09 Possible myocardial damage.Repeat at appropriate intervals to rule out chronic elevation. >= 0.10 Indicative of myocardial damage.Patients with high levels of Biotin oral intake (i.e >5mg/day) may have falsely decreased Troponin T levels. Samples collected within 8 hours of biotin intake may require additional information for diagnosis.[address] [address] [place], [place] [id number] ([phone] Performed By: #### T SYED TSHX ####[address] [place] [address] Troponin T.cardiac mass conc ug/L Normal <0.03 [facility] Comment on above: Result Comment: Troponin T results canno t be compared to Troponin-I results. Performed By: #### T SYED TSHX ####[employer] [place], [place] [id number] Troponin Ion 12-15-2017 Troponin I.cardiac mass conc ng/mL Normal <=0.03 [facility] Comment on above: Performed By: #### [id number], [id number], 04628794, 5484580, 1708002, [id number], [id number] ####[facility] (DEFAULT)[address] [place] [address] PROGRESSon 12-10-2017 Protein mass conc HNO ID: [id number]: Penny Boswellervice: (none)Author Type: PhysicianType: Progress NotesFiled: 12/10/2017 8:41 AMNote Text:Radiation Oncology - Follow Up NotePATIENT NAME: Julio FreemanPATIENT : Prostate adenocarcinoma, clinical stage T Stage: T1c, initialPSA 3.51, biopsy Latham score 3 + 4 = 7 (grade [...] other significantproblems.PSA HISTORY:PSA. (no units)Date Value11/26/2017 0.6002/09/2016 0.9811 1.57 06/03/17 0.45ALLERGIESNo Known AllergiesNo prescriptions [...] stage T Stage: T1c, initialPSA 3.51, biopsy Latham score 3 + 4 = 7 (grade group 2)Overall doing well. PSA with stable response. He has continuedfollow-up with urology.PLAN: We will see him again in 6 months with a PSA level.Signed by: Penny Boswell, [facility]:Regino Marie MD[address] [facility] [address]Jkfde: [phone]: [phone] Normal [facility] CNOVon 12-07-2017 CNOV Office Visit (AILYNTSA) JULIO FREEMAN ([id number]) 1950 MDate Time Provider Department12/07/17 2:30 PM Penny BOSWELL During your visit today, we recorded the following information about you: Blood pressure Weight 126/72 75.8 kgVikki Cannon (Rn), RN 12/07/2017 2:45 PM SignedMadeleine HowePenny barrera 12/10/2017 8:41 AM SignedRadiation Oncology - Follow [...] significant problems.PSA HISTORY:PSA. (no units)Date Value11/26/2017 0.6002/09/2016 0.9811/11/2015 1.57 [...] with a PSA level.Signed by: Penny Boswell, [facility]:Regino Marie MD[address] [place] [address]Rlbsh: [phone]: [phone] Provider: Penny BOSWELL [[id number]]Allergies As of Date: 12/07/2017(No Known Allergies)Date Reviewed: 06/08/2017Reviewed by: Ashlee Jennings - Fully AssessedReason for Visit: Prostate Cancer [590]Primary Visit Diagnosis:Prostate cancer (HCC) [C61]Order(s):PSA/PROSTSPECAG DIAG [SQPSA] Order #: [id number] FUTUREProblem List As Of Date 12/07/2017 Noted Resolved Prostate cancer (HCC) [C61] INVALID FOR*Visit Notes:>> Vikki Cannon (Rn), RN Tusteven December 07, 2017 2:30 PM Status: IsaacAULulu 7Avj Cannon RNMedications Discontinued During This Encounter tamsulosin ER (FLOMAX) 0.4 mg cp24 05/18/2016 12/07/2017 Class: Historical Med Sig: Disc: Course of therapy completedDisposition: Return in about 6 months (around 06/09/2018).Follow-up and Disposition History RecordedEncounter Number: [id number] Status:Closed by Penny BOSWELL MD on 12/10/17 Normal [facility] Vital Signs Date Time Vital Sign Value Performing Clinician Faci lity 08-21-2024 09:13-0500 Blood Pressure Location Aline TENA [facility] 08-21-2024 09:13-0500 Body temperature 98.6 [degF] Aline TENA [facility] 08-21-2024 09:13-0500 Diastolic blood pressure 79 mm[Hg] Aline TENA [facility] 08-21-2024 09:13-0500 Heart rate 69 /min Aline TENA [facility] 08-21-2024 09:13-0500 Respiratory rate 17 /min Aline TENA [facility] 08-21-2024 09:13-0500 Systolic blood pressure 131 mm[Hg] Aline TENA [facility] 08-23-2023 08:58-0500 Blood Pressure Location Aline TENA [facility] 08-23-2023 08:58-0500 Diastolic blood pressure 81 mm[Hg] Aline TENA [facility] 08-23-2023 08:58-0500 Heart rate 72 /min Aline TENA [facility] 08-23-2023 08:58-0500 Respiratory rate 16 /min Aline TENA [facility] 08-23-2023 08:58-0500 Systolic blood pressure 131 mm[Hg] Aline TENA [facility] 08-24-2022 09:11-0500 Blood Pressure Location Aline TENA [facility] 08-24-2022 09:11-0500 Diastolic blood pressure 84 mm[Hg] Aline TENA [facility] 08-24-2022 09:11-0500 Heart rate 67 /min Aline TENA [facility] 08-24-2022 09:11-0500 Respiratory rate 16 /min Aline TENA [facility] 08-24-2022 09:11-0500 Systolic blood pressure 140 mm[Hg] Aline TENA [facility] Encounters Encounter Date Encounter Type Care Provider Facility Start: 08-21-2024 End: 08-21-2024 ambulatory Aline TENA Facility:[facility] Start: 08-21-2024 End: 08-21-2024 Patient encounter procedure Aline TENA [facility] Start: 08-23-2023 End: 08-23-2023 Patient encounter procedure Aline TENA [facility] Start: 08-31-2022 End: 09-01-[address] ALINE TENA Facility:[facility] Start: 08-24-2022 End: 08-24-2022 Patient encounter procedure Aline TENA [facility] Start: 07-29-2022 End: 07-30-[address] ALINE TENA Facility:[facility] Start: 09-25-2021 End: 09-25-[address] ALINE TENA Facility:[facility] Start: 09-23-2021 Encounter for preprocedural laboratory examination DR ALINE TENA [facility] Start: 09-22-2021 End: 09-23-[address] ALINE TENA Facility:[facility] Start: 09-22-2021 End: 09-23-2021 Encounter for preprocedural laboratory examination DR ALINE TENA Facility:[facility] Start: 06-07-2018 End: 06-10-2018 Patient encounter procedure Penny BOSWELL [facility] Start: 04-07-2018 End: 04-08-2018 Patient encounter MONIKA BOWMAN Facility:[facility] Start: 03-14-2018 End: 03-15-2018 Patient encounter DEFAULT PHYSICIAN Facility:[facility] Start: 12-15-2017 End: 12-15-2017 Emergency department patient visit REGINO MARIE Facility:[facility] Start: 12-15-2017 End: 12-16-2017 Ambulatory Tristin James Tremaine Facility:[facility] Start: 12-07-2017 End: 12-13-2017 Patient encounter procedure G NICHOLAS BOSWELL [facility] Rodriguez Procedures Date Procedure Procedure Detail Performing Clinician Start: 07-29-[address] ARCHANA TENA Comment on above: Performed By: #### C ITRATU #### [facility] [address] [place] [address] Dr. Angelica Chauhan Start: 09-25-2021 Extracorporeal shock [...] Start: 12-15-2017 TSH WITH REFLEX REGINO MANDUJANO GHLavern Start: 12-15-2017 ADVANCE DIET TOLE RATED (NURSING [...] Start: 12-15-2017 PT EVAL AND TREAT REGINO Sanchez NIGHT Start: 12-15-2017 REASON FOR NOT SELEC TING ANTILIPEMIC REGINO MARIE Start: 12-15-2017 TELEMETRY MONITORING MARLENY Megan MARIE Start: 12-15-2017 VITAL SIGNS REGINO MARIE Start: 12-15-2017 VITAL SIGNS - NOTIFY MD LACY MARIE Start: 12-15-2017 Ct angiography head w/contrast/noncontrast REGINO MARIE Start: 12-15-2017 Ct angiography neck w/contrast/noncontrast REGINO MARIE Start: 12-15-2017 EKG 12-LEAD REGINO MARIE Start: 12-15-2017 PATIENT STATUS (FROM ED OR OR/PROCEDURAL) REGINO MARIE Start: 12-15-2017 IP CONSULT TO EMBROIDERY PATTERNMAKER AL MEDICINE REGINO MARIE Start: 12-15-2017 IP CONSULT TO STROKE TEAM REGINO RAHMANIGHT Start: 04-16-2016 Implantation of radi oactive seed into prostate Aline TENA Start: 03-01-2016 History of external beam radiation therapy Aline TENA Start: 12-12-2015 Cystoscopy and transurethral resection of bladder tumor Aline TENA Start: 12-10-2015 Transrectal biopsy o f prostate using ultrasound guidance Aline TENA Start: 10-24-2009 Colonoscopy Aline CARRERA Immunizations Immunization Date Immunization Notes Care Provider Fa cility 07-17-2021 SARS-CoV-2 (COVID-19 ) mRNA BNT-162b2 vax Aline TENA [facility] Comment on above: Result Comment: 2022: TPV70 09-28-2020 SARS-CoV-2 (COVID-19 ) mRNA BNT-162b2 vax Aline TENA [facility] Comment on above: Result Comment: 2022: TPV70 09-07-2020 SARS-CoV-2 (COVID-19 ) mRNA BNT-162b2 vax [employer] [facility] Comment on above: Result Comment: 2022: TPV70 08-02-2020 SARS-CoV-2 (COVID-19 ) mRNA BNT-162b2 vax [employer] [facility] Comment on above: Result Comment: Pt s sahara he has had 3 shots to date 07-07-2019 influenza virus vaccine, unspecified formulation [employer] [facility] 07-07-2019 pneumococcal conjuga te vaccine, 13 valent [employer] [facility] 08-03-2017 influenza virus vaccine, unspecified formulation [employer] [facility] 06-10-2016 influenza virus vaccine, unspecified formulation [employer] [facility] NEGATED: Highlighted row has not occurred!08-26-2020 influenza virus vaccine, unspecified formulation [employer] [facility] Payers Date Payer Category Payer Private Health Insurance [id number] 2014 Medicare [id number] 1960 Medicare [id number] 1959 Private Health Insurance CLI [id number] 1950 Unknown [id number] 2.16.84 [id number] 1950 Unknown [id number] 2.16.84 [id number] 1950 Unknown [id number] 2.16.84 [id number] 1950 Unknown [id number] 2.16.84 [id number] 1950 Unknown [id number] 2.16.84 [id number] 1950 Unknown [id number] 2.16.8 [id number] Unknown Social History Date Type Detail Facility Start: 08-24-2022 End: 08-21-2024 Tobacco smoking status Never smoked tobacco (finding) [facility] Tobacco smoking status Never [facility] Sex Assigned At Male [facility] Functional Status Date Assessment Result Facility 08-21-2024 Functional Status N/A [facility] 08-23-2023 Functional Status N/A [facility] 08-24-2022 Functional Status N/A [facility] Hospital Discharge instructions 08-21-2024 Note Date & Type Note Facility 08-21-2024 Hospital Discharg e instructions Patient Education 08/21/2024 10:04:35 Kidney Stones, Fypu-ek-Exru Kidney Stones Kidney stones are rock-like masses [...] Follow these instructions at home: Medicines Take gaqu-you-hfgygbn and prescription medicines only as told by [...] Kidney Foundation (NKF): kidney.org [facility] (F): urologyhealth.org Contact a doctor if: You have [...] provider. Document Revised: 03/12/2023 Document Reviewed: 03/12/2023 [email or web address] Patient Education 2023 [employer]. Follow Up Care 08/23/2023 09:41:41 With:EMILY BRUCE, Aline Miller, URL Address: [facility] [address] , [place] [phone] When: Unknown Comments:f/u pending CT scan results [facility] [employer] Clinical Note 08-21-2024 Note Date [...] these instructions at home: Medicines ??? Take cyin-wvk-oqlwdpq and prescription medicines only as told by [...] provider. Document Revised: 03/12/2023 Document Reviewed: 03/12/2023 Elsevier Patient Education ? 2023 [employer] [facility] Hospital Discharge instructions 08-23-2023 Note Date [...] include: ?8 oz (237 mL) of milk, pauditi-vuyhjqdcjwta-mrufs milk, and calcium-fortifiedfruit juice. Calcium-fortified means that [...] ?Spinach (cooked), rhubarb, beets, sweet potatoes, and Kenyan chard. ?Peanuts. ?Potato chips, lao fries, and baked potatoes with skin on. ?Nuts and nut products. ?Chocolate. If you regularly take a diuretic medicine, make sure to eat at least 1 or 2 servings of fruits or vegetables that are high in potassium each day. These include: ?Avocado. ?Banana. ?[place], prune, carrot, or tomato juice. ?Baked potato. [...] magnesium, fish oil, or vitamin B6. Take [id number] and prescription medicines only as told by [...] Casseroles. Pizza. Lasagna. Frozen meals. Potato chips. Jamaican fries. The items listed above may not [...] provider. Document Revised: 10/29/2022 Document Reviewed: 10/29/2022 Elsevier Patient Education 2022 [employer]. Follow Up Care 08/24/2022 09:47:59 With:EMILY BRUCE, Aline Miller, URL Address: [facility] [address], [place] [address]- When:Within 1 Year(s) Comments:Lucy and FERMÍN [facility] Discharge instructions 08-24-2022 Note [...] include: ?Spinach. ?Rhubarb. ?Beets. ?Potato chips and lao fries. ?Nuts. If you regularly take a diuretic medicine, make sure to eat at least 1 2 fruits or vegetables high in potassium each day. These include: ?Avocado. ?Banana. ?[place], prune, carrot, or tomato juice. ?Baked potato. [...] Casseroles. Pizza. Lasagna. Frozen meals. Potato chips. Jamaican fries. Summary You can reduce your risk [...] 11/13/2011 Document Revised: 11/08/2019 Document Reviewed: 06/29/2017 [email or web address] Patient Education 2020 [employer]. Follow Up Care 08/22/2021 08:41:01 With:EMILY BRUCE, Aline Miller, URL Address: [facility] [address] , [place] [address]- When: Unknown [facility] Evaluation + Plan note Note Date & Type Note Facility Evaluation + Plan note Future Appointments Appointment Date:11/23/2022 08:45:00 AM Scheduled Provider:Aline TENA MD Location:[facility] Appointment Type:URO Office Visit Appointment Date:08/23/2023 08:45:00 AM Scheduled Provider:Aline TENA MD Location:[facility] Appointment Type:URO Office Visit Diagnostic Tests PendingPSA Total 08/24/22 [facility] [employer] Evaluation + Plan note Note Date & Type Note Facility Evaluation + Plan note Future Appointments Appointment Date:08/21/2024 08:45:00 AM Scheduled Provider:Aline TENA MD Location:[facility] Appointment Type:URO Office Visit Diagnostic Tests PendingPSA Total 08/23/23 [facility] [employer] Hospital course Narrative Note Date & Type Note Facility Hospital course Narrative No data available for this section [facility] [employer] Progress note Note Date & Type Note Facility Progress note No data available for this section [facility] [employer] Summary Purpose Family History No Family History Records FoundNo Family History Records FoundNo Family History Records FoundNo Family History Records FoundNo Family History Records Found No data available for this section No data available for this section No [...] section and content) DATE CREATED AUTHOR 01/19/2018 [facility] DATE CREATED AUTHOR AUTHOR'S ORGANIZ ATION 01/22/2018 [facility] DATE CREATED AUTHOR AUTHOR'S ORGANIZ ATION 04/24/[address] [facility] DATE CREATED AUTHOR AUTHOR'S ORGANIZ ATION 07/10/2018 [facility] DATE CREATED AUTHOR AUTHOR'S ORGANIZ ATION 09/08/2022 [facility] DATE CREATED AUTHOR AUTHOR'S ORGANIZ ATION 08/23/2024 Wyatt Prabhak[facility] Patient Care team informatio n (unrecognized section and content) Personnel Name: REGINO MARIE MD Address: Address: [address] [place] [address] [place] Personnel Name: TARI AGUIRRE CNP Address: Address: [address] [facility] [place] Personnel Name: TARI AGUIRRE CNP Address: Address: [address] [place] [address] [address] FOR RECORDS PERTAINING TO PATIENTS WHO [...] BE BASED ON THE PRIMARY CLINICAL RECORDS. [employer] provides no warranty or guarantee of the accuracy or completeness of information in this document.
--- NOTE | 2024-09-01 10:12 | ECG_ITS ---
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
--- NOTE | 2024-09-01 10:28 | P.GSHP_ITS ---
History of Present Illness History of Present Illness Chief complaint: left kidney stone Narrative: Patient presents for presurgical testing. Please see HPI from Dr. Tena dated August 21, 2024. Review of Systems ROS Narrative Please see ROS from Dr. Tena dated August 21, 2024. PFSH PFS Medical History (Updated 09/01/24 @ 10:25 by Vikki Weinstein NP) Kidney stone ?N20.0 - Calculus of kidney (ICD-10) KAYLENE (obstructive sleep apnea) ?G47.33 - Obstructive sleep apnea (adult) (pediatric) (ICD-10) Prostate cancer ?C61 - Malignant neoplasm of prostate (ICD-10) Arthritis ?M19.90 - Unspecified osteoarthritis, unspecified site (ICD-10) Transient ischemic attack (2018) ?G45.9 - Transient cerebral ischemic attack, unspecified (ICD-10) High cholesterol ?E78.00 - Pure hypercholesterolemia, unspecified (ICD-10) Status post placement of implantable loop recorder ?Z95.818 - Presence of other cardiac implants and grafts (ICD-10) History of brachytherapy ?Z92.3 - Personal history of irradiation (ICD-10) S/P extracorporeal shock wave therapy ?Z98.890 - Other specified postprocedural states (ICD-10) Surgical History (Updated 09/01/24 @ 10:13 by Vikki Weinstein NP) History of wisdom tooth extraction ?K08.409 - Partial loss of teeth, unspecified cause, unspecified class (ICD- 10) History of colonoscopy ?Z98.890 - Other specified postprocedural states (ICD-10) H/O transurethral resection of bladder tumor (TURBT) ?Z98.890 - Other specified postprocedural states (ICD-10) ?Z86.03 - Personal history of neoplasm of uncertain behavior (ICD-10) Hx of prostate biopsy ?Z98.890 - Other specified postprocedural states (ICD-10) S/P cystoscopy ?Z98.890 - Other specified postprocedural states (ICD-10) Family History (Updated 09/01/24 @ 10:10 by Vikki Weinstein NP) Other Family history of hypertension Family history of lung cancer Social History (Updated 09/01/24 @ 10:07 by Vikik Weinstein NP) Within the past year, how often did you have a drink containing alcohol: monthly or less Smoking status: Never smoker Non-prescribed substance use: denies use Highest level of school completed/degree received: high school graduate Little interest or pleasure in doing things: not at all Feeling down, depressed, or hopeless: not at all Meds Home Medications and Allergies Home Medications ?Medication ?Instructions ?Recorded ?Confirmed ?Type rosuvastatin 10 mg tablet 10 mg PO DAILY 06/10/24 09/01/24 History aspirin 81 mg tablet,delayed 81 mg PO DAILY 09/01/24 09/01/24 History release (Adult Aspirin Regimen) Allergies Allergy/AdvReac Type Severity Reaction Status Date / Time No Known Drug Allergies Allergy Verified 09/01/24 10:05 Exam Narrative Exam Narrative: Constitutional: Awake, alert, comfortable, well-appearing, nontoxic, interactive, vital signs as charted Head: Normocephalic, atraumatic Neck: Supple, normal appearance, normal range of motion, no meningeal signs, no lymphadenopathy Respiratory: No respiratory distress, breath sounds clear Cardiovascular: Regular rate and rhythm, strong and regular heart tones Abdomen: Nontender, normal bowel sounds, soft, no CVA tenderness Musculoskeletal: Normal gait, no swelling or edema Skin: No rashes or induration, no lesions, only visible skin inspected Neuro: No neurological deficits, normal sensation Psychiatric: Oriented ?3, normal affect Assessment and Plan Assessment and Plan (1) Kidney stone: Plan Left ESWL scheduled with Dr. Tena September 14, 2024.
[2024-09-01 11:26] LABS: INR 1.04; Partial Thromboplastin Time 30.1 sec (22.3-36.2)
== END 2024-09-01 09:50 | disposition home or self-care (01) ==
LOC: PST 09:50
PROVIDERS: PCP Nurse Practitioner Family; Visit Provider Urology
DX: Z01.810 Encounter for preprocedural cardiovascular examination (principal); Z01.812 Encounter for preprocedural laboratory examination; Z01.818 Encounter for other preprocedural examination; N20.0 Calculus of kidney
CPT/HCPCS: 36415; 85610; 85730; 93005; G0463

== ENCOUNTER 2024-09-14 11:25 | Day surgery (SDC) | payer MEDICARE, SELFPAY ==
[2024-09-01 10:20] VITALS: BP 137/81; PULSE 63; TEMP 36.1; O2SAT 99; BMI 26.0
[2024-09-14] VITALS (9 sets, daily range): BP systolic 114–179; BP diastolic 78–102; PULSE 56–78; TEMP 36.2–36.6; O2SAT 96–100; BMI 25.8
--- NOTE | 2024-09-14 11:30 | XR_ITS ---
The [address] [address] Patient Name: EVELYN CHESTER MRN: [id number] date: 1950 Sex: M Assigned Patient Location: [facility] Current Patient Location: [facility] Accession/Order Number: [id number] Exam Date: 09/14/2024 11:53 Report Date: 09/14/2024 13:16 At the request of: ALINE DIAZ Procedure: XR abdomen 1V EXAM: XR abdomen 1V HISTORY: preop COMPARISON: 08/22/2024 TECHNIQUE: Abdominal X-ray, 1 view FINDINGS: Support devices: None. Bowel: Moderate volume stool in the ascending and proximal transverse colon. No bowel dilatation. There is a 0.5 cm left renal stone. Additional findings: None. XR/XR abdomen 1V IMPRESSION: Moderate volume stool in the ascending and proximal transverse colon. No bowel dilatation. There is a 0.5 cm left renal stone. Electronically authenticated by: TRUDY ALTAMIRANO Date: 09/14/2024 13:16
--- OUTSIDE RECORDS SUMMARY | 2024-09-14 11:30 | XMS_ITS | CCD ---
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 Role Phone REGINO MARIE Unavailable [...] Unavailable Unavailable REGINO MARIE Primary Care Physician [phone] DR ALINE TENA Admitting Unavailable EMILY, DR [...] Care Unavailable EMILY, DR MIRELES Consulting Unavailable [place], DR BILL San Consulting Unavailable TARI AGUIRRE Primary Care Physician Aline TENA Attending Unavailable Allergies Allergy Classification Reported Allergen(s) Allergy Type Date of Onset Reaction(s) Facility (1 source) No Known Medication Allergies; Translations: [No Known Medication Allergies] Propensity to adverse reactions to drug (disorder) [facility] Repository (2 sources) No Known Allergies; Translations: [No Known Allergies] Propensity to adverse reactions (disorder) 8 [facility] Repository Medications Current Medications Medication Drug [...] 06-14-2019 Chronic 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 Your Care Team Attending Physician - Alien TENA MD Primary Care Physician - TARI [...] Urology [address] , [place] [phone] Medications What How Much When Instructions Unchanged [...] urinary obstruction Expressive aphasia Hematospermia Hx of half-way use of blood thinners Hyperlipidemia Kidney stone [...] these instructions at home: Medicines ??? Take nqbz-kov-tailwwn and prescription m (more content not included)... Normal [facility] Urology Office/Clinic Noteon 08-21-2024 Urology Office/Clinic [...] <0.13 08/16/24 - <0.13 TRUS/bx 12/10/15 - [place] 7 (3+4) x1 core, [place] 6 (3+3) x2 cores, 1 FATIMAH core, [...] Urology [address], [place] [address] [phone] Additional Instructions: f/u pending CT scan results Patient Education Kidney Stones, Gnho-wr-Vuog Ana Schwartz, personally scribed for Dr. Tena on 08/21/2024 10:08:35. . Documentation recorded by the Ana hamlin, accurately reflects the services(s) I performed and decisions made by me. Authenticated by Dr. Tena on 08/21/2024 10:12:31. Problem List/Past Medical History Ongoing Asymptomatic microscopic hematuria BMI 25.0-25.9,adult (more content not included)... Normal [facility] Comment on above: Result Comment: Electronically Signed By : Aline TENA MD\.br\Date and Time Signed: 08/21/24 10:12 EST\.br\Electronically Co-Signed By: Ana Garzonbr\Date and Time Co-Signed: 08/21/24 10:09 EST CITRATE URINE 24HRon 023 Citric Acid, U, 24hr 925 mg/24 hr Normal 320-[address] [facility] Comment on above: Result Comment: This test was developed and its performance characteristics determined by [facility]. It has not been cleared or approved by the Food and Drug Administration. Performed By: #### C ITRATU #### [facility] [address] [address] [address] Angelica Chauhan Citric Acid, Urine 552 mg/L Normal Undefined [facility] Comment on above: Performed By: #### CITRATU #### [facility] [address] [address] [address] Angelica Chauhan OXALATE 24HR URINEon 023 Oxalates, Urine 18 mg/L Normal Undefined [facility] Comment on above: Performed By: #### [id number] #### [facility] [address] [address] [address] Angelica Chauhan Oxalates, Urine 24hr 30 mg/24 hr Normal 7-[address] [facility] Comment on above: Performed By: #### [id number] #### [facility] [address] [address] [address] Angelica Chauhan MAGNESIUM 24HR URINEon 09-01 Magnesium 24hr Urine 102.2 mg/24 hr Normal 12.0-293.[address] [facility] Comment on above: Performed By: #### MAG24 #### [facility] [address] [address] [address] Angelica Chauhan Magnesium UR 6.1 mg/dL Normal Not Estab. [facility] Comment on above: Performed By: #### MAG24 #### [facility] [address] [address] [address] Angelica Chauhan PHOSPHORUS 24HR URINEon 08-04 Phosphorus, Urine 54.3 mg/dL Normal Not Estab. [facility] Comment on above: Performed By: #### CITRATU #### [facility] [address] [address] [address] Angelica Chauhan Phosphorus, Urine 24hr 910 mg/24 hr Normal 390-[address] [facility] Comment on above: Performed By: #### CITRATU #### [facility] [address] [place] [address] Dr. Angelica Chauhan PTH INTACTon 09-01-2022 PTH, Intact 40 pg/mL Normal 15-[address] [facility] Comment on above: Performed By: #### PTHINT #### [facility] [address] [place] [address] Dr. Angelica Chauhan URIC ACID 24 HR URINEon 08-04 Uric Acid, Urine 46.6 mg/dL Normal Not Estab. [facility] Comment on above: Performed By: #### CITRATU #### [facility] [address] [place] [address] Dr. Angelica Chauhan Uric Acid, Urine 24hr 780.6 mg/24 hr Critically high 136.1-771. 1 [facility] Comment on above: Performed By: #### CITRATU #### [facility] [address] [place] [address] Dr. Angelica Chauhan BUNon 08-31-2022 Urea nitrogen [Mass/Vol] 15.0 mg/dL Normal 7.0-18.[address] [facility] Comment on above: Performed By: #### CITRATU #### [facility] [address] [place] [address] Dr. Angelica Chauhan CALCIUMon 08-31-2022 Calcium [Mass/Vol] 9.2 mg/dL Normal 8.5-10.1 [facility] Comment on above: Performed By: #### CREA, CO2, CL, NA, UR IC, CA, K, BUN #### [facility] [address] [place] [address] Dr. Angelica Chauhan CALCIUM 24 HR URINEon 2022 CALC, 24 HR UR 214.4 mg/24 hr Normal 100.0-300. 0 [facility] Comment on above: Performed By: #### CITRATU #### [facility] [address] [place] [address] Dr. Angelica Chauhan UR CALCIUM 12.8 mg/dL Normal 5.1-21.0 [facility] Comment on above: Performed By: #### CITRATU #### [facility] [address] [place] [address] Dr. Angelica Chauhan CHLORIDEon 08-31-2022 Chloride [Moles/Vol] 104 mmol/L Normal 98-[address] [facility] Comment on above: Performed By: #### CREA, CO2, CL, NA, UR IC, CA, K, BUN #### [facility] [address] [place] [address] Dr. Angelica Chauhan CO2on 08-31-2022 CO2 [Moles/Vol] 25.6 mmol/L Normal 21.0-32.[address] [facility] Comment on above: Performed By: #### CREA, CO2, CL, NA, UR IC, CA, K, BUN #### [facility] [address] [place] [address] Dr. Angelica Chauhan CREA 24 HR URINEon CREA, 24 HR UR 1541.17 mg/24 hr Normal 1,000.00- [address] ,[address] [facility] Comment on above: Performed By: #### CITRATU #### [facility] [address] [place] [address] Dr. Angelica Chauhan UR TOT VOL 1675 ml/[address] [facility] Comment on above: Performed By: #### CITRATU #### [facility] [address] [place] [address] Dr. Angelica Chauhan URINE CREAT 92.01 mg/dL Normal 20.00-300. [address] [facility] Comment on above: Performed By: #### CITRATU #### [facility] [address] [place] [address] Dr. Angelica Chauhan CREATININEon 08-31-2022 Creatinine [Mass/Vol] 0.73 mg/dL Normal 0.70-1.[address] [facility] Comment on above: Performed By: #### CREA, CO2, CL, NA, UR IC, CA, K, BUN #### [facility] [address] [place] [address] Dr. Angelica Chauhan EGFR-AF MONTSERRATIAN >60 Normal >=[address] [facility] Comment on above: Performed By: #### CREA, CO2, CL, NA, UR IC, CA, K, BUN #### [facility] [address] [address] [address] Angelica Chauhan EGFR-NON AF MONTSERRATIAN >60 Normal >=[address] [facility] Comment on above: Performed By: #### CREA, CO2, CL, NA, UR IC, CA, K, BUN #### [facility] [address] [address] [address] Angelica Chauhan NAon 08-31-2022 Sodium [Moles/Vol] 140 mmol/L Normal 136-[address] [facility] Comment on above: Performed By: #### CREA, CO2, CL, NA, UR IC, CA, K, BUN #### [facility] [address] [place] [address] Dr. Angelica Chauhan POTASSIUMon 08-31-2022 Potassium [Moles/Vol] 4.0 mmol/L Normal 3.5-5.[address] [facility] Comment on above: Performed By: #### CITRATU #### [facility] [address] [place] [address] Dr. Angelica Chauhan SODIUM 24 HR URINEon 023 NA, 24 HR UR 171 mmol/24 hr Normal 40-[address] [facility] Comment on above: Performed By: #### CITRATU #### [facility] [address] [place] [address] Dr. Angelica Chauhan Sodium (U) [Moles/Vol] 102 mmol/L Critically high 30-[address] [facility] Comment on above: Performed By: #### CITRATU #### [facility] [address] [place] [address] Dr. Angelica Chauhan URIC ACID SERUMon 08-31-2022 Urate [Mass/Vol] 5.0 mg/dL Normal 3.5-7.[address] [facility] Comment on above: Performed By: #### CITRATU #### [facility] [address] [place] [address] Dr. Angelica Chauhan CBC AUTO DIFFon 12-28-2022 BASO # 0.0 103/ul Normal 0.0-0.[address] [facility] Comment on above: Performed By: #### CBC #### [facility] [address] [place] [address] Dr. Angelica Chauhan Basophils/100 WBC (Bld) 0.6 % Normal 0.2-2.[address] [facility] Comment on above: Performed By: #### CBC #### [facility] [address] [place] [address] Dr. Angelica Chauhan EO # 0.2 103/ul Normal 0.0-0.[address] [facility] Comment on above: Performed By: #### CBC #### [facility] [address] [place] [address] Dr. Angelica Chauhan Eosinophils/100 WBC (Bld) 3.5 % Normal 0.9-7.[address] [facility] Comment on above: Performed By: #### CBC #### [facility] [address] [place] [address] Dr. Angelica Chauhan Erythrocyte distribution width (RBC) [Ratio] 12.3 % Normal 11.0-15.[address] [facility] Comment on above: Performed By: #### CBC #### [facility] [address] [place] [address] Dr. Angelica Chauhan Hematocrit (Bld) [Volume fraction] 45.1 % Normal 42.0-54.[address] [facility] Comment on above: Performed By: #### CBC #### [facility] [address] [place] [address] Dr. Angelica Chauhan Hemoglobin (Bld) [Mass/Vol] 15.2 g/dL Normal 14.0-18.[address] [facility] Comment on above: Performed By: #### CBC #### [facility] [address] [place] [address] Dr. Angelica Chauhan IG # 0.02 10e3/ul Normal 0.00-0.[address] [facility] Comment on above: Performed By: #### CBC #### [facility] [address] [place] [address] Dr. Angelica Chauhan IG % 0.3 % Normal 0.0-0.5 [facility] Comment on above: Performed By: #### CBC #### [facility] [address] [place] [address] Dr. Angelica Chauhan LYMPH # 0.9 103/ul Critically low 1.2-3.[address] [facility] Comment on above: Performed By: #### CBC #### [facility] [address] [place] [address] Dr. Angelica Chauhan Lymphocytes/100 WBC (Bld) 14.3 % Critically low 20.5-60.[address] [facility] Comment on above: Performed By: #### CBC #### [facility] [address] [place] [address] Dr. Angelica Chauhan MANUAL DIFF REQ NO Normal [facility] Comment on above: Performed By: #### CBC #### [facility] [address] [place] [address] Dr. Angelica Chauhan MCH (RBC) [Entitic mass] 29.9 pg Normal 25.9-34.[address] [facility] Comment on above: Performed By: #### CBC #### [facility] [address] [place] [address] Dr. Angelica Chauhan MCHC (RBC) [Mass/Vol] 33.7 g/dL Normal 29.9-35.[address] [facility] Comment on above: Performed By: #### CBC #### [facility] [address] [place] [address] Dr. Angelica Chauhan MCV (RBC) [Entitic vol] 88.8 fL Normal 80.0-94.[address] [facility] Comment on above: Performed By: #### CBC #### [facility] [address] [place] [address] Dr. Angelica Chauhan MONO # 0.6 103/ul Normal 0.3-0.8 [facility] Comment on above: Performed By: #### CBC #### [facility] [address] [place] [address] Dr. Angelica Chauhan Monocytes/100 WBC (Bld) 9.7 % Normal 1.7-12.[address] [facility] Comment on above: Performed By: #### CBC #### [facility] [address] [address] [address] Angelica Chauhan NEUT # 4.7 103/ul Normal 1.4-6.5 [facility] Comment on above: Performed By: #### CBC #### [facility] [address] [address] [address] Angelica Chauhan Neutrophils/100 WBC (Bld) 71.6 % Normal 43.0-75.0 [facility] Comment on above: Performed By: #### CBC #### [facility] [address] [place] [address] Dr. Angelica Chauhan Platelet mean volume (Bld) [Entitic vol] 9.4 fL Critically low 9.5-13.[address] [facility] Comment on above: Performed By: #### CBC #### [facility] [address] [place] [address] Dr. Angelica Chauhan PLT 199 103/ul Normal 150-450 [facility] Comment on above: Performed By: #### CBC #### [facility] [address] [place] [address] Dr. Angelica Chauhan RBC 5.08 106/ul Normal 4.70-6.10 [facility] Comment on above: Performed By: #### CBC #### [facility] [address] [place] [address] Dr. Angelica Chauhan WBC 6.6 103/ul Normal 4.0-11.0 [facility] Comment on above: Performed By: #### CBC #### [facility] [address] [place] [address] Dr. Angelica Chauhan LIPID PROFILEon 07-29-2022 CHOL-HDL RATIO NORM SEE BELOW Normal [facility] Comment on above: Result Comment: 3.3 - 4.4 LOW RISK 4.4 - 7.1 AVERAGE RISK 7.1 - 11.0 MODERATE RISK >11.0 HIGH RISK Performed By: #### M AG24 #### [facility] [address] [place] [address] Dr. Angelica Chauhan Cholesterol [Mass/Vol] 192 mg/dL Normal <=200 [facility] Comment on above: Performed By: #### MAG24 #### [facility] [address] [address] [address] Angelica Chauhan Cholesterol in HDL [Mass/Vol] 45 mg/dL Normal 40-[address] [facility] Comment on above: Performed By: #### MAG24 #### [facility] [address] [address] [address] Angelica Chauhan Cholesterol in LDL [Mass/Vol] 118.8 mg/dL Normal [facility] Comment on above: Performed By: #### MAG24 #### [facility] [address] [address] [address] Angelica Chauhan Cholesterol.tota l/Cholesterol in HDL [Mass ratio] 4.3 {ratio} Normal [facility] Comment on above: Performed By: #### MAG24 #### [facility] [address] [place] [address] Dr. Angelica Chauhan HDL NORMAL > or = 60 mg/dl - LO W CARDIOVASCULAR RISK <40 mg/dl - HIGH CARDIOVASCULAR RISK Normal [facility] Comment on above: Performed By: #### MAG24 #### [facility] [address] [place] [address] Dr. Angelica Chauhan LDL CALC NORMAL SEE BELOW Normal [facility] Comment on above: Result Comment: <100 mg/dl OPTIMAL 100 - 129 mg/dl NEAR OR ABOVE OPTIMAL 130 - 159 mg/dl BORDERLINE HIGH 160 - 189 mg/dl HIGH >190 mg/dl VERY HIGH Performed By: #### M AG24 #### [facility] [address] [address] [address] Angelica Chauhan Triglyceride [Mass/Vol] 141 mg/dL Normal <=[address] [facility] Comment on above: Performed By: #### MAG24 #### [facility] [address] [place] [address] Dr. Angelica Chauhan VLDL CALC 28.2 mg/dL Normal [facility] Comment on above: Performed By: #### MAG24 #### [facility] [address] [place] [address] Dr. Angelica Chauhan PROF 14(COMP METB)on 022 Albumin [Mass/Vol] 3.8 g/dL Normal 3.4-5.[address] [facility] Comment on above: Performed By: #### MAG24 #### [facility] [address] [place] [address] Dr. Angelica Chauhan Albumin/Globulin [Mass ratio] 1.0 {ratio} Normal [facility] Comment on above: Performed By: #### MAG24 #### [facility] [address] [place] [address] Dr. Angelica Chauhan ALP [Catalytic activity/Vol] 86 U/L Normal 46-116 [facility] Comment on above: Performed By: #### MAG24 #### [facility] [address] [place] [address] Dr. Angelica Chauhan ALT [Catalytic activity/Vol] 34 U/L Normal 16-[address] [facility] Comment on above: Performed By: #### MAG24 #### [facility] [address] [place] [address] Dr. Angelica Chauhan Anion gap [Moles/Vol] 10.3 mmol/L Normal [facility] Comment on above: Performed By: #### MAG24 #### [facility] [address] [place] [address] Dr. Angelica Chauhan AST [Catalytic activity/Vol] 20 U/L Normal 15-[address] [facility] Comment on above: Performed By: #### MAG24 #### [facility] [address] [place] [address] Dr. Angelica Chauhan Bilirubin [Mass/Vol] 0.7 mg/dL Normal 0.2-1.0 [facility] Comment on above: Performed By: #### MAG24 #### [facility] [address] [place] [address] Dr. Angelica Chauhan Calcium [Mass/Vol] 9.5 mg/dL Normal 8.5-10.1 [facility] Comment on above: Performed By: #### MAG24 #### [facility] [address] [place] [address] Dr. Angelica Chauhan Chloride [Moles/Vol] 103 mmol/L Normal 98-107 [facility] Comment on above: Performed By: #### MAG24 #### [facility] [address] [place] [address] Dr. Angelica Chauhan CO2 [Moles/Vol] 31.0 mmol/L Normal 21.0-32.[address] [facility] Comment on above: Performed By: #### MAG24 #### [facility] [address] [place] [address] Dr. Angelica Chauhan Creatinine [Mass/Vol] 0.79 mg/dL Normal 0.70-1.30 [facility] Comment on above: Performed By: #### MAG24 #### [facility] [address] [place] [address] Dr. Angelica Chauhan EGFR-AF MONTSERRATIAN >60 Normal >=60 [facility] Comment on above: Performed By: #### MAG24 #### [facility] [address] [place] [address] Dr. Angelica Chauhan EGFR-NON AF MONTSERRATIAN >60 Normal >=60 [facility] Comment on above: Performed By: #### MAG24 #### [facility] [address] [place] [address] Dr. Angelica Chauhan Globulin (S) [Mass/Vol] 3.8 g/dL Normal [facility] Comment on above: Performed By: #### MAG24 #### [facility] [address] [place] [address] Dr. Angelica Chauhan Glucose [Mass/Vol] 96 mg/dL Normal 74-106 [facility] Comment on above: Performed By: #### MAG24 #### [facility] [address] [place] [address] Dr. Aneglica Chauhan Potassium [Moles/Vol] 4.3 mmol/L Normal 3.5-5.1 [facility] Comment on above: Performed By: #### MAG24 #### [facility] [address] [place] [address] Dr. Angelica Chauhan Protein [Mass/Vol] 7.6 g/dL Normal 6.4-8.2 [facility] Comment on above: Performed By: #### MAG24 #### [facility] [address] [place] [address] Dr. Angelica Chauhan Sodium [Moles/Vol] 140 mmol/L Normal 136-[address] [facility] Comment on above: Performed By: #### MAG24 #### [facility] [address] [address] [address] Angelica Chauhan Urea nitrogen [Mass/Vol] 19.0 mg/dL Critically high 7.0-18.[address] [facility] Comment on above: Performed By: #### MAG24 #### [facility] [address] [address] [address] Angelica Chauhan Urea nitrogen/Creatin ine [Mass ratio] 24.1 mg/mg Normal [facility] Comment on above: Performed By: #### MAG24 #### [facility] [address] [address] [address] Angelica Chauhan XR KUB 1 VIEWon [...] by: BILL BOYER Date: 2022-07-29 16:[address] [facility] XR KUB 1 VIEWon 09-25-2021 XR [...] by: LUCINA CRAIN Date: 2021-09-25 07:[address] [facility] Covid-19 PCR (CVDTBH)on 09-03 SARS-CoV-2 (COVID-19) RNA PAMELA+probe Ql (Unsp spec) Not detected Normal NOT DETECTED [facility] Comment on above: Result Comment: This test is not yet carlo roved or cleared by the [place] FDA. When there are no FDA-approved or cleared tests available, and other criteria are met, FDA can make tests available under an emergency access mechanism called an Emergency Use Authorization (EUA). The EUA for this test is supported by the Supervisor [employer] Machine of Health and Human Service's (HHS's) declaration [...] SARS-CoV-2. Performed By: #### C ITRATU #### [facility] [address] [place] [address] Dr. Angelica Seaman 06-07-2018 DAVONTE Office Visit (RADTSA) JULIO FREEMAN ([id number]) 1950 MDate Time Provider Twzgozsaee60/6/18 2:30 PM Penny BOSWELL During your visit [...] with a PSA level.Signed by: Penny Boswell, [facility]:Regino Marie MD[address] [id number]: [phone]: [phone] Weyer, RN, RN 06/07/2018 2:50 PM Alisa Cannon RNReferring Provider: Penny BOSWELL [[id number]]Allergies As of Date: 06/07/2018(No Known Allergies)Date Reviewed: [...] (around 06/07/2019).Follow-up and Disposition History RecordedEncounter Number: [id number] Status:Closed by Penny BOSWELL MD on 06/10/18 Normal [facility] PROGRESSon 06-07-2018 Protein mass conc HNO ID: [id number]: Penny Robervice: (none)Author Type: PhysicianType: Progress NotesFiled: [...] stage T Stage: T1c, initialPSA 3.51, biopsy [place] score 3 + 4 = 7 (grade group 2)Overall doing well. PSA with stable response. He has continuedfollow-up with urology.PLAN: We will see him again in one year with a PSA level.Signed by: Penny Boswell, [facility]:Regino Marie MD[address] [place] [address]Osjky: [phone]: [phone] Normal [facility] Cardiovascular Lab Reporton 04-08-2018 Cardiovascular Lab Report [facility] Patient Name: Julio Freeman MR #: [id number] Physician: Monika Bowman M.D.Department of Service Date: 04/07/2018Medicine Birthdate: 1950Division of Room #: [facility] [place], [place] [address] Fax Cardiovascular Laboratory ReportPROCEDURE PERFORMED: LINQ implant.INDICATION: [...] well.R-waves are 0.16 mV.[employer] LINQ serial number [id number].CONCLUSION: Successful LINQ implant.Electronically Signed by:Monika Bowman M.D. 04/08/2018 03:51 P Monika Bowman M.D.Date Dict: 04/07/2018/03:11 P/Monika Bowman M.D.Date Trans: 04/08/2018 07:40 A/Kennedy_JN:[id number]: Regino Marie M.D. 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 Coding Summary CODING DATE: [facility] STATUS: Discharge/Transfer to Another Hospital PAYOR: Medicare [...] Parris Carson Date Saved: 12/20/2017 01:[address] [facility] B12/Folate Panelon 8 Cobalamins (Vitamin B12) 473 pg/mL Normal 232-1245 [facility] Comment on above: Performed By: #### BMPX, LIPR, CDP, GLYH GB, B12FOL ####[address] [address] Folic Acid 18.1 ng/mL Normal >4.8 [facility] Comment on above: Result Comment: [address] [address] Performed By: #### B MPX, LIPR, CDP, GLYHGB, B12FOL ####[address] [address] Basic Metab w/rfx MGon 12-16 (cont.) Normal [facility] Comment on above: Result Comment: Average GFR for 60-69 ye ars old: 85 mL/min/1.73sq mChronic Kidney Disease: <60 mL/min/1.73sq mKidney failure: <15 mL/min/1.73sq meGFR calculated using average adult body mass. Additional eGFR calculator available at:http://www.LivingSocial.LiveRamp/multiple_crcl_2012.htm[address] [address] Performed By: #### B MPX, LIPR, CDP, GLYHGB, B12FOL ####[address] [address] Anion gap 10 mmol/L Normal -17 [facility] Comment on above: Performed By: #### BMPX, LIPR, CDP, GLYH GB, B12FOL ####[address] [address] Calcium 8.6 mg/dL Normal 8.6-10.4 [facility] Comment on above: Performed By: #### BMPX, LIPR, CDP, GLYH GB, B12FOL ####[address] [address] Chloride 107 mmol/L Normal 98-107 [facility] Comment on above: Performed By: #### BMPX, LIPR, CDP, GLYH GB, B12FOL ####[address] [address] CO2 23 mmol/L Normal 20-31 [facility] Comment on above: Performed By: #### BMPX, LIPR, CDP, GLYH GB, B12FOL ####[address] [address] Creatinine 0.69 mg/dL Low 0.70-1.20 [facility] Comment on above: Performed By: #### BMPX, LIPR, CDP, GLYH GB, B12FOL ####[address] [address] eGFR (non-black) mL/min/{1.73_m2} Normal >60 [facility] Comment on above: Performed By: #### BMPX, LIPR, CDP, GLYH GB, B12FOL ####[address] [address] Glucose mass conc 79 mg/dL Normal 70-99 [facility] Comment on above: Performed By: #### BMPX, LIPR, CDP, GLYH GB, B12FOL ####[address] [address] Potassium molar conc 4.0 mmol/L Normal 3.7-5.3 [facility] Comment on above: Performed By: #### BMPX, LIPR, CDP, GLYH GB, B12FOL ####[address] [place] [address] Sodium 140 mmol/L Normal 135-144 [facility] Comment on above: Performed By: #### BMPX, LIPR, CDP, GLYH GB, B12FOL ####[address] [place] [address] Urea nitrogen 13 mg/dL Normal 8-23 [facility] Comment on above: Performed By: #### BMPX, LIPR, CDP, GLYH GB, B12FOL ####[address] [address] BUN/CRE Ratio NOT REPORTED Normal - [facility] Comment on above: Performed By: #### BMPX, LIPR, CDP, GLYH GB, B12FOL ####[address] [address] Staging: NOT REPORTED Normal [facility] Comment on above: Performed By: #### BMPX, LIPR, CDP, GLYH GB, B12FOL ####[address] [address] CBC with Diffon 12-16-2017 Abs. Basophil 0.00 k/uL Normal 0.0-0.2 [facility] Comment on above: Performed By: #### BMPX, LIPR, CDP, GLYH GB, B12FOL ####[address] [address] Abs.Neutrophil (Seg) 3.87 k/uL Normal 1.8-7.7 [facility] Comment on above: Performed By: #### BMPX, LIPR, CDP, GLYH GB, B12FOL ####[address] [address] Basophils/100 WBC Auto (Bld) 0 % Normal 0-2 [facility] Comment on above: Performed By: #### BMPX, LIPR, CDP, GLYH GB, B12FOL ####[address] [address] Blood morphology Normal Normal [facility] Comment on above: Result Comment: [address] [address] Performed By: #### B MPX, LIPR, CDP, GLYHGB, B12FOL ####[address] [address] Eosinophils 0.10 10*3/uL Normal 0.0-0.4 [facility] Comment on above: Performed By: #### BMPX, LIPR, CDP, GLYH GB, B12FOL ####[address] [address] Eosinophils/100 leukocytes 2 % Normal 1-4 [facility] Comment on above: Performed By: #### BMPX, LIPR, CDP, GLYH GB, B12FOL ####[address] [address] Granulocytes/100 WBC (Bld) 0.00 k/uL Normal 0.00-0.30 [facility] Comment on above: Performed By: #### BMPX, LIPR, CDP, GLYH GB, B12FOL ####[address] [address] Immature granulocytes #/vol (Bld) 0 % Normal 0 [facility] Comment on above: Performed By: #### BMPX, LIPR, CDP, GLYH GB, B12FOL ####[address] [address] Lymphocytes 0.59 10*3/uL Low 1.0-4.8 [facility] Comment on above: Performed By: #### BMPX, LIPR, CDP, GLYH GB, B12FOL ####[address] [address] Lymphocytes/100 leukocytes 12 % Low 24-44 [facility] Comment on above: Performed By: #### BMPX, LIPR, CDP, GLYH GB, B12FOL ####[address] [place] [address] Monocytes 0.34 10*3/uL Normal 0.1-0.8 [facility] Comment on above: Performed By: #### BMPX, LIPR, CDP, GLYH GB, B12FOL ####[address] [address] Monocytes/100 leukocytes 7 % Normal 1-7 [facility] Comment on above: Performed By: #### BMPX, LIPR, CDP, GLYH GB, B12FOL ####[address] [address] Neutrophil (Seg) 79 % High 36-66 [facility] Comment on above: Performed By: #### BMPX, LIPR, CDP, GLYH GB, B12FOL ####[address] [address] Erythrocyte distribution width Auto Ratio (RBC) 12.3 % Normal 11.8-14.4 [facility] Comment on above: Performed By: #### BMPX, LIPR, CDP, GLYH GB, B12FOL ####[address] [address] Erythrocytes (RBC) 4.60 10*6/uL Normal 4.21-5.77 [facility] Comment on above: Performed By: #### BMPX, LIPR, CDP, GLYH GB, B12FOL ####[address] [address] Erythrocytes (RBC) 0.0 per 100 WBC Normal 0.0 [facility] Comment on above: Performed By: #### BMPX, LIPR, CDP, GLYH GB, B12FOL ####[address] [address] Hematocrit (HCT) 42.1 % Normal 40.7-50.3 [facility] Comment on above: Performed By: #### BMPX, LIPR, CDP, GLYH GB, B12FOL ####[address] [address] Hemoglobin mass conc (Bld) 14.1 g/dL Normal 13.0-17.0 [facility] Comment on above: Performed By: #### BMPX, LIPR, CDP, GLYH GB, B12FOL ####[address] [address] MCH 30.7 pg Normal 25.2-33.5 [facility] Comment on above: Performed By: #### BMPX, LIPR, CDP, GLYH GB, B12FOL ####[address] [address] MCHC mass conc (RBC) 33.5 g/dL Normal 28.4-34.8 [facility] Comment on above: Performed By: #### BMPX, LIPR, CDP, GLYH GB, B12FOL ####[address] [address] MCV 91.5 fL Normal 82.6-102.9 [facility] Comment on above: Performed By: #### BMPX, LIPR, CDP, GLYH GB, B12FOL ####[address] [address] Platelet mean volume (PMV) 10.0 fL Normal 8.1-13.5 [facility] Comment on above: Performed By: #### BMPX, LIPR, CDP, GLYH GB, B12FOL ####[address] [address] Platelets 173 10*3/uL Normal 138-453 [facility] Comment on above: Performed By: #### BMPX, LIPR, CDP, GLYH GB, B12FOL ####[address] [address] WBC (Leukocytes) 4.9 10*3/uL Normal 3.5-11.3 [facility] Comment on above: Performed By: #### BMPX, LIPR, CDP, GLYH GB, B12FOL ####[address] [address] Auto Diff Performed NOT REPORTED Normal [facility] Comment on above: Performed By: #### BMPX, LIPR, CDP, GLYH GB, B12FOL ####[address] [address] Erythrocyte morphology NOT REPORTED Normal [facility] Comment on above: Performed By: #### BMPX, LIPR, CDP, GLYH GB, B12FOL ####[address] [address] Platelets NOT REPORTED Normal [facility] Comment on above: Performed By: #### BMPX, LIPR, CDP, GLYH GB, B12FOL ####[address] [address] WBC Morphology NOT REPORTED Normal [facility] Comment on above: Performed By: #### BMPX, LIPR, CDP, GLYH GB, B12FOL ####[address] [address] Consulton 12-16-2017 HIM IP Note OR Hoisting Engineer Pile Driving Normal [facility] Hemoglobin A1Con 12-16-2017 Glucose mass conc 97 mg/dL Normal [facility] Comment on above: Result Comment: The ADA and AACC recomme nd providing the estimated average glucose result to permit better patient understanding of their HBA1c result.[address] [address] Performed By: #### B MPX, LIPR, CDP, GLYHGB, B12FOL ####[address] [place] [address] Hemoglobin A1c/Hemoglobin.t otal mass fraction (Bld) 5.0 % Normal 4.0-6.0 [facility] Comment on above: Performed By: #### BMPX, LIPR, CDP, GLYH GB, B12FOL ####[facility] [address] [place] [address] Lipid Profileon 12-16-2017 Cholesterol 203 mg/dL High <200 [facility] Comment on above: Result Comment: Cholesterol Guidelines: <200 Desirable 200-240 Borderline >240 Undesirable Performed By: #### B MPX, LIPR, CDP, GLYHGB, B12FOL ####[facility] [address] [place] [address] Cholesterol to HDL Ratio 5.3 {ratio} High <5 [facility] Comment on above: Performed By: #### BMPX, LIPR, CDP, GLYH GB, B12FOL ####[facility] [address] [place] [address] HDL Cholesterol 38 mg/dL Low >40 [facility] Comment on above: Result Comment: HDL Guidelines: <40 Unde sirable 40-59 Borderline >59 Desirable Performed By: #### B MPX, LIPR, CDP, GLYHGB, B12FOL ####[facility] [address] [place] [address] LDL Cholesterol 144 mg/dL High 0-130 [facility] Comment on above: Result Comment: LDL Guidelines: <100 Grayson irable 100-129 Near to/above Desirable 130-159 Borderline >159 UndesirableDirect (measured) LDL and calculated LDL are not interchangeable tests. Performed By: #### B MPX, LIPR, CDP, GLYHGB, B12FOL ####[facility] [address] [place] [address] Triglyceride 104 mg/dL Normal <150 [facility] Comment on above: Result Comment: Triglyceride Guidelines: <150 Desirable 150-199 Borderline 200-499 High >499 Very high Based on AHA Guidelines for fasting triglyceride, May 2012.[employer] [address] [place] [address] Performed By: #### B MPX, LIPR, CDP, GLYHGB, B12FOL ####[facility] [address] [place] [address] Cholesterol in VLDL mass conc NOT REPORTED Normal 08-31 [facility] Comment on above: Performed By: #### BMPX, LIPR, CDP, GLYH GB, B12FOL ####[facility] [address] [place] [address] MRI BRAIN WO CONTRASTon 11-30 MRI BRAIN [...] Basket (authorizing provider)Final result Normal [facility] Plan of Careon 12-16-2017 HIM IP Note OR Hoisting Engineer Pile Driving Normal [facility] Progress Noteon 12-16-2017 HIM IP Note OR Hoisting Engineer Pile Driving Normal [facility] HIM IP Note OR Hoisting Engineer Pile Driving Normal [facility] HIM IP Note OR Hoisting Engineer Pile Driving Normal [facility] HIM IP Note OR Hoisting Engineer Pile Driving Normal [facility] Troponinon 12-16-2017 Troponin I.cardiac mass conc Normal [facility] Comment on above: Result Comment: Reference Range: <0.03 W ithin reference range. 0.03-0.09 Possible myocardial damage.Repeat at appropriate intervals to rule out chronic elevation. >= 0.10 Indicative of myocardial damage.Patients with high levels of Biotin oral intake (i.e >5mg/day) may have falsely decreased Troponin T levels. Samples collected within 8 hours of biotin intake may require additional information for diagnosis.[employer] [address] [place] [address] Performed By: #### T ROPI ####[address] [address] Troponin T.cardiac mass conc ug/L Normal <0.03 [facility] Comment on above: Result Comment: Troponin T results canno t be compared to Troponin-I results. Performed By: #### T ROPI ####[address] [address] .Auto Diff 1on 12-15-2017 Auto Baso % 0.5 % Normal 0.2-2.0 [facility] Comment on above: Performed By: #### [id number], 1704480, 52506424, 0266186, 2125121, [id number], 8200405 ####[facility] (DEFAULT)[address] [place] [address] Auto [place] % 9 % Normal 1-12 [facility] Comment on above: Performed By: #### [id number], 1862433, 08777665, 2846736, 7907160, 2327862283, 6650895 ####[facility] (DEFAULT)[address] [place] [address] Auto Neut % 74 % Normal 44-88 [facility] Comment on above: Performed By: #### [id number], 5067419, 01271647, 1869339, 0284298, 1133758262, 2583274 ####[facility] (DEFAULT)[address] [place] [address] Baso Abs# 0.0 x10 Normal 0.0-0.2 [facility] Comment on above: Performed By: #### [id number], 0743378, 10542380, 7966084, 5137338, 1516077982, 4856758 ####[facility] (DEFAULT)[address] [place] [address] Eos Abs# 0.1 x10 Normal 0.0-0.4 [facility] Comment on above: Performed By: #### [id number], 9718469, 48030226, 1685765, 7321678, 0089477151, 0086461 ####[facility] (DEFAULT)[address] [place] [address] Eosinophils/100 leukocytes 2.1 % Normal 0.9-4.0 [facility] Comment on above: Performed By: #### [id number], 6264589, 72206175, 7197364, 9046115, 8811416093, 5777596 ####[facility] (DEFAULT)[address] [place] [address] Lymphocytes 0.6 x10 Low 1.3-2.9 [facility] Comment on above: Performed By: #### [id number], 8060539, 72930851, 9088003, 2488757, 1797777432, 5080038 ####[facility] (DEFAULT)[address] [place] [address] Lymphocytes/100 leukocytes 14 % Normal 14-48 [facility] Comment on above: Performed By: #### [id number], 1475373, 93322718, 5976622, 6013411, 1572561989, 6117274 ####[facility] (DEFAULT)[address] [place] [address] [place] Abs# 0.4 x10 Normal 0.0-0.8 [facility] Comment on above: Performed By: #### [id number], 1738462, 20673181, 7153381, 5804398, 1264696325, 5984316 ####[facility] (DEFAULT)[address] [place] [address] Neut Abs# 3.1 x10 Normal 1.5-9.2 [facility] Comment on above: Performed By: #### [id number], 2525568, 34055023, 9167422, 6399596, 6172124193, 0969299 ####[facility] (DEFAULT)[address] [place] [address] CBC w/ Auto Diffon 8 Erythrocyte distribution width Auto Ratio (RBC) 12.7 % Normal 11.5-15.0 [facility] Comment on above: Performed By: #### [id number], 8699882, 17055166, 3157265, 7550540, 7304057609, 6551132 ####[facility] (DEFAULT)[address] [place] [address] Erythrocytes (RBC) 4.58 x10 Normal 3.70-5.30 [facility] Comment on above: Performed By: #### [id number], 8440778, 36425205, 0259081, 7551734, 6259969883, 2240571 ####[facility] (DEFAULT)[address] [place] [address] Hematocrit (HCT) 40.8 % Normal 34.8-51.9 [facility] Comment on above: Performed By: #### [id number], 6576250, 34055061, 0660051, 6891163, 3939943161, 1744077 ####[facility] (DEFAULT)[address] [place] [address] Hemoglobin mass conc (Bld) 14.4 g/dL Normal 11.8-17.7 [facility] Comment on above: Performed By: #### [id number], 8825813, 41651455, 7074971, 7697743, 4455894120, 1535371 ####[facility] (DEFAULT)[address] [place] [address] Man Diff? Auto Normal [facility] Comment on above: Performed By: #### [id number], 0482308, 71424931, 2313404, 8943833, 7901762246, 7730526 ####[facility] (DEFAULT)[address] [place] [address] MCH 31 pg Normal 24-34 [facility] Comment on above: Performed By: #### [id number], 9220268, 41954079, 9143165, 3269595, 1647235489, 6042882 ####[facility] (DEFAULT)[address] [place] [address] MCHC mass conc (RBC) 35 g/dL Normal 26-37 [facility] Comment on above: Performed By: #### [id number], 5646389, 83075460, 1239766, 3504629, 2299306515, 1333835 ####[facility] (DEFAULT)[address] [place] [address] MCV 89 fL Normal 81-100 [facility] Comment on above: Performed By: #### [id number], 7659113, 19185724, 3230999, 6967440, 5695156456, 6136646 ####[facility] (DEFAULT)[address] [place] [address] Platelet mean volume (PMV) 9.4 fL Normal 6.3-10.2 [facility] Comment on above: Performed By: #### [id number], 8938426, 18652091, 1127005, 8142756, 0487275030, 4124289 ####[facility] (DEFAULT)[address] [place] [address] Platelets 167 x10 Normal 138-427 [facility] Comment on above: Performed By: #### [id number], 3263280, 37069666, 2752091, 6533462, 2817041267, 1249291 ####[facility] (DEFAULT)[address] [place] [address] WBC (Leukocytes) 4.2 x10 Normal 3.5-10.5 [facility] Comment on above: Performed By: #### [id number], 5145459, 18585924, 8365303, 6028101, 0945833026, 9627198 ####[facility] (DEFAULT)[address] [place] [address] [facility] Standardon 12-15-2017 eGFR (non-black) mL/min/{1.73_m2} Invalid Interpretation Code [facility] Comment on above: Performed By: #### [id number], 8009184, 63297402, 5299207, 4198715, 6222569530, 3482094 ####[facility] (DEFAULT)[address] [place] [address] eGFR (non-black) mL/min/{1.73_m2} Invalid Interpretation Code [facility] Comment on above: Result Comment: Chronic Kidney disease c ould be indicated at eGFRs of less than 60 ml/min/1.73m2. Kidney Failure is indicated at less than 15 ml/min/1.73m2 Performed By: #### 1 [id number], 9276746, 20185008, 1211833, 8552602, 9799003488, 3029396 ####[facility] (DEFAULT)[address] [place] [address] Albumin 4.1 g/dL Normal 3.5-5.0 [facility] Comment on above: Performed By: #### [id number], 2684223, 14386111, 7738286, 3609304, 6267697035, 6807157 ####[facility] (DEFAULT)[address] [place] [address] Albumin/Globulin Ratio 1.4 {ratio} Normal 1.4-2.6 [facility] Comment on above: Performed By: #### [id number], 9332030, 24100538, 4804975, 1943404, 6430186248, 1516111 ####[facility] (DEFAULT)[address] [place] [address] Alk Phos 64 IU/L Normal 32-91 [facility] Comment on above: Performed By: #### [id number], 3823823, 33785474, 9539765, 0122501, 3757581768, 9133058 ####[facility] (DEFAULT)[address] [place] [address] ALT/SGPT 21.0 IU/L Normal 17.0-63.0 [facility] Comment on above: Performed By: #### [id number], 5967738, 28753749, 9804364, 8014872, 9226718329, 4500258 ####[facility] (DEFAULT)[address] [place] [address] Anion gap 11.0 mmol/L Normal 5.0-19.0 [facility] Comment on above: Performed By: #### [id number], 0797474, 14550599, 4195771, 4556731, 7417405782, 1446185 ####[facility] (DEFAULT)[address] [place] [address] AST/SGOT 21 IU/L Normal 15-41 [facility] Comment on above: Performed By: #### [id number], 5544953, 31437878, 9205977, 6347096, 7743648734, 6695560 ####[facility] (DEFAULT)[address] [place] [address] Bili Total 0.9 mg/dL Normal 0.3-1.2 [facility] Comment on above: Performed By: #### [id number], 8341820, 28935047, 6713605, 6383269, 9444688965, 3106066 ####[facility] (DEFAULT)[address] [place] [address] BUN/Creatinine Ratio 28.0 mg/mg High 4.6-16.2 [facility] Comment on above: Performed By: #### [id number], 8353608, 95949875, 5921263, 7270745, 7027904417, 2105639 ####[facility] (DEFAULT)[address] [place] [address] Calcium 9.0 mg/dL Normal 8.9-10.3 [facility] Comment on above: Performed By: #### 5083650061, 6899360, 00655866, 1577642, 7401152, 0624186722, 3771205 ####[facility] (DEFAULT)[address] [place] [address] Chloride 105 mmol/L Normal 101-111 [facility] Comment on above: Performed By: #### 4908630229, 4984517, 18845073, 2242504, 2461251, 3424667745, 8755152 ####[facility] (DEFAULT)[address] [place] [address] CO2 24 mmol/L Normal 21-32 [facility] Comment on above: Performed By: #### [id number], 4337343, 54963339, 0153961, 6886063, 5920262622, 5614364 ####[facility] (DEFAULT)[address] [place] [address] Creatinine 0.61 mg/dL Low 0.90-1.30 [facility] Comment on above: Performed By: #### 1294861610, 8469238, 63874558, 7757550, 1670101, 7149496756, 6842164 ####[facility] (DEFAULT)[address] [place] [address] Globulin 2.9 g/dL Normal 1.5-4.3 [facility] Comment on above: Performed By: #### [id number], 3580269, 16389085, 9993436, 8939808, 9558341175, 2336110 ####[facility] (DEFAULT)[address] [place] [address] Glucose mass conc 97.0 mg/dL Normal 74.0-118.0 [facility] Comment on above: Performed By: #### [id number], 4000883, 40597692, 7974533, 6068895, 4534195642, 3946270 ####[facility] (DEFAULT)[address] [place] [address] Osmolality 273 mOsm/L Invalid Interpretation Code [facility] Comment on above: Performed By: #### [id number], 2876381, 18332048, 8918685, 3807638, 7713257617, 5152221 ####[facility] (DEFAULT)[address] [place] [address] Potassium molar conc 3.5 mmol/L Low 3.6-5.1 [facility] Comment on above: Performed By: #### [id number], 4614022, 40507388, 4494825, 0271218, 5971677146, 5398503 ####[facility] (DEFAULT)[address] [place] [address] Protein 7.0 g/dL Normal 6.5-8.1 [facility] Comment on above: Performed By: #### [id number], 1172850, 88728283, 1795344, 9528998, 8231895461, 4766245 ####[facility] (DEFAULT)[address] [place] [address] Sodium 136.0 mmol/L Normal 136.0-144. 0 [facility] Comment on above: Performed By: #### [id number], [id number], [id number], [id number], [id number], [id number], [id number] ####[facility] (DEFAULT)[address] [place] [address] Urea nitrogen 17 mg/dL Normal 8-26 [facility] Comment on above: Performed By: #### [id number], [id number], [id number], [id number], [id number], [id number], [id number] ####[facility] (DEFAULT)[address] [place] [address] CT Head or Brain w/o Contras ton [...] ACUTE BLEED ORFOCAL MASS.Narinder Burton MDJOB #: [id number]: 12/15/2017T: 12/15/2017 Final Dictated by: Narinder Burton MD SDictated DT/TM: 12/15/17 2:14Signed (Electronic Signature): Narinder Burton MD 12/15/17 2:52 pmTechnologist: LASHAE VARELA Normal [facility] Consulton 12-15-2017 HIM IP Note OR Hoisting Engineer Pile Driving Normal [facility] ED Clinical Summaryon 2017 ED Clinical Summary [facility] - Emergency [address] [place], [place] [id number] ed Clinical SummaryPERSON INFORMATIONName: JULIO FREEMAN Age: 67 Years Sex: MALEDOB: [birth year] MRN: Acct#:Visit Reason: General medical; SLURRED SPEECH Arrival: 12/15/17 13:06:00 Discharge: 12/15/17 15:42:00LOS: 000 02:36 Check In: 12/15/17 13:06:00 Checkout:12/15/17 15:42:00Address:[address] [facility] [address]PYY: JORGE MARIE INFORMATIONProvider Role Assigned UnassignedSven Douglas [...] Complaint from Nursing Triage Note : Chief Vgrgumibi83/16/18 13:10 EDT Chief Complaint Pt and say [...] HI SpO2 99 % Oxygen Therapy Room air.Jhgmowrxkuih73/16/18 13:21 EDT Weight Dosing 72.570 kg12/15/17 13:21 [...] Berg from the neuro interventional services at [facility] he was made aware of the patient's diagnostic results, as well as NIH score. He suggested that the patient should go through the emergency room at [facility] for further evaluation. I did inform the patient regarding our desired to have further diagnostic testing. The patient voiced understanding. The patient was insistent on driving. He did sign a request for refusal of transport. I did speak with Dr. Duque in the emergency room at [facility] and she accepted the patient.Impression and PlanDiagnosisTIA (transient ischemic attack) (PJU92-CL G45.9, Discharge, Medical)PlanCondition: Improved.Disposition: Transfer to other location: Time: 12/15/17 15:22:00, time deemed necessary for transfer: 1400, Facility name: [facility] , Accepted by: Neto .DISCHARGE INFORMATION:Discharge Disposition: Discharge/Transfer to Another HospitalDis[facility]PATIENT EDUCATION INFORMATIONInstructions:Follow-Up :DIAGNOSIS:TIA (transient ischemic attack)Patient Understands: Yes - Patient/family/caregiver verbalizes understanding of instructions givenComment: [facility] ED Noteon 12-15-2017 HIM IP Note OR Hoisting Engineer Pile Driving [facility] HIM IP Note OR Hoisting Engineer Pile Driving [facility] HIM IP Note OR Hoisting Engineer Pile Driving [facility] HIM IP Note OR Hoisting Engineer Pile Driving [facility] HIM IP Note OR Hoisting Engineer Pile Driving [facility] HIM IP Note OR Hoisting Engineer Pile Driving [facility] HIM IP Note OR Hoisting Engineer Pile Driving [facility] ED Note - Physicianon 2017 ED Note - Physician Patient: JULIO FREEMAN : 67 years Sex: MALE : [birth year]Associated Diagnoses: TIA (transient ischemic attack)Author: Sven Douglas InformationTime seen: Date & time 12/15/17 13:26:00.History source: Patient, significant other.Arrival mode: Private vehicle.History limitation: None.Additional information: Chief Complaint from Nursing Triage Note : Chief Anhaeczyp40/16/18 13:10 EDT Chief Complaint Pt and say [...] HI SpO2 99 % Oxygen Therapy Room air.Suenaimqjqdl90/16/18 13:21 EDT Weight Dosing 72.570 kg12/15/17 13:21 [...] Berg from the neuro interventional services at [facility] he was made aware of the patient's diagnostic results, as well as NIH score. He suggested that the patient should go through the emergency room at [facility] for further evaluation. I did inform the patient regarding our desired to have further diagnostic testing. The patient voiced understanding. The patient was insistent on driving. He did sign a request for refusal of transport. I did speak with Dr. Duque in the emergency room at [facility] and she accepted the patient.Impression and PlanDiagnosisTIA (transient ischemic attack) (YAD97-TL G45.9, Discharge, Medical)PlanCondition: Improved.Disposition: Transfer to other location: Time: 12/15/17 15:22:00, time deemed necessary for transfer: 1400, Facility name: [facility] , Accepted by: Neto .[Electronically Signed on: 12/15/2017 16:18 EDT] Sven Douglas MD[Verified on: 12/15/2017 16:18 EDT] Sven Douglas MD [facility] ED Patient Education Noteon 12-15-2017 ED Patient Education Note Education Materials [facility] ED Patient Summaryon 018 ED Patient Summary [facility] - Emergency [address] [place] [address] pATIENT DISCHARGE INSTRUCTIONSPatient InformationName: JULIO FREEMAN Age: 67 YearsDate of : [birth year]MRN: [id number] Visit: General medical; SLURRED SPEECHArrival Time: 12/15/17 13:06:00Phone: primary Care Physician: Yenifer MARIE Physician: Sven Douglas RComment:Visit Diagnosis:Diagnoses This Visit General medical ([id number]) TIA (transient ischemic attack) (G45.9)If you [...] and treatment you received today in the [facility] Emergency Department were for an urgent problem and are not intended as complete care. It is important for you to follow up with a doctor, nurse practitioner, or physician?s staff assistant for ongoing care. If your symptoms [...] number so we can reach you if necessary.[facility] Emergency Department has provided you with a complete list of medications post discharge. Please inform your processing technologist/provider of your visit and for further instruction [...] Disease Control and Prevention April 2014 Normal [facility] ED Provider Noteon 8 HIM IP Note OR Hoisting Engineer Pile Driving Normal [facility] Extra Redon 12-15-2017 Tube Collected Yes Invalid Interpretation Code [facility] Comment on above: Performed By: #### [id number], [id number], [id number], [id number], [id number], [id number], [id number] ####[facility] (DEFAULT)[address] [place] [address] History and Physicalon 12-15 HIM IP Note OR Hoisting Engineer Pile Driving Normal [facility] PTon 12-15-2017 INR Coag RelTime (PPP) 1.00 {INR} Normal 0.91-1.11 [facility] Comment on above: Performed By: #### [id number], [id number], [id number], [id number], [id number], [id number], [id number] ####[facility] (DEFAULT)[address] [place] [address] Prothrombin time (PT) Coag time (PPP) 10.4 second(s) Normal 9.7-11.8 [facility] Comment on above: Performed By: #### [id number], [id number], [id number], [id number], [id number], [id number], [id number] ####[facility] (DEFAULT)[address] [place] [address] PTTon 12-15-2017 aPTT 28 second(s) Normal 25-35 [facility] Comment on above: Performed By: #### [id number], [id number], [id number], 9647853, 6849046, [id number], [id number] ####[facility] (DEFAULT)[address] [place] [address] Procedureon 12-15-2017 HIM IP Note OR Hoisting Engineer Pile Driving Normal [facility] Progress Noteon 12-15-2017 HIM IP Note OR Hoisting Engineer Pile Driving Normal [facility] HIM IP Note OR Hoisting Engineer Pile Driving Normal [facility] Rad - Other Radiology Report on 12-15-2017 Rad - Other Radiology Report [id number]#1.00OTGTIFF Normal [facility] TSH w/reflex to FT4on 2017 Thyroid stimulating hormone (TSH) 3.93 m[IU]/L Normal 0.30-5.00 [facility] Comment on above: Result Comment: [employer] [address] [place] [address] ([phone] Performed By: #### T ROPI, TSHX ####[facility] [place] [address] Telemetry Stripson 8 Telemetry Strips [id number]#1.00OTGTIFF [facility] Telemetry Strips [id number][facility]1.[facility] Transfer Noteon 12-15-2017 Transfer Note Called [facility] for Neuro at 1424. called at 1434 and spoke with .Pt will be going to [facility] ER, spoke with , accepted.Patient is going by private car. Pt left at 1542, pt is riding with family.Chart and Cd was sent with pt.Pt had no known home meds.Pt did request to go to [facility] at first.I called for the Hospitalist at 1429.Srinivas the nursing electrician substation supervisor called at 1440 and said the hospitalist will only accept if Neuro is consulted first.I put out a page for Dr.Danner Feng at 1500.[facility] Neuro did not call back, so transfered pt to [facility] ER.[Electronically Signed on: 12/15/2017 15:55 EDT] Loly Nix[Verified on: 12/15/2017 15:55 EDT] Elder, Loly [facility] Troponinon 12-15-2017 Troponin I.cardiac mass conc Normal [facility] Comment on above: Result Comment: Reference Range: <0.03 W ithin reference range. 0.03-0.09 Possible myocardial damage.Repeat at appropriate intervals to rule out chronic elevation. >= 0.10 Indicative of myocardial damage.Patients with high levels of Biotin oral intake (i.e >5mg/day) may have falsely decreased Troponin T levels. Samples collected within 8 hours of biotin intake may require additional information for diagnosis.[employer] [address] [place], [place] [id number] ([phone] Performed By: #### T SYED TSHX ####[employer] [address] [place] [address] Troponin T.cardiac mass conc ug/L Normal <0.03 [facility] Comment on above: Result Comment: Troponin T results canno t be compared to Troponin-I results. Performed By: #### T SYED TSHX ####[employer] [place], [place] [id number] Troponin Ion 12-15-2017 Troponin I.cardiac mass conc ng/mL Normal <=0.03 [facility] Comment on above: Performed By: #### [id number], [id number], [id number], [id number], [id number], [id number], [id number] ####[facility] (DEFAULT)[address] [place] [address] PROGRESSon 12-10-2017 Protein mass conc HNO ID: [id number]: Penny Boswellervice: (none)Author Type: PhysicianType: Progress NotesFiled: 12/10/2017 8:41 AMNote Text:Radiation Oncology - Follow Up NotePATIENT NAME: Julio FreemanPATIENT : Prostate adenocarcinoma, clinical stage T Stage: T1c, initialPSA 3.51, biopsy [place] score 3 + 4 = 7 (grade [...] stage T Stage: T1c, initialPSA 3.51, biopsy [place] score 3 + 4 = 7 (grade group 2)Overall doing well. PSA with stable response. He has continuedfollow-up with urology.PLAN: We will see him again in 6 months with a PSA level.Signed by: Penny Boswell, [facility]:Regino Marie MD[address] [facility] [place] [address]Pkezw: [phone]: [phone] Normal [facility] CNOVon 12-07-2017 CNOV Office Visit (AILYNTSA) JULIO FREEMAN ([id number]) 1950 MDate Time Provider Department12/07/17 2:30 PM Penny BOSWELL During your visit today, we recorded the following information about you: Blood pressure Weight 126/72 75.8 kgVikki Cannon (Rn), RN 12/07/2017 2:45 PM SignedMadeleine HowePenny barrera 12/10/2017 8:41 AM SignedRadiation Oncology - Follow Up NotePATIENT NAME: Julio Michelle : Prostate adenocarcinoma, clinical stage T Stage: T1c, initial PSA3.51, biopsy [place] score 3 + 4 = 7 (grade [...] with a PSA level.Signed by: Penny Boswell, [facility]:Regino Marie MD[address] [place] [address]Btfym: [phone]: [phone] Provider: Penny BOSWELL [[id number]]Allergies As of Date: 12/07/2017(No Known Allergies)Date Reviewed: 06/08/2017Reviewed by: Ashlee Jennings - Fully AssessedReason for Visit: Prostate Cancer [590]Primary Visit Diagnosis:Prostate cancer (HCC) [C61]Order(s):PSA/PROSTSPECAG DIAG [SQPSA] Order #: [id number] FUTUREProblem List As Of Date 12/07/2017 Noted Resolved Prostate cancer (HCC) [C61] INVALID FOR*Visit Notes:>> Vikki Cannon (Rn), RN Tusteven December 07, 2017 2:30 PM Status: IsaacAULulu 7Avj Cannon RNMedications Discontinued During This Encounter tamsulosin ER (FLOMAX) 0.4 mg cp24 05/18/2016 12/07/2017 Class: Historical Med Sig: Disc: Course of therapy completedDisposition: Return in about 6 months (around 06/09/2018).Follow-up and Disposition History RecordedEncounter Number: [id number] Status:Closed by Penny BOSWELL MD on 12/10/17 Normal [facility] Vital Signs Date Time Vital Sign Value Performing Clinician Faci lity 08-21-2024 09:13-0500 Blood Pressure Location Aline TENA [facility] 08-21-2024 09:13-0500 Body temperature 98.6 [degF] Aline TENA [facility] 08-21-2024 09:13-0500 Diastolic blood pressure 79 mm[Hg] Aline TENA [facility] 08-21-2024 09:13-0500 Heart rate 69 /min Aline TENA [facility] 08-21-2024 09:13-0500 Respiratory rate 17 /min Aline TENA [facility] 08-21-2024 09:13-0500 Systolic blood pressure 131 mm[Hg] Aline TENA [facility] 08-23-2023 08:58-0500 Blood Pressure Location Aline TENA [facility] 08-23-2023 08:58-0500 Diastolic blood pressure 81 mm[Hg] Aline TENA [facility] 08-23-2023 08:58-0500 Heart rate 72 /min Aline TENA [facility] 08-23-2023 08:58-0500 Respiratory rate 16 /min Aline TENA [facility] 08-23-2023 08:58-0500 Systolic blood pressure 131 mm[Hg] Aline TENA [facility] 08-24-2022 09:11-0500 Blood Pressure Location Aline TENA [facility] 08-24-2022 09:11-0500 Diastolic blood pressure 84 mm[Hg] Aline TENA [facility] 08-24-2022 09:11-0500 Heart rate 67 /min Aline TENA [facility] 08-24-2022 09:11-0500 Respiratory rate 16 /min Aline TENA [facility] 08-24-2022 09:11-0500 Systolic blood pressure 140 mm[Hg] Aline TENA [facility] Encounters Encounter Date Encounter Type Care Provider Facility Start: 08-21-2024 End: 08-21-2024 ambulatory Aline TENA Facility:[facility] Start: 08-21-2024 End: 08-21-2024 Patient encounter procedure Aline TENA [facility] Start: 08-23-2023 End: 08-23-2023 Patient encounter procedure Aline TENA [facility] Start: 08-31-2022 End: 09-01-[address] ALINE TENA Facility:[facility] Start: 08-24-2022 End: 08-24-2022 Patient encounter procedure Aline TENA [facility] Start: 07-29-2022 End: 07-30-[address] ALINE TENA Facility:[facility] Start: 09-25-2021 End: 09-25-[address] ALINE TENA Facility:[facility] Start: 09-23-2021 Encounter for preprocedural laboratory examination DR ALINE TENA [facility] Start: 09-22-2021 End: 09-23-[address] ALINE TENA Facility:[facility] Start: 09-22-2021 End: 09-23-2021 Encounter for preprocedural laboratory examination DR ALINE TENA Facility:[facility] Start: 06-07-2018 End: 06-10-2018 Patient encounter procedure Penny BOSWELL [facility] Start: 04-07-2018 End: 04-08-2018 Patient encounter MONIKA BOWMAN Facility:[facility] Start: 03-14-2018 End: 03-15-2018 Patient encounter DEFAULT PHYSICIAN Facility:[facility] Start: 12-15-2017 End: 12-15-2017 Emergency department patient visit REGINO MARIE Facility:[facility] Start: 12-15-2017 End: 12-16-2017 Ambulatory Tristin James Tremaine Facility:[facility] Start: 12-07-2017 End: 12-13-2017 Patient encounter procedure G NICHOLAS BOSWELL [facility] Procedures Date Procedure Procedure Detail Performing Clinician Start: 07-29-[address] ARCHANA TENA Comment on above: Performed By: #### C ITRATU #### [facility] [address] [place] [address] Dr. Angelica Chauhan Start: 09-25-2021 Extracorporeal shock [...] COMMUNICATION) REGINO MARIE Start: 12-15-2017 ASPIRATION PRECAUTIONS ERGINO MARIE Start: 12-15-2017 INITIATE OXYGEN THER APY [...] REGINO MARIE Start: 12-15-2017 IP CONSULT TO SPLUNK DEVELOPER AL MEDICINE REGINO MARIE Start: 12-15-2017 IP [...] Aline TENA [facility] Comment on above: Result Comment: 2022: TPV70 09-28-2020 SARS-CoV-2 (COVID-19 ) mRNA BNT-162b2 vax Aline TENA [facility] Comment on above: Result Comment: 2022: TPV70 09-07-2020 SARS-CoV-2 (COVID-19 ) mRNA BNT-162b2 vax Astonish Results [facility] Comment on above: Result Comment: 2022: TPV70 08-02-2020 SARS-CoV-2 (COVID-19 ) mRNA BNT-162b2 vax Astonish Results [facility] Comment on above: Result Comment: Pt s sahara he has had 3 shots to date 07-07-2019 influenza virus vaccine, unspecified formulation Astonish Results [facility] 07-07-2019 pneumococcal conjuga te vaccine, 13 valent [facility]ston[facility] 08-03-2017 influenza virus vaccine, unspecified formulation Astonish Results [facility] 06-10-2016 influenza virus vaccine, unspecified formulation Astonish Results [facility] NEGATED: Highlighted row has not occurred!08-26-2020 influenza virus vaccine, unspecified formulation Astonish Results [facility] Payers Date Payer Category Payer Private Health Insurance [id number] 2014 Medicare [id number] 1960 Medicare [id number] 1959 Private Health Insurance CLI [id number] 1950 Unknown [id number] 2.16.84 [id number] 1950 Unknown [id number] 2.16.84 [id number] 1950 Unknown [id number] 2.16.84 [id number] 1950 Unknown [id number] 2.16.84 [id number] 1950 Unknown [id number] 2.16.84 [id number] 1950 Unknown [id number] 2.16.8 [id number] Unknown Social History Date Type Detail Facility Start: 08-24-2022 End: 08-21-2024 Tobacco smoking status Never smoked tobacco (finding) [facility] Tobacco smoking status Never [facility] Sex Assigned At Male [facility] Functional Status Date Assessment Result Facility 08-21-2024 Functional Status N/A [facility] 08-23-2023 Functional Status N/A [facility] 08-24-2022 Functional Status N/A [facility] Hospital Discharge instructions 08-21-2024 Note Date & Type Note Facility 08-21-2024 Hospital Discharg e instructions Patient Education 08/21/2024 10:04:35 Kidney Stones, Odkc-dm-Taml Kidney Stones Kidney stones are rock-like masses [...] Follow these instructions at home: Medicines Take eetf-lks-nroyxay and prescription medicines only as told by [...] provider. Document Revised: 03/12/2023 Document Reviewed: 03/12/2023 [employer] Patient Education 2023 [employer]ery. Follow Up Care 08/23/2023 09:41:41 With:EMILY BRUCE, Aline Miller, URL Address: [facility] [address] , [place] [phone] When: Unknown Comments:f/u pending CT scan results [facility] [employer] Clinical Note 08-21-2024 Note Date & [...] these instructions at home: Medicines ??? Take elmx-beq-yzhmkbf and prescription medicines only as told by [...] Reviewed: 03/12/2023 Elsevier Patient Education ? 2023 [employer] [facility] Hospital Discharge instructions 08-23-2023 Note Date [...] include: ?8 oz (237 mL) of milk, bxlledb-oyveahoeqqec-gnutv milk, and calcium-fortifiedfruit juice. Calcium-fortified means that [...] ?Spinach (cooked), rhubarb, beets, sweet potatoes, and Scottish chard. ?Peanuts. ?Potato chips, puerto rican fries, and baked potatoes with skin on. ?Nuts and nut products. ?Chocolate. If you regularly take a diuretic medicine, make sure to eat at least 1 or 2 servings of fruits or vegetables that are high in potassium each day. These include: ?Avocado. ?Banana. ?[place], prune, carrot, or tomato juice. ?Baked potato. [...] magnesium, fish oil, or vitamin B6. Take ddno-sdk-ppntcdq and prescription medicines only as told by [...] Casseroles. Pizza. Lasagna. Frozen meals. Potato chips. Nigerien fries. The items listed above may not [...] Document Reviewed: 10/29/2022 Elsevier Patient Education 2022 Ghostery. Follow Up Care 08/24/2022 09:47:59 With:EMILY BRUCE, Aline Milelr, URL Address: [facility] [address], [place] [address]- When:Within 1 Year(s) Comments:Lucy and FERMÍN [facility] Hospital Discharge instructions 08-24-2022 Note Date [...] include: ?Spinach. ?Rhubarb. ?Beets. ?Potato chips and puerto rican fries. ?Nuts. If you regularly take a diuretic medicine, make sure to eat at least 1 2 fruits or vegetables high in potassium each day. These include: ?Avocado. ?Banana. ?[place], prune, carrot, or tomato juice. ?Baked potato. [...] Casseroles. Pizza. Lasagna. Frozen meals. Potato chips. Nigerien fries. Summary You can reduce your risk [...] 11/13/2011 Document Revised: 11/08/2019 Document Reviewed: 06/29/2017 [employer] Patient Education 2020 Ghostery. Follow Up Care 08/22/2021 08:41:01 With:EMILY BRUCE, Aline Miller, URL Address: [facility] [address] , [place] [address]- When: Unknown [facility] Evaluation + Plan note Note Date & Type Note Facility Evaluation + Plan note Future Appointments Appointment Date:11/23/2022 08:45:00 AM Scheduled Provider:Aline TENA MD Location:[facility] Appointment Type:URO Office Visit Appointment Date:08/23/2023 08:45:00 AM Scheduled Provider:Aline TENA MD Location:[facility] Appointment Type:URO Office Visit Diagnostic Tests PendingPSA Total 08/24/22 [facility] [employer] Evaluation + Plan note Note Date & Type Note Facility Evaluation + Plan note Future Appointments Appointment Date:08/21/2024 08:45:00 AM Scheduled Provider:Aline TENA MD Location:[facility] Appointment Type:URO Office Visit Diagnostic Tests PendingPSA Total 08/23/23 [facility] Hospital course Narrative Note Date & Type Note Facility Hospital course Narrative No data available for this section [facility] Progress note Note Date & Type Note Facility Progress note No data available for this section [facility] Summary Purpose Family History No Family History [...] section and content) DATE CREATED AUTHOR 01/19/2018 [facility] DATE CREATED AUTHOR AUTHOR'S ORGANIZ ATION 01/22/2018 [facility] DATE CREATED AUTHOR AUTHOR'S ORGANIZ ATION 04/24/2018 [facility] DATE CREATED AUTHOR AUTHOR'S ORGANIZ ATION 07/10/2018 [facility] DATE CREATED AUTHOR AUTHOR'S ORGANIZ ATION 09/08/2022 [facility] DATE CREATED AUTHOR AUTHOR'S ORGANIZ ATION 08/23/2024 Wyatt Prabhakar [facility] Patient Care team informatio n (unrecognized section and content) Personnel Name: REGINO MARIE MD Address: Address: [address] [place] [address] [address] Personnel Name: TARI AGUIRRE CNP Address: Address: [address] [facility] [address] Personnel Name: TARI AGUIRRE CNP Address: Address: [address] [place] [address] [address] FOR RECORDS PERTAINING TO PATIENTS WHO [...] BE BASED ON THE PRIMARY CLINICAL RECORDS. [employer] provides no warranty or guarantee of the accuracy or completeness of information in this document.
[2024-09-14] MEDS: LACTATED RINGER'S SOLUTION 1,000 ML 50 ML IV ×2 (12:28→14:02)
[2024-09-14] MEDS: CEFAZOLIN SODIUM 2 GM/50 ML D5W PREMIX IV (13:02)
--- NOTE | 2024-09-14 13:43 | P.URON_ITS ---
Urology Surgery Operative Note Operative Note Procedure Date: 09/14/24 Time Out Performed: yes Pre-op Diagnosis: Left nephrolithiasis Post-op Diagnosis: same as pre-op Procedures performed: 1. Left ESWL. Anesthesia: General-LMA Primary Surgeon: Duarte Tena Complications: None Estimated blood loss (mL): 0 Findings: Large left midpole calculus Specimens: None Drains: None Indications for Procedures: This gentleman has recurrent left nephrolithiasis. He has a stone in the midpole of the kidney which is about 11 to 12 mm. He now presents for left ESWL. He has signed an informed consent after risks were explained. Some of these risks include bleeding, perinephric hematoma, infection and anesthesia to name a few. Detailed description of Procedure: The patient was brought to the Operating Room and placed on Siemens electromagnetic lithotripsy treatment table in the supine position. SCDs were placed on their lower extremities and turned on and functioning during the entire case. Timeout was done by all parties in the room. We all agreed upon the patient's identification and the planned procedures for this patient. General Anesthesia was then administered via LMA. Treatment head was then brought to the patient's correct side. While using flourscopy the stone was identified and lined up into the crosshairs. We then began applying shocks. I started by applying shocks to this sizable stone in the left mid pole of the kidney. We started at power level 2.0 and increased to a maximum power level of 3.5. Intermittent fluoroscopy revealed that the stone steadily fragmented after 500 shocks. We applied a total of 3000 shocks. We had total fragmentation by the end of the procedure. The last fluoroscopic view revealed no evidence of any formed stone remaining. The patient was then transferred to a [facility] bed and wheeled to PACU in stable condition.
== END 2024-09-14 15:00 | disposition home or self-care (01) ==
PROVIDERS: PCP Nurse Practitioner Family; Visit Provider Urology
PROC: (CPT 50590; principal; 2024-09-14 12:45)
DX: N20.0 Calculus of kidney (principal); G47.33 Obstructive sleep apnea (adult) (pediatric); E78.5 Hyperlipidemia, unspecified; Z86.73 Personal history of transient ischemic attack (TIA), and cerebral infarction without residual deficits
CPT/HCPCS: 50590; 36415; 74018; J0690; J1100; J2250; J2371; J2704; J3010

== ENCOUNTER 2024-10-17 14:07 | Outpatient (OUT) | payer MEDICARE, SELFPAY ==
--- NOTE | 2024-10-17 14:14 | XR_ITS ---
[facility] [place] [id number] Patient Name: EVELYN CHESTER MRN: [id number] date: 1950 Sex: M Assigned Patient Location: [facility] Current Patient Location: [facility] Accession/Order Number: [id number] Exam Date: 10/17/2024 15:06 Report Date: 10/17/2024 15:07 At the request of: TARI AGUIRRE Procedure: XR knee LT 3V LEFT KNEE - 3 views CLINICAL HISTORY: Left Knee Pain COMPARISON: None FINDINGS: No knee joint effusion. Mild degenerative changes without acute bony process. Bipartite patella. XR/XR knee LT 3V IMPRESSION: MILD DEGENERATIVE CHANGES OF THE LEFT KNEE WITHOUT ACUTE BONY PROCESS. Impression dictated by: Gisel Perez Jr.OSue10/17/2024 3:07 PM Dictation Location: [place] [address] Electronically authenticated by: [id number] Y Date: 10/17/2024 15:07
--- OUTSIDE RECORDS SUMMARY | 2024-10-17 14:28 | XMS_ITS | CCD ---
Author Organization [facility] CliniSyar Care Team Providers Care Health Care Facility Administrator Name Role Phone REGINO MARIE Unavailable Unavailable Tristin Penaloza Unavailable Unavailable MARIE, REGINO Harris Unavailable Unavailable MARIE, REGINO Harris Unavailable Unavailable MEGHAN, JULIAN Unavailable Unavailable MEGHAN, [...] DR MIRELES Attending Unavailable MARIE, DR REGINO Harris Primary Care Unavailable EMILY, DR MIRELES Consulting Unavailable EMILY, DR MIRELES Admitting Unavailable EMILY, DR MIRELES Attending Unavailable MARIE, DR REGINO Harris Primary Care Unavailable MARIE, DR REGINO Harris Referring Unavailable EMILY, DR MIRELES Consulting Unavailable EMILY, DR MIRELES Admitting Unavailable EMILY, DR MIRELES Attending Unavailable MARIE, DR REGINO Harris Primary Care Unavailable EMILY, DR MIRELES Consulting Unavailable BREANN, DR LUCINA Miller Consulting Unavailable AGUBOSIMJOSE JUAN Consulting Unavailable VIJAY TARANGO Consulting Unavailable GIOVANNI, DR REGINO Harris Admitting Unavailable GIOVANNI, DR REGINO Harris Attending Unavailable MARIE, DR REGINO Harris Primary Care Unavailable MARIE, DR REGINO Harris Consulting Unavailable EMILY, DR MIRELES Admitting Unavailable EMILY, DR MIRELES Attending Unavailable GIOVANNI, DR REGINO Harris Primary Care Unavailable EMILY, DR MIRELES Consulting Unavailable RENO, DR BILL San Consulting Unavailable TARI AGUIRRE Primary Care Physician [phone] Aline TENA Attending Unavailable Aline TENA Attending Unavailable Aline TENA Referring Unavailable Allergies Allergy Classification Reported Allergen(s) Allergy Type Date of Onset Reaction(s) Facility (1 source) No Known Medication Allergies; Translations: [No Known Medication Allergies] Propensity to adverse reactions to drug (disorder) [facility] Repository (2 sources) No Known Allergies; Translations: [No Known Allergies] Propensity to adverse reactions (disorder) [facility] Rep[facility] Medications Current Medications Medication Drug [...] Osteoarthritis 06-14-2019 Chronic Other aftercare (1 source) 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 Take [id number] and prescription m (more content not included)... Normal [facility] Urology Office/Clinic Noteon 08-21-2024 Urology Office/Clinic [...] <0.13 08/16/24 - <0.13 TRUS/bx 12/10/15 - [place] 7 (3+4) x1 core, [place] 6 (3+3) x2 cores, 1 FATIMAH core, [...] Urology [address], [place] [address] [phone] Additional Instructions: f/u pending CT scan results Patient Education Kidney Stones, Lcnj-[id number] Ana Schwartz, personally scribed for Dr. Tena on 08/21/2024 10:08:35. . Documentation recorded by the rubenibAna harris, accurately reflects the services(s) I performed and decisions made by me. Authenticated by Dr. Tena on 08/21/2024 10:12:31. Problem List/Past Medical History Ongoing Asymptomatic microscopic hematuria BMI 25.0-25.9,adult (more content not included)... Normal [facility] Comment on above: Result Comment: Electronically Signed By : Aline TENA MD\.br\Date and Time Signed: 08/21/24 10:12 EST\.br\Electronically Co-Signed By: Ana Garzon\.br\Date and Time Co-Signed: 08/21/24 10:09 EST CITRATE URINE 24HRon 023 Citric Acid, U, 24hr 925 mg/24 hr Normal 320-1240 [facility] Comment on above: Result Comment: This test was developed and its performance characteristics determined by [facility]. It has not been cleared or approved by the Food and Drug Administration. Performed By: #### C ITRATU #### [facility] [address] [place] [address] Dr. Angelica Chauhan Citric Acid, Urine 552 mg/L Normal Undefined [facility] Comment on above: Performed By: #### CITRATU #### [facility] [address] [place] [address] Dr. Angelica Chauhan OXALATE 24HR URINEon 023 Oxalates, Urine 18 mg/L Normal Undefined [facility] Comment on above: Performed By: #### [id number] #### [facility] [address] [place] [address] Dr. Angelica Chauhan Oxalates, Urine 24hr 30 mg/24 hr Normal 7-44 [facility] Comment on above: Performed By: #### OX24HR #### [facility] [address] [place] [address] Dr. Angelica Chauhan MAGNESIUM 24HR URINEon 09-01 Magnesium 24hr Urine 102.2 mg/24 hr Normal 12.0-293.0 [facility] Comment on above: Performed By: #### MAG24 #### [facility] [address] [place] [address] Dr. Angelica Chauhan Magnesium UR 6.1 mg/dL Normal Not Estab. [facility] Comment on above: Performed By: #### MAG24 #### [facility] [address] [place] [address] Dr. Angelica Chauhan PHOSPHORUS 24HR URINEon - Phosphorus, Urine 54.3 mg/dL Normal Not Estab. [facility] Comment on above: Performed By: #### CITRATU #### [facility] [address] [place] [address] Dr. Angelica Chauhan Phosphorus, Urine 24hr 910 mg/24 hr Normal 390-1425 [facility] Comment on above: Performed By: #### CITRATU #### [facility] [address] [place] [address] Dr. Angelica Chauhan PTH INTACTon 09-01-2022 PTH, Intact 40 pg/mL Normal 15-65 [facility] Comment on above: Performed By: #### PTHINT #### [facility] [address] [place] [address] Dr. Angelica Chauhan URIC ACID 24 HR URINEon 08-04 Uric Acid, Urine 46.6 mg/dL Normal Not Estab. [facility] Comment on above: Performed By: #### CITRATU #### [facility] [address] [place] [address] Dr. Angelica Chauhan Uric Acid, Urine 24hr 780.6 mg/24 hr Critically high 136.1-771. 1 [facility] Comment on above: Performed By: #### CITRATU #### [facility] [address] [place] [address] Dr. Angelica Chauhan BUNon 08-31-2022 Urea nitrogen [Mass/Vol] 15.0 mg/dL Normal 7.0-18.0 [facility] Comment on above: Performed By: #### CITRATU #### [facility] [address] [place] [address] Dr. Angelica Chauhan CALCIUMon 08-31-2022 Calcium [Mass/Vol] 9.2 mg/dL Normal 8.5-10.1 [facility] Comment on above: Performed By: #### CREA, CO2, CL, NA, UR IC, CA, K, BUN #### [facility] [address] [place] [address] Dr. Angelica Chauhan CALCIUM 24 HR URINEon 2022 CALC, 24 HR UR 214.4 mg/24 hr Normal 100.0-300. 0 [facility] Comment on above: Performed By: #### CITRATU #### [facility] [address] [place] [address] Dr. Angelica Chauhan UR CALCIUM 12.8 mg/dL Normal 5.1-21.0 [facility] Comment on above: Performed By: #### CITRATU #### [facility] [address] [place] [address] Dr. Angelica Chauhan CHLORIDEon 08-31-2022 Chloride [Moles/Vol] 104 mmol/L Normal 98-107 [facility] Comment on above: Performed By: #### CREA, CO2, CL, NA, UR IC, CA, K, BUN #### [facility] [address] [place] [address] Dr. Angelica Chauhan CO2on 08-31-2022 CO2 [Moles/Vol] 25.6 mmol/L Normal 21.0-32.0 [facility] Comment on above: Performed By: #### CREA, CO2, CL, NA, UR IC, CA, K, BUN #### [facility] [address] [place] [address] Dr. Angelica Chauhan CREA 24 HR URINEon CREA, 24 HR UR 1541.17 mg/24 hr Normal 1,000.00- 2 ,000.00 [facility] Comment on above: Performed By: #### CITRATU #### [facility] [address] [place] [address] Dr. Angelica Chauhan UR TOT VOL 1675 ml/[address] [facility] Comment on above: Performed By: #### CITRATU #### [facility] [address] [place] [address] Dr. Angelica Chauhan URINE CREAT 92.01 mg/dL Normal 20.00-300. [address] [facility] Comment on above: Performed By: #### CITRATU #### [facility] [address] [place] [address] Dr. Angelica Chauhan CREATININEon 08-31-2022 Creatinine [Mass/Vol] 0.73 mg/dL Normal 0.70-1.30 [facility] Comment on above: Performed By: #### CREA, CO2, CL, NA, UR IC, CA, K, BUN #### [facility] [address] [place] [address] Dr. Angelica Chauhan EGFR-AF BURMESE >60 Normal >=60 [facility] Comment on above: Performed By: #### CREA, CO2, CL, NA, UR IC, CA, K, BUN #### [facility] [address] [place] [address] Dr. Angelica Chauhan EGFR-NON AF BURMESE >60 Normal >=60 [facility] Comment on above: Performed By: #### CREA, CO2, CL, NA, UR IC, CA, K, BUN #### [facility] [address] [place] [address] Dr. Angelica Chauhan NAon 08-31-2022 Sodium [Moles/Vol] 140 mmol/L Normal 136-145 [facility] Comment on above: Performed By: #### CREA, CO2, CL, NA, UR IC, CA, K, BUN #### [facility] [address] [place] [address] Dr. Angelica Chauhan POTASSIUMon 08-31-2022 Potassium [Moles/Vol] 4.0 mmol/L Normal 3.5-5.1 [facility] Comment on above: Performed By: #### CITRATU #### [facility] [address] [place] [address] Dr. Angelica Chauhan SODIUM 24 HR URINEon 023 NA, 24 HR UR 171 mmol/24 hr Normal 40-220 [facility] Comment on above: Performed By: #### CITRATU #### [facility] [address] [place] [address] Dr. Angelica Chauhan Sodium (U) [Moles/Vol] 102 mmol/L Critically high 30-[address] [facility] Comment on above: Performed By: #### CITRATU #### [facility] [address] [place] [address] Dr. Angelica Chauhan URIC ACID SERUMon 08-31-2022 Urate [Mass/Vol] 5.0 mg/dL Normal 3.5-7.2 [facility] Comment on above: Performed By: #### CITRATU #### [facility] [address] [place] [address] Dr. Angelica Chauhan CBC AUTO DIFFon 07-29-2022 BASO # 0.0 103/ul Normal 0.0-0.1 [facility] Comment on above: Performed By: #### CBC #### [facility] [address] [place] [address] Dr. Angelica Chauhan Basophils/100 WBC (Bld) 0.6 % Normal 0.2-2.0 [facility] Comment on above: Performed By: #### CBC #### [facility] [address] [place] [address] Dr. Angelica Chauhan EO # 0.2 103/ul Normal 0.0-0.7 [facility] Comment on above: Performed By: #### CBC #### [facility] [address] [place] [address] Dr. Angelica Chauhan Eosinophils/100 WBC (Bld) 3.5 % Normal 0.9-7.0 [facility] Comment on above: Performed By: #### CBC #### [facility] [address] [place] [address] Dr. Angelica Chauhan Erythrocyte distribution width (RBC) [Ratio] 12.3 % Normal 11.0-15.0 [facility] Comment on above: Performed By: #### CBC #### [facility] [address] [place] [address] Dr. Angelica Chauhan Hematocrit (Bld) [Volume fraction] 45.1 % Normal 42.0-54.0 [facility] Comment on above: Performed By: #### CBC #### [facility] [address] [place] [address] Dr. Angelica Chauhan Hemoglobin (Bld) [Mass/Vol] 15.2 g/dL Normal 14.0-18.0 [facility] Comment on above: Performed By: #### CBC #### [facility] [address] [place] [address] Dr. Angelica Chauhan IG # 0.02 10e3/ul Normal 0.00-0.03 [facility] Comment on above: Performed By: #### CBC #### [facility] [address] [place] [address] Dr. Angelica Chauhan IG % 0.3 % Normal 0.0-0.5 [facility] Comment on above: Performed By: #### CBC #### [facility] [address] [place] [address] Dr. Angelica Chauhan LYMPH # 0.9 103/ul Critically low 1.2-3.8 [facility] Comment on above: Performed By: #### CBC #### [facility] [address] [place] [address] Dr. Angelica Chauhan Lymphocytes/100 WBC (Bld) 14.3 % Critically low 20.5-60.0 [facility] Comment on above: Performed By: #### CBC #### [facility] [address] [place] [address] Dr. Angelica Chuahan MANUAL DIFF REQ NO Normal [facility] Comment on above: Performed By: #### CBC #### [facility] [address] [place] [address] Dr. Angelica Chauhan MCH (RBC) [Entitic mass] 29.9 pg Normal 25.9-34.0 [facility] Comment on above: Performed By: #### CBC #### [facility] [address] [place] [address] Dr. Angelica Chauhan MCHC (RBC) [Mass/Vol] 33.7 g/dL Normal 29.9-35.2 [facility] Comment on above: Performed By: #### CBC #### [facility] [address] [place] [address] Dr. Angelica Chauhan MCV (RBC) [Entitic vol] 88.8 fL Normal 80.0-94.0 [facility] Comment on above: Performed By: #### CBC #### [facility] [address] [place] [address] Dr. Angelica Chauhan MONO # 0.6 103/ul Normal 0.3-0.8 [facility] Comment on above: Performed By: #### CBC #### [facility] [address] [place] [address] Dr. Angelica Chauhan Monocytes/100 WBC (Bld) 9.7 % Normal 1.7-12.0 [facility] Comment on above: Performed By: #### CBC #### [facility] [address] [address] [address] Angelica Chauhan NEUT # 4.7 103/ul Normal 1.4-6.[address] [facility] Comment on above: Performed By: #### CBC #### [facility] [address] [address] [address] Angelica Chauhan Neutrophils/100 WBC (Bld) 71.6 % Normal 43.0-75.[address] [facility] Comment on above: Performed By: #### CBC #### [facility] [address] [address] [address] Angelica Chauhan Platelet mean volume (Bld) [Entitic vol] 9.4 fL Critically low 9.5-13.[address] [facility] Comment on above: Performed By: #### CBC #### [facility] [address] [place] [address] Dr. Angelica Chauhan PLT 199 103/ul Normal 150-[address] [facility] Comment on above: Performed By: #### CBC #### [facility] [address] [place] [address] Dr. Angelica Chauhan RBC 5.08 106/ul Normal 4.70-6.[address] [facility] Comment on above: Performed By: #### CBC #### [facility] [address] [place] [address] Dr. Angelica Chauhan WBC 6.6 103/ul Normal 4.0-11.[address] [facility] Comment on above: Performed By: #### CBC #### [facility] [address] [place] [address] Dr. Angelica Chauhan LIPID PROFILEon 07-29-2022 CHOL-HDL RATIO NORM SEE BELOW Normal [facility] Comment on above: Result Comment: 3.3 - 4.4 LOW RISK 4.4 - 7.1 AVERAGE RISK 7.1 - 11.0 MODERATE RISK >11.0 HIGH RISK Performed By: #### M AG24 #### [facility] [address] [place] [address] Dr. Angelica Chauhan Cholesterol [Mass/Vol] 192 mg/dL Normal <=200 [facility] Comment on above: Performed By: #### MAG24 #### [facility] [address] [address] [address] Angelica Chauhan Cholesterol in HDL [Mass/Vol] 45 mg/dL Normal 40-60 [facility] Comment on above: Performed By: #### MAG24 #### [facility] [address] [address] [address] Angelica Chauhan Cholesterol in LDL [Mass/Vol] 118.8 mg/dL Normal [facility] Comment on above: Performed By: #### MAG24 #### [facility] [address] [address] [address] Angelica Chauhan Cholesterol.tota l/Cholesterol in HDL [Mass ratio] 4.3 {ratio} Normal [facility] Comment on above: Performed By: #### MAG24 #### [facility] [address] [place] [address] Dr. Angelica Chauhan HDL NORMAL > or = 60 mg/dl - LO W CARDIOVASCULAR RISK <40 mg/dl - HIGH CARDIOVASCULAR RISK Normal [facility] Comment on above: Performed By: #### MAG24 #### [facility] [address] [address] [address] Angelica Chauhan LDL CALC NORMAL SEE BELOW Normal [facility] Comment on above: Result Comment: <100 mg/dl OPTIMAL 100 - 129 mg/dl NEAR OR ABOVE OPTIMAL 130 - 159 mg/dl BORDERLINE HIGH 160 - 189 mg/dl HIGH >190 mg/dl VERY HIGH Performed By: #### M AG24 #### [facility] [address] [place] [address] Dr. Angelica Chauhan Triglyceride [Mass/Vol] 141 mg/dL Normal <=[address] [facility] Comment on above: Performed By: #### MAG24 #### [facility] [address] [place] [address] Dr. Angelica Chauhan VLDL CALC 28.2 mg/dL Normal [facility] Comment on above: Performed By: #### MAG24 #### [facility] [address] [address] [address] Angelica Chauhan PROF 14(COMP METB)on 022 Albumin [Mass/Vol] 3.8 g/dL Normal 3.4-5.0 [facility] Comment on above: Performed By: #### MAG24 #### [facility] [address] [place] [address] Dr. Angelica Chauhan Albumin/Globulin [Mass ratio] 1.0 {ratio} Normal [facility] Comment on above: Performed By: #### MAG24 #### [facility] [address] [place] [address] Dr. Angelica Chauhan ALP [Catalytic activity/Vol] 86 U/L Normal 46-[address] [facility] Comment on above: Performed By: #### MAG24 #### [facility] [address] [place] [address] Dr. Angelica Chauhan ALT [Catalytic activity/Vol] 34 U/L Normal 16-[address] [facility] Comment on above: Performed By: #### MAG24 #### [facility] [address] [place] [address] Dr. Angelica Chauhan Anion gap [Moles/Vol] 10.3 mmol/L Normal [facility] Comment on above: Performed By: #### MAG24 #### [facility] [address] [place] [address] Dr. Angelica Chauhan AST [Catalytic activity/Vol] 20 U/L Normal 15-[address] [facility] Comment on above: Performed By: #### MAG24 #### [facility] [address] [place] [address] Dr. Angelica Chauhan Bilirubin [Mass/Vol] 0.7 mg/dL Normal 0.2-1.[address] [facility] Comment on above: Performed By: #### MAG24 #### [facility] [address] [place] [address] Dr. Angelica Chauhan Calcium [Mass/Vol] 9.5 mg/dL Normal 8.5-10.[address] [facility] Comment on above: Performed By: #### MAG24 #### [facility] [address] [place] [address] Dr. Angelica Chauhan Chloride [Moles/Vol] 103 mmol/L Normal 98-[address] [facility] Comment on above: Performed By: #### MAG24 #### [facility] [address] [place] [address] Dr. Angelica Chauhan CO2 [Moles/Vol] 31.0 mmol/L Normal 21.0-32.[address] [facility] Comment on above: Performed By: #### MAG24 #### [facility] [address] [place] [address] Dr. Angelica Chauhan Creatinine [Mass/Vol] 0.79 mg/dL Normal 0.70-1.[address] [facility] Comment on above: Performed By: #### MAG24 #### [facility] [address] [place] [address] Dr. Angelica Chauhan EGFR-AF BURMESE >60 Normal >=[address] [facility] Comment on above: Performed By: #### MAG24 #### [facility] [address] [place] [address] Dr. Angelica Chauhan EGFR-NON AF BURMESE >60 Normal >=[address] [facility] Comment on above: Performed By: #### MAG24 #### [facility] [address] [place] [address] Dr. Angelica Chauhan Globulin (S) [Mass/Vol] 3.8 g/dL Normal [facility] Comment on above: Performed By: #### MAG24 #### [facility] [address] [place] [address] Dr. Angelica Chauhan Glucose [Mass/Vol] 96 mg/dL Normal 74-[address] [facility] Comment on above: Performed By: #### MAG24 #### [facility] [address] [place] [address] Dr. Angelica Chauhan Potassium [Moles/Vol] 4.3 mmol/L Normal 3.5-5.[address] [facility] Comment on above: Performed By: #### MAG24 #### [facility] [address] [place] [address] Dr. Angelica Chauhan Protein [Mass/Vol] 7.6 g/dL Normal 6.4-8.[address] [facility] Comment on above: Performed By: #### MAG24 #### [facility] [address] [place], [place] [address] Dr. Angelica Chauhan Sodium [Moles/Vol] 140 mmol/L Normal 136-145 [facility] Comment on above: Performed By: #### MAG24 #### [facility] [address] [place], [place] [address] Dr. Angelica Chauhan Urea nitrogen [Mass/Vol] 19.0 mg/dL Critically high 7.0-18.0 [facility] Comment on above: Performed By: #### MAG24 #### [facility] [address] [place], [place] [address] Dr. Angelica Chauhan Urea nitrogen/Creatin ine [Mass ratio] 24.1 mg/mg Normal [facility] Comment on above: Performed By: #### MAG24 #### [facility] [address] [address] [address] Angelica Chauhan XR KUB 1 VIEWon [...] by: BILL BOYER Date: 2022-07-29 16:59 Normal [facility] XR KUB 1 VIEWon 09-25-2021 XR KUB [...] by: LUCINA CRAIN Date: 2021-09-25 07:35 Normal [facility] Covid-19 PCR (CVDTB)on 09-03 SARS-CoV-2 (COVID-19) RNA PAMELA+probe Ql (Unsp spec) Not detected Normal NOT DETECTED [facility] Comment on above: Result Comment: This test is not yet carlo roved or cleared by the [place] FDA. When there are no FDA-approved or cleared tests available, and other criteria are met, FDA can make tests available under an emergency access mechanism called an Emergency Use Authorization (EUA). The EUA for this test is supported by the [place] of Health and Human Service's (HHS's) declaration [...] SARS-CoV-2. Performed By: #### C ITRATU #### [facility] [address] [place] [address] Dr. Angelica Seaman 06-07-2018 CNOV Office Visit (RADTSA) JULIO FREEMAN ([id number]) 1950 MDate Time Provider Phgkkfktjw30/6/18 2:30 PM Penny BOSWELL During your visit today, we recorded the following information about you: Pulse Respiration Blood pressure Weight 73/minute 18/minute 127/84 75.9 kgG Nicholas Boswell MD 06/10/2018 9:22 AM SignedRadiation Oncology - Follow Up NotePATIENT NAME: Julio FreemanPATIENT : Prostate adenocarcinoma, clinical stage T Stage: T1c, initial PSA3.51, biopsy [place] score 3 + 4 = 7 (grade [...] improved.PSA HISTORY:PSA. (no units)Date Value03/31/2018 0.8504 0.6002/09/2016 0.9811 1.57 06/03/17 0.45ALLERGIESNo Known Allergiesaspirin, enteric [...] stage T Stage: T1c, initial PSA3.51, biopsy [place] score 3 + 4 = 7 (grade group 2)Overall doing well. PSA with stable response. He has continued follow-upwith urology.PLAN: We will see him again in one year with a PSA level.Signed by: Penny Boswell, [facility]:Regino aMrie MD[address] [id number]: [phone]: [phone] Weyer, RN, RN 06/07/2018 2:50 PM Alisa Cannon RNReferring Provider: Penny BOSWELL [[id number]]Allergies As of Date: 06/07/2018(No Known Allergies)Date Reviewed: 06/08/2017Reviewed by: Ashlee Jennings - Fully AssessedReason for Visit: Prostate Cancer [590]Primary Visit Diagnosis:Prostate cancer (HCC) [C61]Prescriptions as of 06/07/2018 Sig: ASPIRIN 81 MG TABLET,DELAYED * Take 81 mg by mouth. ROSUVASTATIN 20 MG TABLET Take 20 mg by mouth.Problem List As Of Date 06/07/2018 Noted Resolved Prostate cancer (HCC) [C61] INVALID FOR*Visit Notes:>> Vikki (Red) Kassandra, RED Tue Jun 07, 2018 2:19 PM Status: Alisa Cannon RNDisposition: Return in about 1 year (around 06/07/2019).Follow-up and Disposition History RecordedEncounter Number: [id number] Status:Closed by Penny BOSWELL MD on 06/10/18 [facility] PROGRESSon 06-07-2018 Protein mass conc HNO ID: [id number]: Penny Robervice: (none)Author Type: PhysicianType: Progress NotesFiled: 06/10/2018 9:22 AMNote Text:Radiation Oncology - Follow Up NotePATIENT NAME: Julio Michelle : Prostate adenocarcinoma, clinical stage T Stage: T1c, initialPSA 3.51, biopsy [place] score 3 + 4 = 7 (grade [...] to improved.PSA HISTORY:PSA. (no units)Date Value03/31/2018 0.8504 0.6002/09/2016 0.9811 1.57 06/03/17 0.45ALLERGIESNo Known Allergiesaspirin, enteric [...] with a PSA level.Signed by: Penny Boswell, [facility]:Regino Marie MD[address] [place] [address]Stlfs: [phone]: [phone] Normal [facility] Cardiovascular Lab Reporton 04-08-2018 Cardiovascular Lab Report [facility] Patient Name: Julio Freeman MR #: [id number] Physician: Monika Bowman M.D.Department of Service Date: 04/07/2018Medicine Birthdate: 1950Division of Room #[facility] CardiovascularJason Ville [id number] [place], [place] [address]Pbiqn Fax Cardiovascular Laboratory ReportPROCEDURE PERFORMED: LINQ implant.INDICATION: [...] well.R-waves are 0.16 mV.[employer] LINQ serial number [id number].CONCLUSION: Successful LINQ implant.Electronically Signed by:Monika Bowman M.D. 04/08/2018 03:51 P Monika Bowman M.D.Date Dict: 04/07/2018/03:11 P/Monika Bowman M.D.Date Trans: 04/08/2018 07:40 A/Kennedy_JN:[id number]: Regino Marie M.D. [address] [facility], [address] [facility] [address] Normal [facility] EVENT MONITORon 01-21-2018 EVENT MONITOR [address] [address] EVENT MONITORPATIENT NAME: JULIO FREEMAN : 1950MED REC NO: [id number] [id number] ADMIT DATE: 12/15/2017PROVIDER: Jaylen Hilton TYPE: EVENT [...] results01/21/2018 at 12:25 pm.JAYLEN MARCUSCLAYYD: 01/21/2018 12:48:08 KIERAN/YAZMINWSKIJoramona#: [id number] Doc#: UnknownCC: (Stacy Stewart Md) Normal [facility] Progress Noteon 12-29-2017 HIM IP Note 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 Coding Summaryon 12-20-2017 Coding Summary CODING DATE: [address] [facility] STATUS: Discharge/Transfer to Another Hospital [...] Parris Carson Date Saved: 12/20/2017 01:26 pm [facility] Coding Summary CODING DATE: [address] [facility] STATUS: Discharge/Transfer to Another Hospital [...] Parris Carson Date Saved: 12/20/2017 01:26 pm [facility] B12/Folate Panelon 8 Cobalamins (Vitamin B12) 473 pg/mL Normal 232-1245 [facility] Comment on above: Performed By: #### BMPX, LIPR, CDP, GLYH GB, B12FOL ####[address] [place] [address] Folic Acid 18.1 ng/mL Normal >4.8 [facility] Comment on above: Result Comment: [address] [address] Performed By: #### B MPX, LIPR, CDP, GLYHGB, B12FOL ####[address] [address] Basic Metab w/rfx MGon 12-16 (cont.) Normal [facility] Comment on above: Result Comment: Average GFR for 60-69 ye ars old: 85 mL/min/1.73sq mChronic Kidney Disease: <60 mL/min/1.73sq mKidney failure: <15 mL/min/1.73sq meGFR calculated using average adult body mass. Additional eGFR calculator available at:http://www.[employer]/multiple_crcl_2012.htm[address] [address] Performed By: #### B MPX, LIPR, CDP, GLYHGB, B12FOL ####[address] [address] Anion gap 10 mmol/L Normal -17 [facility] Comment on above: Performed By: #### BMPX, LIPR, CDP, GLYH GB, B12FOL ####[address] [address] Calcium 8.6 mg/dL Normal 8.6-10.4 [facility] Comment on above: Performed By: #### BMPX, LIPR, CDP, GLYH GB, B12FOL ####[facility] [place] [address] Chloride 107 mmol/L Normal 98-107 [facility] Comment on above: Performed By: #### BMPX, LIPR, CDP, GLYH GB, B12FOL ####[address] [place] [address] CO2 23 mmol/L Normal 20-31 [facility] Comment on above: Performed By: #### BMPX, LIPR, CDP, GLYH GB, B12FOL ####[address] [address] Creatinine 0.69 mg/dL Low 0.70-1.20 [facility] Comment on above: Performed By: #### BMPX, LIPR, CDP, GLYH GB, B12FOL ####[address] [address] eGFR (non-black) mL/min/{1.73_m2} Normal >60 [facility] Comment on above: Performed By: #### BMPX, LIPR, CDP, GLYH GB, B12FOL ####[address] [place] [address] Glucose mass conc 79 mg/dL Normal 70-99 [facility] Comment on above: Performed By: #### BMPX, LIPR, CDP, GLYH GB, B12FOL ####[address] [place] [address] Potassium molar conc 4.0 mmol/L Normal 3.7-5.3 [facility] Comment on above: Performed By: #### BMPX, LIPR, CDP, GLYH GB, B12FOL ####[address] [place] [address] Sodium 140 mmol/L Normal 135-144 [facility] Comment on above: Performed By: #### BMPX, LIPR, CDP, GLYH GB, B12FOL ####[address] [address] Urea nitrogen 13 mg/dL Normal 8- [facility] Comment on above: Performed By: #### BMPX, LIPR, CDP, GLYH GB, B12FOL ####[address] [address] BUN/CRE Ratio NOT REPORTED Normal - [facility] Comment on above: Performed By: #### BMPX, LIPR, CDP, GLYH GB, B12FOL ####[address] [address] Staging: NOT REPORTED Normal [facility] Comment on above: Performed By: #### BMPX, LIPR, CDP, GLYH GB, B12FOL ####[address] [address] CBC with Diffon 12-16-2017 Abs. Basophil 0.00 k/uL Normal 0.0-0.2 [facility] Comment on above: Performed By: #### BMPX, LIPR, CDP, GLYH GB, B12FOL ####[address] [address] Abs.Neutrophil (Seg) 3.87 k/uL Normal 1.8-7.7 [facility] Comment on above: Performed By: #### BMPX, LIPR, CDP, GLYH GB, B12FOL ####[address] [address] Basophils/100 WBC Auto (Bld) 0 % Normal 0-2 [facility] Comment on above: Performed By: #### BMPX, LIPR, CDP, GLYH GB, B12FOL ####[address] [address] Blood morphology Normal Normal [facility] Comment on above: Result Comment: [address] [place] [address] Performed By: #### B MPX, LIPR, CDP, GLYHGB, B12FOL ####[facility] [place] [address] Eosinophils 0.10 10*3/uL Normal 0.0-0.4 [facility] Comment on above: Performed By: #### BMPX, LIPR, CDP, GLYH GB, B12FOL ####[address] [address] Eosinophils/100 leukocytes 2 % Normal 1-4 [facility] Comment on above: Performed By: #### BMPX, LIPR, CDP, GLYH GB, B12FOL ####[address] [address] Granulocytes/100 WBC (Bld) 0.00 k/uL Normal 0.00-0.30 [facility] Comment on above: Performed By: #### BMPX, LIPR, CDP, GLYH GB, B12FOL ####[address] [address] Immature granulocytes #/vol (Bld) 0 % Normal 0 [facility] Comment on above: Performed By: #### BMPX, LIPR, CDP, GLYH GB, B12FOL ####[address] [address] Lymphocytes 0.59 10*3/uL Low 1.0-4.8 [facility] Comment on above: Performed By: #### BMPX, LIPR, CDP, GLYH GB, B12FOL ####[address] [address] Lymphocytes/100 leukocytes 12 % Low 24-44 [facility] Comment on above: Performed By: #### BMPX, LIPR, CDP, GLYH GB, B12FOL ####[address] [address] Monocytes 0.34 10*3/uL Normal 0.1-0.8 [facility] Comment on above: Performed By: #### BMPX, LIPR, CDP, GLYH GB, B12FOL ####[address] [address] Monocytes/100 leukocytes 7 % Normal 1-7 [facility] Comment on above: Performed By: #### BMPX, LIPR, CDP, GLYH GB, B12FOL ####[address] [address] Neutrophil (Seg) 79 % High 36-66 [facility] Comment on above: Performed By: #### BMPX, LIPR, CDP, GLYH GB, B12FOL ####[address] [address] Erythrocyte distribution width Auto Ratio (RBC) 12.3 % Normal 11.8-14.4 [facility] Comment on above: Performed By: #### BMPX, LIPR, CDP, GLYH GB, B12FOL ####[address] [address] Erythrocytes (RBC) 4.60 10*6/uL Normal 4.21-5.77 [facility] Comment on above: Performed By: #### BMPX, LIPR, CDP, GLYH GB, B12FOL ####[address] [address] Erythrocytes (RBC) 0.0 per 100 WBC Normal 0.0 [facility] Comment on above: Performed By: #### BMPX, LIPR, CDP, GLYH GB, B12FOL ####[address] [address] Hematocrit (HCT) 42.1 % Normal 40.7-50.3 [facility] Comment on above: Performed By: #### BMPX, LIPR, CDP, GLYH GB, B12FOL ####[address] [address] Hemoglobin mass conc (Bld) 14.1 g/dL Normal 13.0-17.0 [facility] Comment on above: Performed By: #### BMPX, LIPR, CDP, GLYH GB, B12FOL ####[address] [address] MCH 30.7 pg Normal 25.2-33.5 [facility] Comment on above: Performed By: #### BMPX, LIPR, CDP, GLYH GB, B12FOL ####[address] [address] MCHC mass conc (RBC) 33.5 g/dL Normal 28.4-34.8 [facility] Comment on above: Performed By: #### BMPX, LIPR, CDP, GLYH GB, B12FOL ####[address] [address] MCV 91.5 fL Normal 82.6-102.9 [facility] Comment on above: Performed By: #### BMPX, LIPR, CDP, GLYH GB, B12FOL ####[address] [address] Platelet mean volume (PMV) 10.0 fL Normal 8.1-13.5 [facility] Comment on above: Performed By: #### BMPX, LIPR, CDP, GLYH GB, B12FOL ####[address] [address] Platelets 173 10*3/uL Normal 138-453 [facility] Comment on above: Performed By: #### BMPX, LIPR, CDP, GLYH GB, B12FOL ####[address] [address] WBC (Leukocytes) 4.9 10*3/uL Normal 3.5-11.3 [facility] Comment on above: Performed By: #### BMPX, LIPR, CDP, GLYH GB, B12FOL ####[address] [address] Auto Diff Performed NOT REPORTED Normal [facility] Comment on above: Performed By: #### BMPX, LIPR, CDP, GLYH GB, B12FOL ####[address] [address] Erythrocyte morphology NOT REPORTED Normal [facility] Comment on above: Performed By: #### BMPX, LIPR, CDP, GLYH GB, B12FOL ####[address] [address] Platelets NOT REPORTED Normal [facility] Comment on above: Performed By: #### BMPX, LIPR, CDP, GLYH GB, B12FOL ####[address] [address] WBC Morphology NOT REPORTED Normal [facility] Comment on above: Performed By: #### BMPX, LIPR, CDP, GLYH GB, B12FOL ####[address] [address] Consulton 12-16-2017 HIM IP Note OR Database Management System Specialist Normal [facility] Hemoglobin A1Con 12-16-2017 Glucose mass conc 97 mg/dL Normal [facility] Comment on above: Result Comment: The ADA and AACC recomme nd providing the estimated average glucose result to permit better patient understanding of their HBA1c result.[address] [address] Performed By: #### B MPX, LIPR, CDP, GLYHGB, B12FOL ####[facility] [address] [place] [address] Hemoglobin A1c/Hemoglobin.t otal mass fraction (Bld) 5.0 % Normal 4.0-6.0 [facility] Comment on above: Performed By: #### BMPX, LIPR, CDP, GLYH GB, B12FOL ####[facility] [address] [place] [address] Lipid Profileon 12-16-2017 Cholesterol 203 mg/dL High <200 [facility] Comment on above: Result Comment: Cholesterol Guidelines: <200 Desirable 200-240 Borderline >240 Undesirable Performed By: #### B MPX, LIPR, CDP, GLYHGB, B12FOL ####[facility] [address] [place] [address] Cholesterol to HDL Ratio 5.3 {ratio} High <5 [facility] Comment on above: Performed By: #### BMPX, LIPR, CDP, GLYH GB, B12FOL ####[facility] [address] [place] [address] HDL Cholesterol 38 mg/dL Low >40 [facility] Comment on above: Result Comment: HDL Guidelines: <40 Unde sirable 40-59 Borderline >59 Desirable Performed By: #### B MPX, LIPR, CDP, GLYHGB, B12FOL ####[facility] [address] [place] [address] LDL Cholesterol 144 mg/dL High 0-130 [facility] Comment on above: Result Comment: LDL Guidelines: <100 Grayson irable 100-129 Near to/above Desirable 130-159 Borderline >159 UndesirableDirect (measured) LDL and calculated LDL are not interchangeable tests. Performed By: #### B MPX, LIPR, CDP, GLYHGB, B12FOL ####[facility] [address] [place] [address] Triglyceride 104 mg/dL Normal <150 [facility] Comment on above: Result Comment: Triglyceride Guidelines: <150 Desirable 150-199 Borderline 200-499 High >499 Very high Based on AHA Guidelines for fasting triglyceride, May 2012.[employer] [address] [place] [address] Performed By: #### B MPX, LIPR, CDP, GLYHGB, B12FOL ####[facility] [address] [place] [address] Cholesterol in VLDL mass conc NOT REPORTED Normal 08-31 [facility] Comment on above: Performed By: #### BMPX, LIPR, CDP, GLYH GB, B12FOL ####[employer] [address] [place] [address] MRI BRAIN WO CONTRASTon - MRI BRAIN WO CONTRAST EXAMINATION:MRI OF THE [...] - In Basket (authorizing provider)Final result Normal [facility] Plan of Careon 12-16-2017 HIM IP Note OR Database Management System Specialist Normal [facility] Progress Noteon 12-16-2017 HIM IP Note OR Database Management System Specialist Normal [facility] HIM IP Note OR Database Management System Specialist Normal [facility] HIM IP Note OR Database Management System Specialist Normal [facility] HIM IP Note OR Database Management System Specialist Normal [facility] Troponinon 12-16-2017 Troponin I.cardiac mass conc Normal [facility] Comment on above: Result Comment: Reference Range: <0.03 W ithin reference range. 0.03-0.09 Possible myocardial damage.Repeat at appropriate intervals to rule out chronic elevation. >= 0.10 Indicative of myocardial damage.Patients with high levels of Biotin oral intake (i.e >5mg/day) may have falsely decreased Troponin T levels. Samples collected within 8 hours of biotin intake may require additional information for diagnosis.[employer] [facility] [place] [address] Performed By: #### T SYED ####[address] [address] Troponin T.cardiac mass conc ug/L Normal <0.03 [facility] Comment on above: Result Comment: Troponin T results canno t be compared to Troponin-I results. Performed By: #### T SYED ####[place] [address] .Auto Diff 1on 12-15-2017 Auto Baso % 0.5 % Normal 0.2-2.0 [facility] Comment on above: Performed By: #### [id number], 2997005, 72861495, 6892999, 0809198, 1267397396, 7638547 ####[facility] (DEFAULT)[address] [place] [address] Auto Door % 9 % Normal 1-12 [facility] Comment on above: Performed By: #### [id number], 3436567, 02330110, 3380103, 5211026, 9486728408, 2764392 ####[facility] (DEFAULT)[address] [place] [address] Auto Neut % 74 % Normal 44-88 [facility] Comment on above: Performed By: #### [id number], 3655949, 95012063, 9114791, 6740564, 6820630296, 0083586 ####[facility] (DEFAULT)[address] [place] [address] Baso Abs# 0.0 x10 Normal 0.0-0.2 [facility] Comment on above: Performed By: #### [id number], 3289668, 61943580, 0395898, 8279914, 3506361402, 7397680 ####[facility] (DEFAULT)[address] [place] [address] Eos Abs# 0.1 x10 Normal 0.0-0.4 [facility] Comment on above: Performed By: #### [id number], 2134442, 51877961, 1121267, 2172393, 7662883597, 9580861 ####[facility] (DEFAULT)[address] [place] [address] Eosinophils/100 leukocytes 2.1 % Normal 0.9-4.0 [facility] Comment on above: Performed By: #### [id number], 0830012, 94411150, 5855504, 0930997, 6010671274, 8219404 ####[facility] (DEFAULT)[address] [place] [address] Lymphocytes 0.6 x10 Low 1.3-2.9 [facility] Comment on above: Performed By: #### [id number], 5695886, 60570709, 7473310, 7811273, 8216752261, 7885955 ####[facility] (DEFAULT)[address] [place] [address] Lymphocytes/100 leukocytes 14 % Normal 14-48 [facility] Comment on above: Performed By: #### [id number], 7163729, 11065955, 7775821, 2877674, 1794005183, 6149137 ####[facility] (DEFAULT)[address] [place] [address] Door Abs# 0.4 x10 Normal 0.0-0.8 [facility] Comment on above: Performed By: #### 0000744594, 0987576, 84791367, 5965284, 3251021, 6284465846, 9449576 ####[facility] (DEFAULT)[address] [place] [address] Neut Abs# 3.1 x10 Normal 1.5-9.2 [facility] Comment on above: Performed By: #### [id number], 6685992, 50186316, 7696816, 8186660, 5259437605, 2051706 ####[facility] (DEFAULT)[address] [place] [address] CBC w/ Auto Diffon 8 Erythrocyte distribution width Auto Ratio (RBC) 12.7 % Normal 11.5-15.0 [facility] Comment on above: Performed By: #### [id number], 2289658, 77308672, 3327723, 9494209, 8903004534, 1613460 ####[facility] (DEFAULT)[address] [place] [address] Erythrocytes (RBC) 4.58 x10 Normal 3.70-5.30 [facility] Comment on above: Performed By: #### [id number], 2532405, 95402398, 4431711, 6366284, 3067842041, 2385011 ####[facility] (DEFAULT)[address] [place] [address] Hematocrit (HCT) 40.8 % Normal 34.8-51.9 [facility] Comment on above: Performed By: #### 1606344586, 0987989, 28419134, 1640939, 1924999, 5879656607, 5245235 ####[facility] (DEFAULT)[address] [place] [address] Hemoglobin mass conc (Bld) 14.4 g/dL Normal 11.8-17.7 [facility] Comment on above: Performed By: #### [id number], 2971749, 75422322, 3085459, 2600478, 7007616465, 7033676 ####[facility] (DEFAULT)[address] [place] [address] Man Diff? Auto Normal [facility] Comment on above: Performed By: #### [id number], 8313048, 43054510, 7981040, 8207238, 1008375715, 1906705 ####[facility] (DEFAULT)[address] [place] [address] MCH 31 pg Normal 24-34 [facility] Comment on above: Performed By: #### [id number], 8926499, 44905826, 7169997, 4890507, 4807347196, 6042754 ####[facility] (DEFAULT)[address] [place] [address] MCHC mass conc (RBC) 35 g/dL Normal 26-37 [facility] Comment on above: Performed By: #### [id number], 6077209, 51648465, 1972741, 7839399, 1897274786, 2513375 ####[facility] (DEFAULT)[address] [place] [address] MCV 89 fL Normal 81-100 [facility] Comment on above: Performed By: #### [id number], 3322562, 81619004, 7285681, 5067996, 1895864451, 3325483 ####[facility] (DEFAULT)[address] [place] [address] Platelet mean volume (PMV) 9.4 fL Normal 6.3-10.2 [facility] Comment on above: Performed By: #### 4694465120, 1682947, 96515023, 2568152, 4163482, 0971189911, 9597472 ####[facility] (DEFAULT)[address] [place] [address] Platelets 167 x10 Normal 138-427 [facility] Comment on above: Performed By: #### [id number], 9101605, 92000346, 8930141, 1625809, 2964903491, 9594985 ####[facility] (DEFAULT)[address] [place] [address] WBC (Leukocytes) 4.2 x10 Normal 3.5-10.5 [facility] Comment on above: Performed By: #### 1211145526, 1569673, 02207480, 4781449, 3307045, 4615425499, 9968901 ####[facility] (DEFAULT)[address] [place] [address] [facility] Standardon 12-15-2017 eGFR (non-black) mL/min/{1.73_m2} Invalid Interpretation Code [facility] Comment on above: Performed By: #### [id number], 1067050, 23236650, 4548628, 3651468, 0673457186, 1666317 ####[facility] (DEFAULT)[address] [place] [address] eGFR (non-black) mL/min/{1.73_m2} Invalid Interpretation Code [facility] Comment on above: Result Comment: Chronic Kidney disease c ould be indicated at eGFRs of less than 60 ml/min/1.73m2. Kidney Failure is indicated at less than 15 ml/min/1.73m2 Performed By: #### 1 [id number], 4198281, 53232829, 3656457, 2795530, 2587678324, 8594689 ####[facility] (DEFAULT)[address] [place] [address] Albumin 4.1 g/dL Normal 3.5-5.0 [facility] Comment on above: Performed By: #### [id number], 6299654, 88893376, 7454350, 1321360, 1748555212, 7615597 ####[facility] (DEFAULT)[address] [place] [address] Albumin/Globulin Ratio 1.4 {ratio} Normal 1.4-2.6 [facility] Comment on above: Performed By: #### [id number], 2841473, 96229719, 8193112, 2771159, 6929643265, 1101791 ####[facility] (DEFAULT)[address] [place] [address] Alk Phos 64 IU/L Normal 32-91 [facility] Comment on above: Performed By: #### [id number], 0452384, 87283105, 5410922, 5108084, 7212919164, 4521633 ####[facility] (DEFAULT)[address] [place] [address] ALT/SGPT 21.0 IU/L Normal 17.0-63.0 [facility] Comment on above: Performed By: #### [id number], 4492703, 41278889, 7159966, 2652640, 6520212069, 8986172 ####[facility] (DEFAULT)[address] [place] [address] Anion gap 11.0 mmol/L Normal 5.0-19.0 [facility] Comment on above: Performed By: #### [id number], 2010053, 76464063, 4183971, 3397298, 5350959700, 7716813 ####[facility] (DEFAULT)[address] [place] [address] AST/SGOT 21 IU/L Normal 15-41 [facility] Comment on above: Performed By: #### [id number], 7547497, 18927848, 3744607, 2671267, 1838347569, 9151896 ####[facility] (DEFAULT)[address] [place] [address] Bili Total 0.9 mg/dL Normal 0.3-1.2 [facility] Comment on above: Performed By: #### [id number], 0582492, 83607212, 7166467, 9259891, 3076053189, 2805606 ####[facility] (DEFAULT)[address] [place] [address] BUN/Creatinine Ratio 28.0 mg/mg High 4.6-16.2 [facility] Comment on above: Performed By: #### [id number], 4794607, 76059499, 0275984, 3824202, 9212740430, 2815911 ####[facility] (DEFAULT)[address] [place] [address] Calcium 9.0 mg/dL Normal 8.9-10.3 [facility] Comment on above: Performed By: #### [id number], 5112063, 77180974, 4749603, 4832536, 1547430925, 0612280 ####[facility] (DEFAULT)[address] [place] [address] 56687 Chloride 105 mmol/L Normal 101-111 [facility] Comment on above: Performed By: #### [id number], [id number], [id number], 5024534, 5295321, [id number], 0991933 ####[facility] (DEFAULT)[address] [place] [address] 03661 CO2 24 mmol/L Normal 21-32 [facility] Comment on above: Performed By: #### [id number], [id number], [id number], 0876904, 7109463, [id number], 8725331 ####[facility] (DEFAULT)[address] [place] [address] 81738 Creatinine 0.61 mg/dL Low 0.90-1.30 [facility] Comment on above: Performed By: #### [id number], [id number], 94225684, 8346008, 1872515, [id number], 1058560 ####[facility] (DEFAULT)[address] [place] [address] 55487 Globulin 2.9 g/dL Normal 1.5-4.3 [facility] Comment on above: Performed By: #### [id number], [id number], 57946380, 2112762, 4355669, [id number], 1925730 ####[facility] (DEFAULT)[address] [place] [address] 70642 Glucose mass conc 97.0 mg/dL Normal 74.0-118.0 [facility] Comment on above: Performed By: #### [id number], [id number], 34312807, 9637840, 1744076, [id number], 5969974 ####[facility] (DEFAULT)[address] [place] [address] 43895 Osmolality 273 mOsm/L Invalid Interpretation Code [facility] Comment on above: Performed By: #### [id number], 4875597, 80002874, 4193972, 2771990, [id number], 2336115 ####[facility] (DEFAULT)[address] [place] [address] 87954 Potassium molar conc 3.5 mmol/L Low 3.6-5.1 [facility] Comment on above: Performed By: #### [id number], 1981764, 96562215, 8831950, 9448492, [id number], 6119014 ####[facility] (DEFAULT)[address] [place] [address] 61422 Protein 7.0 g/dL Normal 6.5-8.1 [facility] Comment on above: Performed By: #### [id number], 2175726, 51429984, 2477631, 0651427, [id number], 5071005 ####[facility] (DEFAULT)[address] [place] [address] 41147 Sodium 136.0 mmol/L Normal 136.0-144. 0 [facility] Comment on above: Performed By: #### [id number], 4664598, 14460042, 1759231, 0339996, [id number], 7820330 ####[facility] (DEFAULT)[address] [place] [address] 03463 Urea nitrogen 17 mg/dL Normal 8-26 [facility] Comment on above: Performed By: #### [id number], 9884170, 28725455, 7390048, 9588954, [id number], 7535138 ####[facility] (DEFAULT)[address] [place] [address] Head or Brain w/o Contras ton [...] TO DEMONSTRATE EVIDENCE OF ACUTE BLEED ORFOCAL MASS.JOAQUÍN Singh #: [id number]: 12/15/2017T: 12/15/2017 Final Dictated by: Narinder Burton MD SDictated DT/TM: 12/15/17 2:14Signed (Electronic Signature): Narinder Burton MD S 12/15/17 2:52 pmTechnologist: LASHAE VARELA Normal [facility] Consulton 12-15-2017 HIM IP Note OR Database Management System Specialist Normal [facility] ED Clinical Summaryon 2017 ED Clinical Summary [facility] - Emergency [address] [place], [place] [id number] ed Clinical SummaryPERSON INFORMATIONName: JULIO FREEMAN Age: 67 Years Sex: MALEDOB: [birth year] MRN: Acct#:Visit Reason: General medical; SLURRED SPEECH Arrival: 12/15/17 13:06:00 Discharge: 12/15/17 15:42:00LOS: 000 02:36 Check In: 12/15/17 13:06:00 Checkout:12/15/17 15:42:00Address:[address] [address]S[facility]: JORGE MARIE INFORMATIONProvider Role Assigned UnassignedSven Douglas [...] Complaint from Nursing Triage Note : Chief Yrhbubscr57/16/18 13:10 EDT Chief Complaint Pt and say [...] HI SpO2 99 % Oxygen Therapy Room air.Upvkiesncrir26/16/18 13:21 EDT Weight Dosing 72.570 kg12/15/17 13:21 [...] Berg from the neuro interventional services at [facility] he was made aware of the patient's diagnostic results, as well as NIH score. He suggested that the patient should go through the emergency room at [facility] for further evaluation. I did inform the patient regarding our desired to have further diagnostic testing. The patient voiced understanding. The patient was insistent on driving. He did sign a request for refusal of transport. I did speak with Dr. Duque in the emergency room at [facility] and she accepted the patient.Impression and PlanDiagnosisTIA (transient ischemic attack) ([id number] G45.9, Discharge, Medical)PlanCondition: Improved.Disposition: Transfer to other location: Time: 12/15/17 15:22:00, time deemed necessary for transfer: 1400, Facility name: [facility] , Accepted by: Neto .DISCHARGE INFORMATION:Discharge Disposition: Discharge[facility] Location[facility] ([place]PATIENT EDUCATION INFORMATIONInstructions:Follow-Up :DIAGNOSIS:TIA (transient ischemic attack)Patient Understands: Yes - Patient/family/caregiver verbalizes understanding of instructions givenComment: [facility] ED Noteon 12-15-2017 HIM IP Note OR Database Management System Specialist [facility] HIM IP Note OR Database Management System Specialist [facility] HIM IP Note OR Database Management System Specialist [facility] HIM IP Note OR Database Management System Specialist [facility] HIM IP Note OR Database Management System Specialist [facility] HIM IP Note OR Database Management System Specialist [facility] HIM IP Note OR Database Management System Specialist Normal [facility] ED Note - Physicianon 2017 ED Note - Physician Patient: JULIO FREEMAN : 67 years Sex: MALE : 49Associated Diagnoses: TIA (transient ischemic attack)Author: Sven Douglas InformationTime seen: Date & time 12/15/17 13:26:00.History source: Patient, significant other.Arrival mode: Private vehicle.History limitation: None.Additional information: Chief Complaint from Nursing Triage Note : Chief Gnqrknlgn43/16/18 13:10 EDT Chief Complaint Pt and say [...] HI SpO2 99 % Oxygen Therapy Room air.Wudkbjoatzuc13/16/18 13:21 EDT Weight Dosing 72.570 kg12/15/17 13:21 [...] Berg from the neuro interventional services at [facility] he was made aware of the patient's diagnostic results, as well as NIH score. He suggested that the patient should go through the emergency room at [facility] for further evaluation. I did inform the patient regarding our desired to have further diagnostic testing. The patient voiced understanding. The patient was insistent on driving. He did sign a request for refusal of transport. I did speak with Dr. Duque in the emergency room at [facility] and she accepted the patient.Impression and PlanDiagnosisTIA (transient ischemic attack) ([id number] G45.9, Discharge, Medical)PlanCondition: Improved.Disposition: Transfer to other location: Time: 12/15/17 15:22:00, time deemed necessary for transfer: 1400, Facility name: [facility] , Accepted by: Neto .[Electronically Signed on: 12/15/2017 16:18 EDT] Sven Douglas MD[Verified on: 12/15/2017 16:18 EDT] Sven Douglas MD [facility] ED Patient Education Noteon 12-15-2017 ED Patient Education Note Education Materials [facility] ED Patient Summaryon 018 ED Patient Summary [facility] - Emergency [address] [place] [address] pATIENT DISCHARGE INSTRUCTIONSPatient InformationName: JULIO FREEMAN Age: 67 YearsDate of : [birth year]MRN: [id number] Visit: General medical; SLURRED SPEECHArrival Time: 12/15/17 13:06:00Phone: [facility] [place] Care Physician: Yenifer MARIE Physician: Sven Douglas RComment:Visit Diagnosis:Diagnoses This Visit General medical ([id number]) TIA (transient ischemic attack) (G45.9)If you [...] and treatment you received today in the [facility] Emergency Department were for an urgent problem and are not intended as complete care. It is important for you to follow up with a doctor, nurse practitioner, or physician?s nursing home assistant for ongoing care. If your symptoms [...] number so we can reach you if necessary.[facility] Emergency Department has provided you with a complete list of medications post discharge. Please inform your typing checker/provider of your visit and for further instruction [...] Disease Control and Prevention April 2014 Normal [facility] ED Provider Noteon 8 HIM IP Note OR Database Management System Specialist Normal [facility] Extra Redon 12-15-2017 Tube Collected Yes Invalid Interpretation Code [facility] Comment on above: Performed By: #### [id number], [id number], 97985785, 7934341, 9192001, [id number], 3252945 ####[facility] (DEFAULT)[address] [place] [address] 43901 History and Physicalon 12-15 HIM IP Note OR Database Management System Specialist Normal [facility] PTon 12-15-2017 INR Coag RelTime (PPP) 1.00 {INR} Normal 0.91-1.11 [facility] Comment on above: Performed By: #### [id number], 0268329, 69035379, 4164760, 2698119, [id number], 5564723 ####[facility] (DEFAULT)[address] [place] [address] 68688 Prothrombin time (PT) Coag time (PPP) 10.4 second(s) Normal 9.7-11.8 [facility] Comment on above: Performed By: #### [id number], 9480555, 85817315, 5680217, 4184354, [id number], 9819143 ####[facility] (DEFAULT)[address] [place] [address] 10105 PTTon 12-15-2017 aPTT 28 second(s) Normal 25-35 [facility] Comment on above: Performed By: #### [id number], 2046028, 90530287, 0640285, 8220944, [id number], 4816092 ####[facility] (DEFAULT)[address] [place] [address] 77961 Procedureon 12-15-2017 HIM IP Note OR Database Management System Specialist Normal [facility] Progress Noteon 12-15-2017 HIM IP Note OR Database Management System Specialist Normal [facility] HIM IP Note OR Database Management System Specialist Normal [facility] Rad - Other Radiology Report on 12-15-2017 Rad - Other Radiology Report [id number]#1.00OTGTIFF Normal [facility] TSH w/reflex to FT4on 2017 Thyroid stimulating hormone (TSH) 3.93 m[IU]/L Normal 0.30-5.00 [facility] Comment on above: Result Comment: [employer] [address] [place] [address] Performed By: #### T SYED, TSHX ####[facility] [place] [address] Telemetry Stripson 8 Telemetry Strips [id number]#1.00OTGTIFF [facility] Telemetry Strips [id number]#1.00[facility] Transfer Noteon 12-15-2017 Transfer Note Called [facility] for Neuro at 1424. called at 1434 and spoke with .Pt will be going to [facility] ER, spoke with , accepted.Patient is going by private car. Pt left at 1542, pt is riding with family.Chart and Cd was sent with pt.Pt had no known home meds.Pt did request to go to [facility] at first.I called for the Hospitalist at 1429.Srinivas the nursing account supervisor called at 1440 and said the hospitalist will only accept if Neuro is consulted first.I put out a page for Dr.Danner Feng at 1500.[facility] Neuro did not call back, so transfered pt to [facility] ER.[Electronically Signed on: 12/15/2017 15:55 EDT] Vidhi Nixy[Verified on: 12/15/2017 15:55 EDT] [facility] Troponinon 12-15-2017 Troponin I.cardiac mass conc Normal [facility] Comment on above: Result Comment: Reference Range: <0.03 W ithin reference range. 0.03-0.09 Possible myocardial damage.Repeat at appropriate intervals to rule out chronic elevation. >= 0.10 Indicative of myocardial damage.Patients with high levels of Biotin oral intake (i.e >5mg/day) may have falsely decreased Troponin T levels. Samples collected within 8 hours of biotin intake may require additional information for diagnosis.[employer] [address] [place], [place] [id number] ([phone] Performed By: #### T SYED TSHX ####[employer] [address] [place], [place] [address] Troponin T.cardiac mass conc ug/L Normal <0.03 [facility] Comment on above: Result Comment: Troponin T results canno t be compared to Troponin-I results. Performed By: #### T SYED TSHX ####[employer] [place], [place] [address] Troponin Ion 12-15-2017 Troponin I.cardiac mass conc ng/mL Normal <=0.03 [facility] Comment on above: Performed By: #### [id number], [id number], 83668067, 6667875, 7903839, [id number], 6698054 ####[facility] (DEFAULT)[address] [place] [address] PROGRESSon 12-10-2017 Protein mass conc HNO ID: [id number]: Penny Boswellervice: (none)Author Type: PhysicianType: Progress NotesFiled: 12/10/2017 8:41 AMNote Text:Radiation Oncology - Follow Up NotePATIENT NAME: Julio FreemanPATIENT : Prostate adenocarcinoma, clinical stage T Stage: T1c, initialPSA 3.51, biopsy [place] score 3 + 4 = 7 (grade [...] with a PSA level.Signed by: Penny Boswell, [facility]:Regino Marie MD[address] [facility] [place] [address]Gypzu: [phone]: [phone] Normal [facility] CNOVon 12-07-2017 CNOV Office Visit (RADTSA) JULIO FREEMAN ([id number]) 1950 MDate Time Provider Department12/07/17 2:30 PM [...] stage T Stage: T1c, initial PSA3.51, biopsy [place] score 3 + 4 = 7 (grade group 2)Overall doing well. PSA with stable response. He has continued follow-upwith urology.PLAN: We will see him again in 6 months with a PSA level.Signed by: Penny Boswell, [facility]:Regino Marie MD[address] [place] [address]Jxhdr: [phone]: [phone] Provider: Penny BOSWELL [[id number]]Allergies As of Date: 12/07/2017(No Known Allergies)Date Reviewed: 06/08/2017Reviewed by: Ashlee Jennings - Fully AssessedReason for Visit: Prostate Cancer [590]Primary Visit Diagnosis:Prostate cancer (HCC) [C61]Order(s):PSA/PROSTSPECAG DIAG [SQPSA] Order #: [id number] FUTUREProblem List As Of Date 12/07/2017 Noted Resolved Prostate cancer (HCC) [C61] INVALID FOR*Visit Notes:>> Vikki Cannon (Rn), RN Tue December 07, 2017 2:30 PM Status: Alisa 7Avj Cannon RNMedications Discontinued During This Encounter tamsulosin ER (FLOMAX) 0.4 mg cp24 05/18/2016 12/07/2017 Class: Historical Med Sig: Disc: Course of therapy completedDisposition: Return in about 6 months (around 06/09/2018).Follow-up and Disposition History RecordedEncounter Number: [id number] Status:Closed by Penny BOSWELL MD on 12/10/17 Normal [facility] Vital Signs Date Time Vital Sign Value Performing Clinician Faci lity 08-21-2024 09:13-0500 Blood Pressure Location Aline TENA [facility] 08-21-2024 09:13-0500 Body temperature 98.6 [degF] Aline TENA [facility] 08-21-2024 09:13-0500 Diastolic blood pressure 79 mm[Hg] Aline TENA [facility] 08-21-2024 09:13-0500 Heart rate 69 /min Aline TENA [facility] 08-21-2024 09:13-0500 Respiratory rate 17 /min Aline TENA [facility] 08-21-2024 09:13-0500 Systolic blood pressure 131 mm[Hg] Aline TENA [facility] 08-23-2023 08:58-0500 Blood Pressure Location Aline TENA [facility] 08-23-2023 08:58-0500 Diastolic blood pressure 81 mm[Hg] Aline TENA [facility] 08-23-2023 08:58-0500 Heart rate 72 /min Aline TENA [facility] 08-23-2023 08:58-0500 Respiratory rate 16 /min Aline TENA [facility] 08-23-2023 08:58-0500 Systolic blood pressure 131 mm[Hg] Aline TENA [facility] 08-24-2022 09:11-0500 Blood Pressure Location Aline TENA [facility] 08-24-2022 09:11-0500 Diastolic blood pressure 84 mm[Hg] Aline TENA [facility] 08-24-2022 09:11-0500 Heart rate 67 /min Aline TENA [facility] 08-24-2022 09:11-0500 Respiratory rate 16 /min Aline TENA [facility] 08-24-2022 09:11-0500 Systolic blood pressure 140 mm[Hg] Aline TENA [facility] Encounters Encounter Date Encounter Type Care Provider Facility Start: 09-14-2024 End: 09-14-2024 ambulatory Aline TENA Facility:CD:[id number] Start: 08-21-2024 End: 08-21-2024 ambulatory Aline TENA Facility:[facility] Start: 08-21-2024 End: 08-21-2024 Patient encounter procedure Aline TENA [facility] Start: 08-23-2023 End: 08-23-2023 Patient encounter procedure Aline TENA [facility] Start: 08-31-2022 End: 09-01-[address] ALINE TENA Facility:[facility] Start: 08-24-2022 End: 08-24-2022 Patient encounter procedure Aline TENA [facility] Start: 07-29-2022 End: 07-30-[address] ALINE TENA Facility:[facility] Start: 09-25-2021 End: 09-25-[address] ALINE TENA Facility:[facility] Start: 09-23-2021 Encounter for preprocedural laboratory examination DR ALINE TENA [facility] Start: 09-22-2021 End: 09-23-[address] ALINE TENA Facility:[facility] Start: 09-22-2021 End: 09-23-2021 Encounter for preprocedural laboratory examination DR ALINE TENA Facility:[facility] Start: 06-07-2018 End: 06-10-2018 Patient encounter procedure G NICHOLAS BOSWELL [facility] Start: 04-07-2018 End: 04-08-2018 Patient encounter MONIKA BOWMAN Facility:[facility] Start: 03-14-2018 End: 03-15-2018 Patient encounter DEFAULT PHYSICIAN Facility:[facility] Start: 12-15-2017 End: 12-15-2017 Emergency department patient visit REGINO MARIE Facility:[facility] Start: 12-15-2017 End: 12-16-2017 Ambulatory Tristin Penaloza Facility:[facility] Start: 12-07-2017 End: 12-13-2017 Patient encounter procedure G NICHOLAS BOSWELL [facility] Procedures Date Procedure Procedure Detail Performing Clinician Start: 07-29-[address] ARCHANA TENA Comment on above: Performed By: #### C ITRATU #### [facility] [address] [place] [address] Dr. Angelica Chauhan Start: 09-25-2021 Extracorporeal shock [...] REGINO MARIE Start: 12-15-2017 IP CONSULT TO SPORTS PHYSIOTHERAPIST AL MEDICINE REGINO MARIE Start: 12-15-2017 IP [...] Immunization Date Immunization Notes Care Provider Fa cilichetan 07-17-2021 SARS-CoV-2 (COVID-19 ) mRNA BNT-162b2 vax Aline TENA [facility] Comment on above: Result Comment: 2022: TPV70 09-28-2020 SARS-CoV-2 (COVID-19 ) mRNA BNT-162b2 vax Aline TENA [facility] Comment on above: Result Comment: 2022: TPV70 09-07-2020 SARS-CoV-2 (COVID-19 ) mRNA BNT-162b2 vax Aline TENA [facility] Comment on above: Result Comment: 2022: TPV70 08-02-2020 SARS-CoV-2 (COVID-19 ) mRNA BNT-162d3 vax Aline TENA [facility] Comment on above: Result Comment: Pt s sahara he has had 3 shots to date 07-07-2019 influenza virus vaccine, unspecified formulation Aline TENA [facility] 07-07-2019 pneumococcal conjuga te vaccine, 13 valent Aline TENA [facility] 08-03-2017 influenza virus vaccine, unspecified formulation Aline TENA [facility] 06-10-2016 influenza virus vaccine, unspecified formulation Aline TENA [facility] NEGATED: Highlighted row has not occurred!08-26-2020 influenza virus vaccine, unspecified formulation [facility] Payers Date Payer Category Payer Private Health Insurance [id number] 2014 Medicare [id number] 1960 Medicare [id number] 1959 Private Health Insurance CLI [id number] 1950 Unknown [id number] 2.16.84 [id number] 1950 Unknown [id number] 2.16.84 [id number] 1950 Unknown [id number] 2.16.84 [id number] 1950 Unknown [id number] 2.16.84 [id number] 1950 Unknown [id number] 2.16.84 [id number] 1950 Unknown [id number] 2.16.8 [id number] 1950 Unknown [id number] 2.16.8 [id number] Unknown Social History Date Type Detail Facility Start: 08-24-2022 End: 08-21-2024 Tobacco smoking status Never smoked tobacco (finding) [facility] Tobacco smoking status Never [facility] Sex Assigned At Male [facility] Functional Status Date Assessment Result Facility 08-21-2024 Functional Status N/A [facility] 08-23-2023 Functional Status N/A [facility] 08-24-2022 Functional Status N/A [facility] Hospital Discharge instructions 08-21-2024 Note Date & Type Note Facility 08-21-2024 Hospital Discharg e instructions Patient Education 08/21/2024 10:04:35 Kidney Stones, Idta-nv-Wypq Kidney Stones Kidney stones are rock-like masses [...] Follow these instructions at home: Medicines Take ncub-bst-brkjuuw and prescription medicines only as told by [...] Kidney Foundation (NKF): kidney.org [facility] (UCF): urologyhealth.org Contact a doctor if: You have [...] provider. Document Revised: 03/12/2023 Document Reviewed: 03/12/2023 [employer] Patient Education 2023 [employer]. Follow Up Care 08/23/2023 09:41:41 With:EMILY BRUCE, Aline Miller, URL Address: [facility] [address] , [place] [phone] When: Unknown Comments:f/u pending CT scan results [facility] Clinical Note 08-21-2024 Note Date & [...] these instructions at home: Medicines ??? Take fegx-esw-tfkcrdt and prescription medicines only as told by [...] Reviewed: 03/12/2023 Elsevier Patient Education ? 2023 [employer] [facility] Hospital Discharge instructions 08-23-2023 Note Date [...] include: ?8 oz (237 mL) of milk, riifeeu-dundexdnqrpz-jtkwi milk, and calcium-fortifiedfruit juice. Calcium-fortified means that [...] ?Spinach (cooked), rhubarb, beets, sweet potatoes, and Stateless chard. ?Peanuts. ?Potato chips, djiboutian fries, and baked potatoes with skin on. ?Nuts and nut products. ?Chocolate. If you regularly take a diuretic medicine, make sure to eat at least 1 or 2 servings of fruits or vegetables that are high in potassium each day. These include: ?Avocado. ?Banana. ?[place], prune, carrot, or tomato juice. ?Baked potato. [...] magnesium, fish oil, or vitamin B6. Take qikd-ndx-dzymykn and prescription medicines only as told by [...] Casseroles. Pizza. Lasagna. Frozen meals. Potato chips. Libyan fries. The items listed above may not [...] provider. Document Revised: 10/29/2022 Document Reviewed: 10/29/2022 [employer] Patient Education 2022 [employer]. Follow Up Care 08/24/2022 09:47:59 With:EMILY BRUCE, Aline Miller, URL Address: [facility] [address], [place] [address]- When:Within 1 Year(s) Comments:w/CYNTHIA and FERMÍN [facility] Hospital Discharge instructions 08-24-2022 Note Date & [...] include: ?Spinach. ?Rhubarb. ?Beets. ?Potato chips and djiboutian fries. ?Nuts. If you regularly take a diuretic medicine, make sure to eat at least 1 2 fruits or vegetables high in potassium each day. These include: ?Avocado. ?Banana. ?[place], prune, carrot, or tomato juice. ?Baked potato. [...] Casseroles. Pizza. Lasagna. Frozen meals. Potato chips. Libyan fries. Summary You can reduce your risk [...] 11/13/2011 Document Revised: 11/08/2019 Document Reviewed: 06/29/2017 [employer] Patient Education 2019 [employer]. Follow Up Care 08/22/2021 08:41:01 With:EMILY BRUCE, Aline Miller, URL Address: [facility] [address], [place] [address]- When: Unknown [facility] [place] Evaluation + Plan note Note Date & Type Note Facility Evaluation + Plan note Future Appointments Appointment Date:11/23/2022 08:45:00 AM Scheduled Provider:Aline TENA MD Location:[facility] Appointment Type:URO Office Visit Appointment Date:08/23/2023 08:45:00 AM Scheduled Provider:Aline TENA MD Location[facility] Appointment Type:URO Office Visit Diagnostic Tests PendingPSA Total 08/24/22 [facility] [place] Evaluation + Plan note Note Date & Type Note Facility Evaluation + Plan note Future Appointments Appointment Date:08/21/2024 08:45:00 AM Scheduled Provider:Aline TENA MD Location:[facility] Appointment Type:URO Office Visit Diagnostic Tests PendingPSA Total 08/23/[address] [facility] [address] [facility] Hospital course Narrative Note Date & Type Note Facility Hospital course Narrative No data available for this section [facility] [place] Progress note Note Date & Type Note Facility Progress note No data available for this section [facility] [place] Summary Purpose Family History No Family History [...] 01/19/2018 [facility] DATE CREATED AUTHOR AUTHOR'S ORGANIZ ATION 01/22/2018 [facility] DATE CREATED AUTHOR AUTHOR'S ORGANIZ ATION 04/24/2018 [facility] DATE CREATED AUTHOR AUTHOR'S ORGANIZ ATION 07/10/2018 [facility] DATE CREATED AUTHOR AUTHOR'S ORGANIZ ATION 09/08/2022 [facility] DATE CREATED AUTHOR AUTHOR'S ORGANIZ ATION 09/29/2024 [facility] Patient Care team informatio n (unrecognized section and content) Personnel Name: REGINO MARIE MD Address: Address: [address] [place] [address] Personnel Name: TARI AGUIRRE CNP Address: Address: [address] [place] [address] Personnel Name: TARI AGUIRRE CNP Address: Address: [address] [place] [address] FOR RECORDS PERTAINING TO PATIENTS WHO ARE [...] BE BASED ON THE PRIMARY CLINICAL RECORDS. [facility] [employer] provides no warranty or guarantee of the accuracy or completeness of information in this document.
== END 2024-10-17 14:08 | disposition home or self-care (01) ==
LOC: RAD 14:10
PROVIDERS: PCP Nurse Practitioner Family; Visit Provider Nurse Practitioner Family
DX: M25.562 Pain in left knee (principal); Q74.1 Congenital malformation of knee
CPT/HCPCS: 73562

== ENCOUNTER 2024-10-31 08:39 | Outpatient (OUT) | payer MEDICARE, SELFPAY ==
--- NOTE | 2024-10-31 09:00 | XR_ITS ---
[facility] [place] [id number] Patient Name: EVELYN CHESTER MRN: [id number] date: 1950 Sex: M Assigned Patient Location: LAB Current Patient Location: LAB Accession/Order Number: [id number] Exam Date: 10/31/2024 09:22 Report Date: 10/31/2024 09:24 At the request of: ALINE DIAZ MD Procedure: XR abdomen 1V SINGLE VIEW ABDOMEN COMPARISON: 09/14/2024 CLINICAL DATA: Follow-up kidney stones. Lithotripsy one month ago. Supine view of the abdomen and pelvis was obtained. There is air and stool within the colon, greater on the right. There is also minimal small bowel air. No soft tissue masses are seen. The right kidney is obscured. No obvious radiopaque renal or ureteral stones are currently identified. There are degenerative changes at the spine. XR/XR abdomen 1V IMPRESSION: NO RADIOPAQUE STONES. Impression dictated by: Perri Tijerina M.D.10/31/2024 9:24 AM Dictation Location: [place] [address] Electronically authenticated by: [id number] Y Date: 10/31/2024 09:24
--- OUTSIDE RECORDS SUMMARY | 2024-10-31 09:01 | XMS_ITS | CCD ---
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 Sales Consultant Name Role Phone REGINO MARIE Unavailable Unavailable Tristin Penaloza Unavailable Unavailable MARIE, REGINO Cerrato Unavailable Unavailable MARIE, REGINO E Unavailable Unavailable MEGHAN, JULIAN Unavailable Unavailable MEGHAN, JULIAN Unavailable Unavailable MEGHAN, JULIAN Unavailable Unavailable CA BERG I Unavailable Unavailable MARLYS AGRAWAL Unavailable Unavailable JARETH MURIEL Unavailable Unavailable OKSANA MENA Unavailable Unavailable PHYSICIAN, DEFAULT Unavailable Unavailable PHYSICIAN, DEFAULT Unavailable Unavailable MONIKA BOWMAN AM Unavailable Unavailable MONIKA BOWMAN AM Unavailable Unavailable MARIE, REGINO Unavailable Unavailable MARIE, REGINO Unavailable Unavailable ENGELER, G NICHOLAS Unavailable Unavailable ENGELER, G NICHOLAS Unavailable Unavailable ENGELER, G NICHOLAS Unavailable Unavailable ENGELER, G NICHOLAS [...] DR REGINO Cerrato Consulting Unavailable EMILY, DR MRIELES Admitting Unavailable EMILY, DR MIRELES Attending Unavailable GIOVANNI, DR REGINO Cerrato Primary Care Unavailable EMILY, DR MIRELES Consulting Unavailable TRESCKOW, DR BILL San Consulting Unavailable TARI AGUIRRE Primary Care Physician [phone] Aline TENA Referring Unavailable Aline TENA Attending Unavailable Aline TENA Attending Unavailable Aline TENA Attending Unavailable HELIO FREEMAN Referring Unavailable HELIO FREEMAN Attending Unavailable TARI AGUIRRE Referring Unavailable Margaret BRUCE, Tari Unavailable Tari Aguirre MD Unavailable Allergies Allergy Classification Reported Allergen(s) Allergy Type Date of Onset Reaction(s) Facility (1 source) No Known Medication Allergies; Translations: [No Known Medication Allergies] Propensity to adverse reactions to drug (disorder) [facility] Repository (2 sources) No Known Allergies; Translations: [No Known Allergies] Propensity to adverse reactions (disorder) 8 [facility] Repository Medications Current Medications Medication Drug Class(es) Dates Sig (Normalized) Sig (Original) aspirin 81 mg delayed release oral tablet (5 sources) Platelet Aggregation Inhibitor, Nonsteroidal Anti-inflammatory Drug Start: 08-07-2021 take 1 tablet by mouth once daily aspirin 81 mg Oral EC Tab 81 mg = 1 tab(s), Oral, Daily, Refills(s) 0 Start Date: 08/07/21 Status: Ordered rosuvastatin calcium 10 mg oral tablet (5 sources) HMG-CoA Reductase Inhibitor Start: 10-17-2024 rosuvastatin (Crestor) 10 MG tablet 10/17/2024 Active Start: 08-07-2021 take 1 tablet by javier th once daily rosuvastatin 10 mg Tab 10 mg = 1 tab(s), Oral, Daily, Refills(s) 0 Start Date: 08/07/21 Status: Ordered Completed/Discontinued Medications Medication Drug Class(es) Dates Sig (Normalized) Sig (Original) betamethasone 3 mg/ml / betamethasone acetate 3 mg/ml injectable suspension (4 sources) Corticosteroid Start: 10-30-2024 End: 10-30-2024 betamethasone acetate-betamethason e sodium phosphate (Celestone) injection 6.5 mg Start: 10-30-2024 End: 10-30-2024 6.5 mg, Intra-articular, Onc e PRN Procedure, Starting on Wed10/30/24 at 0934, For 1 dose Problems Active Problems Problem Classification Problem Date Documented Date Episodic/Chronic Acute cerebrovascular disease (3 sources) Cerebrovascular accident 11-13-2019 Chronic Calculus of urinary tract (13 sources) [...] 06-14-2019 Chronic Other aftercare (1 source) 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; Translations: [[facility] (CURRENT) USE OF ASPIRIN] Onset: 04-07-2018 Episodic [...] Aphasia; Translations: [Aphasia] Onset: 12-15-2017 Chronic Other non-traumatic joint disorders (2 sources) Pain in left knee; Translations: [Pain in joint, lower leg] 10-30-2024 Episodic Other nutritional; endocrine; and metabolic disorders (3 [...] [CONTACT W/AND (SUSP) EXPOS COVID-19] Onset: 09-23-2021 Unclassified (2 sources) Left knee pain, unspecified chronicity 10-30-2024 Past or Other Problems Problem Classification Problem Date Documented Da te Episodic/Chronic Other aftercare (1 source) nursing home (current) use of anticoagulants; Translations: [[facility] CURRNT USE ANTICOAGULANTS] Onset: 09-29-2021 Episodic Other circulatory disease (2 sources) Personal history of transient ischemic attack (TIA), and cerebral infarction without residual deficits; Translations: [PRSNL HX OF TIA (TIA), AND CEREB INFRC W/O RESID DEFICITS] Onset: 04-07-2018 Episodic Results Test Name Value Interpretation Reference Range Facility No Panel Informationon 10-30 Helio Freeman DO 2:14 PM L Inj/Asp: L knee on 10/30/2024 9:34 AM Indications: diagnostic evaluation Details: 25 G needle Medications: 6.5 mg betamethasone acetate-betamethasone sodium phosphate 6 (3-3) MG/ML Outcome: tolerated well, no immediate complications Consent was given by the patient. [employer] [employer] XR Knee - left 1 or 2 Viewso n 10-30-2024 Imaging Result: 2 views, bilateral PA weight-bearing, sunrise of the bilateral knee(s) taken today and saved to the permanent medical record are reviewed. AP/lateral/oblique 10/17/2024 reviewed. Bipartite patella bilaterally. Mild medial compartment joint space narrowing. 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 Take [id number] and prescription m (more content not included)... Normal [facility] Urology Office/Clinic Noteon 08-21-2024 Urology Office/Clinic Note [...] 12/10/15 - Meron 7 (3+4) x1 core, Loma 6 (3+3) x2 cores, 1 FATIMAH core, [...] habit complaints. Follow-up With When Contact Information EMILY BRUCE, Aline Miller, [facility] [address], [place] [address] [phone] Additional Instructions: f/u pending CT scan results Patient Education Kidney Stones, [id number] IAna, personally scribed for Dr. Tena on 08/21/2024 10:08:35. . Documentation recorded by the scribeAna, accurately reflects the services(s) I performed and decisions made by me. Authenticated by Dr. Tena on 08/21/2024 10:12:31. Problem List/Past Medical History Ongoing Asymptomatic microscopic hematuria BMI 25.0-25.9,adult (more content not included)... Normal [facility] Comment on above: Result Comment: Electronically Signed By : Aline TENA MD\.br\Date and Time Signed: 08/21/24 10:12 EST\.br\Electronically Co-Signed By: Ana Garzon\bentley\Date and Time Co-Signed: 08/21/24 10:09 EST CITRATE URINE 24HRon 09-07- 023 Citric Acid, U, 24hr 925 mg/24 hr Normal 320-1240 [facility] Comment on above: Result Comment: This test was developed and its performance characteristics determined by [employer]. It has not been cleared or approved by the Food and Drug Administration. Performed By: #### C ITRATU #### [facility] [address] [address] [address] Angelica Chauhan Citric Acid, Urine 552 mg/L Normal Undefined [facility] Comment on above: Performed By: #### CITRATU #### [facility] [address] [address] [address] Angelica Chauhan OXALATE 24HR URINEon 09-04- 023 Oxalates, Urine 18 mg/L Normal Undefined [facility] Comment on above: Performed By: #### [id number] #### [facility] [address] [place] [address] Dr. Angelica Chauhan Oxalates, Urine 24hr 30 mg/24 hr Normal 7-44 [facility] Comment on above: Performed By: #### [id number] #### [facility] [address] [address] [address] Angelica Chauhan MAGNESIUM 24HR URINEon 09-01 Magnesium 24hr Urine 102.2 mg/24 hr Normal 12.0-293.0 [facility] Comment on above: Performed By: #### [id number] #### [facility] [address] [place] [address] Dr. Angelica Chauhan Magnesium UR 6.1 mg/dL Normal Not Estab. [facility] Comment on above: Performed By: #### [id number] #### [facility] [address] [place] [address] Dr. Angelica Chauhan PHOSPHORUS 24HR URINEon 08-04 Phosphorus, Urine 54.3 mg/dL Normal Not Estab. [facility] Comment on above: Performed By: #### CITRATU #### [facility] [address] [place] [address] Dr. Angelica Chauhan Phosphorus, Urine 24hr 910 mg/24 hr Normal 390-1425 [facility] Comment on above: Performed By: #### CITRATU #### [facility] [address] [address] [address] Angelica Chauhan PTH INTACTon 09-01-2022 PTH, Intact 40 pg/mL Normal 15-65 [facility] Comment on above: Performed By: #### PTHINT #### [facility] [address] [place] [address] Dr. Angelica Chauhan URIC ACID 24 HR URINEon 08-04 Uric Acid, Urine 46.6 mg/dL Normal Not Estab. [facility] Comment on above: Performed By: #### CITRATU #### [facility] [address] [address] [address] Angelica Chauhan Uric Acid, Urine 24hr 780.6 mg/24 hr Critically high 136.1-771. 1 [facility] Comment on above: Performed By: #### CITRATU #### [facility] [address] [place] [address] Dr. Angelica Chauhan BUNon 08-31-2022 Urea nitrogen [Mass/Vol] 15.0 mg/dL Normal 7.0-18.0 [facility] Comment on above: Performed By: #### CITRATU #### [facility] [address] [place] [address] Dr. Angelica Chauhan CALCIUMon 08-31-2022 Calcium [Mass/Vol] 9.2 mg/dL Normal 8.5-10.1 [facility] Comment on above: Performed By: #### CREA, CO2, CL, NA, UR IC, CA, K, BUN #### [facility] [address] [address] [address] Angelica Chauhan CALCIUM 24 HR URINEon 2022 CALC, 24 HR UR 214.4 mg/24 hr Normal 100.0-300. 0 [facility] Comment on above: Performed By: #### CITRATU #### [facility] [address] [place] [address] Dr. Angelica hCauhan UR CALCIUM 12.8 mg/dL Normal 5.1-21.0 [facility] Comment on above: Performed By: #### CITRATU #### [facility] [address] [place] [address] Dr. Angelica Chauhan CHLORIDEon 08-31-2022 Chloride [Moles/Vol] 104 mmol/L Normal 98-107 [facility] Comment on above: Performed By: #### CREA, CO2, CL, NA, UR IC, CA, K, BUN #### [facility] [address] [place] [address] Dr. Angelica Chauhan CO2on 08-31-2022 CO2 [Moles/Vol] 25.6 mmol/L Normal 21.0-32.0 [facility] Comment on above: Performed By: #### CREA, CO2, CL, NA, UR IC, CA, K, BUN #### [facility] [address] [place] [address] Dr. Angelica Chauhan CREA 24 HR URINEon CREA, 24 HR UR 1541.17 mg/24 hr Normal 1,000.00- [address] ,[address] [facility] Comment on above: Performed By: #### CITRATU #### [facility] [address] [place] [address] Dr. Angelica Chauhan UR TOT VOL 1675 ml/[address] [facility] Comment on above: Performed By: #### CITRATU #### [facility] [address] [place] [address] Dr. Angelica Chauhan URINE CREAT 92.01 mg/dL Normal 20.00-300. 00 [facility] Comment on above: Performed By: #### CITRATU #### [facility] [address] [place] [address] Dr. Angelica Chauhan CREATININEon 08-31-2022 Creatinine [Mass/Vol] 0.73 mg/dL Normal 0.70-1.30 [facility] Comment on above: Performed By: #### CREA, CO2, CL, NA, UR IC, CA, K, BUN #### [facility] [address] [place] [address] Dr. Angelica Chauhan EGFR-AF DJIBOUTIAN >60 Normal >=60 [facility] Comment on above: Performed By: #### CREA, CO2, CL, NA, UR IC, CA, K, BUN #### [facility] [address] [place] [address] Dr. Angelica Chauhan EGFR-NON AF DJIBOUTIAN >60 Normal >=60 [facility] Comment on above: Performed By: #### CREA, CO2, CL, NA, UR IC, CA, K, BUN #### [facility] [address] [place] [address] Dr. Angelica Chauhan NAon 08-31-2022 Sodium [Moles/Vol] 140 mmol/L Normal 136-145 [facility] Comment on above: Performed By: #### CREA, CO2, CL, NA, UR IC, CA, K, BUN #### [facility] [address] [place] [address] Dr. Angelica Chauhan POTASSIUMon 08-31-2022 Potassium [Moles/Vol] 4.0 mmol/L Normal 3.5-5.1 [facility] Comment on above: Performed By: #### CITRATU #### [facility] [address] [place] [address] Dr. Angelica Chauhan SODIUM 24 HR URINEon 023 NA, 24 HR UR 171 mmol/24 hr Normal 40-220 [facility] Comment on above: Performed By: #### CITRATU #### [facility] [address] [place] [address] Dr. Angelica Chauhan Sodium (U) [Moles/Vol] 102 mmol/L Critically high 30-90 [facility] Comment on above: Performed By: #### CITRATU #### [facility] [address] [place] [address] Dr. Angelica Chauhan URIC ACID SERUMon 08-31-2022 Urate [Mass/Vol] 5.0 mg/dL Normal 3.5-7.2 [facility] Comment on above: Performed By: #### CITRATU #### [facility] [address] [place] [address] Dr. Angelica Chauhan CBC AUTO DIFFon 07-29-2022 BASO # 0.0 103/ul Normal 0.0-0.1 [facility] Comment on above: Performed By: #### CBC #### [facility] [address] [address] [address] Angelica Chauhan Basophils/100 WBC (Bld) 0.6 % Normal 0.2-2.0 [facility] Comment on above: Performed By: #### CBC #### [facility] [address] [place] [address] Dr. Angelica Chauhan EO # 0.2 103/ul Normal 0.0-0.7 [facility] Comment on above: Performed By: #### CBC #### [facility] [address] [address] [address] Angelica Chauhan Eosinophils/100 WBC (Bld) 3.5 % Normal 0.9-7.0 [facility] Comment on above: Performed By: #### CBC #### [facility] [address] [place] [address] Dr. Angelica Chauhan Erythrocyte distribution width (RBC) [Ratio] 12.3 % Normal 11.0-15.0 [facility] Comment on above: Performed By: #### CBC #### [facility] [address] [place] [address] Dr. Angelica Chauhan Hematocrit (Bld) [Volume fraction] 45.1 % Normal 42.0-54.0 [facility] Comment on above: Performed By: #### CBC #### [facility] [address] [place] [address] Dr. Angelica Chauhan Hemoglobin (Bld) [Mass/Vol] 15.2 g/dL Normal 14.0-18.0 [facility] Comment on above: Performed By: #### CBC #### [facility] [address] [place] [address] Dr. Angelica Chauhan IG # 0.02 10e3/ul Normal 0.00-0.03 [facility] Comment on above: Performed By: #### CBC #### [facility] [address] [place] [address] Dr. Angelica Chauhan IG % 0.3 % Normal 0.0-0.5 [facility] Comment on above: Performed By: #### CBC #### [facility] [address] [place] [address] Dr. Angelica Chauhan LYMPH # 0.9 103/ul Critically low 1.2-3.8 [facility] Comment on above: Performed By: #### CBC #### [facility] [address] [place] [address] Dr. Angelica Chauhan Lymphocytes/100 WBC (Bld) 14.3 % Critically low 20.5-60.0 [facility] Comment on above: Performed By: #### CBC #### [facility] [address] [place] [address] Dr. Angelica Chauhan MANUAL DIFF REQ NO Normal [facility] Comment on above: Performed By: #### CBC #### [facility] [address] [place] [address] Dr. Angelica Chauhan MCH (RBC) [Entitic mass] 29.9 pg Normal 25.9-34.0 [facility] Comment on above: Performed By: #### CBC #### [facility] [address] [place] [address] Dr. Angelica Chauhan MCHC (RBC) [Mass/Vol] 33.7 g/dL Normal 29.9-35.2 [facility] Comment on above: Performed By: #### CBC #### [facility] [address] [place] [address] Dr. Angelica Chauhan MCV (RBC) [Entitic vol] 88.8 fL Normal 80.0-94.0 [facility] Comment on above: Performed By: #### CBC #### [facility] [address] [place] [address] Dr. Angelica Chauhan MONO # 0.6 103/ul Normal 0.3-0.8 [facility] Comment on above: Performed By: #### CBC #### [facility] [address] [place] [address] Dr. Angelica Chauhan Monocytes/100 WBC (Bld) 9.7 % Normal 1.7-12.0 [facility] Comment on above: Performed By: #### CBC #### [facility] [address] [place] [address] Dr. Angelica Chauhan NEUT # 4.7 103/ul Normal 1.4-6.5 [facility] Comment on above: Performed By: #### CBC #### [facility] [address] [place] [address] Dr. Angelica Chauhan Neutrophils/100 WBC (Bld) 71.6 % Normal 43.0-75.0 [facility] Comment on above: Performed By: #### CBC #### [facility] [address] [place] [address] Dr. Angelica Chauhan Platelet mean volume (Bld) [Entitic vol] 9.4 fL Critically low 9.5-13.5 [facility] Comment on above: Performed By: #### CBC #### [facility] [address] [place] [address] Dr. Angelica Chauhan PLT 199 103/ul Normal 150-450 [facility] Comment on above: Performed By: #### CBC #### [facility] [address] [place] [address] Dr. Angelica Chauhan RBC 5.08 106/ul Normal 4.70-6.10 [facility] Comment on above: Performed By: #### CBC #### [facility] [address] [place] [address] Dr. Angelcia Chauhan WBC 6.6 103/ul Normal 4.0-11.0 [facility] Comment on above: Performed By: #### CBC #### [facility] [address] [place] [address] Dr. Angelica Chauhan LIPID PROFILEon 07-29-2022 CHOL-HDL RATIO NORM SEE BELOW Normal [facility] Comment on above: Result Comment: 3.3 - 4.4 LOW RISK 4.4 - 7.1 AVERAGE RISK 7.1 - 11.0 MODERATE RISK >11.0 HIGH RISK Performed By: #### M AG24 #### [facility] [address] [place] [address] Dr. Angelica Chauhan Cholesterol [Mass/Vol] 192 mg/dL Normal <=200 [facility] Comment on above: Performed By: #### MAG24 #### [facility] [address] [place] [address] Dr. Angelica Chauhan Cholesterol in HDL [Mass/Vol] 45 mg/dL Normal 40-60 [facility] Comment on above: Performed By: #### MAG24 #### [facility] [address] [address] [address] Angelica Chauhan Cholesterol in LDL [Mass/Vol] 118.8 mg/dL Normal [facility] Comment on above: Performed By: #### MAG24 #### [facility] [address] [address] [address] Angelica Chauhan Cholesterol.tota l/Cholesterol in HDL [Mass ratio] 4.3 {ratio} Normal [facility] Comment on above: Performed By: #### MAG24 #### [facility] [address] [place] [address] Dr. Angelica Chauhan HDL NORMAL > or = 60 mg/dl - LO W CARDIOVASCULAR RISK <40 mg/dl - HIGH CARDIOVASCULAR RISK Normal [facility] Comment on above: Performed By: #### MAG24 #### [facility] [address] [place] [address] Dr. Angelica Chauhan LDL CALC NORMAL SEE BELOW Normal [facility] Comment on above: Result Comment: <100 mg/dl OPTIMAL 100 - 129 mg/dl NEAR OR ABOVE OPTIMAL 130 - 159 mg/dl BORDERLINE HIGH 160 - 189 mg/dl HIGH >190 mg/dl VERY HIGH Performed By: #### M AG24 #### [facility] [address] [place] [address] Dr. Angelica Chauhan Triglyceride [Mass/Vol] 141 mg/dL Normal <=150 [facility] Comment on above: Performed By: #### MAG24 #### [facility] [address] [place] [address] Dr. Angelica Chauhan VLDL CALC 28.2 mg/dL Normal [facility] Comment on above: Performed By: #### MAG24 #### [facility] [address] [place] [address] Dr. Angelica Chauhan PROF 14(COMP METB)on 022 Albumin [Mass/Vol] 3.8 g/dL Normal 3.4-5.0 [facility] Comment on above: Performed By: #### MAG24 #### [facility] [address] [place] [address] Dr. Angelica Chauhan Albumin/Globulin [Mass ratio] 1.0 {ratio} Normal [facility] Comment on above: Performed By: #### MAG24 #### [facility] [address] [place] [address] Dr. Angelica Chauhan ALP [Catalytic activity/Vol] 86 U/L Normal 46-116 [facility] Comment on above: Performed By: #### MAG24 #### [facility] [address] [place] [address] Dr. Angelica Chauhan ALT [Catalytic activity/Vol] 34 U/L Normal 16-63 [facility] Comment on above: Performed By: #### MAG24 #### [facility] [address] [place] [address] Dr. Angelica Chauhan Anion gap [Moles/Vol] 10.3 mmol/L Normal [facility] Comment on above: Performed By: #### MAG24 #### [facility] [address] [place] [address] Dr. Angelica Chauhan AST [Catalytic activity/Vol] 20 U/L Normal 15-37 [facility] Comment on above: Performed By: #### [id number] #### [facility] [address] [place] [address] Dr. Angelica Chauhan Bilirubin [Mass/Vol] 0.7 mg/dL Normal 0.2-1.0 [facility] Comment on above: Performed By: #### [id number] #### [facility] [address] [place] [address] Dr. Angelica Chauhan Calcium [Mass/Vol] 9.5 mg/dL Normal 8.5-10.1 [facility] Comment on above: Performed By: #### MAG24 #### [facility] [address] [place] [address] Dr. Angelica Chauhan Chloride [Moles/Vol] 103 mmol/L Normal 98-107 [facility] Comment on above: Performed By: #### MAG24 #### [facility] [address] [place] [address] Dr. Angelica Chauhan CO2 [Moles/Vol] 31.0 mmol/L Normal 21.0-32.0 [facility] Comment on above: Performed By: #### MAG24 #### [facility] [address] [place] [address] Dr. Angelica Chauhan Creatinine [Mass/Vol] 0.79 mg/dL Normal 0.70-1.30 [facility] Comment on above: Performed By: #### MAG24 #### [facility] [address] [place] [address] Dr. Angelica Chauhan EGFR-AF DJIBOUTIAN >60 Normal >=60 [facility] Comment on above: Performed By: #### MAG24 #### [facility] [address] [place] [address] Dr. Angelica Chauhan EGFR-NON AF DJIBOUTIAN >60 Normal >=60 [facility] Comment on above: Performed By: #### MAG24 #### [facility] [address] [place] [address] Dr. Angelica Chauhan Globulin (S) [Mass/Vol] 3.8 g/dL Normal [facility] Comment on above: Performed By: #### MAG24 #### [facility] [address] [place] [address] Dr. Angelica Chauhan Glucose [Mass/Vol] 96 mg/dL Normal 74-106 [facility] Comment on above: Performed By: #### MAG24 #### [facility] [address] [place] [address] Dr. Angelica Chauhan Potassium [Moles/Vol] 4.3 mmol/L Normal 3.5-5.1 [facility] Comment on above: Performed By: #### MAG24 #### [facility] [address] [place] [address] Dr. Angelica Chauhan Protein [Mass/Vol] 7.6 g/dL Normal 6.4-8.2 [facility] Comment on above: Performed By: #### MAG24 #### [facility] [address] [place] [address] Dr. Angelica Chauhan Sodium [Moles/Vol] 140 mmol/L Normal 136-145 [facility] Comment on above: Performed By: #### MAG24 #### [facility] [address] [place], [place] [address] Dr. Angelica Chauhan Urea nitrogen [Mass/Vol] 19.0 mg/dL Critically high 7.0-18.0 [facility] Comment on above: Performed By: #### MAG24 #### [facility] [address] [place], [place] [address] Dr. Angelica Chauhan Urea nitrogen/Creatin ine [Mass ratio] 24.1 mg/mg Normal [facility] Comment on above: Performed By: #### MAG24 #### [facility] [address] [place], [place] [address] Dr. Angelica Chauhan XR KUB 1 VIEWon [...] by: BILL BOYER Date: 2022-07-29 16:[address] [facility] XR KUB 1 VIEWon 09-25-2021 XR [...] by: LUCINA CRAIN Date: 2021-09-25 07:[address] [facility]-03 SARS-CoV-2 (COVID-19) RNA PAMELA+probe Ql (Unsp spec) Not detected Normal NOT DETECTED [facility] Comment on above: Result Comment: This test is not yet carlo roved or cleared by the [place] FDA. When there are no FDA-approved or cleared tests available, and other criteria are met, FDA can make tests available under an emergency access mechanism called an Emergency Use Authorization (EUA). The EUA for this test is supported by the Bridge Instructor of Health and Human Service's (HHS's) declaration [...] SARS-CoV-2. Performed By: #### C ITRATU #### [facility] [address] [place] [address] Dr. Angelica Seaman 06-07-2018 CNOV Office Visit (RADTSA) HENRIKJULIO Lulu ([id number]) 1950 MDate Time Provider Ejfikvniky49/6/18 2:30 PM Penny BOSWELL During your visit [...] stage T Stage: T1c, initial PSA3.51, biopsy Loma score 3 + 4 = 7 (grade group 2)Overall doing well. PSA with stable response. He has continued follow-upwith urology.PLAN: We will see him again in one year with a PSA level.Signed by: Penny Boswell, [facility]:Regino Marie MD[address] [place] [address]Pvsot: [phone]: [phone] Weyer, RN, RN 06/07/2018 2:50 PM Alisa Cannon RNReferring Provider: Penny BOSWELL [[id number]]Allergies As of Date: 06/07/2018(No Known Allergies)Date Reviewed: [...] (around 06/07/2019).Follow-up and Disposition History RecordedEncounter Number: [id number] Status:Closed by Penny BOSWELL MD on 06/10/18 Normal [facility] PROGRESSon 06-07-2018 Protein mass conc HNO ID: [id number]: Penny CardonarService: (none)Author Type: PhysicianType: Progress NotesFiled: 06/10/2018 9:22 AMNote Text:Radiation Oncology - Follow Up NotePATIENT NAME: Julio FreemanPATIENT : Prostate adenocarcinoma, clinical stage T Stage: T1c, initialPSA 3.51, biopsy Loma score 3 + 4 = 7 (grade [...] stage T Stage: T1c, initialPSA 3.51, biopsy Loma score 3 + 4 = 7 (grade group 2)Overall doing well. PSA with stable response. He has continuedfollow-up with urology.PLAN: We will see him again in one year with a PSA level.Signed by: Penny Boswell, [facility]:Regino Marie MD[address] [facility] [place] [address]Btsmm: [phone]: [phone] Normal [facility] Cardiovascular Lab Reporton 04-08-2018 Cardiovascular Lab Report [facility] Patient Name: Julio Freeman [id number] Physician: Monika Bowman M.D.Department of Service Date: 04/07/2018Medicine Birthdate: 1950Division of Room #: [facility] [place], [place] [address] Fax Cardiovascular Laboratory ReportPROCEDURE PERFORMED: LINQ implant.INDICATION: [...] well.R-waves are 0.16 mV.Medtronic LINQ serial number [id number].CONCLUSION: Successful LINQ implant.Electronically Signed by:Monika Bowman M.D. 04/08/2018 03:51 P Monika Bowman M.D.Date Dict: 04/07/2018/03:11 P/Monika Bowman M.D.Date Trans: 04/08/2018 07:40 A/Kennedy_JN:[id number]: Regino Marie M.D. [address] [place] [address] [place] [facility] EVENT MONITORon 01-21-2018 [address]OR [address] [address] EVENT MONITORPATIENT NAME: JULIO FREEMAN : 1950MED REC NO: [id number] [facility] [id number] ADMIT DATE: 12/15/2017PROVIDER: Jaylen Yobani TYPE: EVENT MONIORPART ONE OF THE EVENT [...] informed of abnormal results01/21/2018 at 12:25 pm.JAYLEN SILVERLEX: 01/21/2018 12:48:08 KIERAN/Katlin#: [id number] Doc#: UnknownCC: (Stacy Stewart Md) Normal [facility] Progress Noteon 12-29-2017 HIM IP Note OR Computational Scientist Normal [facility] CTA HEAD W CONTRASTon 2017 CTA [...] head and neck.Interpreted by:JEMMA Reynaigned by:Oh Mcdowell MD12/23/17[facility] Result - FINAL Normal [facility] CTA NECK W CONTRASTon 2017 CTA [...] MD12/23/17Edited Result - FINAL Normal [facility] Coding Summaryon 12-20-2017 Coding Summary CODING DATE: 018 [facility] STATUS: Discharge/Transfer to Another Hospital [...] result in slightly different terminology. Coded By: Kobe Carson' Date Saved: 12/20/2017 01:26 pm [facility] Coding Summary CODING DATE: 018 [facility] STATUS: Discharge/Transfer to Another Hospital [...] result in slightly different terminology. Coded By: Kobe Carson' Date Saved: 12/20/2017 01:26 pm [facility] B12/Folate Panelon 8 Cobalamins (Vitamin B12) 473 pg/mL Normal 232-[address] [facility] Comment on above: Performed By: #### BMPX, LIPR, CDP, GLYH GB, B12FOL ####[address] [place] [address] Folic Acid 18.1 ng/mL Normal >4.[address] [facility] Comment on above: Result Comment: [address] [address] Performed By: #### B MPX, LIPR, CDP, GLYHGB, B12FOL ####[address] [address] Basic Metab w/rfx MGon 12-16 (cont.) Normal [facility] Comment on above: Result Comment: Average GFR for 60-69 ye ars old: 85 mL/min/1.73sq mChronic Kidney Disease: <60 mL/min/1.73sq mKidney failure: <15 mL/min/1.73sq meGFR calculated using average adult body mass. Additional eGFR calculator available at:http://www.Conservis.Lockstream/multiple_crcl_2012.htm[address] [address] Performed By: #### B MPX, LIPR, CDP, GLYHGB, B12FOL ####[address] [address] Anion gap 10 mmol/L Normal 9-[address] [facility] Comment on above: Performed By: #### BMPX, LIPR, CDP, GLYH GB, B12FOL ####[address] [address] Calcium 8.6 mg/dL Normal 8.6-10.[address] [facility] Comment on above: Performed By: #### BMPX, LIPR, CDP, GLYH GB, B12FOL ####[address] [address] Chloride 107 mmol/L Normal 98-[address] [facility] Comment on above: Performed By: #### BMPX, LIPR, CDP, GLYH GB, B12FOL ####[address] [address] CO2 23 mmol/L Normal 20-[address] [facility] Comment on above: Performed By: #### BMPX, LIPR, CDP, GLYH GB, B12FOL ####[address] [address] Creatinine 0.69 mg/dL Low 0.70-1.[address] [facility] Comment on above: Performed By: #### BMPX, LIPR, CDP, GLYH GB, B12FOL ####[address] [address] eGFR (non-black) mL/min/{1.73_m2} Normal >60 [facility] Comment on above: Performed By: #### BMPX, LIPR, CDP, GLYH GB, B12FOL ####[address] [address] Glucose mass conc 79 mg/dL Normal 70-[address] [facility] Comment on above: Performed By: #### BMPX, LIPR, CDP, GLYH GB, B12FOL ####[address] [address] Potassium molar conc 4.0 mmol/L Normal 3.7-5.[address] [facility] Comment on above: Performed By: #### BMPX, LIPR, CDP, GLYH GB, B12FOL ####[address] [address] Sodium 140 mmol/L Normal 135-[address] [facility] Comment on above: Performed By: #### BMPX, LIPR, CDP, GLYH GB, B12FOL ####[address] [address] Urea nitrogen 13 mg/dL Normal 8-[address] [facility] Comment on above: Performed By: #### BMPX, LIPR, CDP, GLYH GB, B12FOL ####[address] [address] BUN/CRE Ratio NOT REPORTED Normal 9-[address] [facility] Comment on above: Performed By: #### BMPX, LIPR, CDP, GLYH GB, B12FOL ####[address] [address] Staging: NOT REPORTED Normal [facility] Comment on above: Performed By: #### BMPX, LIPR, CDP, GLYH GB, B12FOL ####[address] [address] CBC with Diffon 12-16-2017 Abs. Basophil 0.00 k/uL Normal 0.0-0.[address] [facility] Comment on above: Performed By: #### BMPX, LIPR, CDP, GLYH GB, B12FOL ####[address] [address] Abs.Neutrophil (Seg) 3.87 k/uL Normal 1.8-7.[address] [facility] Comment on above: Performed By: #### BMPX, LIPR, CDP, GLYH GB, B12FOL ####[address] [address] Basophils/100 WBC Auto (Bld) 0 % Normal 0-[address] [facility] Comment on above: Performed By: #### BMPX, LIPR, CDP, GLYH GB, B12FOL ####[address] [address] Blood morphology Normal Normal [facility] Comment on above: Result Comment: [address] [address] Performed By: #### B MPX, LIPR, CDP, GLYHGB, B12FOL ####[address] [address] Eosinophils 0.10 10*3/uL Normal 0.0-0.[address] [facility] Comment on above: Performed By: #### BMPX, LIPR, CDP, GLYH GB, B12FOL ####[address] [address] Eosinophils/100 leukocytes 2 % Normal 1-[address] [facility] Comment on above: Performed By: #### BMPX, LIPR, CDP, GLYH GB, B12FOL ####[address] [address] Granulocytes/100 WBC (Bld) 0.00 k/uL Normal 0.00-0.[address] [facility] Comment on above: Performed By: #### BMPX, LIPR, CDP, GLYH GB, B12FOL ####[address] [address] Immature granulocytes #/vol (Bld) 0 % Normal [address] [facility] Comment on above: Performed By: #### BMPX, LIPR, CDP, GLYH GB, B12FOL ####[address] [address] Lymphocytes 0.59 10*3/uL Low 1.0-4.[address] [facility] Comment on above: Performed By: #### BMPX, LIPR, CDP, GLYH GB, B12FOL ####[address] [address] Lymphocytes/100 leukocytes 12 % Low 24-[address] [facility] Comment on above: Performed By: #### BMPX, LIPR, CDP, GLYH GB, B12FOL ####[address] [address] Monocytes 0.34 10*3/uL Normal 0.1-0.[address] [facility] Comment on above: Performed By: #### BMPX, LIPR, CDP, GLYH GB, B12FOL ####[address] [address] Monocytes/100 leukocytes 7 % Normal 1-[address] [facility] Comment on above: Performed By: #### BMPX, LIPR, CDP, GLYH GB, B12FOL ####[address] [address] Neutrophil (Seg) 79 % High 36-66 [facility] Comment on above: Performed By: #### BMPX, LIPR, CDP, GLYH GB, B12FOL ####[address] [address] Erythrocyte distribution width Auto Ratio (RBC) 12.3 % Normal 11.8-14.[address] [facility] Comment on above: Performed By: #### BMPX, LIPR, CDP, GLYH GB, B12FOL ####[address] [address] Erythrocytes (RBC) 4.60 10*6/uL Normal 4.21-5.[address] [facility] Comment on above: Performed By: #### BMPX, LIPR, CDP, GLYH GB, B12FOL ####[address] [address] Erythrocytes (RBC) 0.0 per 100 WBC Normal 0.[address] [facility] Comment on above: Performed By: #### BMPX, LIPR, CDP, GLYH GB, B12FOL ####[address] [address] Hematocrit (HCT) 42.1 % Normal 40.7-50.3 [facility] Comment on above: Performed By: #### BMPX, LIPR, CDP, GLYH GB, B12FOL ####[address] [address] Hemoglobin mass conc (Bld) 14.1 g/dL Normal 13.0-17.[address] [facility] Comment on above: Performed By: #### BMPX, LIPR, CDP, GLYH GB, B12FOL ####[address] [address] MCH 30.7 pg Normal 25.2-33.[address] [facility] Comment on above: Performed By: #### BMPX, LIPR, CDP, GLYH GB, B12FOL ####[address] [address] MCHC mass conc (RBC) 33.5 g/dL Normal 28.4-34.[address] [facility] Comment on above: Performed By: #### BMPX, LIPR, CDP, GLYH GB, B12FOL ####[address] [address] MCV 91.5 fL Normal 82.6-102.[address] [facility] Comment on above: Performed By: #### BMPX, LIPR, CDP, GLYH GB, B12FOL ####[address] [address] Platelet mean volume (PMV) 10.0 fL Normal 8.1-13.[address] [facility] Comment on above: Performed By: #### BMPX, LIPR, CDP, GLYH GB, B12FOL ####[address] [address] Platelets 173 10*3/uL Normal 138-[address] [facility] Comment on above: Performed By: #### BMPX, LIPR, CDP, GLYH GB, B12FOL ####[address] [address] WBC (Leukocytes) 4.9 10*3/uL Normal 3.5-11.3 [facility] Comment on above: Performed By: #### BMPX, LIPR, CDP, GLYH GB, B12FOL ####[address] [place] [address] Auto Diff Performed NOT REPORTED Normal [facility] Comment on above: Performed By: #### BMPX, LIPR, CDP, GLYH GB, B12FOL ####[address] [address] Erythrocyte morphology NOT REPORTED Normal [facility] Comment on above: Performed By: #### BMPX, LIPR, CDP, GLYH GB, B12FOL ####[address] [address] Platelets NOT REPORTED Normal [facility] Comment on above: Performed By: #### BMPX, LIPR, CDP, GLYH GB, B12FOL ####[address] [address] WBC Morphology NOT REPORTED Normal [facility] Comment on above: Performed By: #### BMPX, LIPR, CDP, GLYH GB, B12FOL ####[address] [address] Consulton 12-16-2017 HIM IP Note OR Computational Scientist Normal [facility] Hemoglobin A1Con 12-16-2017 Glucose mass conc 97 mg/dL Normal [facility] Comment on above: Result Comment: The ADA and AACC recomme nd providing the estimated average glucose result to permit better patient understanding of their HBA1c result.[address] [address] Performed By: #### B MPX, LIPR, CDP, GLYHGB, B12FOL ####[address] [address] Hemoglobin A1c/Hemoglobin.t otal mass fraction (Bld) 5.0 % Normal 4.0-6.[address] [facility] Comment on above: Performed By: #### BMPX, LIPR, CDP, GLYH GB, B12FOL ####[address] [place] [address] Lipid Profileon 12-16-2017 Cholesterol 203 mg/dL High <[address] [facility] Comment on above: Result Comment: Cholesterol Guidelines: <200 Desirable 200-240 Borderline >240 Undesirable Performed By: #### B MPX, LIPR, CDP, GLYHGB, B12FOL ####[facility] [address] [place] [address] Cholesterol to HDL Ratio 5.3 {ratio} High <[address] [facility] Comment on above: Performed By: #### BMPX, LIPR, CDP, GLYH GB, B12FOL ####[address] [address] HDL Cholesterol 38 mg/dL Low >[address] [facility] Comment on above: Result Comment: HDL Guidelines: <40 Unde sirable 40-59 Borderline >59 Desirable Performed By: #### B MPX, LIPR, CDP, GLYHGB, B12FOL ####[address] [address] LDL Cholesterol 144 mg/dL High 0-[address] [facility] Comment on above: Result Comment: LDL Guidelines: <100 Grayson irable 100-129 Near to/above Desirable 130-159 Borderline >159 UndesirableDirect (measured) LDL and calculated LDL are not interchangeable tests. Performed By: #### B MPX, LIPR, CDP, GLYHGB, B12FOL ####[facility] [address] [place] [address] Triglyceride 104 mg/dL Normal <[address] [facility] Comment on above: Result Comment: Triglyceride Guidelines: <150 Desirable 150-199 Borderline 200-499 High >499 Very high Based on AHA Guidelines for fasting triglyceride, May 2012.[address] [place] [address] Performed By: #### B MPX, LIPR, CDP, GLYHGB, B12FOL ####[address] [place] [address] Cholesterol in VLDL mass conc NOT REPORTED Normal 08-[address] [facility] Comment on above: Performed By: #### BMPX, LIPR, CDP, GLYH GB, B12FOL ####[facility] [address] [place] [address] MRI BRAIN WO CONTRASTon 11-30 MRI BRAIN [...] Basket (authorizing provider)Final result Normal [facility] Plan of Careon 12-16-2017 HIM IP Note OR Computational Scientist Normal [facility] Progress Noteon 12-16-2017 HIM IP Note OR Computational Scientist Normal [facility] HIM IP Note OR Computational Scientist Normal [facility] HIM IP Note OR Computational Scientist Normal [facility] HIM IP Note OR Computational Scientist Normal [facility] Troponinon 12-16-2017 Troponin I.cardiac mass conc Normal [facility] Comment on above: Result Comment: Reference Range: <0.03 W ithin reference range. 0.03-0.09 Possible myocardial damage.Repeat at appropriate intervals to rule out chronic elevation. >= 0.10 Indicative of myocardial damage.Patients with high levels of Biotin oral intake (i.e >5mg/day) may have falsely decreased Troponin T levels. Samples collected within 8 hours of biotin intake may require additional information for diagnosis.[address] [place] [address] Performed By: #### T SYED ####[address] [address] Troponin T.cardiac mass conc ug/L Normal <0.[address] [facility] Comment on above: Result Comment: Troponin T results canno t be compared to Troponin-I results. Performed By: #### T SYED ####[address] [address] .Auto Diff 1on - Auto Baso % 0.5 % Normal 0.2-2.0 [facility] Comment on above: Performed By: #### [id number], [id number], [id number], 0027798, 0928482, [id number], [id number] ####[facility] (DEFAULT)[address] [place] [address] Auto [place] % 9 % Normal 1-12 [facility] Comment on above: Performed By: #### [id number], [id number], 66144933, 9578395, 1439106, [id number], 3907008 ####[facility] (DEFAULT)[address] [place] [address] Auto Neut % 74 % Normal 44-88 [facility] Comment on above: Performed By: #### [id number], 5319310, 90381128, 1733652, 6449143, [id number], [id number] ####[facility] (DEFAULT)[address] [place] [address] Baso Abs# 0.0 x10 Normal 0.0-0.2 [facility] Comment on above: Performed By: #### [id number], 9930584, 08968630, 2606617, 7291652, [id number], 6856715 ####[facility] (DEFAULT)[address] [place] [address] Eos Abs# 0.1 x10 Normal 0.0-0.4 [facility] Comment on above: Performed By: #### [id number], 2434752, 38159170, 9884137, 9304733, [id number], 9725240 ####[facility] (DEFAULT)[address] [place] [address] Eosinophils/100 leukocytes 2.1 % Normal 0.9-4.0 [facility] Comment on above: Performed By: #### [id number], 6952376, 59733529, 7561945, 7208762, [id number], 8725009 ####[facility] (DEFAULT)[address] [place] [address] Lymphocytes 0.6 x10 Low 1.3-2.9 [facility] Comment on above: Performed By: #### [id number], 1302876, 31884093, 0697099, 6197742, [id number], 5762321 ####[facility] (DEFAULT)[address] [place] [address] Lymphocytes/100 leukocytes 14 % Normal 14-48 [facility] Comment on above: Performed By: #### [id number], 0812588, 19626584, 4363276, 2441317, [id number], 1091750 ####[facility] (DEFAULT)[address] [place] [address] P[place]nee Abs# 0.4 x10 Normal 0.0-0.8 [facility] Comment on above: Performed By: #### [id number], 8563710, 10638635, 4651894, 7584290, [id number], 8860127 ####[facility] (DEFAULT)[address] [place] [address] Neut Abs# 3.1 x10 Normal 1.5-9.2 [facility] Comment on above: Performed By: #### [id number], 7605589, 49781046, 1309753, 6780344, [id number], 9415596 ####[facility] (DEFAULT)[address] [place] [address] CBC w/ Auto Diffon 8 Erythrocyte distribution width Auto Ratio (RBC) 12.7 % Normal 11.5-15.0 [facility] Comment on above: Performed By: #### [id number], 7477979, 34170590, 0628443, 1017380, [id number], 7150582 ####[facility] (DEFAULT)[address] [place] [address] Erythrocytes (RBC) 4.58 x10 Normal 3.70-5.30 [facility] Comment on above: Performed By: #### [id number], 8045897, 22967993, 4986507, 1818979, 6761669115, 6768581 ####[facility] (DEFAULT)[address] [place] [address] Hematocrit (HCT) 40.8 % Normal 34.8-51.9 [facility] Comment on above: Performed By: #### [id number], 3601311, 02757351, 7454709, 6539579, 4107624637, 5991133 ####[facility] (DEFAULT)[address] [place] [address] Hemoglobin mass conc (Bld) 14.4 g/dL Normal 11.8-17.7 [facility] Comment on above: Performed By: #### [id number], 3998913, 26223566, 8273487, 1191471, 5582807302, 9759578 ####[facility] (DEFAULT)[address] [place] [address] 26946 Man Diff? Auto Normal [facility] Comment on above: Performed By: #### [id number], 1742445, 09511206, 1912300, 5379328, 6492272900, 2257734 ####[facility] (DEFAULT)[address] [place] [address] MCH 31 pg Normal 24-34 [facility] Comment on above: Performed By: #### [id number], 4142245, 46573547, 6364612, 6719458, 2451902925, 7438760 ####[facility] (DEFAULT)[address] [place] [address] MCHC mass conc (RBC) 35 g/dL Normal 26-37 [facility] Comment on above: Performed By: #### [id number], 8039474, 65655890, 1892797, 3989687, 2377604544, 3089382 ####[facility] (DEFAULT)[address] [place] [address] MCV 89 fL Normal 81-100 [facility] Comment on above: Performed By: #### [id number], 1381982, 95714713, 8119804, 9497077, 4602073112, 6395840 ####[facility] (DEFAULT)[address] [place] [address] Platelet mean volume (PMV) 9.4 fL Normal 6.3-10.2 [facility] Comment on above: Performed By: #### [id number], 1455837, 76727038, 8914229, 1122819, 7989181165, 2351988 ####[facility] (DEFAULT)[address] [place] [address] Platelets 167 x10 Normal 138-427 [facility] Comment on above: Performed By: #### [id number], 7634069, 26432793, 0941143, 5329038, 2295597593, 3846970 ####[facility] (DEFAULT)[address] [place] [address] WBC (Leukocytes) 4.2 x10 Normal 3.5-10.5 [facility] Comment on above: Performed By: #### [id number], 4061420, 55535592, 2430900, 9729555, 7011393244, 7849333 ####[facility] (DEFAULT)[address] [place] [address] [facility] Standardon 12-15-2017 eGFR (non-black) mL/min/{1.73_m2} Invalid Interpretation Code [facility] Comment on above: Performed By: #### [id number], 3192829, 57681948, 4470182, 1654055, 8796029215, 3349254 ####[facility] (DEFAULT)[address] [place] [address] 15296 eGFR (non-black) mL/min/{1.73_m2} Invalid Interpretation Code [facility] Comment on above: Result Comment: Chronic Kidney disease c ould be indicated at eGFRs of less than 60 ml/min/1.73m2. Kidney Failure is indicated at less than 15 ml/min/1.73m2 Performed By: #### 1 [id number], 2483641, 43849485, 4123319, 5066579, 3212719847, 5700518 ####[facility] (DEFAULT)[address] [place] [address] 20411 Albumin 4.1 g/dL Normal 3.5-5.0 [facility] Comment on above: Performed By: #### [id number], 8267232, 82346304, 9917991, 1777405, 2684102331, 1902185 ####[facility] (DEFAULT)[address] [place] [address] 75226 Albumin/Globulin Ratio 1.4 {ratio} Normal 1.4-2.6 [facility] Comment on above: Performed By: #### [id number], 9897952, 60943470, 5391776, 0385962, 5116315339, 8170812 ####[facility] (DEFAULT)[address] [place], [place] [address] Alk Phos 64 IU/L Normal 32-91 [facility] Comment on above: Performed By: #### [id number], 3542029, 07286174, 4083749, 6428093, 8895938914, 0455877 ####[facility] (DEFAULT)[address] [place] [address] 06340 ALT/SGPT 21.0 IU/L Normal 17.0-63.0 [facility] Comment on above: Performed By: #### [id number], 2036518, 03172111, 9015558, 6322963, 7938166752, 2998617 ####[facility] (DEFAULT)[address] [place] [address] 41325 Anion gap 11.0 mmol/L Normal 5.0-19.0 [facility] Comment on above: Performed By: #### [id number], 9733261, 01457545, 1942192, 0052210, 0928970600, 6246162 ####[facility] (DEFAULT)[address] [place] [address] 94343 AST/SGOT 21 IU/L Normal 15-41 [facility] Comment on above: Performed By: #### [id number], 4343255, 88454626, 7308773, 8997862, 7918244914, 5385924 ####[facility] (DEFAULT)[address] [place] [address] 23975 Bili Total 0.9 mg/dL Normal 0.3-1.2 [facility] Comment on above: Performed By: #### [id number], 6992809, 04769072, 7069740, 3276711, 6946568769, 5235053 ####[facility] (DEFAULT)[address] [place] [address] 03780 BUN/Creatinine Ratio 28.0 mg/mg High 4.6-16.2 [facility] Comment on above: Performed By: #### [id number], 4883264, 80970099, 2826874, 5754226, 0406736947, 2507980 ####[facility] (DEFAULT)[address] [place] [address] 80063 Calcium 9.0 mg/dL Normal 8.9-10.3 [facility] Comment on above: Performed By: #### [id number], 9867098, 65916659, 0195986, 9336105, 9586545250, 0015215 ####[facility] (DEFAULT)[address] [place] [address] Chloride 105 mmol/L Normal 101-111 [facility] Comment on above: Performed By: #### [id number], 5022822, 37392630, 4050954, 0817483, 8884545813, 1294261 ####[facility] (DEFAULT)[address] [place] [address] 10090 CO2 24 mmol/L Normal 21-32 [facility] Comment on above: Performed By: #### [id number], 6578423, 89661480, 8824545, 4926793, 1430264010, 5250523 ####[facility] (DEFAULT)[address] [place] [address] Creatinine 0.61 mg/dL Low 0.90-1.30 [facility] Comment on above: Performed By: #### [id number], 6138296, 33584083, 5917388, 3755191, 2475561074, 2471023 ####[facility] (DEFAULT)[address] [place] [address] 65937 Globulin 2.9 g/dL Normal 1.5-4.3 [facility] Comment on above: Performed By: #### 5396539167, 1539188, 66715224, 6090393, 1475704, 5762099238, 1132609 ####[facility] (DEFAULT)[address] [place] [address] 23965 Glucose mass conc 97.0 mg/dL Normal 74.0-118.0 [facility] Comment on above: Performed By: #### [id number], 0337488, 67431462, 0903995, 8058333, 5315683441, 7291722 ####[facility] (DEFAULT)[address] [place] [address] 26059 Osmolality 273 mOsm/L Invalid Interpretation Code [facility] Comment on above: Performed By: #### [id number], 4992438, 04346813, 9758340, 9054515, 8125472245, 4289384 ####[facility] (DEFAULT)[address] [place] [address] 10596 Potassium molar conc 3.5 mmol/L Low 3.6-5.1 [facility] Comment on above: Performed By: #### 2661185343, 5819302, 45687554, 0932881, 8419637, 8367202196, 8095477 ####[facility] (DEFAULT)[address] [place] [address] 37748 Protein 7.0 g/dL Normal 6.5-8.1 [facility] Comment on above: Performed By: #### [id number], 2161475, 75950798, 1702036, 2364853, 4140218165, 8964957 ####[facility] (DEFAULT)[address] [place] [address] 93429 Sodium 136.0 mmol/L Normal 136.0-144. 0 [facility] Comment on above: Performed By: #### 2821461895, 1099361, 99872463, 6812925, 0358895, 4134301458, 8007738 ####[facility] (DEFAULT)[address] [place] [address] 05965 Urea nitrogen 17 mg/dL Normal 8-26 [facility] Comment on above: Performed By: #### [id number], 9064926, 23336003, 7566711, 3799437, 3849413628, 5456936 ####[facility] (DEFAULT)[address] [place] [address] Head or Brain w/o Contras ton [...] ACUTE BLEED ORFOCAL MASS.Narinder Burton MDJOMarjorie #: [id number]: 12/15/2017T: 12/15/2017 Final Dictated by: Narinder Burton MD SDictated DT/TM: 12/15/17 2:14Signed (Electronic Signature): Narinder Burton MD 12/15/17 2:52 pmTechnologist: LASHAE VARELA Normal [facility] Consulton 12-15-2017 HIM IP Note OR Computational Scientist Normal [facility] ED Clinical Summaryon 2017 ED Clinical Summary [facility] - Emergency [address] [place], [place] [id number] ed Clinical SummaryPERSON INFORMATIONName: JULIO FREEMAN Age: 67 Years Sex: MALEDOB: [birth year] MRN: Acct#:Visit Reason: General medical; SLURRED SPEECH Arrival: 12/15/17 13:06:00 Discharge: 12/15/17 15:42:00LOS: 000 02:36 Check In: 12/15/17 13:06:00 Checkout:12/15/17 15:42:00Address:[address] [facility] [address]QAI: JORGE MARIE INFORMATIONProvider Role Assigned UnassignedSven Douglas [...] Complaint from Nursing Triage Note : Chief Lhrnpalzp65/16/18 13:10 EDT Chief Complaint Pt and say [...] HI SpO2 99 % Oxygen Therapy Room air.Vxtnyorrqzsp05/16/18 13:21 EDT Weight Dosing 72.570 kg12/15/17 13:21 [...] Berg from the neuro interventional services at [facility] he was made aware of the patient's diagnostic results, as well as NIH score. He suggested that the patient should go through the emergency room at [facility] for further evaluation. I did inform the patient regarding our desired to have further diagnostic testing. The patient voiced understanding. The patient was insistent on driving. He did sign a request for refusal of transport. I did speak with Dr. Duque in the emergency room at [facility] and she accepted the patient.Impression and PlanDiagnosisTIA (transient ischemic attack) (RQJ69-CL G45.9, Discharge, Medical)PlanCondition: Improved.Disposition: Transfer to other location: Time: 12/15/17 15:22:00, time deemed necessary for transfer: 1400, Facility name: [facility] , Accepted by: Neto .DISCHARGE INFORMATION:Discharge Disposition: Discharge/Transfer to Another HospitalDischarge Location: [facility]PATIENT EDUCATION INFORMATIONInstructions:Follow-Up :DIAGNOSIS:TIA (transient ischemic attack)Patient Understands: Yes - Patient/family/caregiver verbalizes understanding of instructions givenComment: [facility] Noteon 12-15-2017 HIM IP Note OR Computational Scientist [facility] HIM IP Note OR Computational Scientist [facility] HIM IP Note OR Computational Scientist [facility] HIM IP Note OR Computational Scientist [facility] HIM IP Note OR Computational Scientist [facility] HIM IP Note OR Computational Scientist [facility] HIM IP Note OR Computational Scientist [facility] ED Note - Physicianon 2017 ED Note - Physician Patient: JULIO FREEMAN : 67 years Sex: MALE : [birth year]Associated Diagnoses: TIA (transient ischemic attack)Author: Sven Douglas InformationTime seen: Date & time 12/15/17 13:26:00.History source: Patient, significant other.Arrival mode: Private vehicle.History limitation: None.Additional information: Chief Complaint from Nursing Triage Note : Chief Klvajuwgc51/16/18 13:10 EDT Chief Complaint Pt and say [...] HI SpO2 99 % Oxygen Therapy Room air.Didqeledkftj93/16/18 13:21 EDT Weight Dosing 72.570 kg12/15/17 13:21 [...] Berg from the neuro interventional services at [facility] he was made aware of the patient's diagnostic results, as well as NIH score. He suggested that the patient should go through the emergency room at [facility] for further evaluation. I did inform the patient regarding our desired to have further diagnostic testing. The patient voiced understanding. The patient was insistent on driving. He did sign a request for refusal of transport. I did speak with Dr. Duque in the emergency room at [facility] and she accepted the patient.Impression and PlanDiagnosisTIA (transient ischemic attack) (VKR35-ZO G45.9, Discharge, Medical)PlanCondition: Improved.Disposition: Transfer to other location: Time: 12/15/17 15:22:00, time deemed necessary for transfer: 1400, Facility name: [facility] , Accepted by: Nteo .[Electronically Signed on: 12/15/2017 16:18 EDT] Sven Douglas MD[Verified on: 12/15/2017 16:18 EDT] Sven Douglas MD [facility] ED Patient Education Noteon 12-15-2017 ED Patient Education Note Education Materials Normal [facility] ED Patient Summaryon 018 ED Patient Summary [facility] - Emergency [address] [place] [address] pATIENT DISCHARGE INSTRUCTIONSPatient InformationName: JULIO FREEMAN Age: 67 YearsDate of : [birth year]MRN: [id number] For Visit: General medical; SLURRED SPEECHArrival Time: 12/15/17 13:06:00Phone: [facility] Care Physician: Yenifer MARIE Physician: Sven Douglas RComment:Visit Diagnosis:Diagnoses This Visit General medical ([id number]) TIA (transient ischemic attack) (G45.9)If you [...] and treatment you received today in the [facility] Emergency Department were for an urgent problem and are not intended as complete care. It is important for you to follow up with a doctor, nurse practitioner, or physician?s assistant womens volleyball coach for ongoing care. If your symptoms become [...] number so we can reach you if necessary.[facility] Emergency Department has provided you with a complete list of medications post discharge. Please inform your maintenance of way supervisor/provider of your visit and for further instruction [...] Disease Control and Prevention April 2014 Normal [facility] ED Provider Noteon 8 HIM IP Note OR Computational Scientist Normal [facility] Extra Redon 12-15-2017 Tube Collected Yes Invalid Interpretation Code [facility] Comment on above: Performed By: #### [id number], 0412059, 40861358, 6635382, 3985172, 4846412103, 0497525 ####[facility] (DEFAULT)[address] [place] [address] History and Physicalon 12-15 HIM IP Note OR Computational Scientist Normal [facility] PTon 12-15-2017 INR Coag RelTime (PPP) 1.00 {INR} Normal 0.91-1.11 [facility] Comment on above: Performed By: #### [id number], 8953346, 42919433, 6891663, 3609983, 4350546520, 1427258 ####[facility] (DEFAULT)[address] [place] [address] 48647 Prothrombin time (PT) Coag time (PPP) 10.4 second(s) Normal 9.7-11.8 [facility] Comment on above: Performed By: #### [id number], 8160456, 56794121, 3808212, 8996120, 6957466059, 7741448 ####[facility] (DEFAULT)[address] [place] [address] 09768 PTTon 12-15-2017 aPTT 28 second(s) Normal 25-35 [facility] Comment on above: Performed By: #### [id number], 6594932, 66981968, 9329471, 2170990, 4975901012, 6339592 ####[facility] (DEFAULT)[address] [place] [address] 29721 Procedureon 12-15-2017 HIM IP Note OR Computational Scientist Normal [facility] Progress Noteon 12-15-2017 HIM IP Note OR Computational Scientist Normal [facility] HIM IP Note OR Computational Scientist Normal [facility] Rad - Other Radiology Report on 12-15-2017 Rad - Other Radiology Report [id number]#1.00OTGTIFF Normal [facility] TSH w/reflex to FT4on 2017 Thyroid stimulating hormone (TSH) 3.93 m[IU]/L Normal 0.30-5.[address] [facility] Comment on above: Result Comment: [facility] [place], [place] [address] ([phone] Performed By: #### T ROPI, TSHX ####[address] [place] [address] [id number] Telemetry Stripson 8 Telemetry Strips [id number] Tele[facility]ps [id number]#1.00[facility] Transfer Noteon 12-15-2017 Transfer Note Called [facility] for Neuro at 1424. called at 1434 and spoke with .[facility], spoke with , accepted.Patient is going by private car. Pt left at 1542, pt is riding with family.Chart and Cd was sent with pt.Pt had no known home meds.Pt did request to go to [facility] at first.I called for the Hospitalist at 1429.Srinivas the nursing supervisor treating and pumping called at 1440 and said the hospitalist will only accept if Neuro is consulted first.I put out a page for Dr.Danner Feng at 1500.[facility] did not call back, so transfered pt to [facility].[Electronically Signed on: 12/15/2017 15:55 EDT] [facility][Verified on: 12/15/2017 15:55 EDT] [facility], [facility] Troponinon 12-15-2017 Troponin I.cardiac mass conc Normal [facility] Comment on above: Result Comment: Reference Range: <0.03 W ithin reference range. 0.03-0.09 Possible myocardial damage.Repeat at appropriate intervals to rule out chronic elevation. >= 0.10 Indicative of myocardial damage.Patients with high levels of Biotin oral intake (i.e >5mg/day) may have falsely decreased Troponin T levels. Samples collected within 8 hours of biotin intake may require additional information for diagnosis.[facility] [address] [place], [place] [address] ([phone] Performed By: #### T SYED TSHX ####[address] [place] [address] Troponin T.cardiac mass conc ug/L Normal <0.[address] [facility] Comment on above: Result Comment: Troponin T results canno t be compared to Troponin-I results. Performed By: #### T SYED TSHX ####[address] [place] [address] Troponin Ion 12-15-2017 Troponin I.cardiac mass conc ng/mL Normal <=0.03 [facility] Comment on above: Performed By: #### [id number], 9748997, 85596381, 3624467, 3566496, 9002849631, 1338280 ####[facility] (DEFAULT)[address] [place] [address] PROGRESSon 12-10-2017 Protein mass conc HNO ID: [id number]: Penny Boswellervice: (none)Author Type: PhysicianType: Progress NotesFiled: [...] stage T Stage: T1c, initialPSA 3.51, biopsy Loma score 3 + 4 = 7 (grade group 2)Overall doing well. PSA with stable response. He has continuedfollow-up with urology.PLAN: We will see him again in 6 months with a PSA level.Signed by: Penny Boswell, [facility]:Regino Marie MD[address] [facility] [place] [address]Qsdgh: [phone]: [phone] Normal [facility] CNOVon 12-07-2017 CNOV Office Visit (DORIA) JULIO FREEMAN ([id number]) 1950 MDate Time Provider Department12/07/17 2:30 PM Penny BOSWELL During your visit today, we recorded the following information about you: Blood pressure Weight 126/72 75.8 Vikki Rollins (Rn), RN 12/07/2017 2:45 PM SignedBertha Howe G Phillip 12/10/2017 8:41 AM SignedRadiation Oncology - Follow Up NotePATIENT NAME: Julio Michelle : Prostate adenocarcinoma, clinical stage T Stage: T1c, initial PSA3.51, biopsy Loma score 3 + 4 = 7 (grade [...] with a PSA level.Signed by: Penny Boswell, [facility]:Regino Marie MD[address] [facility] [place] [address]Xvfvc: [phone]: [phone] Provider: Penny BOSWELL [[id number]]Allergies As of Date: 12/07/2017(No Known Allergies)Date Reviewed: 06/08/2017Reviewed by: Ashlee Jennings - Fully AssessedReason for Visit: Prostate Cancer [590]Primary Visit Diagnosis:Prostate cancer (HCC) [C61]Order(s):PSA/PROSTSPECAG DIAG [SQPSA] Order #: [id number] FUTUREProblem List As Of Date 12/07/2017 Noted Resolved Prostate cancer (HCC) [C61] INVALID FOR*Visit Notes:>> Vikki Cannon (Rn), RN Tusteven December 07, 2017 2:30 PM Status: SignedAUA 7Avj Cannon RNMedications Discontinued During This Encounter tamsulosin ER (FLOMAX) 0.4 mg cp24 05/18/2016 12/07/2017 Class: Historical Med Sig: Disc: Course of therapy completedDisposition: Return in about 6 months (around 06/09/2018).Follow-up and Disposition History RecordedEncounter Number: [id number] Status:Closed by Penny BOSWELL MD on 12/10/17 Normal [facility] Vital Signs Date Time Vital Sign Value Performing Clinician Facility 10-30-2024 09:07-0400 Body height 167.6 cm Helio Freeman [employer] Work Phone: [facility] 10-30-2024 09:07-0400 Body mass index (BMI) [Ratio] 26.63 kg/m2 Helio Freeman [employer] Work Phone: [facility] 10-30-2024 09:07-0400 Body weight 74.84 kg Helio Freeman [employer] Work Phone: [facility] 08-21-2024 09:13-0500 Blood Pressure Location Alinejim TENA [facility] 08-21-2024 09:13-0500 Body temperature 98.6 [degF] Aline TENA [facility] 08-21-2024 09:13-0500 Diastolic blood pressure 79 mm[Hg] Aline TENA [facility] 08-21-2024 09:13-0500 Heart rate 69 /min Aline TENA [facility] 08-21-2024 09:13-0500 Respiratory rate 17 /min Aline TENA [facility] 08-21-2024 09:13-0500 Systolic blood pressure 131 mm[Hg] Aline TENA [facility] 08-23-2023 08:58-0500 Blood Pressure Location Aline TENA [facility] 08-23-2023 08:58-0500 Diastolic blood pressure 81 mm[Hg] Aline TENA [facility] 08-23-2023 08:58-0500 Heart rate 72 /min Aline TENA [facility] 08-23-2023 08:58-0500 Respiratory rate 16 /min Aline TENA [facility] 08-23-2023 08:58-0500 Systolic blood pressure 131 mm[Hg] Aline TENA [facility] 08-24-2022 09:11-0500 Blood Pressure Location Aline TENA [facility] 08-24-2022 09:11-0500 Diastolic blood pressure 84 mm[Hg] Aline TENA [facility] 08-24-2022 09:11-0500 Heart rate 67 /min Aline TENA [facility] 08-24-2022 09:11-0500 Respiratory rate 16 /min Aline TENA [facility] 08-24-2022 09:11-0500 Systolic blood pressure 140 mm[Hg] Aline TENA [facility] Encounters Encounter Date Encounter Type Care Provider Facility Start: 01-08-2025 ambulatory Aline TENA Facili ty:[facility] Start: 10-30-2024 End: 10-30-2024 Patient encounter procedure Helio Freeman DO Work Phone: [facility] Comment on above: Left knee pain, unsp ecified chronicity (Primary Dx) Start: 10-30-2024 End: 10-30-2024 ambulatory HELIO FREEMAN Not Available Start: 09-14-2024 End: 09-14-2024 ambulatory Aline TENA Facility:CD:[id number] Start: 08-21-2024 End: 08-21-2024 ambulatory Aline TENA Facility:[facility] Start: 08-21-2024 End: 08-21-2024 Patient encounter procedure Aline TENA [facility] Start: 08-23-2023 End: 08-23-2023 Patient encounter procedure Aline TENA [facility] Start: 08-31-2022 End: 09-01-[address] ALINE TENA Facility:[facility] Start: 08-24-2022 End: 08-24-2022 Patient encounter procedure Aline TENA [facility] Start: 07-29-2022 End: 07-30-[address] ALINE TENA Facility:[facility] Start: 09-25-2021 End: 09-25-[address] ALINE TENA Facility:[facility] Start: 09-23-2021 Encounter for preprocedural laboratory examination DR ALINE TENA [facility] Start: 09-22-2021 End: 09-23-[address] ALINE TENA Facility:[facility] Start: 09-22-2021 End: 09-23-2021 Encounter for preprocedural laboratory examination DR ALINE TENA Facility:[facility] Start: 06-07-2018 End: 06-10-2018 [facility] Start: 04-07-2018 End: 04-08-2018 Patient encounter MONIKA BOWMAN Facility:[facility] Start: 03-14-2018 End: 03-15-2018 Patient encounter DEFAULT PHYSICIAN Facility:[facility] Start: 12-15-2017 End: 12-15-2017 Emergency department patient visit REGINO MARIE Facility:[facility] Start: 12-15-2017 End: 12-16-2017 Ambulatory Tristin Penaloza Facility:[facility] Start: 12-07-2017 End: 12-13-2017 Patient encounter procedure G NICHOLAS [facility] Procedures Date Procedure Procedure Detail Performing Clinician Start: 10-30-2024 Arthrocentesis aspir &/inj major jt/bursa w/o us Helio Freeman DO Work Phone: Start: 10-30-2024 Radiologic examinati on knee 1/2 views Helio Freeman DO Work Phone: Start: 07-29-[address] ARCHANA TENA Comment on above: Performed By: #### C ITRATU #### [facility] [address] [place] [address] Dr. Angelica Chauhan Start: 09-25-2021 Extracorporeal shock [...] MARIE Start: 12-15-2017 TSH WITH REFLEX REGINO LACEYLana GHLavern Start: 12-15-2017 ADVANCE DIET TOLE RATED (NURSING COMMUNICATION) REGINO MARIE Start: 12-15-2017 ASPIRATION PRECAUTIONS REGINO MARIE Start: 12-15-2017 INITIATE OXYGEN THER APY PROTOCOL REGINO MARIE Start: 12-15-2017 IP CONSULT TO NEUROLOGY REGINO MARIE Start: 12-15-2017 NEURO CHECKS REGINO MARIE Start: 12-15-2017 NURSING SWALLOW ASSESSMENT REGINO MARIE Start: 12-15-2017 OT EVAL AND TREAT REGINO Laura Start: 12-15-2017 PROVIDE PATIENT EDUC ATION MATERIALS REGINO MARIE Start: 12-15-2017 PT EVAL AND TREAT REGINO Sanchez Start: 12-15-2017 REASON FOR NOT SELEC TING ANTILIPEMIC REGINO MARIE Start: 12-15-2017 TELEMETRY MONITORING MARLENY Guzman MARIE Start: 12-15-2017 VITAL SIGNS REGINO MARIE Start: 12-15-2017 VITAL SIGNS - NOTIFY MD REGINO MARIE Start: 12-15-2017 Ct angiography head w/contrast/noncontrast REGINO MARIE Start: 12-15-2017 Ct angiography neck w/contrast/noncontrast REGINO MARIE Start: 12-15-2017 EKG 12-LEAD REGINO MARIE Start: 12-15-2017 PATIENT STATUS (FROM ED OR OR/PROCEDURAL) REGINO MARIE Start: 12-15-2017 IP CONSULT TO FURNITURE REMOVALIST'S ASSISTANT AL MEDICINE REGINO MARIE Start: 12-15-2017 IP CONSULT TO STROKE TEAM REGINO MARIE Start: 04-16-2016 Implantation of radi oactive seed into prostate Aline TENA Start: 03-01-2016 History of external beam radiation therapy Aline TENA Start: 12-12-2015 Cystoscopy and transurethral resection of bladder tumor Aline TENA Start: 12-10-2015 Transrectal biopsy o f prostate using ultrasound guidance Aline TENA Start: 10-24-2009 Colonoscopy Helio kamara DO Work Phone: Start: 10-24-2009 Colonoscopy Aline CARRERA Plan of Treatment Date Care Activity Detail Author Start: 12-11-2024 End: 12-11-2024 Patient encounter procedure 12/11/2024 8:45 AM EDT Office Visit [facility] [address] [place] [id number] Helio Freeman DO [address] [place] [address] [facility] Start: 04-02-2024 Influenza vaccination Influenza Vacc ine (#1) [facility] Start: 07-07-2020 Pneumococcal Vaccine : 65+ Years (2 of 2 - PPSV23 or PCV20) Pneumococcal Vaccine: 65+ Years (2 of 2 - PPSV23 or PCV20) [facility] Start: 10-25-2019 Screening for malign ant neoplasm of colon [facility] Start: 1950 Screening for malign ant neoplasm of colon [facility] Immunizations Immunization Date Immunization Notes Care Provider Fa cility 07-17-2021 SARS-CoV-2 (COVID-19 ) mRNA BNT-162b2 vax Aline TENA [facility] Comment on above: Result Comment: 2022: [id number] 09-28-2020 SARS-CoV-2 (COVID-19 ) mRNA BNT-162b2 vax [facility] Comment on above: Result Comment: 2022: [id number] 09-07-2020 SARS-CoV-2 (COVID-19 ) mRNA BNT-162b2 vax [facility] Comment on above: Result Comment: 2022: [id number] 08-02-2020 SARS-CoV-2 (COVID-19 ) mRNA BNT-162b2 vax [facility] Comment on above: Result Comment: Pt narayan shoemaker he has had 3 shots to date 07-07-2019 influenza virus vaccine, unspecified formulation [facility] 07-07-2019 pneumococcal conjuga te vaccine, 13 valent [facility] 08-03-2017 influenza virus vaccine, unspecified formulation [facility] 06-10-2016 influenza virus vaccine, unspecified formulation [facility] NEGATED: Highlighted row has not occurred!08-26-2020 influenza virus vaccine, unspecified formulation [facility] Payers Date Payer Category Payer Medicare (Managed Care) [employer] M EDICARE ADVANTAGE [id number] 2024 Private Health Insurance [id number] 2014 Medicare [id number] 1959 Medicare [id number] 1959 Private Health Insurance CLI [id number] 1950 Unknown [id number] .[id number] 1949 Unknown [id number] .[id number] 1949 Unknown [id number] [id number] .2.593 1949 Unknown [id number] [id number] .2.593 1949 Unknown [id number] [id number] .2.593 1949 Unknown [id number] [id number] .2.727 1949 Unknown [id number] [id number] .2.727 1949 Unknown [id number] [id number] .2.727 1949 Unknown [id number] .2.1259 1949 Unknown [id number] .[id number] Unknown Social History Date Type Detail Facility Start: 08-24-2022 End: 10-30-2024 Tobacco smoking status Never smoked tobacco (finding) [facility] Tobacco smoking status Never [facility] Start: 10-30-2024 Sex Assigned At Male F [facility] Start: 10-30-2024 Tobacco use and exposure Smokeless tobacco non-user [facility] Start: 10-30-2024 History of Social function [facility] Start: 1950 Sex assigned at Not on file [facility] Functional Status Date Assessment Result Facility 08-21-2024 Functional Status N/A [facility] 08-23-2023 Functional Status N/A [facility] 08-24-2022 Functional Status N/A [facility] History of Present illness Narrative 10-30-2024 Helio Freeman, DO - 10/30/2024 8:45 AM EDT Note Date & Type Note Facility 10-30-2024 History of Presen t illness Narrative Associated Order(s): L Inj/Asp: L knee Post-Procedure Diagnose(s): Left knee pain, unspecified chronicity Images from the original note were not included. @ENCDATE@ Downey Lulu Henrik is a 74 y.o. male who presents for Pain of the Left Knee HPI: History of Present Illness The patient is a 74-year-old male who presents as a new patient today for evaluation of left knee pain. He reports an incident of playing golf with his son and a few friends during a visit to [place], after which he experienced mild discomfort in his left knee. This occurred on 09/30/2024. By the second week of September 2024, the pain had escalated to the point where he was unable to bear weight on the affected leg, necessitating the use of a cane. Initially, the pain was located in the posterior aspect of the knee but has since migrated to the medial side. He also reports a pulling sensation in the back of his knee when stepping up into a truck, which occurred twice within a week but subsequently resolved. Over the past month, there has been a gradual improvement in his condition, although he experienced a resurgence of pain today. He reports minimal swelling and has been applying ice to the area, although he is uncertain of its efficacy. He has no prior history of knee-related issues. He has been managing the pain with ibuprofen for the past few days, but its effectiveness remains unclear. Current: ibuprofen SUBJECTIVE: MEDICATIONS: Current Outpatient Medications Medication Instructions aspirin 81 MG EC tablet 1 tablet, Oral, Daily rosuvastatin (Crestor) 10 MG tablet ALLERGIES: No Known Allergies SURGICAL HISTORY: Past Surgical History: Procedure Laterality Date CT ANGIO HEAD 12/15/2017 CT ANGIO HEAD 12/15/2017 CT ANGIOGRAM NECK 12/15/2017 CT ANGIOGRAM NECK 12/15/2017 FAMILY HISTORY: No family history on file. SOCIAL HISTORY: Social History Tobacco Use Smoking status: Never Smokeless tobacco: Never Depression: Not on file REVIEW OF SYMPTOMS: Review of Systems The review of systems, history and current medications list are all reviewed today. OBJECTIVE: Visit Vitals Ht 5' 6 Wt 165 lb BMI 26.63 kg/m Smoking Status Never BSA 1.87 m Physical Exam Alert and oriented, no acute distress. Mood and affect are appropriate. Ambulating independently. Gait is antalgic. Both knees have full extension and flexion to 135 degrees. Both knees have prominent lateral facets of the patella. LEFT KNEE The skin is warm, dry and intact. There is no effusion, no erythema. Good quadriceps bulk and tone. There is tenderness over the medial joint line of the left knee.No cruciate or collateral instability. positive Aarti's. RIGHT KNEE The skin is warm, dry and intact. There is no effusion, no erythema. Full flexion and extension. Good quadriceps bulk and tone. There is no tenderness at the patellofemoral joint, medial or lateral joint line, patellar tendon, femoral condyles or proximal tibia. No cruciate or collateral instability. Negative Aarti's. Ortho Exam Results Imaging 2 views, bilateral PA weight-bearing, sunrise of the bilateral knee(s) taken today and saved to the permanent medical record are reviewed. AP/lateral/oblique 10/17/2024 reviewed. Bipartite patella bilaterally. Mild medial compartment joint space narrowing. ASSESSMENT AND PLAN: I reviewed the history, physical exam, diagnostic studies, and diagnosis with the patient. Assessment & Plan 1. Degenerative osteoarthrosis, medial meniscus tear, left knee A cortisone injection was administered today to reduce inflammation and alleviate pain. He was advised to continue using ibuprofen as needed, ensuring it is taken with food to minimize gastrointestinal side effects. If the cortisone injection does not provide relief, further evaluation and treatment options will be considered. After informed consent and using sterile technique, the superolateral aspect of the left knee(s) was prepped with alcohol and Betadine. The skin was anesthetized with ethyl chloride and the knee was then injected with a mixture of 1.5 mL of betamethasone and 1.5 mL of 1% plain lidocaine with a 25-gauge 1 1/2 inch needle. The patient tolerated this well. A Band-Aid was applied. The patient was instructed to ice the knee and to watch for any signs of infection including redness, increased pain in the knee, drainage from the injection site, fever, chills, etc. The patient was instructed to call the office if he/she experiences any adverse reaction from the injection. Follow up in 6 weeks. A total of 45-59 minutes was spent on this patient encounter which included chart review, check in, nurse triage, history taking, physical examination, diagnostic study review, patient counseling and discussion, entering information into the patient's medical record, and coordinating patient care. Diagnoses and all orders for this visit: Left knee pain, unspecified chronicity - XR knee 1 or 2 views left - L Inj/Asp: L knee Helio Freeman D.O. Attestation This note was created using voice recognition through [employer]. L Inj/Asp: L knee on 10/30/2024 9:34 AM Indications: diagnostic evaluation Details: 25 G needle Medications: 6.5 mg betamethasone acetate-betamethasone sodium phosphate 6 (3-3) MG/ML Outcome: tolerated well, no immediate complications Consent was given by the patient. documented in this encounter [facility] Discharge instructions 08-21-2024 Note Date & Type Note Facility 08-21-2024 Hospital Discharg e instructions Patient Education 08/21/2024 10:04:35 Kidney Stones, Jjos-bo-Ruzs Kidney Stones Kidney stones are rock-like masses [...] Follow these instructions at home: Medicines Take camz-sqx-ukuegbe and prescription medicines only as told by [...] provider. Document Revised: 03/12/2023 Document Reviewed: 03/12/2023 [employer] Patient Education 2023 [employer]. Follow Up Care 08/23/2023 09:41:41 With:EMILY BRUCE, Aline Miller, URL Address: [facility] [address] , [place] [phone] When: Unknown Comments:f/u pending CT scan results [facility] Clinical Note 08-21-2024 Note Date [...] these instructions at home: Medicines ??? Take wgsu-nii-nmxjugb and prescription medicines only as told by [...] provider. Document Revised: 03/12/2023 Document Reviewed: 03/12/2023 [employer] Patient Education ? 2023 [employer] [facility] Hospital Discharge instructions 08-23-2023 Note Date & [...] include: ?8 oz (237 mL) of milk, fhharyg-qtsczuxblijl-xdgbl milk, and calcium-fortifiedfruit juice. Calcium-fortified means that [...] ?Spinach (cooked), rhubarb, beets, sweet potatoes, and Algerian chard. ?Peanuts. ?Potato chips, armenian fries, and baked potatoes with skin on. ?Nuts and nut products. ?Chocolate. If you regularly take a diuretic medicine, make sure to eat at least 1 or 2 servings of fruits or vegetables that are high in potassium each day. These include: ?Avocado. ?Banana. ?[place], prune, carrot, or tomato juice. ?Baked potato. [...] magnesium, fish oil, or vitamin B6. Take vgvr-pob-nwvtyjj and prescription medicines only as told by [...] Casseroles. Pizza. Lasagna. Frozen meals. Potato chips. Malay fries. The items listed above may not [...] provider. Document Revised: 10/29/2022 Document Reviewed: 10/29/2022 [employer] Patient Education 2022 [employer]. Follow Up Care 08/24/2022 09:47:59 With:EMILY BRUCE, Aline Miller, DILIAL Address: [facility] [address], [place] [address]- When:Within 1 Year(s) Comments:w/CYNTHIA and FERMÍN [facility] Hospital Discharge instructions 08-24-2022 Note Date [...] include: ?Spinach. ?Rhubarb. ?Beets. ?Potato chips and armenian fries. ?Nuts. If you regularly take a diuretic medicine, make sure to eat at least 1 2 fruits or vegetables high in potassium each day. These include: ?Avocado. ?Banana. ?[place], prune, carrot, or tomato juice. ?Baked potato. [...] Casseroles. Pizza. Lasagna. Frozen meals. Potato chips. Malay fries. Summary You can reduce your risk [...] 11/13/2011 Document Revised: 11/08/2019 Document Reviewed: 06/29/2017 [employer] Patient Education 2019 [employer] Follow Up Care 08/22/2021 08:41:01 With:Aline TENA MD, URL Address: [facility] [address], [place] [address]- When: Unknown [facility] Res[facility] Evaluation + Plan note Note Date & Type Note Facility Evaluation + Plan note Future Appointments Appointment Date:11/23/2022 08:45:00 AM Scheduled Provider:Aline TENA MD Location:[facility] Appointment Type:URO Office Visit Appointment Date:08/23/2023 08:45:00 AM Scheduled Provider:Aline TENA MD Location:[facility] Appointment Type:URO Office Visit Diagnostic Tests PendingPSA Total 08/24/22 [facility] [place] Res[facility] Evaluation + Plan note Note Date & Type Note Facility Evaluation + Plan note Future Appointments Appointment Date:08/21/2024 08:45:00 AM Scheduled Provider:Aline TENA MD Location:[facility] Appointment Type:URO Office Visit Diagnostic Tests PendingPSA Total 08/23/23 [facility] [place] Res[facility] Evaluation note Note Date & Type Note Facility Evaluation note Diagnosis Left knee pain, unspecified chronicity- Primary documented in this encounter [facility] Hospital course Narrative Note Date & Type Note Facility Hospital course Narrative No data available for this section [facility] [employer] Progress note Note Date & Type Note Facility Progress note No data available for this section [facility] [employer] Summary Purpose Family History No Family History Records FoundNo Family History Records FoundNo Family History Records FoundNo Family History Records FoundNo Family History Records Found No data available for this section No data available for this section No Family History Records FoundNo Family History Records Found Advance Directives No [...] section and content) DATE CREATED AUTHOR 01/19/2018 [facility] DATE CREATED AUTHOR AUTHOR'S ORGANIZ ATION 01/22/2018 [facility] DATE CREATED AUTHOR AUTHOR'S ORGANIZ ATION 04/24/2018 [facility] DATE CREATED AUTHOR AUTHOR'S ORGANIZ ATION 07/10/2018 [facility] DATE CREATED AUTHOR AUTHOR'S ORGANIZ ATION 09/08/2022 [facility] DATE CREATED AUTHOR AUTHOR'S ORGANIZ ATION 10/25/2024 [facility] DATE CREATED AUTHOR AUTHOR'S ORGANIZ ATION 10/30/2024 [facility] EPIC Patient Care team informatio n (unrecognized section and content) 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 [facility] [employer] [facility]. provides no warranty or guarantee of the accuracy or completeness of information in this document.
== END 2024-10-31 08:40 | disposition home or self-care (01) ==
LOC: LAB 08:41
PROVIDERS: PCP Nurse Practitioner Family; Visit Provider Urology
DX: N20.0 Calculus of kidney (principal)
CPT/HCPCS: 74018

== ENCOUNTER 2024-11-02 12:28 | Outpatient (OUT) | payer MEDICARE, SELFPAY ==
[2024-11-02 13:02] LABS: Calcium 9.2 mg/dL (8.5-10.1); Carbon Dioxide 27.8 mmol/L (21.0-32.0); Chloride 104 mmol/L (98-107); Estimated GFR (African America >60 (>=60 mL/min/1.73m^2); Estimated GFR (Non-African Ame >60 (>=60 mL/min/1.73m^2); Sodium 141 mmol/L (136-145); Uric Acid 6.6 mg/dL (3.5-7.2)
[2024-11-02 13:59] LABS: Calcium Urine Random 9.7 mg/dL (5.1-21.0); Creatinine Urine Random 57.84 mg/dL (20.00-300.00); Sodium Urine Random 75 mmol/L (30-90)
[2024-11-02 14:00] LABS: Calcium 24 Hour Urine 375.9 mg/24hr (100.0-300.0); Sodium 24 Hour Urine 291 mmol/24h (40-220); Total Volume 24 Hour Urine 3875 mL/24hr
[2024-11-03 04:09] LABS: Uric Acid,Urine 24hr 1046.3 mg/24 hr (136.1-771.1)
[2024-11-03 11:10] LABS: PTH, Intact 48 pg/mL (15-65)
[2024-11-03 13:10] LABS: Magnesium, U 4.8 mg/dL (Not Estab.); Phosphorus, Urine 30.6 mg/dL (Not Estab.); Phosphorus,Urine 24h 1186 mg/24 hr (390-1425)
== END 2024-11-02 12:29 | disposition home or self-care (01) ==
LOC: LAB 12:28
PROVIDERS: PCP Nurse Practitioner Family; Visit Provider Urology
DX: N20.0 Calculus of kidney (principal)
CPT/HCPCS: 36415; 82310; 82340; 82374; 82435; 82507; 82565; 82570; 83735; 83945; 83970; 84100; 84105; 84295; 84300; 84520; 84550; 84560